=== PATIENT | male | born 1950 | race Caucasian/White ===

== ENCOUNTER 2023-03-08 11:44 | Inpatient (IN) | payer OTHER ==
--- OUTSIDE RECORDS SUMMARY | 2023-03-08 11:47 | XMS REPORT | Continuity of Care Document ---
Author Name Unknown Address [address] [facility] [address] [place] [address] [facility] Address [address] [facility] [address] [place] [address] Care Team Providers Care Library Consultant Name Role Phone Pcp, Patient Does Not Have A Primary Care Physic didier Francine Levine Attending Clinician Unknown, Attending Attending Clinician Unavailab FRANCINE Zhu Attending Clinician Unavailable Allergies, Adverse Reactions, Alerts Allergy Name Allergy Type Status Severity Reaction(s) Onset Date Inactive Date Treating Clinician Comments Source Penicill ins Propensi ty to adverse reaction s Active Other - See comments 2022-02 00:00: 00 Pale, shaky, dizzy [facility] PENICILL INS Drug Class Active Other-Cmnt 2022-02 00:00: 00 [facility] NO KNOWN ALLERGIE S Drug Class Active [facility] Social History Social Habit Start Date Stop Date Quantity Comments Source History of tobacco use Current smoker [facility] Sexual orientation [facility] History of Social function 2023-01-20 00:00:00 2023-01-20 00:00:00 [facility] Sex Ass[birth year] At 1950 00:00:00 1950 00:00:00 [facility] Smoking Status Start Date Stop Date Source Ex-smoker 2023-01-20 00:00:00 2023-01-20 00:00:00 [facility] Medications Ordered Medication Name Filled Medication Name Start Date Stop Date Current Medication? Ordering Clinician Indication Dosage Frequency Signature (SIG) Comments Components Source doxycycline hyclate 100 mg tablet 2022-02 00:00: 00 01-31 05:59 :00 Yes [id number] 100mg Take 1 tablet by mouth in the morning and 1 tablet in the evening. Do all this for 10 days. [facility] doxycycline hyclate 100 mg tablet 2022-02 00:00: 00 01-31 05:59 :00 Yes [id number] 100mg Take 1 tablet by mouth in the morning and 1 tablet in the evening. Do all this for 10 days. [facility] doxycycline 100 mg capsule 10-27 00:00: 00 Yes 100mg Take 1 capsule by mouth 2 (two) times daily. [facility] doxycycline 100 mg capsule 10-27 00:00: 00 Yes 100mg Take 1 capsule by mouth 2 (two) times daily. [facility] Vital Signs Vital Name Observation Time Observation Value Comments S ource Systolic blood pressure 2023-01-20 23:24:00 166 mm[Hg] [facility] Diastolic blood pressure 2023-01-20 23:24:00 88 mm[Hg] [facility] Heart rate 2023-01-20 23:21:00 82 /min [facility] Body temperature 2023-01-20 23:21:00 36.83 Meena [facility] Respiratory rate 2023-01-20 23:21:00 18 /min [facility] Body height 2023-01-20 23:21:00 177.8 cm [facility] Body weight 2023-01-20 23:21:00 91.428 kg [facility] BMI 2023-01-20 23:21:00 28.92 kg/m2 [facility] Oxygen saturation in Arterial blood by Pulse oximetry 2023-01-20 23:21:00 96 /min [facility] Encounters Start Date/Time End Date/Time Encounter Type Admission Type Attending Clinicians Care Facility Care Department Encounter ID Source 2023-01-26 00:00:00 2023-01-26 00:00:00 Telephone Francine Reaves [facility] [id number] [facility] 2023-01-20 16:40:00 2023-01-20 17:00:00 Urgent Care Francine Reaves Unknown, Attending [facility] [id number] [facility] 2023-01-20 16:40:00 2023-01-20 16:40:00 Outpatient R FRANCINE REAVES [facility] [id number] [facility]
[2023-03-08] MEDS ORDERED: ASPIRIN 81 MG CHEWABLE TABLET ONE ×2 (12:22→13:26)
[2023-03-08] MEDS ORDERED: NA CHLORIDE 0.9% 500 ML ONE (12:22)
[2023-03-08 12:35] LABS: Absolute Lymphocytes (CBC) 2.5 K/uL (0.7-4.9); Hematocrit 44.3 % (39.6-49.0); Lymphocytes % 29.6 % (15.3-44.8); MCV 86.6 fL (80-100); MPV 8.5 fL (7.6-11.3); Platelets 211 thou/uL (152-406); RBC Red Blood Cell Count 5.12 M/uL (4.33-5.43)
[2023-03-08 12:43] LABS: Protime INR 1.05
[2023-03-08 13:02] LABS: Albumin 3.9 g/dL (3.4-5.0); Bilirubin Direct 0.2 mg/dL (0-0.2); Bilirubin Indirect, Calculated 0.5 mg/dL (0.2-0.8); Bilirubin Total 0.7 mg/dL (0.2-1.0); Magnesium 2.2 mg/dL (1.6-2.4); Potassium 3.8 mEq/L (3.5-5.1); Protein, Total 7.8 g/dL (6.4-8.2)
[2023-03-08 13:07] LABS: Troponin High Sensitivity 309.3 pg/mL (<58.9)
[2023-03-08] MEDS ORDERED: ONDANSETRON 4 MG/2 ML VIAL ONE (13:25)
[2023-03-08] MEDS ORDERED: HEPARIN 5000 UNIT/ML 1 ML VIAL ONE ×2 (13:26→22:38)
[2023-03-08] MEDS ORDERED: CLOPIDOGREL 75 MG TABLET ONE (13:26)
[2023-03-08] MEDS ORDERED: METOPROLOL TARTRATE 5 MG/5 ML INJ IV ONE (13:26)
[2023-03-08] MEDS ORDERED: METOPROLOL TAR 50 MG TAB ONE ×2 (13:26→21:37)
[2023-03-08] MEDS ORDERED: ATORVASTATIN 20 MG TAB ONE (13:26)
[2023-03-08] MEDS ORDERED: FAMOTIDINE 20 MG/2 ML VIAL IV ONE (13:27)
[2023-03-08] MEDS ORDERED: HEPARIN/D5W 25,000 UNIT/500 ML BAG IV ONE (13:27)
[2023-03-08] MEDS ORDERED: MORPHINE 2 MG/ML SYR ONE (13:27)
--- NOTE | 2023-03-08 13:31 | RAD REPORT ---
EXAM DESCRIPTION: RAD - Chest Single View - 03/08/2023 1:09 pm CLINICAL HISTORY: CHEST PAIN Chest pain. COMPARISON: No comparisons FINDINGS: Portable technique limits examination quality. The lungs are grossly clear. The heart is normal in size. No displaced fractures. IMPRESSION: No acute intrathoracic process suspected.
--- NOTE | 2023-03-08 13:32 | ER ---
Nurse's Notes [facility] Name: Devyn Trejo Age: 72 yrs Sex: Male : 1950 Arrival Date: 03/08/2023 Time: 11:44 Bed 6 Private MD: Diagnosis: Non ST elevation CA;Chest pain, unspecified;Angina pectoris, unspecified;Essential (primary) hypertension Presentation: 03/08 12:06 Chief complaint: Patient states: he started having centered chest pain "a few days ago" ap3 of which he rates a 1/10 on the pain scale at this time. patient also reports that his arms "have been feeling funny" since the onset of this sensation in his chest. Patient reports he was treated for a sinus infection approx one month, and he has had a cough since. Coronavirus screen: At this time, the client does not indicate any symptoms associated with coronavirus-19. Ebola Screen: No symptoms or risks identified at this time. Initial Sepsis Screen: Does the patient meet any 2 criteria? HR > 90 bpm. Does the patient have a suspected source of infection? No. Patient's initial sepsis screen is negative. Risk Assessment: Do you want to hurt yourself or someone else? Patient reports no desire to harm self or others. Onset of symptoms was March 05, 2019. 12:06 Method Of Arrival: Ambulatory ap3 12:06 Acuity: KEN 2 ap3 Triage Assessment: 12:09 General: Appears in no apparent distress. Behavior is calm, cooperative, appropriate ap3 for age. Pain: Complains of pain in mid-sternal area Pain currently is 1 out of 10 on a pain scale. Pain began gradually, 2-3 days ago. Neuro: Level of Consciousness is awake, alert, obeys commands, Oriented to person, place, time, situation, Appropriate for age. Cardiovascular: Reports chest pain. Respiratory: Reports cough that is Airway is patent Respiratory effort is even, unlabored, Respiratory pattern is regular, symmetrical. Historical: - Allergies: 13:33 PENICILLINS; nj1 - Home Meds: 12:08 None [Active]; ap3 - PMHx: 12:08 None; ap3 - Immunization history:: Client reports receiving the 2nd dose of the Covid vaccine, Flu vaccine is not up to date. - Social history:: Smoking status: Patient denies any tobacco usage or history of. Screenin:09 [facility] ED Fall Risk Assessment (Adult) History of falling in the last 3 months, ap3 including since admission No falls in past 3 months (0 pts). Abuse screen: Denies threats or abuse. Nutritional screening: No deficits noted. Tuberculosis screening: No symptoms or risk factors identified. Assessment: 12:30 Reassessment: See triage assessment. Pain: Complains of pain in chest, right bicep and nj1 left bicep Pain currently is 1 out of 10 on a pain scale. 13:33 Reassessment: Patient appears in no apparent distress at this time. No changes from banner previously documented assessment. Patient and/or family updated on plan of care and expected duration. Pain level reassessed. Patient is alert, oriented x 3, equal unlabored respirations, skin warm/dry/pink. 14:00 Reassessment: Patient appears in no apparent distress at this time. No changes from banner previously documented assessment. Patient and/or family updated on plan of care and expected duration. Pain level reassessed. Patient is alert, oriented x 3, equal unlabored respirations, skin warm/dry/pink. 16:37 Pain: Pain radiates to left arm and right arm. ko1 03/09 09:57 Pain: Denies pain. ko1 Vital Signs: 03/08 12:06 BP 152 / 93; Pulse 97; Resp 17; Temp 98.2; Pulse Ox 100% ; Weight 90.72 kg; Height 5 ap3 ft. 10 in. ; Pain 1/10; 12:39 BP 153 / 82; Pulse 93; Resp 22; Pulse Ox 94% on R/A; nj1 13:32 BP 166 / 91; Pulse 86; Resp 18; Pulse Ox 98% on R/A; Pain 2/10; nj1 13:46 BP 164 / 87; Pulse 93; Resp 16; Pulse Ox 98% on R/A; nj1 14:00 BP 162 / 82; Pulse 79; Resp 16; Pulse Ox 97% ; nj1 12:06 Body Mass Index 28.70 (90.72 kg, 177.8 cm) ap3 12:06 Pain Scale: Adult ap3 13:32 Pain Scale: Adult nj1 ED Course: 11:49 Patient arrived in ED. gm2 12:08 Carter Johnson MD is Attending Physician. gloria 12:08 Triage completed. ap3 12:09 Arm band placed on left wrist. ap3 12:09 Patient maintains SpO2 saturation greater than 95% on room air. ap3 12:12 Patria Mayberry, RN is Primary Nurse. ko1 12:16 Primary Nurse role handed off by Patria Mayberry, RN nj1 12:16 Alicia Johnson, RN is Primary Nurse. nj1 12:22 Basic Metabolic Panel Sent. ko1 12:22 CBC with Diff Sent. ko1 12:22 LFT's Sent. ko1 12:22 Magnesium Sent. ko1 12:22 NT PRO-BNP Sent. ko1 12:22 Troponin HS Sent. ko1 12:22 PT-INR Sent. ko1 12:22 Lipase Sent. ko1 12:38 Inserted saline lock: 22 gauge in right antecubital area, using aseptic technique. ds4 Blood collected. 12:41 Patient has correct armband on for positive identification. Bed in low position. Call nj1 light in reach. Adult w/ patient. Provided Education on: call light, fall precautions. Client placed on continuous cardiac and pulse oximetry monitoring. NIBP monitoring applied. 13:07 Notified ED physician of a critical lab result(s). troponin 309.3. ll1 13:10 XRAY Chest (1 view) In Process Unspecified. EDMS 13:28 Inserted saline lock: 22 gauge in left forearm, using aseptic technique. ds4 13:30 Moses Jaramillo MD is Hospitalizing Provider. gloria 14:18 Troponin High Sensitivity Sent. ko1 16:37 No provider procedures requiring assistance completed. ko1 21:00 Patient admitted, IV remains in place. km8 03/09 07:21 Ptt, Activated Sent. ko1 07:23 Ptt, Activated Sent. ko1 07:23 Ptt, Activated Sent. ko1 07:23 Ptt, Activated Sent. ko1 07:23 Ptt, Activated Sent. ko1 Administered Medications: 03/08 12:23 Drug: Aspirin PO 162 mg PO once Route: PO; nj1 13:00 Follow up: Response: No adverse reaction nj1 12:33 Drug: NS 0.9% IV 500 ml IV at bolus once Route: IV; Rate: bolus; Site: right nj1 antecubital; 13:00 Follow up: IV Status: Completed infusion; IV Intake: 500ml nj1 13:33 Drug: Aspirin PO Chewable Tablet 162 mg PO once Route: PO; nj1 21: Follow up: Response: No adverse reaction 8 13:34 Drug: Clopidogrel PO 300 mg PO once Route: PO; nj1 21: Follow up: Response: No adverse reaction 8 13:34 Drug: Atorvastatin PO 20 mg PO once Route: PO; nj1 21:00 Follow up: Response: No adverse reaction 8 13:34 Drug: Metoprolol PO 50 mg PO once Route: PO; nj1 : Follow up: Response: No adverse reaction 8 13:37 Drug: Ondansetron IVP 4 mg IVP once; over 2 minutes Route: IVP; Site: right antecubital;nj1 : Follow up: Response: No adverse reaction 8 13:38 Drug: morphine IVP or IV 2 mg IVP once over 4 mins Route: IVP; Infused Over: 4 mins; ri1 Site: left antecubital; :00 Follow up: Response: No adverse reaction 8 13:40 Drug: Heparin (CA-Bolus No thrombolytic) - HEParin IVP 60 units/kg IVP once; Max 5000 nj1 units {Co-Signature: suzanna (Patria Mayberry RN).} Route: IVP; Site: right antecubital; 21:00 Follow up: Response: No adverse reaction 8 13:40 Drug: Heparin (CA Drip) 12 units/kg/[place] - ([place] [address] units, D5W IV 500 ml) IV at nj1 calculated rate Per protocol; Max initial rate 1000 units/hr {Co-Signature: suzanna (Patria Mayberry RN).} Route: IV; Rate: calculated rate; Site: right antecubital; 21:00 Follow up: IV Status: Infusion continued upon admission 8 13:43 Drug: Famotidine IVP 20 mg IVP once; dilute with 10 mL 0.9% NaCl; give over 2 minutes nj Route: IVP; Site: left antecubital; 21:00 Follow up: Response: No adverse reaction 8 13:47 Drug: Metoprolol IVP 5 mg IVP once; Hold for SBP <100 or HR <60. Route: IVP; Site: left banner antecubital; 21:00 Follow up: Response: No adverse reaction km8 Medication: 16:37 VIS not applicable for this client. ko1 Intake: 13:00 IV: 500ml; Total: 500ml. nj1 Outcome: 13:31 Decision to Hospitalize by Provider. gloria :00 Admitted to ER Hold. Please see [facility] for further documentation. km8 21: Condition: stable 21:00 Instructed on the need for admit, Demonstrated understanding of instructions, km8 03/09 09:58 Patient left the ED. ko1 Signatures: Dispatcher [employer] EDMT Carter Johnson MD MD cha Swanson, Donovan ds4 Gertrudis Maguire RN RN hung3 Mago Leon RN RN ll1 Patria Mayberry, RN RN ko1 Alicia Johnson RN RN nupur1 Taylor Malloy [facility] Aida Reynoso RN RN km8 Patria Mayberry RN1 Corrections: (The following items were deleted from the chart) 03/08 13:08 13:07 Notified ED physician of a critical lab result(s). troponin 306.3 ll1 ll1 14:00 12:08 Allergies: No Known Allergies; ap3 nj1
--- NOTE | 2023-03-08 13:32 | EDPHYS ---
Physician Documentation [facility] Name: Devyn Trejo Age: 72 yrs Sex: Male : 1950 Arrival Date: 03/08/2023 Time: 11:44 Bed 6 Private MD: ED Physician Carter Johnson HPI: 03/08 13:19 This 72 yrs old Male presents to ER via Ambulatory with complaints of Chest gloria Pain, Numbness. 13:19 The patient or guardian reports chest pain that is located primarily in the substernal gloria area, anterior chest wall, bilaterally. Onset: 1 week(s) ago. The pain radiates to both arms. Associated signs and symptoms: Pertinent positives: lightheadedness, shortness of breath. The chest pain is described as aching. Duration: The patient or guardian reports multiple episodes, that wax and wane. Modifying factors: The symptoms are alleviated by remaining still, rest, the symptoms are aggravated by exertion. Severity of pain: At its worst the pain was mild in the emergency department the pain has resolved. The patient has experienced similar episodes in the past, several times, this week. Historical: - Allergies: 13:33 PENICILLINS; nj1 - Home Meds: 12:08 None [Active]; ap3 - PMHx: 12:08 None; ap3 - Immunization history:: Client reports receiving the 2nd dose of the Covid vaccine, Flu vaccine is not up to date. - Social history:: Smoking status: Patient denies any tobacco usage or history of. ROS: 13:21 Constitutional: Negative for fever, chills, and weight loss, Eyes: Negative for injury, gloria pain, redness, and discharge, ENT: Negative for injury, pain, and discharge, Neck: Negative for injury, pain, and swelling, Respiratory: Negative for shortness of breath, cough, wheezing, and pleuritic chest pain, Abdomen/GI: Negative for abdominal pain, nausea, vomiting, diarrhea, and constipation, Back: Negative for injury and pain, : Negative for injury, bleeding, discharge, and swelling, MS/Extremity: Negative for injury and deformity, Skin: Negative for injury, rash, and discoloration, Neuro: Negative for headache, weakness, numbness, tingling, and seizure, Psych: Negative for depression, anxiety, suicide ideation, homicidal ideation, and hallucinations, Allergy/Immunology: Negative for hives, rash, and allergies, Endocrine: Negative for neck swelling, polydipsia, polyuria, polyphagia, and marked weight changes, Hematologic/Lymphatic: Negative for swollen nodes, abnormal bleeding, and unusual bruising, 13:21 Cardiovascular: Positive for chest pain, of the chest and left arm and right arm, Exam: 13:21 Constitutional: This is a well developed, well nourished patient who is awake, alert, gloria and in no acute distress. Head/Face: Normocephalic, atraumatic. Eyes: Pupils equal round and reactive to light, extra-ocular motions intact. Lids and lashes normal. Conjunctiva and sclera are non-icteric and not injected. Cornea within normal limits. Periorbital areas with no swelling, redness, or edema. ENT: Nares patent. No nasal discharge, no septal abnormalities noted. Tympanic membranes are normal and external auditory canals are clear. Oropharynx with no redness, swelling, or masses, exudates, or evidence of obstruction, uvula midline. Mucous membranes moist. Neck: Trachea midline, no thyromegaly or masses palpated, and no cervical lymphadenopathy. Supple, full range of motion without nuchal rigidity, or vertebral point tenderness. No Meningismus. Chest/axilla: Normal chest wall appearance and motion. Nontender with no deformity. No lesions are appreciated. Cardiovascular: Regular rate and rhythm with a normal S1 and S2. No gallops, murmurs, or rubs. Normal PMI, no JVD. No pulse deficits. Respiratory: Lungs have equal breath sounds bilaterally, clear to auscultation and percussion. No rales, rhonchi or wheezes noted. No increased work of breathing, no retractions or nasal flaring. Abdomen/GI: Soft, non-tender, with normal bowel sounds. No distension or tympany. No guarding or rebound. No evidence of tenderness throughout. Back: No spinal tenderness. No costovertebral tenderness. Full range of motion. Male : Normal genitalia with no discharge or lesions. Skin: Warm, dry with normal turgor. Normal color with no rashes, no lesions, and no evidence of cellulitis. MS/ Extremity: Pulses equal, no cyanosis. Neurovascular intact. Full, normal range of motion. Neuro: Awake and alert, GCS 15, oriented to person, place, time, and situation. Cranial nerves II-XII grossly intact. Motor strength 5/5 in all extremities. Sensory grossly intact. Cerebellar exam normal. Normal gait. Psych: Awake, alert, with orientation to person, place and time. Behavior, mood, and affect are within normal limits. 13:21 ECG was reviewed by the Attending Physician. 14:05 ECG was reviewed by the Attending Physician. [facility] Vital Signs: 12:06 BP 152 / 93; Pulse 97; Resp 17; Temp 98.2; Pulse Ox 100% ; Weight 90.72 kg; Height 5 ap3 ft. 10 in. ; Pain 1/10; 12:39 BP 153 / 82; Pulse 93; Resp 22; Pulse Ox 94% on R/A; nj1 13:32 BP 166 / 91; Pulse 86; Resp 18; Pulse Ox 98% on R/A; Pain 2/10; nj1 13:46 BP 164 / 87; Pulse 93; Resp 16; Pulse Ox 98% on R/A; nj1 14:00 BP 162 / 82; Pulse 79; Resp 16; Pulse Ox 97% ; nj1 12:06 Body Mass Index 28.70 (90.72 kg, 177.8 cm) ap3 12:06 Pain Scale: Adult ap3 13:32 Pain Scale: Adult nj1 MDM: 12:11 Patient medically screened. [facility] 13:23 Differential diagnosis: abnormal EKG, acute myocardial infarction, acute pericarditis, gloria anxiety, coronary artery disease chest wall pain, congestive heart failure Cholelithiasis esophagitis, hiatal hernia, pancreatitis, peptic ulcer disease, pneumonia, pneumothorax, pulmonary embolus, stable angina, thoracic aortic disection, unstable angina. HEART Score: History: Highly Suspicious (2), ECG: Non specific repolarization disturbance / LBTB / PM (1), Age: > or = 65 years (2), Risk Factors: > or = 3 Risk factors for atherosclerotic disease (2), [Hypercholesterolemia] [Hypertension] [+ Family HX] Troponin: > or = 3 x Normal Limit (2), Total Score = 9. The patient was given aspirin in the Emergency Department. ODIN Risk Score: 1 - patient's age is greater or equal to 65 years, 1 - Three or more CAD risk factors, 1 - Recent [<24hrs] Severe Angina, 1 - Elevated Cardiac Markers, TOTAL SCORE = 4. Data reviewed: vital signs, nurses notes, lab test result(s), EKG, radiologic studies, CT scan, plain films. Consideration of Admission/Observation Patient was admitted/placed on observation. Escalation of care including admission/observation considered. I considered the following discharge prescriptions or medication management in the emergency department Medications were administered in the Emergency Department. See MAR. Independent interpretation of the following test(s) in the Emergency Department EKG: See my EKG interpretation above. Test considered but Not performed: CT: no ct chest. Historians other than the Patient: Family Member: son, and daughter, all well informed. Care significantly affected by the following chronic conditions: Hypertension. 03/08 12:09 Order name: Basic Metabolic Panel; Complete Time: 13:11 [facility] 03/08 12:09 Order name: CBC with Diff; Complete Time: 13:11 [facility] 03/08 12:09 Order name: LFT's; Complete Time: 13:11 [facility] 03/08 12:09 Order name: Magnesium; Complete Time: 13:11 [facility] 03/08 12:09 Order name: NT PRO-BNP; Complete Time: 13:11 [facility] 03/08 12:09 Order name: PT-INR; Complete Time: 13:11 [facility] 03/08 12:09 Order name: Troponin HS; Complete Time: 13:11 [facility] 03/08 12:09 Order name: Lipase; Complete Time: 13:11 [facility] 03/08 13:19 Order name: Lipid Profile; Complete Time: 13:38 [facility] 03/08 14:09 Order name: Troponin High Sensitivity EDMS 03/08 15:34 Order name: Ptt, Activated as6 03/08 15:54 Order name: PTT, Activated Partial Thromb EDMS 03/08 17:48 Order name: Ptt, Activated nj1 03/08 18:10 Order name: PTT, Activated Partial Thromb EDMS 03/08 21:35 Order name: Ptt, Activated km8 03/08 22:25 Order name: PTT, Activated Partial Thromb EDMS 03/08 22:29 Order name: Troponin High Sensitivity EDMS 03/09 02:36 Order name: Ptt, Activated km8 03/09 03:03 Order name: PTT, Activated Partial Thromb EDMS 03/09 05:25 Order name: CBC with Automated Diff EDMS 03/09 05:39 Order name: Comprehensive Metabolic Panel EDMS 03/09 05:39 Order name: Phosphorus EDMS 03/09 05:39 Order name: Troponin High Sensitivity [facility] 03/09 05:39 Order name: NT PRO-BNP [facility] 03/09 05:39 Order name: Lipid Profile [facility] 03/09 05:39 Order name: Magnesium [facility] 03/09 06:46 Order name: Ptt, Activated km8 03/09 07:35 Order name: PTT, Activated Partial Thromb [facility] 03/08 12:09 Order name: XRAY Chest (1 view); Complete Time: 13:38 [facility] 03/08 12:09 Order name: EKG; Complete Time: 12:09 [facility] 03/08 13:21 Order name: EKG; Complete Time: 13:21 03/08 14:04 Order name: CONS Physician Consult [facility] 03/08 12:09 Order name: Cardiac monitoring; Complete Time: 12:12 [facility] 03/08 12:09 Order name: EKG - Nurse/Tech; Complete Time: 12:16 [facility] 03/08 12:09 Order name: IV Saline Lock; Complete Time: 12:22 [facility] 03/08 12:09 Order name: Labs collected and sent; Complete Time: 12:22 [facility] 03/08 12:09 Order name: O2 Per Protocol; Complete Time: 12:12 [facility] 03/08 12:09 Order name: O2 Sat Monitoring; Complete Time: 12:12 [facility] EC:21 Rate is 91 beats/min. Rhythm is regular. QRS Pan[place] is Normal. [place] interval is normal. QRS gloria interval is normal. QT interval is normal. No Q waves. T waves are Normal. No ST changes noted. Clinical impression: NSR w/ Non-specific ST/T Changes. Interpreted by me. Reviewed by me. 14:05 Rate is 89 beats/min. Rhythm is regular. QRS Panora is Normal. [place] interval is normal. QRS gloria interval is normal. QT interval is normal. No Q waves. T waves are Normal. No ST changes noted. Clinical impression: Abnormal EKG without significant change and No evidence of ischemia. Interpreted by me. Reviewed by me. Administered Medications: 12:23 Drug: Aspirin PO 162 mg PO once Route: PO; nj1 13:00 Follow up: Response: No adverse reaction ny1 12:33 Drug: NS 0.9% IV 500 ml IV at bolus once Route: IV; Rate: bolus; Site: right nj1 antecubital; 13:00 Follow up: IV Status: Completed infusion; IV Intake: 500ml 1 13:33 Drug: Aspirin PO Chewable Tablet 162 mg PO once Route: PO; nj1 : Follow up: Response: No adverse reaction 8 13:34 Drug: Clopidogrel PO 300 mg PO once Route: PO; nj1 : Follow up: Response: No adverse reaction 8 13:34 Drug: Atorvastatin PO 20 mg PO once Route: PO; nj1 : Follow up: Response: No adverse reaction 8 13:34 Drug: Metoprolol PO 50 mg PO once Route: PO; nj1 : Follow up: Response: No adverse reaction 8 13:37 Drug: Ondansetron IVP 4 mg IVP once; over 2 minutes Route: IVP; Site: right antecubital;ny1 : Follow up: Response: No adverse reaction 8 13:38 Drug: morphine IVP or IV 2 mg IVP once over 4 mins Route: IVP; Infused Over: 4 mins; [facility] Site: left antecubital; : Follow up: Response: No adverse reaction 8 13:40 Drug: Heparin (GA-Bolus No thrombolytic) - HEParin IVP 60 units/kg IVP once; Max 5000 nj1 units {Co-Signature: suzanna (Patria Mayberry RN).} Route: IVP; Site: right antecubital; :00 Follow up: Response: No adverse reaction 8 13:40 Drug: Heparin (GA Drip) 12 units/kg/[place] - ([place] [address] units, D5W IV 500 ml) IV at [facility] calculated rate Per protocol; Max initial rate 1000 units/hr {Co-Signature: suzanna (Patria Mayberry RN).} Route: IV; Rate: calculated rate; Site: right antecubital; :00 Follow up: IV Status: Infusion continued upon admission 8 13:43 Drug: Famotidine IVP 20 mg IVP once; dilute with 10 mL 0.9% NaCl; give over 2 minutes nj1 Route: IVP; Site: left antecubital; 21:00 Follow up: Response: No adverse reaction 8 13:47 Drug: Metoprolol IVP 5 mg IVP once; Hold for SBP <100 or HR <60. Route: IVP; Site: left nj1 antecubital; 21:00 Follow up: Response: No adverse reaction km8 Disposition Summary: 03/08/23 13:31 Hospitalization Ordered Notes: Hospitalization Status: Inpatient Admission gloria Provider: Moses Jaramillo cha Condition: Fair gloria Problem: new gloria Symptoms: have improved gloria Bed/Room Type: Standard gloria Location: [facility] ER HOLD(03/08/23 15:14) ap3 Room Assignment: ERHOLD-(03/08/23 15:14) ap3 Diagnosis - Non ST elevation GA gloria - Chest pain, unspecified gloria - Angina pectoris, unspecified gloria - Essential (primary) hypertension gloria Forms: - Medication Reconciliation Form gloria - SBAR form gloria - Leadership Thank You Letter gloria Signatures: Dispatcher [employer] EDCarter Burks MD MD cha Prokisch, Amanda RN RN ap3 Alicia Johnson RN RN nj1 Aida Reynoso RN km8 Patria Mayberry RN ko1 Corrections: (The following items were deleted from the chart) 14:00 12:08 Allergies: No Known Allergies; ap3 nj1 15:14 13:31 Intensive Care Unit [facility] ap3 15:14 13:31 [facility] ap3
[2023-03-08] MEDS: HEPARIN/D5W 25,000 UNIT/500 ML BAG IV SCH ×2 (13:40→22:41)
--- NOTE | 2023-03-08 14:00 | P.HP ---
Certification for Inpatient Patient admitted to: Inpatient With expected LOS: >2 Midnights Patient will require the following post-hospital care: None Practitioner: I am a practitioner with admitting privileges, knowledge of patient current condition, hospital course, and medical plan of care. Services: Services provided to patient in accordance with Admission requirements found in Title 42 Section 412.3 of the Code of Federal Regulations Patient History Date of Service: 03/08/23 Reason for admission: Chest pain/numbness History of Present Illness: Patient is 72-year-old gentleman who came to the hospital with chest discomfort. Pain was mainly in the epigastric region. Patient states been having this pain for the last 5 days. He has been noticing that he gets really short of breath [place] Patient states that he was not like this until a few weeks ago. Afterwards he got short of breath. This chest pain has been worsening again today it was severe so he came to the hospital for further evaluation. In the emergency room his troponins were elevated. Patient was seen by emergency room physician and started on heparin along with antiplatelet therapy and statin therapy. Patient also on Lopressor. Patient will be admitted to the hospital for further evaluation. - Past Medical/Surgical History -: None -: Denies - Family History Father Family History: Reviewed- Non-Contributory - Social History Smoking Status: Former smoker Alcohol use: No CD- Drugs: No Review of Systems 10-point ROS is otherwise unremarkable Physical Examination - Vital Signs Temperature: 98 F (Vitals reviewed) - Physical Exam General: Alert, In no apparent distress, Oriented x3 HEENT: Atraumatic, PERRLA, Mucous membr. moist/pink, EOMI, Sclerae nonicteric Neck: Supple, 2+ carotid pulse no bruit, No LAD, Without JVD or thyroid abnormality Respiratory: Clear to auscultation bilaterally, Normal air movement Cardiovascular: Regular rate/rhythm, Normal S1 S2 Gastrointestinal: Normal bowel sounds, Soft and benign, Non-distended, No tenderness Musculoskeletal: No clubbing, No swelling, No tenderness Integumentary: No rashes Neurological: Normal gait, Normal speech, Normal strength at 5/5 x4 extr, Normal tone, Sensation intact, Cranial nerves 3-12 intact, Normal affect Lymphatics: No axilla or inguinal lymphadenopathy - Studies Laboratory Data (last 24 hrs) 03/08/23 03/08/2324 12:25 12:25 12:25 WBC 8.60 Hgb 15.2 Hct 44.3 Plt Count 211 PT 11.5 INR 1.05 Sodium Potassium BUN Creatinine Glucose Magnesium Total Bilirubin AST ALT Alkaline Phosphatase Triglycerides 333 H Cholesterol 209 H HDL Cholesterol 39 L Cholesterol/HDL Ratio 5.36 Lipase 03/08/23 12:25 WBC Hgb Hct Plt Count PT INR Sodium 136 Potassium 3.8 BUN 12 Creatinine 0.95 Glucose 209 H Magnesium 2.2 Total Bilirubin 0.7 AST 29 ALT 35 Alkaline Phosphatase 112 Triglycerides Cholesterol HDL Cholesterol Cholesterol/HDL Ratio Lipase 16 Assessment & Plan - Problems (Diagnosis) (1) Chest pain, rule out acute myocardial infarction Current Visit: Yes Status: Acute (2) Unstable angina Current Visit: Yes Status: Acute (3) Tobacco abuse Current Visit: Yes Status: Acute - Plan -High-sensitivity troponin -Cardiology consultation -Echocardiogram and further treatment per cardiology recommendation -Repeat EKG -N.p.o. after midnight -Lipid profile -Label Printer regarding modifying risk for cardiac disease Discharge Plan: Home Plan to discharge in: Greater than 2 days - Advance Directives Does patient have a Living Will: No Does patient have a Durable POA for Healthcare: No - Code Status/Comfort Care Code Status Assessed: Yes Code Status: Full Code Critical Care: Yes Time Spent Managing PTS Care (In Minutes): 45
[2023-03-08] MEDS ORDERED: ONDANSETRON 4 MG/2 ML VIAL IV PRN (14:08)
[2023-03-08] MEDS ORDERED: ACETAMINOPHEN 500 MG TAB PO PRN (14:08)
[2023-03-08] MEDS ORDERED: HEPARIN 5000 UNIT/ML 1 ML VIAL IV ONE (14:37)
[2023-03-08 16:02] VITALS: BMI 28.7
[2023-03-08] MEDS ORDERED: METOPROLOL TAR 50 MG TAB PO SCH (21:00)
[2023-03-08] MEDS ORDERED: ATORVASTATIN 80 MG TAB PO SCH (21:00)
[2023-03-08] MEDS ORDERED: ATORVASTATIN 40 MG TAB ONE (21:37)
[2023-03-09 05:18] LABS: Absolute Lymphocytes (CBC) 3.3 K/uL (0.7-4.9); Hematocrit 41.1 % (39.6-49.0); Lymphocytes % 31.8 % (15.3-44.8); MCV 86.2 fL (80-100); MPV 8.8 fL (7.6-11.3); Platelets 222 thou/uL (152-406); RBC Red Blood Cell Count 4.77 M/uL (4.33-5.43)
[2023-03-09 05:33] LABS: Albumin 3.5 g/dL (3.4-5.0); Magnesium 2.2 mg/dL (1.6-2.4); Phosphorus 2.8 mg/dL (2.5-4.9); Potassium 3.9 mEq/L (3.5-5.1); Protein, Total 7.4 g/dL (6.4-8.2)
[2023-03-09 05:39] LABS: Troponin High Sensitivity 360.5 pg/mL (<58.9)
[2023-03-09] MEDS ORDERED: POTASSIUM 25 MEQ EFFERV TAB PO ONE (06:44)
[2023-03-09] MEDS ORDERED: POTASSIUM 25 MEQ EFFERV TAB ONE (06:48)
[2023-03-09] MEDS ORDERED: ASPIRIN EC 81 MG TAB PO SCH (09:00)
[2023-03-09] MEDS ORDERED: CLOPIDOGREL 75 MG TABLET PO SCH (09:00)
[2023-03-09 09:01] VITALS: TEMP 97
[2023-03-09] MEDS ORDERED: NA CHLORIDE 0.9% 500 ML ONE (10:05)
[2023-03-09] MEDS ORDERED: LIDOCAINE 1% 20 ML MDV ONE (10:32)
[2023-03-09] MEDS ORDERED: HEPA 1000U/500MLS 2,000 UNIT/1,000 ML BAG IV ONE (10:32)
[2023-03-09] MEDS ORDERED: ATROPINE SULF 1 MG/10 ML SYR IV ONE (10:37)
[2023-03-09] MEDS ORDERED: MIDAZOLAM HCL 2 MG/2 ML INJ ONE (10:37)
[2023-03-09] MEDS ORDERED: VERAPAMIL HCL 10 MG/4 ML VIAL IV ONE (10:37)
[2023-03-09] MEDS ORDERED: FENTANYL CITR 100 MCG/2 ML ONE (10:37)
[2023-03-09] MEDS ORDERED: HEPARIN 10,000 UNIT/10 ML VIAL IV ONE (10:38)
[2023-03-09] MEDS ORDERED: CLOPIDOGREL 75 MG TABLET ONE (10:38)
[2023-03-09] MEDS ORDERED: TICAGRELOR 90 MG TABLET PO ONE (10:38)
[2023-03-09] MEDS ORDERED: HEPARIN 5000 UNIT/ML 1 ML VIAL ONE (10:38)
[2023-03-09] MEDS ORDERED: ASPIRIN 325 MG TAB ONE (10:39)
--- NOTE | 2023-03-09 12:09 | PN ---
Date of Progress Note: 03/09/2023 Subjective: Seen by bedside. Continues to have chest pain, so took him to the [employer] [facility] and found se dobbs multivessel coronary artery disease. Review of Systems: Positive for chest pain. No shortness of breath on exertion. No nausea, vomiting, diarrhea. No abd ominal pain. No history of urinary urgency. No skin rash or headache. All other systems were revie wed, they were negative. Physical Examination: Vital Signs: Reviewed. Head and Neck: Pupils are equal, reactive to light. Intact eye movements. No JVD. No cervical lym phadenopathy. Neck is supple. Thyroid is not enlarged. Lungs: Clear to auscultation bilaterally. No rhonchi, rales, or crackles. No accessory muscle use. Heart: Regular rate and rhythm. No extra sounds. Abdomen: Soft, nontender. Bowel sounds positive. No organomegaly. No masses or hernia. No rigidi ty or rebound. Extremities: No edema, clubbing, or cyanosis. Intact pulses. Skin: No rashes. Neurologic: Alert, awake, oriented x3. No gross focal deficits appreciated. lymph Nodes: No cervical or axillary lymphadenopathy. Investigations: Labs reviewed. Assessment And Recommendation: 1.Qjf-VF-[id number] myocardial infarction, status post coronary angiogram this morning. He has sever e multivessel disease. The culprit is the PDA. Continue IV heparin drip after sheath is removed, ba by aspirin and we will transfer today for evaluation for CABG. 2.Dyslipidemia, start Lipitor 40 mg q.h.s. 3.Hypertension. Recommend to start metoprolol 25 mg twice a day and obtain an echocardiogram. /GENNYL Voice ID: [id number] Report ID: [id number]
--- NOTE | 2023-03-09 12:54 | OP ---
Date of Procedure: 03/09/2023 Surgeon: RADHA CA Procedures Performed: 1.Selective coronary angiogram. 2.Left heart catheterization. Indication: Eya-IP-vlxeothes myocardial infarction. Access: Right radial artery 6-Kittitian closed with TR band. Complications: None. Bleeding: Less than 20 mL. Anesthesia: Total sedation time was 45 minutes. Used fentanyl and Versed. Description Of Procedure: After risks, benefits, and alternatives were explained, patient agreed to procedure and signed informed consent. The patient was brought into cardiac catheterization laborato , prepped and draped in the usual sterile fashion. Then I accessed right radial artery using pedRegalBox tric micropuncture kit and placed a 6-Kittitian Slender sheath, took 5-Kittitian [place] 4.0 catheter into th e aortic root and engaged the left main, took standard views, and in the RCA, took standard views and the catheter was pushed over the wire into the LV, measured the LVEDP. Pullback did not record any gradient. Then I removed the catheter and the sheath, placed TR band with good hemostasis. Findings: 1.Left main is large with ostial maybe 30% stenosis. 2.LAD; heavily diseased vessel in the ostium and the proximal segment 70% stenosis, mid segment diff use 80% stenosis before diagonal 2, and after diagonal 2, there is a 70% to 80% stenosis and then ano ther focal 80% stenosis, then the LAD becomes free of disease. 3.Left circumflex; proximal 80% stenosis. OM is a very large branch, has 80% proximally and in the mid segment is 90% stenosis. 4.RCA; large and dominant, mid diffuse 80% stenosis, mid to distal stenosis and the PDA h as proximal 99% stenosis with ODIN-1 flow. 5.LVEDP is 12 mmHg. Conclusions: 1.Severe multivessel coronary artery disease. 2.Elevated LVEDP slightly. Plan: Transfer for CABG. SR/MODL Voice ID: [id number] Report ID: [id number]
--- NOTE | 2023-03-09 13:09 | CON ---
Date of Consultation: 03/08/2023 Reason For Consultation: Chest pain and elevated troponin. History Of Present Illness: 72-year-old male, no medical history. Does not take any medications, no nsmoker, comes into the emergency room because of chest pressure, radiates to his neck, jaw, and left upper extremities, and with any small activity, started with more strenuous activities about a week ago and now it is happening more frequent even with mild activities, so he has been sitting around to get relief. Troponin was borderline elevated and he does have shortness of breath with exertion as well. Past Medical History: None. Medications: None. Allergies: TO PENICILLIN. Family History: No premature coronary artery disease or cancer. Social History: He does not smoke or drink. Does not use any drugs. Review of Systems: All systems reviewed and they were negative except as mentioned in the HPI. Physical Examination: Vital Signs: Reviewed. Head and Neck: Pupils are equal, reactive to light. Intact eye movements. No JVD. No cervical lym phadenopathy. Neck: Supple. Thyroid is not enlarged. Lungs: Clear to auscultation bilaterally. No rhonchi, wheezing, or crackles. No accessory muscle u se. Heart: Regular rate and rhythm. No extra sounds. Abdomen: Soft, nontender. Bowel sounds positive. No organomegaly. No masses or hernia. No rigidi ty or rebound. Extremities: No edema, clubbing, or cyanosis. Intact pulses. Skin: No rash or nodule. Neurologic: Alert, awake, oriented x3. No acute focal deficits appreciated. Lymph Nodes: No cervical or axillary lymphadenopathy. Investigations: Troponins is in the 300 range. Creatinine is 1.05. Assessment And Recommendations: 1.Ppy-CF-rdosudscm myocardial infarction, typical symptoms. Keep him on heparin drip and baby aspir in. Use nitroglycerin for pain control and morphine sulfate. Keep NPO past midnight for coronary an giogram early in the morning. 2.Shortness of breath on exertion, likely due to coronary artery disease and possible congestive hea rt failure. Obtain an echo and elective coronary angiogram as outlined above. 3.Elevated blood pressure. No history of hypertension. Monitor blood pressure and decide on treatm ent accordingly. SR/MODL Voice ID: [id number] Report ID: [id number]
--- NOTE | 2023-03-09 14:05 | P.PN ---
Subjective Date of Service: 03/09/23 Chief Complaint: Chest pain/numbness Reports chest pain 1 out of 10, on heparin drip, at bedside, plan for Geriatric Nurse today. - Physical Exam General: Alert, In no apparent distress, Oriented x3 HEENT: Atraumatic, PERRLA, Mucous membr. moist/pink, EOMI, Sclerae nonicteric Neck: Supple, 2+ carotid pulse no bruit, No LAD, Without JVD or thyroid abnormality Respiratory: Clear to auscultation bilaterally, Normal air movement Cardiovascular: Regular rate/rhythm, Normal S1 S2 Gastrointestinal: Normal bowel sounds, Soft and benign, Non-distended, No tenderness Musculoskeletal: No clubbing, No swelling, No tenderness Integumentary: No rashes Neurological: Normal gait, Normal speech, Normal strength at 5/5 x4 extr, Normal tone, Sensation intact, Cranial nerves 3-12 intact, Normal affect Lymphatics: No axilla or inguinal lymphadenopathy Review of Systems per HPI Physical Examination - Vital Signs Temperature: 97 F Blood Pressure: 121/71 Pulse: 82 Respirations: 18 Pulse Ox (%): 95 - Studies Laboratory Data (last 24 hrs) 03/08/23 12:25 APTT 28.2 Assessment And Plan - Plan Assessment plan Unstable angina Chest pain rule out HI Elevated troponin Cardiology consult, heparin drip, as needed analgesics, antilipid's, aspirin, nitro Echo n.p.o. plan for cardiac cath Lipid panel triglycerides 333, cholesterol 209, HDL 39, lipase normal at 16 Troponins 309.9, 315.6, 387.6, 360.5 03/09 status postcardiac cath Severe multivessel coronary artery disease. 2. Elevated LVEDP slightly. Findings: 1. Left main is large with ostial maybe 30% stenosis. 2. LAD; heavily diseased vessel in the ostium and the proximal segment 70% stenosis, mid segment diffuse 80% stenosis before diagonal 2, and after diagonal 2, there is a 70% to 80% stenosis and then another focal 80% stenosis, then the LAD becomes free of disease. 3. Left circumflex; proximal 80% stenosis. OM is a very large branch, has 80% proximally and in the mid segment is 90% stenosis. 4. RCA; large and dominant, mid diffuse 80% stenosis, mid to distal stenosis and the PDA has proximal 99% stenosis with ODIN-1 flow. 5. LVEDP is 12 mmHg. Tobacco use Educated on tobacco cessation Diet n.p.o. Full code DVT heparin drip Plan to transfer for CABG Discharge Plan: Home - Code Status/Comfort Care Code Status: Full Code Critical Care: Yes Time Spent Managing PTS Care (In Minutes): 50
--- NOTE | 2023-03-09 15:24 | P.DS ---
Admission Date: 03/08/23 Discharge Date: 03/09/23 Disposition: TRANSFER TO [facility] Discharge Condition: FAIR Reason for Admission: Chest pain/numbness Brief History of Present Illness: Patient is 72-year-old gentleman who came to the hospital with chest discomfort. Pain was mainly in the epigastric region. Patient states been having this pain for the last 5 days. He has been noticing that he gets really short of breath [place] Patient states that he was not like this until a few weeks ago. Afterwards he got short of breath. This chest pain has been worsening again today it was severe so he came to the hospital for further evaluation. In the emergency room his troponins were elevated. Patient was seen by emergency room physician and started on heparin along with antiplatelet therapy and statin therapy. Patient also on Lopressor. Patient will be admitted to the hospital for further evaluation. - Physical Exam General: Alert, In no apparent distress, Oriented x3 HEENT: Atraumatic, PERRLA, Mucous membr. moist/pink, EOMI, Sclerae nonicteric Neck: Supple, 2+ carotid pulse no bruit, No LAD, Without JVD or thyroid abnormality Respiratory: Clear to auscultation bilaterally, Normal air movement Cardiovascular: Regular rate/rhythm, Normal S1 S2 Gastrointestinal: Normal bowel sounds, Soft and benign, Non-distended, No tenderness Musculoskeletal: No clubbing, No swelling, No tenderness Integumentary: No rashes Neurological: Normal gait, Normal speech, Normal strength at 5/5 x4 extr, Normal tone, Sensation intact, Cranial nerves 3-12 intact, Normal affect Lymphatics: No axilla or inguinal lymphadenopathy Hospital Course: 77 year-old patient with a past medical history CAD, hypertension, hyp erlipidemia presented with unstable angina, chest pain. Was noted to have elevated troponins, unstable angina. Was seen by cardiology, treated with heart cath. Heart cath noted 1. Severe multivessel coronary artery disease. 2. Elevated LVEDP slightly. Per cardiology plan: Transfer for CABG Assessment plan Unstable angina Chest pain rule out [place] Elevated troponin Cardiology consult, heparin drip, as needed analgesics, antilipid's, aspirin, nitro plan to transfer for CABG Lipid panel triglycerides 333, cholesterol 209, HDL 39, lipase normal at 16 Troponins 309.9, 315.6, 387.6, 360.5 03/09 status postcardiac cath Severe multivessel coronary artery disease. 2. Elevated LVEDP slightly. Findings: 1. Left main is large with ostial maybe 30% stenosis. 2. LAD; heavily diseased vessel in the ostium and the proximal segment 70% stenosis, mid segment diffuse 80% stenosis before diagonal 2, and after diagonal 2, there is a 70% to 80% stenosis and then another focal 80% stenosis, then the LAD becomes free of disease. 3. Left circumflex; proximal 80% stenosis. OM is a very large branch, has 80% proximally and in the mid segment is 90% stenosis. 4. RCA; large and dominant, mid diffuse 80% stenosis, mid to distal stenosis and the PDA has proximal 99% stenosis with ODIN-1 flow. 5. LVEDP is 12 mmHg. Tobacco use Educated on tobacco cessation Diet n.p.o. Full code DVT heparin drip Plan to transfer for CABG Vital Signs/Physical Exam: Temp Pulse Resp BP Pulse Ox 97 F 82 18 121/71 95 03/09/23 15:16 03/09/23 15:16 03/09/23 15:16 03/09/23 15:16 03/09/23 15:16 Laboratory Data at Discharge: WBC 10.30 thou/uL (4.3-10.9) 03/09/23 04:48 Hgb 13.9 g/dL (13.6-17.9) D 03/09/23 04:48 Hct 41.1 % (39.6-49.0) 03/09/23 04:48 Plt Count 222 thou/uL (152-406) 03/09/23 04:48 PT 11.5 SECONDS (9.5-12.5) 03/08/23 12:25 INR 1.05 03/08/23 12:25 APTT 69.8 SECONDS (24.3-36.9) H 03/09/23 07:15 Sodium 136 mEq/L (136-145) 03/09/23 04:48 Potassium 3.9 mEq/L (3.5-5.1) 03/09/23 04:48 BUN 15 mg/dL (7-18) 03/09/23 04:48 Creatinine 0.94 mg/dL (0.70-1.30) 03/09/23 04:48 Glucose 153 mg/dL (74-106) H 03/09/23 04:48 Phosphorus 2.8 mg/dL (2.5-4.9) 03/09/23 04:48 Magnesium 2.2 mg/dL (1.6-2.4) 03/09/23 04:48 Total Bilirubin 1.0 mg/dL (0.2-1.0) 03/09/23 04:48 AST 29 U/L (15-37) 03/09/23 04:48 ALT 35 U/L (16-61) 03/09/23 04:48 Alkaline Phosphatase 97 U/L (45-117) 03/09/23 04:48 Triglycerides 149 mg/dL (<150) 03/09/23 04:48 Cholesterol 192 mg/dL (<200) 03/09/23 04:48 HDL Cholesterol 42 mg/dL (40-60) 03/09/23 04:48 Cholesterol/HDL Ratio 4.57 03/09/23 04:48 Lipase 16 U/L (13-75) 03/08/23 12:25 Diet: AHA Followup: Jen Cervantes DO, DO [Primary Care Provider] - Anderson Bush MD [ACTIVE - CAN ADMIT] - Time spent managing pt's care (in minutes): 55
--- NOTE | 2023-03-09 16:29 | EKG ---
Test Date: 2023-03-08 Test Time: 12:17:15 Director Of People: WILFREDO MEASUREMENT RESULTS: Intervals: Rate: 91 NE: 196 QRSD: 122 QT: 374 QTc: 460 [place]: P: 44 NE: 196 QRS: -51 T: 94 INTERPRETIVE STATEMENTS: Normal sinus rhythm Left anterior fascicular block Left ventricular hypertrophy with QRS widening and repolarization abnormality Abnormal ECG No previous ECG available for comparison Electronically Signed On 03-09-23 16:26:11 DATA MODELING SPECIALIST by Anderson Bush
--- NOTE | 2023-03-09 16:29 | EKG ---
Test Date: 2023-03-08 Test Time: 13:37:23 Writing Tutor: WILFREDO MEASUREMENT RESULTS: Intervals: Rate: 89 ME: 210 QRSD: 120 QT: 380 QTc: 462 [place]: P: 62 ME: 210 QRS: -46 T: 94 INTERPRETIVE STATEMENTS: Sinus rhythm with 1st degree AV block Left anterior fascicular block Left ventricular hypertrophy with QRS widening and repolarization abnormality Abnormal ECG Compared to ECG 03/08/2023 12:17:15 First degree AV block now present Electronically Signed On 03-09-23 16:26:07 MIDDLE SCHOOL TECHNOLOGY TEACHER by Anderson Bush
[2023-03-09 16:40] VITALS: BP 131/63; O2SAT 94
--- NOTE | 2023-03-10 08:09 | ECHO ---
HEIGHT: 5 ft 10 in WEIGHT: 200 lb 0.054 oz DATE OF STUDY: 03/09/[address]: Moses Jaramillo MD 2-DIMENSIONAL: YES M.MODE: YES DOPPLER: YES COLOR FLOW: YES TDS: NO PORTABLE: YES DEFINITY: NO BUBBLE STUDY: NO DIAGNOSIS: ACUTE MYOCARDIAL INFARCTION CARDIAC HISTORY: CATHERIZATION: SURGERY: PROSTHETIC VALVE: PACEMAKER: MEASUREMENTS (cm) DIASTOLIC (NORMALS) SYSTOLIC (NORMALS) IVSd 0.8 (0.6-1.2) LA Diam 3.7 (1.9-4.0) LVEF 55-60% LVIDd 5.2 (3.5-5.7) LVIDs 3.9 (2.0-3.5) %FS 26% LVPWd 1.0 (0.6-1.2) Ao Diam 3.0 (2.0-3.7) 2 DIMENSIONAL ASSESSMENT: RIGHT ATRIUM: NORMAL LEFT ATRIUM: NORMAL RIGHT VENTRICLE: NORMAL LEFT VENTRICLE: NORMAL TRICUSPID VALVE: NORMAL MITRAL VALVE: MILD REGURGITATION PULMONIC VALVE: NORMAL AORTIC VALVE: NORMAL PERICARDIAL EFFUSION: NONE AORTIC ROOT: NORMAL LEFT VENTRICULAR WALL MOTION: NORMAL DOPPLER/COLOR FLOW: SEE BELOW. COMMENTS: 1. NORMAL LEFT VENTRICULAR EJECTION FRACTION 55-60%. 2. NORMAL WALL MOTION. 3. GRADE I DIASTOLIC DYSFUNCTION. 4. MILD MITRAL REGURGITATION. TECHNOLOGIST: Sally CIFUENTES [facility]
== END 2023-03-09 17:10 | disposition short-term general hospital (02) | DRG 282 ==
LOC: ER 11:44 → ERHOLD 14:08
PROVIDERS: ADMIT Hospitalist; ATTEND Hospitalist
PROC: 4A023N7 Measurement of Cardiac Sampling and Pressure, Left Heart, Percutaneous Approach (ICD-10-PCS; principal; 2023-03-09)
PROC: B2111ZZ Fluoroscopy of Multiple Coronary Arteries using Low Osmolar Contrast (ICD-10-PCS; 2023-03-09)
DX: I21.4 Non-ST elevation (NSTEMI) myocardial infarction (principal); I10 Essential (primary) hypertension; E78.5 Hyperlipidemia, unspecified; I25.110 Atherosclerotic heart disease of native coronary artery with unstable angina pectoris; Z88.0 Allergy status to penicillin; Z87.891 Personal history of nicotine dependence
CPT/HCPCS: 36415; 71045; 76937; 80048; 80053; 80061; 80076; 83690; 83735; 83880; 84100; 84484; 85025; 85610; 85730; 93005; 93306; 93458; 99152; C1893; J0461; J1644; J2001; J2250; J2270; J2405; J3010; J7040; Q9966

== ENCOUNTER 2024-02-06 17:02 | Emergency (ER) | payer OTHER ==
--- OUTSIDE RECORDS SUMMARY | 2024-02-06 17:08 | XMS REPORT | Continuity of Care Document ---
Author Name Unknown Address [address] [facility]. [address] [place] [address] [facility] thconnect Address [address] [facility]. [address] [place] [address] Care Team Providers Care Backup Operator Name Role Phone PCP, PATIENT DOES NOT HAVE A Primary Care Physic didier Unavailable Nurse, [facility] Attending Clinician Un available Unknown, Attending Attending Clinician Unavailab MARTA Zhu Attending Clinician Unavailable Faye Espino Attending Clinician UnavailMarta Kenyon Attending Clinician Unknown, Attending Attending Clinician Unavailab Faye Heredia Admitting Clinician Unavailabl e Payers Payer Name Policy Type Policy Number Effective Date Expirati on Date Source [employer] MED[employer]ARE OUT OF NETWORK [id number] 2020 00:00:00 Allergies, Adverse Reactions, Alerts Allergy Name Allergy Type Status Severity Reaction(s) Onset Date Inactive Date Treating Clinician Comments Source penicill in G DA Active [place] raji thomas keyunior 03-09 00:00: 00 [facility] Penicill ins Propensi ty to adverse reaction s Active Other - See comments 2022-02 00:00: 00 Pale, shaky, dizzy [facility] PENICILL INS Drug Class Active Other-Cmnt 2022-02 00:00: 00 [facility] NO KNOWN ALLERGIE S Drug Class Active [facility] Social History Social Habit Start Date Stop Date Quantity Comments Source History of tobacco use Current smoker [facility] Sexual orientation [facility] History of Social function 2023-01-20 00:00:00 2023-01-20 00:00:00 [facility] Sex assigned at 1950 00:00:00 1950 00:00:00 [facility] Smoking Status Start Date Stop Date Source Ex-smoker 2023-01-20 00:00:00 2023-01-20 00:00:00 [facility] Medications Ordered Medication Name Filled Medication Name Start Date Stop Date Current Medication? Ordering Clinician Indication Dosage Frequency Signature (SIG) Comments Components Source doxycycline hyclate 100 mg tablet 2022-02 00:00: 00 01-31 05:59 :00 No [id number] 100mg Take 1 tablet by mouth in the morning and 1 tablet in the evening. Do all this for 10 days. [facility] doxycycline 100 mg capsule 10-27 00:00: 00 Yes 100mg Take 1 capsule by mouth 2 (two) times daily. [facility] Vital Signs Vital Name Observation Time Observation Value Comments S ource Systolic blood pressure 2024-02-06 22:49:00 132 mm[Hg] [facility] Diastolic blood pressure 2024-02-06 22:49:00 79 mm[Hg] [facility] Heart rate 2024-02-06 22:49:00 90 /min [facility] Body temperature 2024-02-06 22:49:00 37.06 [facility] Respiratory rate 2024-02-06 22:49:00 18 /min [facility] Body weight 2024-02-06 22:49:00 85.928 kg [facility] BMI 2024-02-06 22:49:00 27.18 kg/m2 [facility] Oxygen saturation in Arterial blood by Pulse oximetry 2024-02-06 22:49:00 98 /min [facility] Systolic blood pressure 2023-01-20 23:24:00 166 mm[Hg] [facility] Diastolic blood pressure 2023-01-20 23:24:00 88 mm[Hg] [place] [facility] Heart rate 2023-01-20 23:21:00 82 /min [facility] Body temperature 2023-01-20 23:21:00 36.83 [facility] Respiratory rate 2023-01-20 23:21:00 18 /min [facility] Body height 2023-01-20 23:21:00 177.8 cm [facility] Body weight 2023-01-20 23:21:00 91.428 kg [facility] BMI 2023-01-20 23:21:00 28.92 kg/m2 [facility] Oxygen saturation in Arterial blood by Pulse oximetry 2023-01-20 23:21:00 96 /min [place] [facility] Procedures Procedure Date / Time Performed Performing Clinicia n Source [id number] 2023-03-13 00:00:00 CHAAB.01 [facility] [id number] 2023-03-13 00:00:00 CHAAB.01 [facility] [id number] 2023-03-13 00:00:00 CHAAB.01 [facility] [id number] 2023-03-13 00:00:00 CHAAB.01 [facility] [id number] 2023-03-13 00:00:00 CHAAB.01 [facility] [id number] 2023-03-13 00:00:00 CHAAB.01 [facility] [id number] 2023-03-13 00:00:00 CHAAB.01 [facility] [id number] 2023-03-13 00:00:00 [facility]AA[facility].01 [facility] [id number] 2023-03-13 00:00:00 [facility]AA[facility].01 [facility] [id number] 2023-03-13 00:00:00 CHAAB.01 [facility] Encounters Start Date/Time End Date/Time Encounter Type Admission Type Attending Clinicians Care Facility Care Department Encounter ID Source 2024-02-06 17:00:00 2024-02-06 17:20:00 Nurse Visit Nurse, [facility] Unknown, Attending Nurse, [facility] [id number] [id number] [id number] [id number] [facility] 2024-02-06 17:00:00 2024-02-06 17:00:00 Outpatient Mg SUAZO MARTA [facility] [id number] [facility] 2023-03-09 18:55:00 2023-03-22 19:43:00 Inpatient Faye De La Vega [facility] [id number] 09 [facility] 2023-01-26 00:00:00 2023-01-26 00:00:00 Telephone Marta Suazo [facility] [id number] [id number] [id number] [id number] [facility] 2023-01-20 16:40:00 2023-01-20 17:00:00 Urgent Care Rom Suazoaliciaisrael Unknown, Attending [facility] [id number] [id number] [id number] [id number] [facility] 2023-01-20 16:40:00 2023-01-20 16:40:[address] [facility] [id number] [facility] Results Test Description Test Time Test Comments Results Result Co mments Source GLUCOSE [id number] 12:27:00* Test Item Value Reference Range Interpretation Comme nts GLUCOSE BEDSIDE (test code = GLUBED) 175 MG/DL 70-110 H Performed by bryan everett vertical punch operator at [facility] - [facility]UP VEIN [id number] 11:47:00 [facility] F[facility]IP[facility] : 1950 Sex: M Name: FELIPA GUZMAN [facility] [place] : 1950 Age/S: 72 / M [address] [place] [address] Blvd Unit #: [id number] Loc: [place] [address] Phys: Faye Espino MD Acct: [id number] Dis Date: Status: ADM IN PHONE #: [phone] Exam Date: 03/22/2023 1132 FAX #: [phone] Reason: R/O DVT BLE EXAMS: CPTCODE: [id number] DUP VEIN LIBAN 30880 CLINICAL HISTORY:R/O DVT BLE PROCEDURE: 1. Venous Doppler of lower extremities. TECHNIQUE: Real-time luong scale imaging, with compression, and Doppler venous ultrasound examination of the bilateral lower extremities was performed. COMPARISON: No prior studies areavailable for comparison. FINDINGS: The visualized common femoral vein, femoral vein, profunda femoral vein, popliteal vein of the bilateral lower legs are unremarkable in sonographic appearance and demonstrate normal Doppler venous blood flow, augmentation, compression, and respiratory variabilitywithout sonographic evidence of deep vein thrombosis. On the right, there is a isolated small right peroneal vein DVT. Remainder of the visualized infrapopliteal veins are patent. IMPRESSION: Isolated small infrapopliteal vein DVT involving the right peroneal vein. The bilateral femoral/popliteal veins are patent. Remainder of visualized infrapopliteal veins are also patent. at 1147 Reported and signed by: Georgina Olvera M.D. CC: Bud Espino MD Technologist: Matilde Arenas RDMS() Trnscb Date/Time: 03/22/2023 (1147) [email or web address] Orig Print D/T: S: 03/22/2023 (2242) Probe: PAGE 1 Signed Report- XR CHEST 1 [id number] 10:36:00 [facility] 1950 Sex: M FAX: Mike Brand MD [place]: St: ADM FAX: Faye Brar MD [phone] Name: FELIPA GUZMAN [facility] : 1950 Age/S: 72/M [address] [place] [address] Unit #: [id number] Loc: G.[address] [place] [address] Phys:Mike Rodriguez MD Acct: [id number] Dis Date: Status: ADM IN PHONE #: [phone] Exam Date: 03/22/2023826 FAX #: [phone] Reason: POST CABG EXAMS: CPT CODE: [id number] XR CHEST 1 V 70329 ChestINDICATION: Post CABG. COMPARISON: Yesterday. FINDINGS: Frontal radiograph chest. Tiny left apical pneumothorax is unchanged to slightly decreased. Left base airspace disease is again seen. Right lung is clear. Cardiac mediastinal silhouette is enlarged and unchanged. No acute osseous abnormalities. IMPRESSION: 1. Tiny left apical pneumothorax is unchanged to slightly decreased. 2. Left base airspace disease again seen, appearance is most likely to represent atelectasis. at 1036 Reported and signed by: Georgina Olvera M.D. CC: Mike Rodriguez MD; Faye Espino MD Technologist: RT Donna(Mg) Trnscrd Date/Time/By: 03/22/2023 (1036) : By: [email or web address] Orig Print D/T: S: 03/22/2023 (2962) PAGE 1 Signed ReportBASIC METABOLIC [id number] 04:43:00* Test Item Value Reference Range Interpretation Comme nts SODIUM (test code = NA) 141 mEq/L 134-147 N POTASSIUM (test code = K) 3.8 mEq/L 3.4-5.0 N CHLORIDE (test code = CL) 109 mEq/L 100-108 H CARBON DIOXIDE (test code = CO2) 26 mEq/l 21-33 N ANION GAP (test code = GAP) 10 0-20 N GLUCOSE (test code = GLU) 136 mg/dL 77-141 N BLOOD UREA NITROGEN (test code = BUN) 16 mg/dL 7-25 N GLOMERULAR FILTRATION RATE (test code = GFR) 94.0 70-80 H The Glomerular Filtration Rate is a calculated parameterbased on serum Creatinine, patient age and sex. GFR valuesless than 60 mL/min/1.73 square meters are indicative ofChronic Kidney Disease. Values less than 15 mL/min/1.73square meters indicate Kidney failure. The calculation forGFR is based on the CKD-EPI (2020) calculation. This formulais race indifferent and is the recommended formula for GFRby the National Kidney Foundation for Adults.The GFR will not calculate if the sex is unknown or if thepatient's age is <18 years. CREATININE (test code = CREAT) 0.8 mg/dL 0.6-1.3 N CALCIUM (test code = CA) 8.5 mg/dL 8.0-10.5 N [id number] 04:43:00* Test Item Value Reference Range Interpretation Comme nts MAGNESIUM (test code = MAG) 2.27 mg/dL 1.6-2.6 N CBC W/AUTO [id number] 04:17:00* Test Item Value Reference Range Interpretation Comme nts WHITE BLOOD CELL (test code = WBC) 13.6 x10 3/uL 4.5-11.0 H RED BLOOD CELL (test code = RBC) 3.45 x10 6/uL 4.00-5.60 L HEMOGLOBIN (test code = HGB) 9.9 g/dL 12.5-16.9 L HEMATOCRIT (test code = HCT) 30.7 % 37.5-50.7 L MEAN CELL VOLUME (test code = MCV) 89.0 fL 81.0-99.0 N MEAN CELL HGB (test code = MCH) 28.7 pg 27.0-33.0 N MEAN CELL HGB CONCETRATION (test code = MCHC) 32.2 g/dL 33.0-37.0 L RED CELL DISTRIBUTION WIDTH CV (test code = RDW) 14.3 % 11.5-14.5 N RED CELL DISTRIBUTION WIDTH SD (test code = RDW-SD) 45.6 fL 37.0-54.0 N PLATELET COUNT (test code = PLT) 327 x10 3/uL 150-400 N MEAN PLATELET VOLUME (test c ode = MPV) 10.5 fL 7.0-9.0 H NEUTROPHIL % (test code = NT%) 63.9 % 56.0-77.0 N IMMATURE GRANULOCYTE % (test code = IG%) 2.4 % 0.0-2.0 H LYMPHOCYTE % (test code = LY%) 19.5 % 14.0-32.0 N MONOCYTE % (test code = MO%) 11.0 % 4.8-9.0 H EOSINOPHIL % (test code = EO%) 2.6 % 0.3-3.7 N BASOPHIL % (test code = BA%) 0.6 % 0.0-2.0 N NUCLEATED RBC % (test code = NRBC%) 0.0 % 0-0 N NEUTROPHIL # (test code = NT#) 8.70 x10 3/uL 2.0-7.6 H IMMATURE GRANULOCYTE # (test code = IG#) 0.33 x10 3/uL 0.00-0.03 H LYMPHOCYTE # (test code = LY#) 2.66 x10 3/uL 1.0-3.8 N MONOCYTE # (test code = MO#) 1.50 x10 3/uL 0.1-0.8 H EOSINOPHIL # (test code = EO#) 0.35 x10 3/uL 0.0-0.2 H BASOPHIL # (test code = BA#) 0.08 x10 3/uL 0.0-0.2 N NUCLEATED RBC # (test code = NRBC#) 0.00 x10 3/uL 0.0-0.1 N GLUCOSE [id number] 23:47:00* Test Item Value Reference Range Interpretation Comme nts GLUCOSE BEDSIDE (test code = GLUBED) 173 MG/DL 70-110 H Performed by [facility] tified vertical punch operator at [facility] GLUCOSE [id number] 17:46:00* Test Item Value Reference Range Interpretation Comme nts GLUCOSE BEDSIDE (test code = GLUBED) 148 MG/DL 70-110 H Performed by [facility] tified vertical punch operator at [facility] GLUCOSE [id number] 15:47:00* Test Item Value Reference Range Interpretation Comme nts GLUCOSE BEDSIDE (test code = GLUBED) 251 MG/DL 70-110 H Performed by [facility] tifWallCompass vertical punch operator at [facility] - XR CHEST 1 [id number] 07:12:00 [facility] 1950 Sex: M FAX: Mike Brand MD [place]: St: [facility] FAX: Faye Brar MD [phone] Name: FELIPA GUZMAN [facility] :1950 Age/S: 72/M [address] [place] [address] Blvd Unit #: [id number] Loc: G.[address] [place] [address] Phys: Mike Rodriguez MD Acct: [id number] Dis Date: Status: ADM IN PHONE #: [phone] Exam Date: 03/21/2023606 FAX #: [phone] Reason: POST CABG EXAMS: CPT CODE: [id number] XR CHEST 1 V 69562 Location: 7 EXAM: - XR CHEST 1 V DATE: 03/21/2023 5:00 AM HISTORY: POST CABG COMPARISON: 620 03/20/2023 FINDINGS: There is a tiny left apical pneumothorax unchanged since chest x-ray from 2023. Low lung volumes. Stable small left pleural effusion and airspace opacities in the left lung base. Stableprominence of the cardiac silhouette. IMPRESSION: Stable small left apical pneumothorax. at 0712 Reported and signed by: Jennifer Galdamez M.D. CC: Mike Rodriguez MD; Faye Espino MD Technologist: Chema Null RT(R) Trnscrd Date/Time/By: 03/21/2023 (07) : By: Philipp Orig Print D/T: S: 03/21/2023 (0716) PAGE 1 Signed ReportGLUCOSE [id number] 06:23:00* Test Item Value Reference Range Interpretation Comme nts GLUCOSE BEDSIDE (test code = GLUBED) 144 MG/DL 70-110 H Performed by bryan cruz at [facility] BASIC METABOLIC [id number] 03:20:00* Test Item Value Reference Range Interpretation Comme nts SODIUM (test code = NA) 138 mEq/L 134-147 N POTASSIUM (test code = K) 4.0 mEq/L 3.4-5.0 N CHLORIDE (test code = CL) 110 mEq/L 100-108 H CARBON DIOXIDE (test code = CO2) 22 mEq/l 21-33 N ANION GAP (test code = GAP) 10 0-20 N GLUCOSE (test code = GLU) 140 mg/dL 77-141 N BLOOD UREA NITROGEN (test code = BUN) 15 mg/dL 7-25 N GLOMERULAR FILTRATION RATE (test code = GFR) 94.0 70-80 H The Glomerular Filtration Rate is a calculated parameterbased on serum Creatinine, patient age and sex. GFR valuesless than 60 mL/min/1.73 square meters are indicative ofChronic Kidney Disease. Values less than 15 mL/min/1.73square meters indicate Kidney failure. The calculation forGFR is based on the CKD-EPI (202) calculation. This formulais race indifferent and is the recommended formula for GFRby the National Kidney Foundation for Adults.The GFR will not calculate if the sex is unknown or if thepatient's age is <18 years. CREATININE (test code = CREAT) 0.8 mg/dL 0.6-1.3 N CALCIUM (test code = CA) 8.8 mg/dL 8.0-10.5 N [id number] 03:20:00* Test Item Value Reference Range Interpretation Comme nts MAGNESIUM (test code = MAG) 2.28 mg/dL 1.6-2.6 N CBC W/AUTO [id number] 03:06:00* Test Item Value Reference Range Interpretation Comme nts WHITE BLOOD CELL (test code = WBC) 13.5 x10 3/uL 4.5-11.0 H RED BLOOD CELL (test code = RBC) 3.42 x10 6/uL 4.00-5.60 L HEMOGLOBIN (test code = HGB) 9.9 g/dL 12.5-16.9 L HEMATOCRIT (test code = HCT) 29.5 % 37.5-50.7 L MEAN CELL VOLUME (test code = MCV) 86.3 fL 81.0-99.0 N MEAN CELL HGB (test code = MCH) 28.9 pg 27.0-33.0 N MEAN CELL HGB CONCETRATION (test code = MCHC) 33.6 g/dL 33.0-37.0 N RED CELL DISTRIBUTION WIDTH CV (test code = RDW) 14.2 % 11.5-14.5 N RED CELL DISTRIBUTION WIDTH SD (test code = RDW-SD) 43.8 fL 37.0-54.0 N PLATELET COUNT (test code = PLT) 286 x10 3/uL 150-400 N MEAN PLATELET VOLUME (test c ode = MPV) 10.7 fL 7.0-9.0 H NEUTROPHIL % (test code = NT%) 66.4 % 56.0-77.0 N IMMATURE GRANULOCYTE % (test code = IG%) 3.3 % 0.0-2.0 H LYMPHOCYTE % (test code = LY%) 17.0 % 14.0-32.0 N MONOCYTE % (test code = MO%) 11.4 % 4.8-9.0 H EOSINOPHIL % (test code = EO%) 1.4 % 0.3-3.7 N BASOPHIL % (test code = BA%) 0.5 % 0.0-2.0 N NUCLEATED RBC % (test code = NRBC%) 0.0 % 0-0 N NEUTROPHIL # (test code = NT#) 8.94 x10 3/uL 2.0-7.6 H IMMATURE GRANULOCYTE # (test code = IG#) 0.45 x10 3/uL 0.00-0.03 H LYMPHOCYTE # (test code = LY#) 2.29 x10 3/uL 1.0-3.8 N MONOCYTE # (test code = MO#) 1.53 x10 3/uL 0.1-0.8 H EOSINOPHIL # (test code = EO#) 0.19 x10 3/uL 0.0-0.2 N BASOPHIL # (test code = BA#) 0.07 x10 3/uL 0.0-0.2 N NUCLEATED RBC # (test code = NRBC#) 0.00 x10 3/uL 0.0-0.1 N GLUCOSE [id number] 00:18:00* Test Item Value Reference Range Interpretation Comme [facility] GLUCOSE BEDSIDE (test code = GLUBED) 142 MG/DL 70-110 H Performed by cer tified vertical punch operator at [facility] GLUCOSE [id number] 18:45:00* Test Item Value Reference Range Interpretation Comme [facility] GLUCOSE BEDSIDE (test code = GLUBED) 161 MG/DL 70-110 H Performed by cer tified vertical punch operator at [facility] GLUCOSE [id number] 11:54:00* Test Item Value Reference Range Interpretation Comme nts GLUCOSE BEDSIDE (test code = GLUBED) 168 MG/DL 70-110 H Performed by bryan everett vertical punch operator at [facility] - XR CHEST 1 [id number] 06:45:00 [facility] 1950 Sex: M FAX: Faye Brar MD [phone] [place]: St: ADM FAX: Alexander Sarah Jr [phone] ------- Name: YUAN GUZMANY [facility] : 1950 Age/S: 72/[place] [address] [place] [address] Blvd Unit #: [id number] Loc: G.[address] [place] [address] Phys: Alexander Sarah Jr, MD Acct: [id number] Dis Date: Status: ADM IN PHONE #: [phone] Exam Date: 03/20/2023624 FAX #: [phone] Reason: POST OP CBG EXAMS: CPT CODE: [id number] XR CHEST 1 V 39972 Location: [facility] EXAM: - XR CHEST 1 V DATE: 03/20/2023 5:43 AM HISTORY: POST OP CBG COMPARISON: Chest x-ray 03/19/2023 FINDINGS: No discernible left apical pneumothorax. Stable airspace opacities in the left lung and small left pleural effusion. Interval removal of the right internal jugular central venous line. IMPRESSION: No discernible left apical pneumothorax at 0645 Reported and signed by: Maeve Galdamez M.D.CC: Faye Espino MD; Alexander Sarah Jr, MD Technologist: RT Jonah(Mg) Trnscrd Date/Time/By: 03/20/2023 (0645) : By: JessiMOP Orig Print D/T: S: 03/20/2023 (0608) PAGE 1 Signed ReportBASIC METABOLIC [id number] 06:30:00* Test Item Value Reference Range Interpretation Comme nts SODIUM (test code = NA) 137 mEq/L 134-147 N POTASSIUM (test code = K) 4.1 mEq/L 3.4-5.0 N CHLORIDE (test code = CL) 109 mEq/L 100-108 H CARBON DIOXIDE (test code = CO2) 20 mEq/l 21-33 L ANION GAP (test code = GAP) 12 0-20 N GLUCOSE (test code = GLU) 136 mg/dL 77-141 N BLOOD UREA NITROGEN (test code = BUN) 14 mg/dL 7-25 N GLOMERULAR FILTRATION RATE (test code = GFR) 97.9 70-80 H The Glomerular Filtration Rate is a calculated parameterbased on serum Creatinine, patient age and sex. GFR valuesless than 60 mL/min/1.73 square meters are indicative ofChronic Kidney Disease. Values less than 15 mL/min/1.73square meters indicate Kidney failure. The calculation forGFR is based on the CKD-EPI (202) calculation. This formulais race indifferent and is the recommended formula for GFRby the National Kidney Foundation for Adults.The GFR will not calculate if the sex is unknown or if thepatient's age is <18 years. CREATININE (test code = CREAT) 0.7 mg/dL 0.6-1.3 N CALCIUM (test code = CA) 8.8 mg/dL 8.0-10.5 N GLUCOSE [id number] 05:52:00* Test Item Value Reference Range Interpretation Comme nts GLUCOSE BEDSIDE (test code = GLUBED) 125 MG/DL 70-110 H Performed by cer karlos vertical punch operator at [facility] BASIC METABOLIC [id number] 03:54:00* Test Item Value Reference Range Interpretation Comme nts SODIUM (test code = NA) 137 mEq/L 134-147 N POTASSIUM (test code = K) 4.1 mEq/L 3.4-5.0 N CHLORIDE (test code = CL) 111 mEq/L 100-108 H CARBON DIOXIDE (test code = CO2) 23 mEq/l 21-33 N ANION GAP (test code = GAP) 7 0-20 N GLUCOSE (test code = GLU) 128 mg/dL 77-141 N BLOOD UREA NITROGEN (test code = BUN) 15 mg/dL 7-25 N GLOMERULAR FILTRATION RATE (test code = GFR) 58.4 70-80 L The Glomerular Filtration Rate is a calculated parameterbased on serum Creatinine, patient age and sex. GFR valuesless than 60 mL/min/1.73 square meters are indicative ofChronic Kidney Disease. Values less than 15 mL/min/1.73square meters indicate Kidney failure. The calculation forGFR is based on the CKD-EPI (2020) calculation. This formulais race indifferent and is the recommended formula for GFRby the National Kidney Foundation for Adults.The GFR will not calculate if the sex is unknown or if thepatient's age is <18 years. CREATININE (test code = CREAT) 1.3 mg/dL 0.6-1.3 CALCIUM (test code = CA) 8.3 mg/dL 8.0-10.5 N [id number] 03:54:00* Test Item Value Reference Range Interpretation Comme nts MAGNESIUM (test code = MAG) 2.51 mg/dL 1.6-2.6 N CBC W/AUTO [id number] 03:41:00* Test Item Value Reference Range Interpretation Comme nts WHITE BLOOD CELL (test code = WBC) 12.3 x10 3/uL 4.5-11.0 H RED BLOOD CELL (test code = RBC) 3.45 x10 6/uL 4.00-5.60 L HEMOGLOBIN (test code = HGB) 10.2 g/dL 12.5-16.9 L HEMATOCRIT (test code = HCT) 30.3 % 37.5-50.7 L MEAN CELL VOLUME (test code = MCV) 87.8 fL 81.0-99.0 N MEAN CELL HGB (test code = MCH) 29.6 pg 27.0-33.0 N MEAN CELL HGB CONCETRATION (test code = MCHC) 33.7 g/dL 33.0-37.0 N RED CELL DISTRIBUTION WIDTH CV (test code = RDW) 13.9 % 11.5-14.5 N RED CELL DISTRIBUTION WIDTH SD (test code = RDW-SD) 43.9 fL 37.0-54.0 N PLATELET COUNT (test code = PLT) 233 x10 3/uL 150-400 N MEAN PLATELET VOLUME (test c ode = MPV) 10.9 fL 7.0-9.0 H NEUTROPHIL % (test code = NT%) 63.6 % 56.0-77.0 N IMMATURE GRANULOCYTE % (test code = IG%) 3.7 % 0.0-2.0 H LYMPHOCYTE % (test code = LY%) 16.2 % 14.0-32.0 N MONOCYTE % (test code = MO%) 13.9 % 4.8-9.0 H EOSINOPHIL % (test code = EO%) 2.0 % 0.3-3.7 N BASOPHIL % (test code = BA%) 0.6 % 0.0-2.0 N NUCLEATED RBC % (test code = NRBC%) 0.2 % 0-0 H NEUTROPHIL # (test code = NT#) 7.84 x10 3/uL 2.0-7.6 H IMMATURE GRANULOCYTE # (test code = IG#) 0.46 x10 3/uL 0.00-0.03 H LYMPHOCYTE # (test code = LY#) 2.00 x10 3/uL 1.0-3.8 N MONOCYTE # (test code = MO#) 1.72 x10 3/uL 0.1-0.8 H EOSINOPHIL # (test code = EO#) 0.25 x10 3/uL 0.0-0.2 H BASOPHIL # (test code = BA#) 0.07 x10 3/uL 0.0-0.2 N NUCLEATED RBC # (test code = NRBC#) 0.02 x10 3/uL 0.0-0.1 N GLUCOSE [id number] 00:49:00* Test Item Value Reference Range Interpretation Comme nts GLUCOSE BEDSIDE (test code = GLUBED) 129 MG/DL 70-110 H Performed by cer tified vertical punch operator at [facility] GLUCOSE [id number] 21:17:00* Test Item Value Reference Range Interpretation Comme nts GLUCOSE BEDSIDE (test code = GLUBED) 164 MG/DL 70-110 H Performed by [facility] tified vertical punch operator at [facility] GLUCOSE [id number] 17:36:00* Test Item Value Reference Range Interpretation Comme nts GLUCOSE BEDSIDE (test code = GLUBED) 116 MG/DL 70-110 H Performed by [facility] tified vertical punch operator at [facility] BASIC METABOLIC [id number] 16:15:00* Test Item Value Reference Range Interpretation Comme nts SODIUM (test code = NA) 137 mEq/L 134-147 N POTASSIUM (test code = K) 3.7 mEq/L 3.4-5.0 N CHLORIDE (test code = CL) 108 mEq/L 100-108 N CARBON DIOXIDE (test code = CO2) 22 mEq/l 21-33 N ANION GAP (test code = GAP) 11 0-20 N GLUCOSE (test code = GLU) 123 mg/dL 77-141 N BLOOD UREA NITROGEN (test code = BUN) 16 mg/dL 7-25 N GLOMERULAR FILTRATION RATE (test code = GFR) 97.9 70-80 H The Glomerular Filtration Rate is a calculated parameterbased on serum Creatinine, patient age and sex. GFR valuesless than 60 mL/min/1.73 square meters are indicative ofChronic Kidney Disease. Values less than 15 mL/min/1.73square meters indicate Kidney failure. The calculation forGFR is based on the CKD-EPI (2020) calculation. This formulais race indifferent and is the recommended formula for GFRby the National Kidney Foundation for Adults.The GFR will not calculate if the sex is unknown or if thepatient's age is <18 years. CREATININE (test code = CREAT) 0.7 mg/dL 0.6-1.3 N CALCIUM (test code = CA) 8.4 mg/dL 8.0-10.5 N [id number] 16:15:00* Test Item Value Reference Range Interpretation Comme [facility] MAGNESIUM (test code = MAG) 2.51 mg/dL 1.6-2.6 N GLUCOSE [id number] 14:23:00* Test Item Value Reference Range Interpretation Comme nts GLUCOSE BEDSIDE (test code = GLUBED) 140 MG/DL 70-110 H Performed by cer tified vertical punch operator at [facility] GLUCOSE [id number] 10:28:00* Test Item Value Reference Range Interpretation Comme nts GLUCOSE BEDSIDE (test code = GLUBED) 151 MG/DL 70-110 H Performed by cer tified vertical punch operator at [facility] - XR CHEST 1 [id number] 08:18:00 [facility] 1950 Sex: M FAX: Faye Brar MD [phone] [place]: St: ADM FAX: Gretta Templeton Phy [phone] ----- Name: THOMASFELIPA [facility] : 1950 Age/S: 72/M [address] [place] [address] Unit #: [id number] Loc: [address] [place] [address] Phys: Gretta Ervin Acct: [id number] Dis Date: Status: ADM IN PHONE #: [phone] Exam Date: 03/19/2023 07 FAX #: [phone] Reason: Cardiac Surgery Post Op EXAMS: CPT CODE: [id number] XR CHEST 1 V 60116 EXAM: - XR CHEST 1 V HISTORY: Cardiac Surgery Post Op TECHNIQUE: APradiograph the chest was obtained. COMPARISON: 03/18/2023, 03/17/2023. FINDINGS: Moderate cardiomegaly. Multiple median sternotomy wires are noted. Mild central pulmonary vascularity with interstitial edema with left retrocardiac consolidation. There is minimal persistent left apical pneumothorax which measure 7 mm unchanged. Small left pleural effusion is seen. Right-sided central venous catheter with tip in the superior vena cava. IMPRESSION: No interval change with left retrocardiac consolidation, pulmonary vascular congestion and small left pleural effusion. There persists a small 7 mm leftapical pneumothorax unchanged. Dictation/location code: H-94 at 0818 Reported and signed by: Gerber Jewell M.D. CC: Cristine Espino MD; Gretta Ervin Technologist: Camilo Machado, RT(R); Alison Castillo RT(R) Trnscrd Date/Time/By: 03/19/2023 (0818) : By: [email or web address] Orig Print D/T: S: 03/19/2023 (0821) PAGE 1 Signed ReportGLUCOSE [id number] 06:15:00* Test Item Value Reference Range Interpretation Comme nts GLUCOSE BEDSIDE (test code = GLUBED) 141 MG/DL 70-110 H Performed by cer karlos vertical punch operator at [facility] POC ARTERIAL BLOOD [id number] 04:10:00* Test Item Value Reference Range Interpretation Comme nts POC ARTERIAL BLOOD GAS PH (t est code = POCPHA) 7.406 7.35-7.45 N POC ARTERIAL BLOOD GAS PCO2 (test code = UDKYXK6C) 33.0 mmHg 35.0-45 L POC TCO2 ARTERIAL (test code = POCTCO2) 21.8 POC ARTERIAL BLOOD GAS PO2 ( test code = TEBJS4A) 83.3 mmHg 80-100.0 N POC HCO3 ARTERIAL (test code = THGKQG7Y) 20.7 MMOL/L 22.0-26.0 L POC BASE EXCESS (test code = POCBEA) -4.0 MMOL/L -4.0-4.0 N POC O2 SATURATION (test code = POCO2S) 96.4 % 90-100 N ABG DELIVERY (test code = FEDERICO) Cannula ABG TEMPERATURE (test code = TEMPA) 98 F ABG SITE (test code = SITEA) Art Line BASIC METABOLIC [id number] 04:10:00* Test Item Value Reference Range Interpretation Comme nts SODIUM (test code = NA/ABG) 137 mmol/L 134-147 N POTASSIUM (test code = K/ABG) 3.9 mmol/L 3.4-5.0 N CHLORIDE (test code = CL/ABG) 107 mmol/L 100-108 N CREATININE ABG (test code = CREAABG) 0.6 mg/dL 0.8-1.3 L POC IONIZED CALCIUM (test co de = POCCA) 1.17 MMOL/L 1.12-1.32 N POC GLUCOSE (test code = POCGLU) 130 MG/DL 70-110 H HEMOGLOBIN [id number] 04:10:00* Test Item Value Reference Range Interpretation Comme nts HEMOGLOBIN ABG (test code = HGB/ABG) 10.2 G/DL 12.5-16.9 L [id number] 04:10:00* Test Item Value Reference Range Interpretation Comme nts HEMATOCRIT (test code = HCT/ABG) 30 % 37.5-50.7 L POC LACTIC [id number] 04:10:00* Test Item Value Reference Range Interpretation Comme nts POC LACTIC ACID (test code = POCLAC) 0.6 mmol/l 0.9-1.7 L CALCIUM [id number] 03:50:00* Test Item Value Reference Range Interpretation Comme nts CALCIUM IONIZED (test code = KACY) 1.04 MMOL/L 1.09-1.30 L BASIC METABOLIC [id number] 03:03:00* Test Item Value Reference Range Interpretation Comme nts SODIUM (test code = NA) 139 mEq/L 134-147 N POTASSIUM (test code = K) 3.7 mEq/L 3.4-5.0 N CHLORIDE (test code = CL) 109 mEq/L 100-108 H CARBON DIOXIDE (test code = CO2) 24 mEq/l 21-33 N ANION GAP (test code = GAP) 10 0-20 N GLUCOSE (test code = GLU) 110 mg/dL 77-141 BLOOD UREA NITROGEN (test code = BUN) 12 mg/dL 7-25 N GLOMERULAR FILTRATION RATE (test code = GFR) 97.9 70-80 H The Glomerular Filtration Rate is a calculated parameterbased on serum Creatinine, patient age and sex. GFR valuesless than 60 mL/min/1.73 square meters are indicative ofChronic Kidney Disease. Values less than 15 mL/min/1.73square meters indicate Kidney failure. The calculation forGFR is based on the CKD-EPI (2020) calculation. This formulais race indifferent and is the recommended formula for GFRby the National Kidney Foundation for Adults.The GFR will not calculate if the sex is unknown or if thepatient's age is <18 years. CREATININE (test code = CREAT) 0.7 mg/dL 0.6-1.3 N CALCIUM (test code = CA) 8.0 mg/dL 8.0-10.5 N [id number] 03:03:00* Test Item Value Reference Range Interpretation Comme nts MAGNESIUM (test code = MAG) 2.34 mg/dL 1.6-2.6 N CBC W/AUTO [id number] 02:58:00* Test Item Value Reference Range Interpretation Comme nts WHITE BLOOD CELL (test code = WBC) 18.9 x10 3/uL 4.5-11.0 H RED BLOOD CELL (test code = RBC) 3.25 x10 6/uL 4.00-5.60 L HEMOGLOBIN (test code = HGB) 9.5 g/dL 12.5-16.9 L HEMATOCRIT (test code = HCT) 28.9 % 37.5-50.7 L MEAN CELL VOLUME (test code = MCV) 88.9 fL 81.0-99.0 N MEAN CELL HGB (test code = MCH) 29.2 pg 27.0-33.0 N MEAN CELL HGB CONCETRATION (test code = MCHC) 32.9 g/dL 33.0-37.0 L RED CELL DISTRIBUTION WIDTH CV (test code = RDW) 13.6 % 11.5-14.5 N RED CELL DISTRIBUTION WIDTH SD (test code = RDW-SD) 44.4 fL 37.0-54.0 N PLATELET COUNT (test code = PLT) 213 x10 3/uL 150-400 N MEAN PLATELET VOLUME (test code = MPV) 11.6 fL 7.0-9.0 H NEUTROPHIL % (test code = NT%) 74.3 % 56.0-77.0 N IMMATURE GRANULOCYTE % (test code = IG%) 2.7 % 0.0-2.0 H LYMPHOCYTE % (test code = LY%) 10.9 % 14.0-32.0 L MONOCYTE % (test code = MO%) 9.9 % 4.8-9.0 H EOSINOPHIL % (test code = EO%) 1.8 % 0.3-3.7 N BASOPHIL % (test code = BA%) 0.4 % 0.0-2.0 N NUCLEATED RBC % (test code = NRBC%) 0.2 % 0-0 H NEUTROPHIL # (test code = NT#) 14.06 x10 3/uL 2.0-7.6 H IMMATURE GRANULOCYTE # (test code = IG#) 0.51 x10 3/uL 0.00-0.03 H LYMPHOCYTE # (test code = LY#) 2.07 x10 3/uL 1.0-3.8 N MONOCYTE # (test code = MO#) 1.88 x10 3/uL 0.1-0.8 H EOSINOPHIL # (test code = EO#) 0.35 x10 3/uL 0.0-0.2 H BASOPHIL # (test code = BA#) 0.07 x10 3/uL 0.0-0.2 N NUCLEATED RBC # (test code = NRBC#) 0.03 x10 3/uL 0.0-0.1 N MANUAL DIFF REQUIRED (test code = MDIFF) NO SLIDE REVIEW ED, CONSISTENT WITH AUTO DIFF. GLUCOSE [id number] 02:20:00* Test Item Value Reference Range Interpretation Comme [facility] GLUCOSE BEDSIDE (test code = GLUBED) 118 MG/DL 70-110 H Performed by cer tified vertical punch operator at [facility] GLUCOSE [id number] 00:13:00* Test Item Value Reference Range Interpretation Comme [facility] GLUCOSE BEDSIDE (test code = GLUBED) 114 MG/DL 70-110 H Performed by cer tified vertical punch operator at [facility] GLUCOSE [id number] 23:46:00* Test Item Value Reference Range Interpretation Comme nts GLUCOSE BEDSIDE (test code = GLUBED) 108 MG/DL 70-110 N Performed by cer tified vertical punch operator at [facility] GLUCOSE [id number] 20:08:00* Test Item Value Reference Range Interpretation Comme nts GLUCOSE BEDSIDE (test code = GLUBED) 128 MG/DL 70-110 H Performed by cer tified vertical punch operator at [facility] GLUCOSE [id number] 18:56:00* Test Item Value Reference Range Interpretation Comme [facility] GLUCOSE BEDSIDE (test code = GLUBED) 117 MG/DL 70-110 H Performed by cer tified vertical punch operator at [facility] BASIC METABOLIC [id number] 14:46:00* Test Item Value Reference Range Interpretation Comme nts SODIUM (test code = NA) 138 mEq/L 134-147 N POTASSIUM (test code = K) 3.4 mEq/L 3.4-5.0 N CHLORIDE (test code = CL) 102 mEq/L 100-108 N CARBON DIOXIDE (test code = CO2) 28 mEq/l 21-33 N ANION GAP (test code = GAP) 11 0-20 N GLUCOSE (test code = GLU) 152 mg/dL 77-141 H BLOOD UREA NITROGEN (test code = BUN) 17 mg/dL 7-25 N GLOMERULAR FILTRATION RATE (test code = GFR) 94.0 70-80 H The Glomerular Filtration Rate is a calculated parameterbased on serum Creatinine, patient age and sex. GFR valuesless than 60 mL/min/1.73 square meters are indicative ofChronic Kidney Disease. Values less than 15 mL/min/1.73square meters indicate Kidney failure. The calculation forGFR is based on the CKD-EPI (2020) calculation. This formulais race indifferent and is the recommended formula for GFRby the National Kidney Foundation for Adults.The GFR will not calculate if the sex is unknown or if thepatient's age is <18 years. CREATININE (test code = CREAT) 0.8 mg/dL 0.6-1.3 N CALCIUM (test code = CA) 8.2 mg/dL 8.0-10.5 N [id number] 14:46:00* Test Item Value Reference Range Interpretation Comme [facility] MAGNESIUM (test code = MAG) 2.34 mg/dL 1.6-2.6 N POC ARTERIAL BLOOD [id number] 14:22:00* Test Item Value Reference Range Interpretation Comme nts POC ARTERIAL BLOOD GAS PH (t est code = POCPHA) 7.514 7.35-7.45 HH POC ARTERIAL BLOOD GAS PCO2 (test code = FDTODG8X) 37.5 mmHg 35.0-45 N POC TCO2 ARTERIAL (test code = POCTCO2) 31.3 POC ARTERIAL BLOOD GAS PO2 ( test code = SKMNB1M) 79.0 mmHg 80-100.0 L POC HCO3 ARTERIAL (test code = YAINOX3U) 30.2 MMOL/L 22.0-26.0 HH POC BASE EXCESS (test code = POCBEA) 7.2 MMOL/L -4.0-4.0 H POC O2 SATURATION (test code = POCO2S) 96.8 % 90-100 N ABG DELIVERY (test code = FEDERICO) Cannula ABG SITE (test code = SITEA) Art Line POC [id number] 14:22:00* Test Item Value Reference Range Interpretation Comme nts POC GLUCOSE (test code = POCGLU) 153 MG/DL 70-110 H GLUCOSE [id number] 11:00:00* Test Item Value Reference Range Interpretation Comme [facility] GLUCOSE BEDSIDE (test code = GLUBED) 165 MG/DL 70-110 H Performed by bryan everett vertical punch operator at [facility] - XR CHEST 1 [id number] 08:21:00 [facility] 1950 Sex: M FAX: Faye Brar MD [phone] [place]: St: ADM FAX: Gretta Templeton Phy [phone] ----- Name: FELIPA GUZMAN [facility] [place] : 1950 Age/S: 72/M [address] [place] [address] Blvd Unit #: [id number] Loc: [address] [place] [address] Phys: Gretta Ervin Physic Acct: [id number] Dis Date: Status: ADM IN PHONE #: [phone] Exam Date: 03/18/2023817 FAX #: [phone] Reason: Cardiac Surgery Post Op EXAMS: CPT CODE: [id number] XR CHEST 1 V 53032 H 20 TIME OF STUDY: 03/18/2023 5:00 AM REASON FOR EXAM: Cardiac Surgery Post Op COMPARISON: 1 day prior. FINDINGS: AP view of the chest was obtained. Support devices: Stable support devices. Lungs: Patchy airspace opacities and mild central vascular congestion are unchanged. There is left basilar atelectasis. Pleura: No large pleural effusion or pneumothorax. Heart and Mediastinum: Stable cardiomegaly and calcific atherosclerosis. 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 The median sternotomy wires are in the expected configuration. . IMPRESSION: 1. Unchanged chest radiograph. at 0821 Reported and signed by: Misha Jaramillo M.D. CC: Faye Espino MD; Gretta Ervin Technologist: Camilo Machado, RT(R); RT Imani(R) Trnncadina Date/Time/By: 03/18/2023 (08) : By: [email or web address] Orig Print D/T:S: 03/18/2023 (3442) PAGE 1 Signed ReportGLUCOSE [id number] 07:34:00* Test Item Value Reference Range Interpretation Comme nts GLUCOSE BEDSIDE (test code = GLUBED) 127 MG/DL 70-110 H Performed by cer karlos vertical punch operator at [facility] POC ARTERIAL BLOOD [id number] 04:35:00* Test Item Value Reference Range Interpretation Comme nts POC ARTERIAL BLOOD GAS PH (t est code = POCPHA) 7.450 7.35-7.45 N POC ARTERIAL BLOOD GAS PCO2 (test code = LERWWJ8H) 36.7 mmHg 35.0-45 N POC TCO2 ARTERIAL (test code = POCTCO2) 26.6 POC ARTERIAL BLOOD GAS PO2 ( test code = HCQBM4S) 108.6 mmHg 80-100.0 H POC HCO3 ARTERIAL (test code = HGYXCL4W) 25.5 MMOL/L 22.0-26.0 N POC BASE EXCESS (test code = POCBEA) 1.5 MMOL/L -4.0-4.0 N POC O2 SATURATION (test code = POCO2S) 98.5 % 90-100 N ABG DELIVERY (test code = FEDERICO) HFNC ABG TEMPERATURE (test code = TEMPA) 98 F ABG SITE (test code = SITEA) Art Line BASIC METABOLIC [id number] 04:35:00* Test Item Value Reference Range Interpretation Comme nts SODIUM (test code = NA/ABG) 139 mmol/L 134-147 N POTASSIUM (test code = K/ABG) 4.4 mmol/L 3.4-5.0 N CHLORIDE (test code = CL/ABG) 105 mmol/L 100-108 N CREATININE ABG (test code = CREAABG) 0.6 mg/dL 0.8-1.3 L POC IONIZED CALCIUM (test co de = POCCA) 1.12 MMOL/L 1.12-1.32 N POC GLUCOSE (test code = POCGLU) 108 MG/DL 70-110 N HEMOGLOBIN [id number] 04:35:00* Test Item Value Reference Range Interpretation Comme nts HEMOGLOBIN ABG (test code = HGB/ABG) 8.7 G/DL 12.5-16.9 L [id number] 04:35:00* Test Item Value Reference Range Interpretation Comme nts HEMATOCRIT (test code = HCT/ABG) 25 % 37.5-50.7 L POC LACTIC [id number] 04:35:00* Test Item Value Reference Range Interpretation Comme nts POC LACTIC ACID (test code = POCLAC) 0.9 mmol/l 0.9-1.7 N BASIC METABOLIC [id number] 02:44:00* Test Item Value Reference Range Interpretation Comme nts SODIUM (test code = NA) 140 mEq/L 134-147 N POTASSIUM (test code = K) 3.8 mEq/L 3.4-5.0 N CHLORIDE (test code = CL) 108 mEq/L 100-108 N CARBON DIOXIDE (test code = CO2) 27 mEq/l 21-33 N ANION GAP (test code = GAP) 9 0-20 N GLUCOSE (test code = GLU) 112 mg/dL 77-141 N BLOOD UREA NITROGEN (test code = BUN) 16 mg/dL 7-25 N GLOMERULAR FILTRATION RATE (test code = GFR) 97.9 70-80 H The Glomerular Filtration Rate is a calculated parameterbased on serum Creatinine, patient age and sex. GFR valuesless than 60 mL/min/1.73 square meters are indicative ofChronic Kidney Disease. Values less than 15 mL/min/1.73square meters indicate Kidney failure. The calculation forGFR is based on the CKD-EPI (2020) calculation. This formulais race indifferent and is the recommended formula for GFRby the National Kidney Foundation for Adults.The GFR will not calculate if the sex is unknown or if thepatient's age is <18 years. CREATININE (test code = CREAT) 0.7 mg/dL 0.6-1.3 N CALCIUM (test code = CA) 7.4 mg/dL 8.0-10.5 L [id number] 02:44:00* Test Item Value Reference Range Interpretation Comme nts MAGNESIUM (test code = MAG) 2.64 mg/dL 1.6-2.6 H CBC W/AUTO [id number] 02:28:00* Test Item Value Reference Range Interpretation Comme nts WHITE BLOOD CELL (test code = WBC) 21.9 x10 3/uL 4.5-11.0 H RED BLOOD CELL (test code = RBC) 2.90 x10 6/uL 4.00-5.60 L HEMOGLOBIN (test code = HGB) 8.5 g/dL 12.5-16.9 L HEMATOCRIT (test code = HCT) 25.9 % 37.5-50.7 L MEAN CELL VOLUME (test code = MCV) 89.3 fL 81.0-99.0 N MEAN CELL HGB (test code = MCH) 29.3 pg 27.0-33.0 N MEAN CELL HGB CONCETRATION (test code = MCHC) 32.8 g/dL 33.0-37.0 L RED CELL DISTRIBUTION WIDTH CV (test code = RDW) 14.0 % 11.5-14.5 N RED CELL DISTRIBUTION WIDTH SD (test code = RDW-SD) 45.1 fL 37.0-54.0 N PLATELET COUNT (test code = PLT) 168 x10 3/uL 150-400 N MEAN PLATELET VOLUME (test code = MPV) 11.5 fL 7.0-9.0 H NEUTROPHIL % (test code = NT%) 74.2 % 56.0-77.0 N IMMATURE GRANULOCYTE % (test code = IG%) 1.4 % 0.0-2.0 N LYMPHOCYTE % (test code = LY%) 11.5 % 14.0-32.0 L MONOCYTE % (test code = MO%) 10.4 % 4.8-9.0 H EOSINOPHIL % (test code = EO%) 2.1 % 0.3-3.7 N BASOPHIL % (test code = BA%) 0.4 % 0.0-2.0 N NUCLEATED RBC % (test code = NRBC%) 0.2 % 0-0 H NEUTROPHIL # (test code = NT#) 16.23 x10 3/uL 2.0-7.6 H IMMATURE GRANULOCYTE # (test code = IG#) 0.31 x10 3/uL 0.00-0.03 H LYMPHOCYTE # (test code = LY#) 2.52 x10 3/uL 1.0-3.8 N MONOCYTE # (test code = MO#) 2.27 x10 3/uL 0.1-0.8 H EOSINOPHIL # (test code = EO#) 0.46 x10 3/uL 0.0-0.2 H BASOPHIL # (test code = BA#) 0.08 x10 3/uL 0.0-0.2 N NUCLEATED RBC # (test code = NRBC#) 0.04 x10 3/uL 0.0-0.1 N GLUCOSE [id number] 20:52:00* Test Item Value Reference Range Interpretation Comme nts GLUCOSE BEDSIDE (test code = GLUBED) 140 MG/DL 70-110 H Performed by cer karlos vertical punch operator at [facility] BASIC METABOLIC [id number] 20:29:00* Test Item Value Reference Range Interpretation Comme nts SODIUM (test code = NA) 140 mEq/L 134-147 N POTASSIUM (test code = K) 3.4 mEq/L 3.4-5.0 N CHLORIDE (test code = CL) 109 mEq/L 100-108 H CARBON DIOXIDE (test code = CO2) 26 mEq/l 21-33 N ANION GAP (test code = GAP) 8 0-20 N GLUCOSE (test code = GLU) 144 mg/dL 77-141 H BLOOD UREA NITROGEN (test code = BUN) 20 mg/dL 7-25 N GLOMERULAR FILTRATION RATE (test code = GFR) 97.9 70-80 H The Glomerular Filtration Rate is a calculated parameterbased on serum Creatinine, patient age and sex. GFR valuesless than 60 mL/min/1.73 square meters are indicative ofChronic Kidney Disease. Values less than 15 mL/min/1.73square meters indicate Kidney failure. The calculation forGFR is based on the CKD-EPI (2020) calculation. This formulais race indifferent and is the recommended formula for GFRby the National Kidney Foundation for Adults.The GFR will not calculate if the sex is unknown or if thepatient's age is <18 years. CREATININE (test code = CREAT) 0.7 mg/dL 0.6-1.3 N CALCIUM (test code = CA) 6.9 mg/dL 8.0-10.5 L [id number] 20:29:00* Test Item Value Reference Range Interpretation Comme nts MAGNESIUM (test code = MAG) 2.40 mg/dL 1.6-2.6 POC ARTERIAL BLOOD [id number] 19:58:00* Test Item Value Reference Range Interpretation Comme nts POC ARTERIAL BLOOD GAS PH (t est code = POCPHA) 7.457 7.35-7.45 H POC ARTERIAL BLOOD GAS PCO2 (test code = FGUCKJ8B) 37.3 mmHg 35.0-45 N POC TCO2 ARTERIAL (test code = POCTCO2) 27.5 POC ARTERIAL BLOOD GAS PO2 ( test code = HFEFF0Q) 73.2 mmHg 80-100.0 L POC HCO3 ARTERIAL (test code = NQGTAZ7U) 26.3 MMOL/L 22.0-26.0 H POC BASE EXCESS (test code = POCBEA) 2.5 MMOL/L -4.0-4.0 N POC O2 SATURATION (test code = POCO2S) 95.4 % 90-100 N ABG TEMPERATURE (test code = TEMPA) 98 F BASIC METABOLIC [id number] 19:58:00* Test Item Value Reference Range Interpretation Comme nts SODIUM (test code = NA/ABG) 139 mmol/L 134-147 N POTASSIUM (test code = K/ABG) 3.5 mmol/L 3.4-5.0 N CHLORIDE (test code = CL/ABG) 104 mmol/L 100-108 N CREATININE ABG (test code = CREAABG) 0.8 mg/dL 0.8-1.3 POC IONIZED CALCIUM (test co de = POCCA) 1.12 MMOL/L 1.12-1.32 N POC GLUCOSE (test code = POCGLU) 153 MG/DL 70-110 H HEMOGLOBIN [id number] 19:58:00* Test Item Value Reference Range Interpretation Comme nts HEMOGLOBIN ABG (test code = HGB/ABG) 8.4 G/DL 12.5-16.9 L [id number] 19:58:00* Test Item Value Reference Range Interpretation Comme nts HEMATOCRIT (test code = HCT/ABG) 25 % 37.5-50.7 L POC LACTIC [id number] 19:58:00* Test Item Value Reference Range Interpretation Comme nts POC LACTIC ACID (test code = POCLAC) 1.1 mmol/l 0.9-1.7 N GLUCOSE [id number] 16:16:00* Test Item Value Reference Range Interpretation Comme nts GLUCOSE BEDSIDE (test code = GLUBED) 200 MG/DL 70-110 H Performed by cer tified vertical punch operator at [facility] BASIC METABOLIC [id number] 10:55:00* Test Item Value Reference Range Interpretation Comme nts SODIUM (test code = NA/ABG) 141 mmol/L 134-147 N POTASSIUM (test code = K/ABG) 3.1 mmol/L 3.4-5.0 L CHLORIDE (test code = CL/ABG) 110 mmol/L 100-108 H CREATININE ABG (test code = CREAABG) 0.6 mg/dL 0.8-1.3 L POC IONIZED CALCIUM (test co de = POCCA) 1.02 MMOL/L 1.12-1.32 L POC GLUCOSE (test code = POCGLU) 132 MG/DL 70-110 H HEMOGLOBIN [id number] 10:55:00* Test Item Value Reference Range Interpretation Comme nts HEMOGLOBIN ABG (test code = HGB/ABG) 7.5 G/DL 12.5-16.9 L [id number] 10:55:00* Test Item Value Reference Range Interpretation Comme nts HEMATOCRIT (test code = HCT/ABG) 22 % 37.5-50.7 L POC LACTIC [id number] 10:55:00* Test Item Value Reference Range Interpretation Comme nts POC LACTIC ACID (test code = POCLAC) 1.2 mmol/l 0.9-1.7 N POC VENOUS BLOOD [id number] 10:55:00* Test Item Value Reference Range Interpretation Comme nts POC VENOUS BLOOD GAS PH (haley t code = POCPHV) 7.400 7.33-7.45 N POC VENOUS BLOOD GAS PCO2 (t est code = ZNEWSS5G) 34.6 mmHg 43-47 L POC VENOUS BLOOD GAS PO2 (te st code = EDRPI0L) 32.1 mmHG 10-50 N POC TCO2 VENOUS (test code = IXCWIG9N) 22.4 POC HCO3 VENOUS (test code = OVTDZO4T) 21.4 MMOL/L 22-27 L POC BASE EXCESS VENOUS (test code = POCBEV) -3.4 MMOL/L -4.0-4.0 N POC O2 SATURATION VENOUS (te st code = CCAC6DY) 62.6 % 60-80 N VENOUS BLOOD GAS DELIVERY (t est code = DELV) Cannula VENOUS BLOOD GAS SITE (test code = SITEV) Central Line - XR CHEST 1 [id number] 09:04:00 [facility] 1950 Sex: M FAX: Faye Brar MD [phone] [place]: St: ADM FAX: Gretta Templeton [facility] [phone] ----- Name: FELIPA GUZMAN [facility] [place] : 1950 Age/S: 72/M [address] [place] [address] Unit #: [id number] Loc: G.[address] [place] [id number] Phys: Gretta Ervin Physic Acct: [id number] Dis Date: Status: ADM IN PHONE #: [phone] Exam Date: 03/17/2023614 FAX #: [phone] Reason: Cardiac Surgery Post Op EXAMS: CPT CODE: [id number] XR CHEST 1 V [id number] EXAM: CHEST ONE VIEW INDICATION: Cardiac Surgery Post Op LOCATION: B2 COMPARISON: March 16, 2023 TECHNIQUE: AP view of the chest FINDINGS: The heart size is enlarged. There is evidence of prior thoracic surgery. The right central venous catheter is unchanged. Thereare diffuse congestive changes throughout both lungs. There is a cyst persistent small left pneumothorax similar to the prior examination. Left-sided chest tubes are seen in place. The osseous structures are normal. IMPRESSION: Small left pneumothorax with left-sided chest tube seen in place. Cardiomegaly with diffuse congestive changes. at 0904 Reported and signed by: Linsey Raymundo M.D. CC: Faye Espino MD; Gretta Ervin Technologist: RT Mckenzie (R) Trnscrd Date/Time/By: 03/17/2023 (903) : By: 16 Orig Print D/T: S: 03/17/2023 (906) PAGE 1 Signed Report- XR CHEST 1 [id number] 08:29:00 [facility] : 1950 Sex: M FAX: Faye Brar MD [phone] [place]: St: [facility] FAX: Frank Goldberg DO [phone] ------ Name: FELIPA GUZMAN [facility] : 1950 Age/S: 72/M [address] [place] [address] Unit #: [id number] Loc: Edvin2207 [place] [address] Phys: Frank Lopez DO Acct: [id number] Dis Date: Status: ADM IN PHONE #: [phone] Exam Date: 03/16/20232031 FAX #: [phone] Reason: volume overload EXAMS: CPT CODE: [id number] CHEST 1 V [id number] EXAM: - XR CHEST 1 V CLINICAL HISTORY: volume overload TECHNIQUE: Single frontalview. COMPARISON: CT chest from 03/16/2023, chest radiograph from 03/16/2023, multiple priors LOCATION:C4 FINDINGS: Devices external to the patient are seen projecting over the thorax. There are 2 left c hest tubes in place. Right neck central venous catheter terminating at the confluence of the brachiocephalic veins. The trachea appears normal. The cardiac silhouette is enlarged. Bilateral patchy opacities. Trace left apical pneumothorax. No pleural effusion. Visualized soft tissues and osseous str uctures are grossly unremarkable. IMPRESSION: Patchy bilateral opacities compatible with pneumonia in the appropriate clinical setting. Trace left apical pneumothorax. at 0829 Reported and signed by: Meliza Wang M.D. CC: Faye Espino MD; Frank Lopez DO Technologist: RT Gerg(Mg) Trnscrd Date/Time/By: 03/17/2023 (0829) : By: JessiJJY Orig Print D/T: S: 03/17/2023 (0832) PAGE 1 Signed ReportGLUCOSE [id number] 08:08:00* Test Item Value Reference Range Interpretation Comme [facility] GLUCOSE BEDSIDE (test code = GLUBED) 132 MG/DL 70-110 H Performed by [facility] tified vertical punch operator at [facility] GLUCOSE [id number] 06:47:00* Test Item Value Reference Range Interpretation Comme [facility] GLUCOSE BEDSIDE (test code = GLUBED) 143 MG/DL 70-110 H Performed by [facility] tified vertical punch operator at [facility] POC ARTERIAL BLOOD [id number] 04:50:00* Test Item Value Reference Range Interpretation Comme nts POC ARTERIAL BLOOD GAS PH (t est code = POCPHA) 7.432 7.35-7.45 N POC ARTERIAL BLOOD GAS PCO2 (test code = WMLLKV2T) 34.7 mmHg 35.0-45 L POC TCO2 ARTERIAL (test code = POCTCO2) 24.2 POC ARTERIAL BLOOD GAS PO2 ( test code = IAYXI7Z) 71.7 mmHg 80-100.0 L POC HCO3 ARTERIAL (test code = NXESSW5E) 23.1 MMOL/L 22.0-26.0 N POC BASE EXCESS (test code = POCBEA) -1.1 MMOL/L -4.0-4.0 N POC O2 SATURATION (test code = POCO2S) 94.8 % 90-100 N ABG DELIVERY (test code = FEDERICO) HFNC ABG TEMPERATURE (test code = TEMPA) 97.9 F ABG SITE (test code = SITEA) Art Line BASIC METABOLIC [id number] 04:50:00* Test Item Value Reference Range Interpretation Comme nts SODIUM (test code = NA/ABG) 136 mmol/L 134-147 N POTASSIUM (test code = K/ABG) 4.0 mmol/L 3.4-5.0 N CHLORIDE (test code = CL/ABG) 105 mmol/L 100-108 N CREATININE ABG (test code = CREAABG) 0.7 mg/dL 0.8-1.3 L POC IONIZED CALCIUM (test co de = POCCA) 1.11 MMOL/L 1.12-1.32 L POC GLUCOSE (test code = POCGLU) 114 MG/DL 70-110 H HEMOGLOBIN [id number] 04:50:00* Test Item Value Reference Range Interpretation Comme nts HEMOGLOBIN ABG (test code = HGB/ABG) 7.6 G/DL 12.5-16.9 L [id number] 04:50:00* Test Item Value Reference Range Interpretation Comme nts HEMATOCRIT (test code = HCT/ABG) 22 % 37.5-50.7 L POC LACTIC [id number] 04:50:00* Test Item Value Reference Range Interpretation Comme nts POC LACTIC ACID (test code = POCLAC) 1.1 mmol/l 0.9-1.7 N GLUCOSE [id number] 04:13:00* Test Item Value Reference Range Interpretation Comme nts GLUCOSE BEDSIDE (test code = GLUBED) 112 MG/DL 70-110 H Performed by cer tified vertical punch operator at [facility] BASIC METABOLIC [id number] 02:55:00* Test Item Value Reference Range Interpretation Comme nts SODIUM (test code = NA) 139 mEq/L 134-147 N POTASSIUM (test code = K) 3.9 mEq/L 3.4-5.0 N CHLORIDE (test code = CL) 107 mEq/L 100-108 N CARBON DIOXIDE (test code = CO2) 27 mEq/l 21-33 ANION GAP (test code = GAP) 9 0-20 N GLUCOSE (test code = GLU) 130 mg/dL 77-141 N BLOOD UREA NITROGEN (test code = BUN) 27 mg/dL 7-25 H GLOMERULAR FILTRATION RATE (test code = GFR) 94.0 70-80 H The Glomerular Filtration Rate is a calculated parameterbased on serum Creatinine, patient age and sex. GFR valuesless than 60 mL/min/1.73 square meters are indicative ofChronic Kidney Disease. Values less than 15 mL/min/1.73square meters indicate Kidney failure. The calculation forGFR is based on the CKD-EPI (202) calculation. This formulais race indifferent and is the recommended formula for GFRby the National Kidney Foundation for Adults.The GFR will not calculate if the sex is unknown or if thepatient's age is <18 years. CREATININE (test code = CREAT) 0.8 mg/dL 0.6-1.3 N CALCIUM (test code = CA) 8.4 mg/dL 8.0-10.5 N [id number] 02:55:00* Test Item Value Reference Range Interpretation Comme nts MAGNESIUM (test code = MAG) 3.27 mg/dL 1.6-2.6 H CBC W/AUTO [id number] 02:46:00* Test Item Value Reference Range Interpretation Comme nts WHITE BLOOD CELL (test code = WBC) 24.9 x10 3/uL 4.5-11.0 H RED BLOOD CELL (test code = RBC) 2.73 x10 6/uL 4.00-5.60 L HEMOGLOBIN (test code = HGB) 8.2 g/dL 12.5-16.9 L HEMATOCRIT (test code = HCT) 24.0 % 37.5-50.7 L MEAN CELL VOLUME (test code = MCV) 87.9 fL 81.0-99.0 N MEAN CELL HGB (test code = MCH) 30.0 pg 27.0-33.0 N MEAN CELL HGB CONCETRATION (test code = MCHC) 34.2 g/dL 33.0-37.0 N RED CELL DISTRIBUTION WIDTH CV (test code = RDW) 13.8 % 11.5-14.5 N RED CELL DISTRIBUTION WIDTH SD (test code = RDW-SD) 44.1 fL 37.0-54.0 N PLATELET COUNT (test code = PLT) 124 x10 3/uL 150-400 L MEAN PLATELET VOLUME (test code = MPV) 12.6 fL 7.0-9.0 H NEUTROPHIL % (test code = NT%) 78.3 % 56.0-77.0 H IMMATURE GRANULOCYTE % (test code = IG%) 1.1 % 0.0-2.0 N LYMPHOCYTE % (test code = LY%) 12.2 % 14.0-32.0 L MONOCYTE % (test code = MO%) 7.9 % 4.8-9.0 N EOSINOPHIL % (test code = EO%) 0.3 % 0.3-3.7 N BASOPHIL % (test code = BA%) 0.2 % 0.0-2.0 N NUCLEATED RBC % (test code = NRBC%) 0.2 % 0-0 H NEUTROPHIL # (test code = NT#) 19.49 x10 3/uL 2.0-7.6 H IMMATURE GRANULOCYTE # (test code = IG#) 0.28 x10 3/uL 0.00-0.03 H LYMPHOCYTE # (test code = LY#) 3.03 x10 3/uL 1.0-3.8 N MONOCYTE # (test code = MO#) 1.97 x10 3/uL 0.1-0.8 H EOSINOPHIL # (test code = EO#) 0.07 x10 3/uL 0.0-0.2 N BASOPHIL # (test code = BA#) 0.06 x10 3/uL 0.0-0.2 N NUCLEATED RBC # (test code = NRBC#) 0.06 x10 3/uL 0.0-0.1 N MANUAL DIFF REQUIRED (test code = MDIFF) NO GLUCOSE [id number] 02:35:00* Test Item Value Reference Range Interpretation Comme nts GLUCOSE BEDSIDE (test code = GLUBED) 121 MG/DL 70-110 H Performed by cer tified vertical punch operator at [facility] GLUCOSE [id number] 00:32:00* Test Item Value Reference Range Interpretation Comme [facility] GLUCOSE BEDSIDE (test code = GLUBED) 131 MG/DL 70-110 H Performed by cer karlos vertical punch operator at [facility] CBC W/AUTO [id number] 23:41:00* Test Item Value Reference Range Interpretation Comme nts WHITE BLOOD CELL (test code = WBC) 26.5 x10 3/uL 4.5-11.0 H RED BLOOD CELL (test code = RBC) 2.73 x10 6/uL 4.00-5.60 L HEMOGLOBIN (test code = HGB) 8.1 g/dL 12.5-16.9 L HEMATOCRIT (test code = HCT) 24.1 % 37.5-50.7 L MEAN CELL VOLUME (test code = MCV) 88.3 fL 81.0-99.0 N MEAN CELL HGB (test code = MCH) 29.7 pg 27.0-33.0 N MEAN CELL HGB CONCETRATION (test code = MCHC) 33.6 g/dL 33.0-37.0 N RED CELL DISTRIBUTION WIDTH CV (test code = RDW) 13.7 % 11.5-14.5 N RED CELL DISTRIBUTION WIDTH SD (test code = RDW-SD) 44.3 fL 37.0-54.0 N PLATELET COUNT (test code = PLT) 108 x10 3/uL 150-400 L MEAN PLATELET VOLUME (test code = MPV) 12.3 fL 7.0-9.0 H NEUTROPHIL % (test code = NT%) 80.2 % 56.0-77.0 H IMMATURE GRANULOCYTE % (test code = IG%) 0.9 % 0.0-2.0 N LYMPHOCYTE % (test code = LY%) 10.9 % 14.0-32.0 L MONOCYTE % (test code = MO%) 7.7 % 4.8-9.0 N EOSINOPHIL % (test code = EO%) 0.1 % 0.3-3.7 L BASOPHIL % (test code = BA%) 0.2 % 0.0-2.0 N NUCLEATED RBC % (test code = NRBC%) 0.2 % 0-0 H NEUTROPHIL # (test code = NT#) 21.25 x10 3/uL 2.0-7.6 H IMMATURE GRANULOCYTE # (test code = IG#) 0.23 x10 3/uL 0.00-0.03 H LYMPHOCYTE # (test code = LY#) 2.88 x10 3/uL 1.0-3.8 N MONOCYTE # (test code = MO#) 2.03 x10 3/uL 0.1-0.8 H EOSINOPHIL # (test code = EO#) 0.03 x10 3/uL 0.0-0.2 N BASOPHIL # (test code = BA#) 0.05 x10 3/uL 0.0-0.2 N NUCLEATED RBC # (test code = NRBC#) 0.04 x10 3/uL 0.0-0.1 N MANUAL DIFF REQUIRED (test code = MDIFF) NO SLIDE REVIEW ED, CONSISTENT WITH AUTO DIFF. LACTIC ACID 2ND [id number] 22:26:00* Test Item Value Reference Range Interpretation Comme nts LACTIC ACID 2ND REPEAT (test code = LACT2) 2.3 mmol/L 0.4-1.9 H GLUCOSE [id number] 22:16:00* Test Item Value Reference Range Interpretation Comme nts GLUCOSE BEDSIDE (test code = GLUBED) 156 MG/DL 70-110 H Performed by cer karlos vertical punch operator at [facility] LACTIC ACID [id number] 20:20:00* Test Item Value Reference Range Interpretation Comme nts LACTIC ACID REPEAT (test cod e = LACTR) 3.0 mmol/l 0.4-1.9 H POC ARTERIAL BLOOD [id number] 20:06:00* Test Item Value Reference Range Interpretation Comme nts POC ARTERIAL BLOOD GAS PH (t est code = POCPHA) 7.426 7.35-7.45 N POC ARTERIAL BLOOD GAS PCO2 (test code = RZMVVP4Y) 33.4 mmHg 35.0-45 L POC TCO2 ARTERIAL (test code = POCTCO2) 23.0 POC ARTERIAL BLOOD GAS PO2 ( test code = LXUPR6M) 67.5 mmHg 80-100.0 L POC HCO3 ARTERIAL (test code = ALAHND0A) 22.0 MMOL/L 22.0-26.0 N POC BASE EXCESS (test code = POCBEA) -2.4 MMOL/L -4.0-4.0 N POC O2 SATURATION (test code = POCO2S) 93.8 % 90-100 N ABG DELIVERY (test code = FEDERICO) HFNC ABG TEMPERATURE (test code = TEMPA) 98.8 F ABG SITE (test code = SITEA) Art Line BASIC METABOLIC [id number] 20:06:00* Test Item Value Reference Range Interpretation Comme nts SODIUM (test code = NA/ABG) 136 mmol/L 134-147 N POTASSIUM (test code = K/ABG) 4.1 mmol/L 3.4-5.0 N CHLORIDE (test code = CL/ABG) 103 mmol/L 100-108 N CREATININE ABG (test code = CREAABG) 0.9 mg/dL 0.8-1.3 N POC IONIZED CALCIUM (test co de = POCCA) 1.12 MMOL/L 1.12-1.32 N POC GLUCOSE (test code = POCGLU) 167 MG/DL 70-110 H HEMOGLOBIN [id number] 20:06:00* Test Item Value Reference Range Interpretation Comme nts HEMOGLOBIN ABG (test code = HGB/ABG) 8.1 G/DL 12.5-16.9 L [id number] 20:06:00* Test Item Value Reference Range Interpretation Comme nts HEMATOCRIT (test code = HCT/ABG) 24 % 37.5-50.7 L POC LACTIC [id number] 20:06:00* Test Item Value Reference Range Interpretation Comme nts POC LACTIC ACID (test code = POCLAC) 3.0 mmol/l 0.9-1.7 H GLUCOSE [id number] 18:32:00* Test Item Value Reference Range Interpretation Comme nts GLUCOSE BEDSIDE (test code = GLUBED) 143 MG/DL 70-110 H Performed by cer tified vertical punch operator at [facility] LACTIC [id number] 17:21:00* Test Item Value Reference Range Interpretation Comme nts LACTIC ACID (test code = LACT) 5.3 mmol/L 0.4-1.9 HH Critical result called to AB REID [id number] at 1721 03/16/23Nurse read back result and tech confirmed it's correct? YES BASIC METABOLIC [id number] 16:19:00* Test Item Value Reference Range Interpretation Comme nts SODIUM (test code = NA) 136 mEq/L 134-147 N POTASSIUM (test code = K) 4.4 mEq/L 3.4-5.0 N CHLORIDE (test code = CL) 102 mEq/L 100-108 N CARBON DIOXIDE (test code = CO2) 21 mEq/l 21-33 ANION GAP (test code = GAP) 17 0-20 N GLUCOSE (test code = GLU) 138 mg/dL 77-141 BLOOD UREA NITROGEN (test code = BUN) 22 mg/dL 7-25 N GLOMERULAR FILTRATION RATE (test code = GFR) 64.3 70-80 L The Glomerular Filtration Rate is a calculated parameterbased on serum Creatinine, patient age and sex. GFR valuesless than 60 mL/min/1.73 square meters are indicative ofChronic Kidney Disease. Values less than 15 mL/min/1.73square meters indicate Kidney failure. The calculation forGFR is based on the CKD-EPI (2020) calculation. This formulais race indifferent and is the recommended formula for GFRby the National Kidney Foundation for Adults.The GFR will not calculate if the sex is unknown or if thepatient's age is <18 years. CREATININE (test code = CREAT) 1.2 mg/dL 0.6-1.3 N CALCIUM (test code = CA) 8.7 mg/dL 8.0-10.5 N BASIC METABOLIC [id number] 15:42:00* Test Item Value Reference Range Interpretation Comme nts SODIUM (test code = NA/ABG) 139 mmol/L 134-147 N POTASSIUM (test code = K/ABG) 4.1 mmol/L 3.4-5.0 N CHLORIDE (test code = CL/ABG) 105 mmol/L 100-108 N CREATININE ABG (test code = CREAABG) 0.9 mg/dL 0.8-1.3 POC IONIZED CALCIUM (test co de = POCCA) 1.10 MMOL/L 1.12-1.32 L POC GLUCOSE (test code = POCGLU) 126 MG/DL 70-110 H HEMOGLOBIN [id number] 15:42:00* Test Item Value Reference Range Interpretation Comme nts HEMOGLOBIN ABG (test code = HGB/ABG) 6.5 G/DL 12.5-16.9 L [id number] 15:42:00* Test Item Value Reference Range Interpretation Comme nts HEMATOCRIT (test code = HCT/ABG) 19 % 37.5-50.7 L POC LACTIC [id number] 15:42:00* Test Item Value Reference Range Interpretation Comme nts POC LACTIC ACID (test code = POCLAC) 6.6 mmol/l 0.9-1.7 HH POC VENOUS BLOOD [id number] 15:42:00* Test Item Value Reference Range Interpretation Comme nts POC VENOUS BLOOD GAS PH (haley t code = POCPHV) 7.400 7.33-7.45 N POC VENOUS BLOOD GAS PCO2 (t est code = NOBEGB8L) 34.2 mmHg 43-47 L POC VENOUS BLOOD GAS PO2 (te st code = HOAVK4P) 31.2 mmHG 10-50 N POC TCO2 VENOUS (test code = ECEDHC0A) 22.2 POC HCO3 VENOUS (test code = VIGBCT1F) 21.2 MMOL/L 22-27 L POC BASE EXCESS VENOUS (test code = POCBEV) -3.6 MMOL/L -4.0-4.0 N POC O2 SATURATION VENOUS (te st code = UGCT2YW) 60.8 % 60-80 N VENOUS BLOOD GAS DELIVERY (t est code = DELV) Cannula VENOUS BLOOD GAS SITE (test code = SITEV) Central Line POC ARTERIAL BLOOD [id number] 15:31:00* Test Item Value Reference Range Interpretation Comme nts POC ARTERIAL BLOOD GAS PH (t est code = POCPHA) 7.464 7.35-7.45 H POC ARTERIAL BLOOD GAS PCO2 (test code = XYZMUS2U) 26.7 mmHg 35.0-45 LL POC TCO2 ARTERIAL (test code = POCTCO2) 20.0 POC ARTERIAL BLOOD GAS PO2 ( test code = ZCQNU3X) 78.0 mmHg 80-100.0 L POC HCO3 ARTERIAL (test code = ICGOKV1P) 19.2 MMOL/L 22.0-26.0 L POC BASE EXCESS (test code = POCBEA) -4.6 MMOL/L -4.0-4.0 L POC O2 SATURATION (test code = POCO2S) 96.4 % 90-100 N ABG DELIVERY (test code = FEDERICO) Cannula ABG SITE (test code = SITEA) Art Line BASIC METABOLIC [id number] 15:31:00* Test Item Value Reference Range Interpretation Comme nts SODIUM (test code = NA/ABG) 135 mmol/L 134-147 N POTASSIUM (test code = K/ABG) 4.4 mmol/L 3.4-5.0 N CHLORIDE (test code = CL/ABG) 102 mmol/L 100-108 N CREATININE ABG (test code = CREAABG) 1.2 mg/dL 0.8-1.3 POC IONIZED CALCIUM (test co de = POCCA) 1.10 MMOL/L 1.12-1.32 L POC GLUCOSE (test code = POCGLU) 134 MG/DL 70-110 H HEMOGLOBIN [id number] 15:31:00* Test Item Value Reference Range Interpretation Comme nts HEMOGLOBIN ABG (test code = HGB/ABG) 6.8 G/DL 12.5-16.9 L [id number] 15:31:00* Test Item Value Reference Range Interpretation Comme nts HEMATOCRIT (test code = HCT/ABG) 20 % 37.5-50.7 L POC LACTIC [id number] 15:31:00* Test Item Value Reference Range Interpretation Comme nts POC LACTIC ACID (test code = POCLAC) 6.5 mmol/l 0.9-1.7 HH CBC W/AUTO [id number] 12:48:00* Test Item Value Reference Range Interpretation Comme nts WHITE BLOOD CELL (test code = WBC) 14.9 x10 3/uL 4.5-11.0 H RED BLOOD CELL (test code = RBC) 2.34 x10 6/uL 4.00-5.60 L HEMOGLOBIN (test code = HGB) 6.9 g/dL 12.5-16.9 L HEMATOCRIT (test code = HCT) 21.1 % 37.5-50.7 L MEAN CELL VOLUME (test code = MCV) 90.2 fL 81.0-99.0 N MEAN CELL HGB (test code = MCH) 29.5 pg 27.0-33.0 N MEAN CELL HGB CONCETRATION (test code = MCHC) 32.7 g/dL 33.0-37.0 L RED CELL DISTRIBUTION WIDTH CV (test code = RDW) 13.6 % 11.5-14.5 N RED CELL DISTRIBUTION WIDTH SD (test code = RDW-SD) 44.0 fL 37.0-54.0 N PLATELET COUNT (test code = PLT) 109 x10 3/uL 150-400 L MEAN PLATELET VOLUME (test code = MPV) 11.9 fL 7.0-9.0 H NEUTROPHIL % (test code = NT%) 88.8 % 56.0-77.0 H LYMPHOCYTE % (test code = LY%) 8.0 % 14.0-32.0 L NEUTROPHIL # (test code = NT#) 13.27 x10 3/uL 2.0-7.6 H LYMPHOCYTE # (test code = LY#) 1.19 x10 3/uL 1.0-3.8 N IMMATURE GRANULOCYTE % (test code = IG%) 0.5 % 0.0-2.0 N MONOCYTE % (test code = MO%) 2.5 % 4.8-9.0 L EOSINOPHIL % (test code = EO%) 0.1 % 0.3-3.7 L BASOPHIL % (test code = BA%) 0.1 % 0.0-2.0 N NUCLEATED RBC % (test code = NRBC%) 0.3 % 0-0 H IMMATURE GRANULOCYTE # (test code = IG#) 0.08 x10 3/uL 0.00-0.03 H MONOCYTE # (test code = MO#) 0.37 x10 3/uL 0.1-0.8 N EOSINOPHIL # (test code = EO#) 0.01 x10 3/uL 0.0-0.2 N BASOPHIL # (test code = BA#) 0.02 x10 3/uL 0.0-0.2 N NUCLEATED RBC # (test code = NRBC#) 0.04 x10 3/uL 0.0-0.1 N BASIC METABOLIC [id number] 12:34:00* Test Item Value Reference Range Interpretation Comme nts SODIUM (test code = NA/ABG) 143 mmol/L 134-147 N POTASSIUM (test code = K/ABG) 3.5 mmol/L 3.4-5.0 N CHLORIDE (test code = CL/ABG) 111 mmol/L 100-108 H CREATININE ABG (test code = CREAABG) 0.9 mg/dL 0.8-1.3 N POC IONIZED CALCIUM (test co de = POCCA) 0.99 MMOL/L 1.12-1.32 L POC GLUCOSE (test code = POCGLU) 124 MG/DL 70-110 H HEMOGLOBIN [id number] 12:34:00* Test Item Value Reference Range Interpretation Comme [facility] HEMOGLOBIN ABG (test code = HGB/ABG) 6.0 G/DL 12.5-16.9 L [id number] 12:34:00* Test Item Value Reference Range Interpretation Comme nts HEMATOCRIT (test code = HCT/ABG) 18 % 37.5-50.7 L POC LACTIC [id number] 12:34:00* Test Item Value Reference Range Interpretation Comme nts POC LACTIC ACID (test code = POCLAC) 9.7 mmol/l 0.9-1.7 HH POC VENOUS BLOOD [id number] 12:34:00* Test Item Value Reference Range Interpretation Comme nts POC VENOUS BLOOD GAS PH (haley t code = POCPHV) 7.350 7.33-7.45 N POC VENOUS BLOOD GAS PCO2 (t est code = FQKZAF7G) 30.1 mmHg 43-47 L POC VENOUS BLOOD GAS PO2 (te st code = YRIPX9Z) 24.1 mmHG 10-50 N POC TCO2 VENOUS (test code = MISWFI5W) 17.5 POC HCO3 VENOUS (test code = XIUKPT9P) 16.6 MMOL/L 22-27 L POC BASE EXCESS VENOUS (test code = POCBEV) -9.0 MMOL/L -4.0-4.0 L POC O2 SATURATION VENOUS (te st code = VBYK1DU) 41.0 % 60-80 L VENOUS BLOOD GAS DELIVERY (t est code = DELV) Cannula VENOUS BLOOD GAS TEMP (test code = TEMPV) 99.6 F VENOUS BLOOD GAS SITE (test code = SITEV) Central Line [id number] 11:41:00* Test Item Value Reference Range Interpretation Comments SURGICAL (test code = SR) RUN DATE: 03/16/23 [place] - LAB PAGE 1 RUN TIME: 1141 Specimen Inquiry RUN USER: INTERFACE PATIENT: FELIPA GUZMAN LOC: [facility] U #: [id number] AGE/SX: 72/M ROOM: [facility] RE03/09/23REG DR: Faye Espino MD : 50 BED: 1 DIS: STATUS: ADM IN TLOC: SPEC #: [id number] RECD: 03/14/23 STATUS: SAMIA MO #: [id number] RICHAR: 03/13/23- SUBM DR: Faye Espino MD ENTERED: 03/14/23 SP TYPE: SURGICAL OTHR DR: No Primary or Family Physician Dav Ponce MD, Obiora I MDORDERED: 95010, ANATOMIC SPEC COPIES TO: No Primary or Family Physician Dav Ponce MD [address] [place] [address] Faye Espino MD [address] [place] [address]. [address] [place] [address] [place] [address] [place] [address] PROCEDURES: [id number] (03/14/23) TISSUES: A. ATRIUM - LEFT ATRIAL APPENDAGE CLINICAL HISTORY CAD FINAL DIAGNOSIS Heart, left atrial appendage, submitted: Cardiac muscle with mild degenerative change,consistent with atrial appendage. GROSS DESCRIPTION Received in formalin labeled left atrial appendage is a 3.2 x 1.5 x 0.9 cm portion ofmuscular tissue with attached adipose submitted in 1 cassette. Technical component performed at [facility], CONTINUED ON NEXT PAGE RUN DATE: 03/16/23 [place] - LAB PAGE 2 RUN TIME: 1141 Specimen Inquiry RUN USER: INTERFACE SPEC #: [id number] PATIENT: FELIPA GUZMAN #[id number] (Continued) - GROSS DESCRIPTION (Continued) [address] [place] [address], [place] [address] Unless gross only, the diagnosis is based upon microscopic examination.Immunohistochemistry: This test was developed and its performance characteristicsdetermined by this laboratory. It has not been approved nor does it need approvalby the [place] FDA. Appropriate positive and negative controls are reviewed and judgedto be acceptable for performedimmunohistochemistry and/or special stains. This laboratoryis certified under the Clinical Laboratory Improvement Amendments (CLIA-88) as qualified toperform high complexity clinical laboratory testing. CLINICAL INFORMATION CAD Signed SIGNATURE ON FILE IldaMason 03/16/23 1141 END OF REPORT - CT CHEST W/O [id number] 11:31:00 [facility] 1950 Sex: M Name: FELIPA GUZMAN [facility] : 1950 Age/S: 72 / M [address] [place] [address] Unit #: [id number] Loc: [place] [address] Phys: Kathy Paulson MD Acct: [id number] Dis Date: Status: ADM IN PHONE #: [phone] Exam Date: 03/16/2023 1058 FAX #: [phone] Reason: PNA,SEPSIS EXAMS: CPT CODE: [id number] CT CHEST W/O CONTRAST [id number] EXAM: CT OF THE CHEST, ABDOMEN AND PELVIS WITHOUT CONTRAST INDICATION: PNA,SEPSIS LOCATION: h14 COMPARISON: 03/10/[address] and CXR earlier the same day TECHNIQUE: CT of the chest, abdomen and pelvis was performed without intravenous contrast. All CT scansare performed using radiation dose reduction technique. Technical factors are evaluated and adjusted to insure appropriate moderation of exposure. Automated dose management technology is applied to adjust the radiation dose to minimize exposure while achieving a diagnostic quality image. Unless otherwise specified, incidental findings do not require dedicated imaging follow-up. FINDINGS: Mediastinum and ilan: Patient has undergone median sternotomy and bypass surgery. No abnormal mass or adenopathy. Vascular: Atherosclerotic changes. Mild cardiomegaly without pericardial effusion and no cardiac decompensation. Lungs and pleura: 2 left- sided chest tubes are in place. One is abutting the lateral mid chest wall and the 2nd is closer to the midline. There is small partly loculated left effusion with left lower lobe consolidation. Additional atelectatic changes noted. A smaller right effusion with dependent atelectasis also noted. No right-sided pneumothorax. There is no endobronchial obstruction. Hepatobiliary: The liver, gallbladder, spleen and pancreas show no acute findings. The pancreas is mostly fatty replaced. Adrenals: No adrenal nodules. : Symmetric appearance of the kidneyswith no focal mass, stones or hydronephrosis. The bladder is decompressed by Prieto with intraluminal air present. GI: No evidence for bowel obstruction, free fluid or free air. The cecum appears slightly thickened. Appendix is not seen. There are no bowel-containing hernias. PAGE 1 Signed Report (CONTINUED) Name: FELIPA GUZMAN [facility] : 1950 Age/S: 72 / M [address] [place] [address] Unit #: [id number] Loc: [place] [address] Phys: Kathy Paulson MD Acct: [id number] Dis Date: Status: ADM IN PHONE #: [phone] Exam Date: 03/16/2023 1058 FAX #: [phone] Reason: PNA,SEPSIS EXAMS: CPT CODE: [id number] CT CHEST W/O CONTRAST 08505 (Continued) Retroperitoneum and pelvis: Atherosclerotic changes without aneurysm. No pelvic mass or fluid collection. The prostate does not appearenlarged. Bones and soft tissues: No acute findings noted. IMPRESSION: 1. Comparison made to 03/10/[address] and chest x-ray earlier the same day. 2. Patient is poststernotomy and bypass surgery. 3. Small mainly apical pneumothorax with chest tubes in place. 4. Small effusions, partly loculated on the left with left lower lobe pneumonia and bibasilar atelectasis. 5. Cardiomegaly without cardiac decompensation. 6. No acute findings in the abdomen or pelvis. 7. Slightly thickened appearance ofthe cecum, additional imaging and follow-up to exclude malignancy on a nonemergent basis. 8. Air inthe bladder likely due to indwelling Prieto catheter. Electronically Signed by Lan Mccormick on03/16/2023 at 1131 Reported and signed by: Angelica Mccormick M.D. CC: Faye Espino MD; Kathy Paulson MD Technologist:Joce Tee, RT(R)(CT) CTDI: DLP: Trnscb Date/Time: 03/16/2023 (1131) t.[email or web address].[email or web address] Orig Print D/T: S: 03/16/2023 (1134) PAGE 2 Signed Report- CT ABD PELVIS W/O [id number] 11:31:00[facility] : 1950 Sex: M Name: FELIPA GUZMAN [facility] : 1950 Age/S: 72 / M [address] [place] [address] Unit #: [id number] Loc: [place] [address] Phys: Kathy Paulson MD Acct: [id number] Dis Date: Status: ADM IN PHONE #: [phone] Exam Date: 03/16/2023 105 FAX #: [phone] Reason: PNA,SEPSIS EXAMS: CPT CODE: [id number] CT ABD PELVIS W/O CONT [id number] EXAM: CT OF THE CHEST, ABDOMEN AND PELVIS WITHOUT CONTRASTINDICATION: PNA,SEPSIS LOCATION: h14 COMPARISON: 03/10/[address] and CXR earlier the same day TECHNIQUE: CT of the chest, abdomen and pelvis was performed without intravenous contrast. All CT scansare performed using radiation dose reduction technique. Technical factors are evaluated and adjusted to insure appropriate moderation of exposure. Automated dose management technology is applied to ad just the radiation dose to minimize exposure while achieving a diagnostic quality image. Unless otherwise specified, incidental findings do not require dedicated imaging follow-up. FINDINGS: Mediastinum and ilan: Patient has undergone median sternotomy and bypass surgery. No abnormal mass or adenopathy. Vascular: Atherosclerotic changes. Mild cardiomegaly without pericardial effusion and no cardiac decompensation. Lungs and pleura: 2 left-sided chest tubes are in place. One is abutting the lateral mid chest wall and the 2nd is closer to the midline. There is small partly loculated left effusion with left lower lobe consolidation. Additional atelectatic changes noted. A smaller right effusion with dependent atelectasis also noted. No right-sided pneumothorax. There is no endobronchial obstruction. Hepatobiliary: The liver, gallbladder, spleen and pancreas show no acute findings. The pancreas is mostly fatty replaced. Adrenals: No adrenal nodules. : Symmetric appearance of the kidneys with no focal mass, stones or hydronephrosis. The bladder is decompressed by Prieto with intraluminal air present. GI: No evidence for bowel obstruction, free fluid or free air. The cecum appears slightly thickened. Appendix is not seen. There are no bowel-containing hernias. PAGE 1 Signed Report (CONTINUED) Name: FELIPA GUZMAN [facility] : 1950 Age/S: 72 / M [address] [place] [address] BlvdUnit #: [id number] Loc: [place] [address] Phys: Kathy Paulson MD Acct: [id number] Dis Date: Status: ADM IN PHONE #: [phone] Exam Date: 03/16/2023 1058 FAX #: [phone] Reason: PNA,SEPSIS EXAMS: CPT CODE: [id number] CT ABD PELVIS W/O CONT 98681 (Continued) Retroperitoneum and pelvis: Atherosclerotic changes without aneurysm. No pelvic mass or fluid collection. The prostate does not appear enlarged. Bones and soft tissues: No acute findings noted. IMPRESSION: 1. Comparison made to 03/10/[address] and chest x-ray earlier the same day. 2. Patient is poststernotomy and bypass surgery. 3. Small mainly apical pneumothorax with chest tubes in place. 4. Small effusions, partly loculated on the left with left lower lobe pneumonia and bibasilar atelectasis. 5. Cardiomegaly without cardiac decompensation. 6. No acute findings in the abdomen or pelvis. 7. Slightly thickened appearance of the cecum, additional imaging and follow-up to exclude malignancy on a nonemergent basis. 8. Air in the bladder likely due to indwelling Prieto catheter. at 1131 Reported and signed by: Angelica Mccormick M.D. CC: Faye Espino MD; Kathy Paulson MD Technologist:Joce Tee, RT(R)(CT) CTDI: DLP: Trnscb Date/Time: 03/16/2023 (113) t.SDR.PXC Orig Print D/T: S: 03/16/2023 (1134) PAGE 2 Signed ReportGLUCOSE BEDSIDE 2023-03-16 09:39:00* Test Item Value Reference Range Interpretation Comme nts GLUCOSE BEDSIDE (test code = GLUBED) 139 MG/DL 70-110 H Performed by bryan cruz at [facility] - XR CHEST 1 [id number] 08:38:00 [facility] 1950 Sex: M FAX: Faye Brar MD [phone] Cliff: St: ADM FAX: Gretta Templeton [facility] [phone] ----- Name: FELIPA GUZMAN [facility] : 1950 Age/S: 72/M [address] [place] [address] Unit #: [id number] Loc: G.2207 [place] [address] Phys: Gretta Ervin Physic Acct: [id number] Dis Date: Status: ADM IN PHONE #: [phone] Exam Date: 03/16/2023628 FAX #: [phone] Reason: Cardiac Surgery Post Op EXAMS: CPT CODE: [id number] XR CHEST 1 V 39107 EXAM: - XR CHEST 1 V CLINICAL HISTORY: Cardiac Surgery Post Op TECHNIQUE: Single frontal view. COMPARISON: Chest radiograph from 03/15/2023, multiple priors LOCATION: C4 FINDINGS: Multiple lines and tubes external to the patient are seen projecting over the thorax. Right neck central venous catheter terminating at the confluence of the brachiocephalic veins. Left chest tube. The trachea appears normal. Cardiac silhouette is obscured on the left by pulmonary opacities. Left upper lobe opacity and retrocardiac consolidation. Small bilateral pleural effusion. No pn eumothorax. Visualized soft tissues and osseous structures are grossly unremarkable. IMPRESSION: Unchanged left perihilar opacity and likely retrocardiac consolidation. Small bilateral pleural effusions. at 0838 Reported and signed by: Meliza Wang M.D. CC: Faye Espino MD; Gretta Ervin Technologist: RT Mckenzie (R) Trnscrd Date/Time/By: 03/16/2023 (0875) : By: JessiJJY Orig Print D/T: S: 03/16/2023 (3307) PAGE 1 Signed ReportGLUCOSE [id number] 06:00:00* Test Item Value Reference Range Interpretation Comme nts GLUCOSE BEDSIDE (test code = GLUBED) 158 MG/DL 70-110 H Performed by cer tified vertical punch operator at [facility] GLUCOSE [id number] 05:28:00* Test Item Value Reference Range Interpretation Comme nts GLUCOSE BEDSIDE (test code = GLUBED) 189 MG/DL 70-110 H Performed by cer tified vertical punch operator at [facility] CBC W/AUTO [id number] 03:25:00* Test Item Value Reference Range Interpretation Comme nts WHITE BLOOD CELL (test code = WBC) 28.4 x10 3/uL 4.5-11.0 H RED BLOOD CELL (test code = RBC) 2.37 x10 6/uL 4.00-5.60 L HEMOGLOBIN (test code = HGB) 7.0 g/dL 12.5-16.9 L HEMATOCRIT (test code = HCT) 21.2 % 37.5-50.7 L MEAN CELL VOLUME (test code = MCV) 89.5 fL 81.0-99.0 N MEAN CELL HGB (test code = MCH) 29.5 pg 27.0-33.0 N MEAN CELL HGB CONCETRATION (test code = MCHC) 33.0 g/dL 33.0-37.0 N RED CELL DISTRIBUTION WIDTH CV (test code = RDW) 13.5 % 11.5-14.5 N RED CELL DISTRIBUTION WIDTH SD (test code = RDW-SD) 43.9 fL 37.0-54.0 N PLATELET COUNT (test code = PLT) 123 x10 3/uL 150-400 L MEAN PLATELET VOLUME (test code = MPV) 11.3 fL 7.0-9.0 H NEUTROPHIL % (test code = NT%) 84.8 % 56.0-77.0 H IMMATURE GRANULOCYTE % (test code = IG%) 3.4 % 0.0-2.0 H LYMPHOCYTE % (test code = LY%) 5.2 % 14.0-32.0 L MONOCYTE % (test code = MO%) 6.5 % 4.8-9.0 N EOSINOPHIL % (test code = EO%) 0.0 % 0.3-3.7 L BASOPHIL % (test code = BA%) 0.1 % 0.0-2.0 N NUCLEATED RBC % (test code = NRBC%) 0.1 % 0-0 H NEUTROPHIL # (test code = NT#) 24.10 x10 3/uL 2.0-7.6 H IMMATURE GRANULOCYTE # (test code = IG#) 0.97 x10 3/uL 0.00-0.03 H LYMPHOCYTE # (test code = LY#) 1.48 x10 3/uL 1.0-3.8 N MONOCYTE # (test code = MO#) 1.86 x10 3/uL 0.1-0.8 H EOSINOPHIL # (test code = EO#) 0.00 x10 3/uL 0.0-0.2 N BASOPHIL # (test code = BA#) 0.03 x10 3/uL 0.0-0.2 N NUCLEATED RBC # (test code = NRBC#) 0.02 x10 3/uL 0.0-0.1 N BASIC METABOLIC [id number] 03:21:00* Test Item Value Reference Range Interpretation Comme nts SODIUM (test code = NA) 134 mEq/L 134-147 N POTASSIUM (test code = K) 3.9 mEq/L 3.4-5.0 N CHLORIDE (test code = CL) 103 mEq/L 100-108 N CARBON DIOXIDE (test code = CO2) 29 mEq/l 21-33 ANION GAP (test code = GAP) 6 0-20 N GLUCOSE (test code = GLU) 234 mg/dL 77-141 H BLOOD UREA NITROGEN (test code = BUN) 20 mg/dL 7-25 GLOMERULAR FILTRATION RATE (test code = GFR) 71.3 70-80 N The Glomerular Filtration Rate is a calculated parameterbased on serum Creatinine, patient age and sex. GFR valuesless than 60 mL/min/1.73 square meters are indicative ofChronic Kidney Disease. Values less than 15 mL/min/1.73square meters indicate Kidney failure. The calculation forGFR is based on the CKD-EPI (202) calculation. This formulais race indifferent and is the recommended formula for GFRby the National Kidney Foundation for Adults.The GFR will not calculate if the sex is unknown or if thepatient's age is <18 years. CREATININE (test code = CREAT) 1.1 mg/dL 0.6-1.3 N CALCIUM (test code = CA) 9.0 mg/dL 8.0-10.5 N COMMENTS: POD #1HEPATIC FUNCTION [id number] 03:21:00* Test Item Value Reference Range Interpretation Comme nts TOTAL PROTEIN (test code = PROT) 6.2 g/dL 6.4-8.2 L ALBUMIN (test code = ALB) 4.00 g/dL 3.4-5.0 N BILIRUBIN TOTAL (test code = BILT) 1.30 mg/dL 0.0-1.0 H BILIRUBIN DIRECT (test code = BILD) 0.70 MG/DL 0.1-0.3 H BILIRUBIN INDIRECT (test cod e = BILIND) 0.60 MG/DL SGOT/AST (test code = AST) 65 IUnit/L 8-34 H SGPT/ALT (test code = ALT) 31 IUnit/L 10-49 N ALKALINE PHOSPHATASE TOTAL ( test code = ALKP) 73 IUnit/L 20-125 N COMMENTS: POD #[id number] 03:21:00* Test Item Value Reference Range Interpretation Comme nts MAGNESIUM (test code = MAG) 2.36 mg/dL 1.6-2.6 COMMENTS: POD #1POC ARTERIAL BLOOD [id number] 03:00:00* Test Item Value Reference Range Interpretation Comme nts POC ARTERIAL BLOOD GAS PH (t est code = POCPHA) 7.425 7.35-7.45 N POC ARTERIAL BLOOD GAS PCO2 (test code = IQNLLC2I) 40.1 mmHg 35.0-45 N POC TCO2 ARTERIAL (test code = POCTCO2) 27.5 POC ARTERIAL BLOOD GAS PO2 ( test code = RODTR8V) 99.3 mmHg 80-100.0 N POC HCO3 ARTERIAL (test code = BIXELM7N) 26.3 MMOL/L 22.0-26.0 H POC BASE EXCESS (test code = POCBEA) 1.9 MMOL/L -4.0-4.0 N POC O2 SATURATION (test code = POCO2S) 97.9 % 90-100 N ABG DELIVERY (test code = FEDERICO) Cannula ABG TEMPERATURE (test code = TEMPA) 98.7 F ABG SITE (test code = SITEA) Art Line BASIC METABOLIC [id number] 03:00:00* Test Item Value Reference Range Interpretation Comme nts SODIUM (test code = NA/ABG) 136 mmol/L 134-147 N POTASSIUM (test code = K/ABG) 3.8 mmol/L 3.4-5.0 N CHLORIDE (test code = CL/ABG) 99 mmol/L 100-108 L CREATININE ABG (test code = CREAABG) 1.1 mg/dL 0.8-1.3 POC IONIZED CALCIUM (test co de = POCCA) 1.17 MMOL/L 1.12-1.32 N POC GLUCOSE (test code = POCGLU) 244 MG/DL 70-110 H HEMOGLOBIN [id number] 03:00:00* Test Item Value Reference Range Interpretation Comme nts HEMOGLOBIN ABG (test code = HGB/ABG) 7.5 G/DL 12.5-16.9 L [id number] 03:00:00* Test Item Value Reference Range Interpretation Comme nts HEMATOCRIT (test code = HCT/ABG) 22 % 37.5-50.7 L POC LACTIC [id number] 03:00:00* Test Item Value Reference Range Interpretation Comme nts POC LACTIC ACID (test code = POCLAC) 3.0 mmol/l 0.9-1.7 H GLUCOSE [id number] 02:16:00* Test Item Value Reference Range Interpretation Comme nts GLUCOSE BEDSIDE (test code = GLUBED) 192 MG/DL 70-110 H Performed by cer tified vertical punch operator at [facility] GLUCOSE [id number] 01:11:00* Test Item Value Reference Range Interpretation Comme nts GLUCOSE BEDSIDE (test code = GLUBED) 139 MG/DL 70-110 H Performed by cer tified vertical punch operator at [facility] GLUCOSE [id number] 22:19:00* Test Item Value Reference Range Interpretation Comme nts GLUCOSE BEDSIDE (test code = GLUBED) 151 MG/DL 70-110 H Performed by cer tified vertical punch operator at [facility] GLUCOSE [id number] 20:32:00* Test Item Value Reference Range Interpretation Comme nts GLUCOSE BEDSIDE (test code = GLUBED) 153 MG/DL 70-110 H Performed by cer tified vertical punch operator at [facility] BASIC METABOLIC [id number] 20:16:00* Test Item Value Reference Range Interpretation Comme nts SODIUM (test code = NA) 136 mEq/L 134-147 N POTASSIUM (test code = K) 3.5 mEq/L 3.4-5.0 N CHLORIDE (test code = CL) 105 mEq/L 100-108 N CARBON DIOXIDE (test code = CO2) 23 mEq/l 21-33 N ANION GAP (test code = GAP) 12 0-20 N GLUCOSE (test code = GLU) 164 mg/dL 77-141 H BLOOD UREA NITROGEN (test code = BUN) 12 mg/dL 7-25 N GLOMERULAR FILTRATION RATE (test code = GFR) 90.7 70-80 H The Glomerular Filtration Rate is a calculated parameterbased on serum Creatinine, patient age and sex. GFR valuesless than 60 mL/min/1.73 square meters are indicative ofChronic Kidney Disease. Values less than 15 mL/min/1.73square meters indicate Kidney failure. The calculation forGFR is based on the CKD-EPI (2020) calculation. This formulais race indifferent and is the recommended formula for GFRby the National Kidney Foundation for Adults.The GFR will not calculate if the sex is unknown or if thepatient's age is <18 years. CREATININE (test code = CREAT) 0.9 mg/dL 0.6-1.3 N CALCIUM (test code = CA) 8.5 mg/dL 8.0-10.5 N [id number] 20:16:00* Test Item Value Reference Range Interpretation Comme nts MAGNESIUM (test code = MAG) 2.00 mg/dL 1.6-2.6 N URINALYSIS [id number] 19:08:00* Test Item Value Reference Range Interpretation Comme nts UA COLOR (test code = COLU) YELLOW YEL/STRAW UA APPEARANCE (test code = APPU) SL CLOUDY CLEAR UA GLUCOSE DIPSTICK (test co de = DGLUU) NEGATIVE NEGATIVE UA BILIRUBIN DIPSTICK (test code = BILU) NEGATIVE NEGATIVE UA KETONE DIPSTICK (test cod e = KETU) NEGATIVE NEGATIVE UA SPECIFIC GRAVITY (test co de = SGU) 1.011 1.005-1.030 N UA BLOOD DIPSTICK (test code = ANSLEY) 3+ NEGATIVE A UA PH DIPSTICK (test code = BLADIMIR) 5.0 5.0-7.0 N UA PROTEIN DIPSTICK (test co de = PROU) 1+ NEGATIVE A UA UROBILINIOGEN DIPSTICK (t est code = URO) 0.2 mg/dL 0.2-1.0 UA NITRITE DIPSTICK (test co de = BRET) NEGATIVE NEGATIVE UA LEUKOCYTE ESTERASE DIPSTI CK (test code = LEUU) NEGATIVE NEGATIVE UA RBC (test code = RBCU) >50 RBC/HPF 0-3 A UA WBC NO REFLEX (test code = WBCUCL) 4-9 WBC/HPF 0-3 A UA BACTERIA (test code = BACU) TRACE /HPF NONE SEEN UA SQUAMOUS CELLS (test code = SQU) 0-5 /HPF NONE SEEN UA HYALINE CAST (test code = HYALU) 6-10 /LPF NONE SEEN UA MUCUS (test code = MUCU) 2+ /LPF NONE SEEN A CBC W/AUTO [id number] 19:05:00* Test Item Value Reference Range Interpretation Comme nts WHITE BLOOD CELL (test code = WBC) 7.0 x10 3/uL 4.5-11.0 RED BLOOD CELL (test code = RBC) 2.48 x10 6/uL 4.00-5.60 L HEMOGLOBIN (test code = HGB) 7.1 g/dL 12.5-16.9 L HEMATOCRIT (test code = HCT) 21.8 % 37.5-50.7 L MEAN CELL VOLUME (test code = MCV) 87.9 fL 81.0-99.0 N MEAN CELL HGB (test code = MCH) 28.6 pg 27.0-33.0 N MEAN CELL HGB CONCETRATION (test code = MCHC) 32.6 g/dL 33.0-37.0 L RED CELL DISTRIBUTION WIDTH CV (test code = RDW) 13.4 % 11.5-14.5 N RED CELL DISTRIBUTION WIDTH SD (test code = RDW-SD) 42.8 fL 37.0-54.0 N PLATELET COUNT (test code = PLT) 115 x10 3/uL 150-400 L MEAN PLATELET VOLUME (test c ode = MPV) 11.4 fL 7.0-9.0 H NEUTROPHIL % (test code = NT%) 84.0 % 56.0-77.0 H IMMATURE GRANULOCYTE % (test code = IG%) 0.6 % 0.0-2.0 N LYMPHOCYTE % (test code = LY%) 13.4 % 14.0-32.0 L MONOCYTE % (test code = MO%) 1.3 % 4.8-9.0 L EOSINOPHIL % (test code = EO%) 0.4 % 0.3-3.7 N BASOPHIL % (test code = BA%) 0.3 % 0.0-2.0 N NUCLEATED RBC % (test code = NRBC%) 0.0 % 0-0 N NEUTROPHIL # (test code = NT#) 5.92 x10 3/uL 2.0-7.6 N IMMATURE GRANULOCYTE # (test code = IG#) 0.04 x10 3/uL 0.00-0.03 H LYMPHOCYTE # (test code = LY#) 0.94 x10 3/uL 1.0-3.8 L MONOCYTE # (test code = MO#) 0.09 x10 3/uL 0.1-0.8 L EOSINOPHIL # (test code = EO#) 0.03 x10 3/uL 0.0-0.2 N BASOPHIL # (test code = BA#) 0.02 x10 3/uL 0.0-0.2 N NUCLEATED RBC # (test code = NRBC#) 0.00 x10 3/uL 0.0-0.1 N - XR CHEST 1 [id number] 19:05:00 [facility] : 1950 Sex: M FAX: Faye Brar MD [phone] [place]: St: ADM Name: FELIPA GUZMAN [facility] : 1950 Age/S: 72/M [address] [place] [address] Unit #: [id number] Loc: G.[address] [place] [address] Phys: Faye Espino MD Acct: [id number] Dis Date: Status: ADM IN PHONE #: [phone] Exam Date: 03/15/2023 185 FAX #: [phone] Reason: INCREASING OXYGEN REQUIREMENT EXAMS: CPT CODE: [id number] XR CHEST 1 V [id number] EXAM: - XR CHEST 1 V COMPARISON: Same day LOCATION: C3 HISTORY: INCREASING OXYGEN REQUIREMENT FINDINGS: Single view of the chest. Unchanged indwelling lines/tubes. Unchanged small left apical pneumothorax. Unchanged moderate left perihilar airspace disease, retrocardiac opacification, small bilateral eff usions. The mediastinal contours are unchanged. IMPRESSION: Unchanged exam. at 1905 Reported and signed by: Varghese Smith M.D. CC: Faye Espino MD Technologist: RT Yumiko(Mg) Trnscrd Date/Time/By: 03/15/2023 (1904) : By: JessiHV2 Orig Print D/T: S: 03/15/2023 (1907) PAGE 1 S[facility] ART[facility]LO[facility] [id number] 18:34:00* Test Item Value Reference Range Interpretation Comme nts POC ARTERIAL BLOOD GAS PH (t est code = POCPHA) 7.527 7.35-7.45 HH POC ARTERIAL BLOOD GAS PCO2 (test code = DNSGEL7A) 28.4 mmHg 35.0-45 LL POC TCO2 ARTERIAL (test code = POCTCO2) 24.4 POC ARTERIAL BLOOD GAS PO2 ( test code = SVUKK8E) 52.1 mmHg 80-100.0 L POC HCO3 ARTERIAL (test code = FGMBEL6H) 23.6 MMOL/L 22.0-26.0 N POC BASE EXCESS (test code = POCBEA) 0.8 MMOL/L -4.0-4.0 N POC O2 SATURATION (test code = POCO2S) 90.7 % 90-100 N ABG DELIVERY (test code = FEDERICO) Cannula ABG SITE (test code = SITEA) Art Line JAIRON'S TEST (test code = ALLENS) N/A BASIC METABOLIC [id number] 18:34:00* Test Item Value Reference Range Interpretation Comme nts SODIUM (test code = NA/ABG) 140 mmol/L 134-147 N POTASSIUM (test code = K/ABG) 3.6 mmol/L 3.4-5.0 N CHLORIDE (test code = CL/ABG) 104 mmol/L 100-108 N CREATININE ABG (test code = CREAABG) 0.6 mg/dL 0.8-1.3 L POC IONIZED CALCIUM (test co de = POCCA) 1.07 MMOL/L 1.12-1.32 L POC GLUCOSE (test code = POCGLU) 149 MG/DL 70-110 H HEMOGLOBIN [id number] 18:34:00* Test Item Value Reference Range Interpretation Comme nts HEMOGLOBIN ABG (test code = HGB/ABG) 7.1 G/DL 12.5-16.9 L [id number] 18:34:00* Test Item Value Reference Range Interpretation Comme nts HEMATOCRIT (test code = HCT/ABG) 21 % 37.5-50.7 L POC LACTIC [id number] 18:34:00* Test Item Value Reference Range Interpretation Comme nts POC LACTIC ACID (test code = POCLAC) 3.8 mmol/l 0.9-1.7 H GLUCOSE [id number] 14:24:00* Test Item Value Reference Range Interpretation Comme nts GLUCOSE BEDSIDE (test code = GLUBED) 183 MG/DL 70-110 H Performed by cer tified vertical punch operator at [facility] GLUCOSE [id number] 10:38:00* Test Item Value Reference Range Interpretation Comme nts GLUCOSE BEDSIDE (test code = GLUBED) 216 MG/DL 70-110 H [facility] punch operator at [facility] - XR CHEST 1 [id number] 09:06:00 [facility] : 1950 Sex: M FAX: Faye Brar MD [phone] [place]: St: ADM FAX: Gretta Templeton [facility] [phone] ----- Name: FELIPA GUZMAN [facility] : 1950 Age/S: 72/M [address] [place] [address] Unit #: [id number] Loc: G.2207 [place] [address] Phys: Gretta Ervin Acct: [id number] Dis Date: Status: ADM IN PHONE #: [phone] Exam Date: 03/15/2023618 FAX #: [phone] Reason: Cardiac Surgery Post Op EXAMS: CPT CODE: [id number] XR CHEST 1 V [id number] EXAM: CHEST ONE VIEW INDICATION: Cardiac Surgery Post Op LOCATION: B2 COMPARISON: March 14, 2023 TECHNIQUE: AP view of the chest FINDINGS: The right central venous catheter is unchanged. The heart size is enlarged. There is evidence of prior thoracic surgery. There are diffuse parenchymal opacities throughout both lungs. There is a small left pneumothorax with left-sided chest tube seen in place. There is a trace left pleural effusion. The osseous structures are normal. IMPRESSION: Postoperative chest with small left pneumothorax. Left-sided chest tube seenin place. Cardiomegaly with diffuse congestive changes bilaterally. at 0906 Reported and signed by: Linsey Raymundo M.D. CC: Faye Espino MD; Gretta Ervin Technologist: RT Jonah(Mg) Trnscrd Date/Time/By: 03/15/2023 (905) : By: JessiMD16 [facility] Print D/T: S: 03/15/2023 (3910) PAGE 1 Signed ReportGLUCOSE BEDSIDE 2023-03-15 07:03:00* Test Item Value Reference Range Interpretation Comme nts GLUCOSE BEDSIDE (test code = GLUBED) 152 MG/DL 70-110 H Performed by bryan cruz at [facility] BASIC METABOLIC [id number] 04:26:00* Test Item Value Reference Range Interpretation Comme nts SODIUM (test code = NA) 138 mEq/L 134-147 N POTASSIUM (test code = K) 4.2 mEq/L 3.4-5.0 N CHLORIDE (test code = CL) 104 mEq/L 100-108 N CARBON DIOXIDE (test code = CO2) 28 mEq/l 21-33 N ANION GAP (test code = GAP) 10 0-20 N GLUCOSE (test code = GLU) 152 mg/dL 77-141 H NOTE: NEW NORMAL RANGE BLOOD UREA NITROGEN (test code = BUN) 10 mg/dL 7-25 N NOTE: NEW NORM AL RANGE GLOMERULAR FILTRATION RATE (test code = GFR) 97.9 70-80 H The Glomerular Filtration Rate is a calculated parameterbased on serum Creatinine, patient age and sex. GFR valuesless than 60 mL/min/1.73 square meters are indicative ofChronic Kidney Disease. Values less than 15 mL/min/1.73square meters indicate Kidney failure. The calculation forGFR is based on the CKD-EPI (202) calculation. This formulais race indifferent and is the recommended formula for GFRby the National Kidney Foundation for Adults.The GFR will not calculate if the sex is unknown or if thepatient's age is <18 years. CREATININE (test code = CREAT) 0.7 mg/dL 0.6-1.3 N CALCIUM (test code = CA) 8.5 mg/dL 8.0-10.5 N COMMENTS: POD #1HEPATIC FUNCTION [id number] 04:26:00* Test Item Value Reference Range Interpretation Comme nts TOTAL PROTEIN (test code = PROT) 5.8 g/dL 6.4-8.2 L ALBUMIN (test code = ALB) 3.90 g/dL 3.4-5.0 N BILIRUBIN TOTAL (test code = BILT) 1.10 mg/dL 0.0-1.0 H BILIRUBIN DIRECT (test code = BILD) 0.50 MG/DL 0.1-0.3 H NOTE: NEW NORMAL RANGE BILIRUBIN INDIRECT (test code = BILIND) 0.60 MG/DL SGOT/AST (test code = AST) 35 IUnit/L 8-34 H NOTE: NEW NORMAL RANGE SGPT/ALT (test code = ALT) 27 IUnit/L 10-49 N NOTE: NEW NORMAL RANGE ALKALINE PHOSPHATASE TOTAL (test code = ALKP) 59 IUnit/L 20-125 N COMMENTS: POD #[id number] 04:26:00* Test Item Value Reference Range Interpretation Comme nts MAGNESIUM (test code = MAG) 2.15 mg/dL 1.6-2.6 NOTE: NEW NORMAL RANGE COMMENTS: POD #1LACTIC [id number] 04:20:00* Test Item Value Reference Range Interpretation Comme nts LACTIC ACID (test code = LACT) 1.2 mmol/L 0.4-1.9 N POC ARTERIAL BLOOD [id number] 04:17:00* Test Item Value Reference Range Interpretation Comme nts POC ARTERIAL BLOOD GAS PH (t est code = POCPHA) 7.482 7.35-7.45 H POC ARTERIAL BLOOD GAS PCO2 (test code = CFDBHV3R) 39.8 mmHg 35.0-45 N POC TCO2 ARTERIAL (test code = POCTCO2) 30.9 POC ARTERIAL BLOOD GAS PO2 ( test code = UFSZI1M) 68.5 mmHg 80-100.0 L POC HCO3 ARTERIAL (test code = UFOHHJ5C) 29.7 MMOL/L 22.0-26.0 HH POC BASE EXCESS (test code = POCBEA) 6.2 MMOL/L -4.0-4.0 H POC O2 SATURATION (test code = POCO2S) 94.7 % 90-100 N ABG DELIVERY (test code = FEDERICO) Cannula ABG TEMPERATURE (test code = TEMPA) 99 F ABG SITE (test code = SITEA) Art Line BASIC METABOLIC [id number] 04:17:00* Test Item Value Reference Range Interpretation Comme nts SODIUM (test code = NA/ABG) 138 mmol/L 134-147 N POTASSIUM (test code = K/ABG) 4.1 mmol/L 3.4-5.0 N CHLORIDE (test code = CL/ABG) 100 mmol/L 100-108 N CREATININE ABG (test code = CREAABG) 0.8 mg/dL 0.8-1.3 POC IONIZED CALCIUM (test co de = POCCA) 1.22 MMOL/L 1.12-1.32 N POC GLUCOSE (test code = POCGLU) 156 MG/DL 70-110 H HEMOGLOBIN [id number] 04:17:00* Test Item Value Reference Range Interpretation Comme nts HEMOGLOBIN ABG (test code = HGB/ABG) 8.3 G/DL 12.5-16.9 L [id number] 04:17:00* Test Item Value Reference Range Interpretation Comme nts HEMATOCRIT (test code = HCT/ABG) 24 % 37.5-50.7 L POC LACTIC [id number] 04:17:00* Test Item Value Reference Range Interpretation Comme nts POC LACTIC ACID (test code = POCLAC) 0.9 mmol/l 0.9-1.7 N CBC W/AUTO [id number] 04:06:00* Test Item Value Reference Range Interpretation Comme nts WHITE BLOOD CELL (test code = WBC) 17.4 x10 3/uL 4.5-11.0 H RED BLOOD CELL (test code = RBC) 2.57 x10 6/uL 4.00-5.60 L HEMOGLOBIN (test code = HGB) 7.7 g/dL 12.5-16.9 L HEMATOCRIT (test code = HCT) 22.5 % 37.5-50.7 L MEAN CELL VOLUME (test code = MCV) 87.5 fL 81.0-99.0 N MEAN CELL HGB (test code = MCH) 30.0 pg 27.0-33.0 N MEAN CELL HGB CONCETRATION (test code = MCHC) 34.2 g/dL 33.0-37.0 N RED CELL DISTRIBUTION WIDTH CV (test code = RDW) 13.5 % 11.5-14.5 N RED CELL DISTRIBUTION WIDTH SD (test code = RDW-SD) 43.0 fL 37.0-54.0 N PLATELET COUNT (test code = PLT) 172 x10 3/uL 150-400 N MEAN PLATELET VOLUME (test code = MPV) 11.9 fL 7.0-9.0 H NEUTROPHIL % (test code = NT%) 72.5 % 56.0-77.0 N IMMATURE GRANULOCYTE % (test code = IG%) 0.6 % 0.0-2.0 N LYMPHOCYTE % (test code = LY%) 13.8 % 14.0-32.0 L MONOCYTE % (test code = MO%) 12.8 % 4.8-9.0 H EOSINOPHIL % (test code = EO%) 0.1 % 0.3-3.7 L BASOPHIL % (test code = BA%) 0.2 % 0.0-2.0 N NUCLEATED RBC % (test code = NRBC%) 0.0 % 0-0 N NEUTROPHIL # (test code = NT#) 12.64 x10 3/uL 2.0-7.6 H IMMATURE GRANULOCYTE # (test code = IG#) 0.11 x10 3/uL 0.00-0.03 H LYMPHOCYTE # (test code = LY#) 2.41 x10 3/uL 1.0-3.8 N MONOCYTE # (test code = MO#) 2.23 x10 3/uL 0.1-0.8 H EOSINOPHIL # (test code = EO#) 0.01 x10 3/uL 0.0-0.2 N BASOPHIL # (test code = BA#) 0.03 x10 3/uL 0.0-0.2 N NUCLEATED RBC # (test code = NRBC#) 0.00 x10 3/uL 0.0-0.1 N MANUAL DIFF REQUIRED (test code = MDIFF) NO GLUCOSE [id number] 02:17:00* Test Item Value Reference Range Interpretation Comme nts GLUCOSE BEDSIDE (test code = GLUBED) 154 MG/DL 70-110 H Performed by cer tified vertical punch operator at [facility] GLUCOSE [id number] 22:25:00* Test Item Value Reference Range Interpretation Comme [facility] GLUCOSE BEDSIDE (test code = GLUBED) 189 MG/DL 70-110 H Performed by cer tified vertical punch operator at [facility] POC ARTERIAL BLOOD [id number] 21:37:00* Test Item Value Reference Range Interpretation Comme nts POC ARTERIAL BLOOD GAS PH (t est code = POCPHA) 7.419 7.35-7.45 N POC ARTERIAL BLOOD GAS PCO2 (test code = BNDDWY5R) 39.5 mmHg 35.0-45 N POC TCO2 ARTERIAL (test code = POCTCO2) 26.8 POC ARTERIAL BLOOD GAS PO2 ( test code = OFYVJ0D) 70.7 mmHg 80-100.0 L POC HCO3 ARTERIAL (test code = PQGBHA0O) 25.6 MMOL/L 22.0-26.0 N POC BASE EXCESS (test code = POCBEA) 1.1 MMOL/L -4.0-4.0 N POC O2 SATURATION (test code = POCO2S) 94.3 % 90-100 N ABG DELIVERY (test code = FEDERICO) Cannula ABG TEMPERATURE (test code = TEMPA) 99.4 F ABG SITE (test code = SITEA) Art Line BASIC METABOLIC [id number] 21:37:00* Test Item Value Reference Range Interpretation Comme nts SODIUM (test code = NA/ABG) 138 mmol/L 134-147 N POTASSIUM (test code = K/ABG) 4.2 mmol/L 3.4-5.0 N CHLORIDE (test code = CL/ABG) 101 mmol/L 100-108 N CREATININE ABG (test code = CREAABG) 0.6 mg/dL 0.8-1.3 L POC IONIZED CALCIUM (test co de = POCCA) 1.22 MMOL/L 1.12-1.32 N POC GLUCOSE (test code = POCGLU) 235 MG/DL 70-110 H HEMOGLOBIN [id number] 21:37:00* Test Item Value Reference Range Interpretation Comme [facility] HEMOGLOBIN ABG (test code = HGB/ABG) 8.4 G/DL 12.5-16.9 L [id number] 21:37:00* Test Item Value Reference Range Interpretation Comme nts HEMATOCRIT (test code = HCT/ABG) 25 % 37.5-50.7 L POC LACTIC [id number] 21:37:00* Test Item Value Reference Range Interpretation Comme [facility] POC LACTIC ACID (test code = POCLAC) 2.2 mmol/l 0.9-1.7 H LACTIC ACID 2ND [id number] 21:36:00* Test Item Value Reference Range Interpretation Comme [facility] LACTIC ACID 2ND REPEAT (test code = LACT2) 2.1 mmol/L 0.4-1.9 H GLUCOSE [id number] 18:27:00* Test Item Value Reference Range Interpretation Comme [facility] GLUCOSE BEDSIDE (test code = GLUBED) 199 MG/DL 70-110 H Performed by cer tified vertical punch operator at [facility] GLUCOSE [id number] 15:47:00* Test Item Value Reference Range Interpretation Comme [facility] GLUCOSE BEDSIDE (test code = GLUBED) 148 MG/DL 70-110 H Performed by cer tified vertical punch operator at [facility] LACTIC ACID [id number] 11:39:00* Test Item Value Reference Range Interpretation Comme [facility] LACTIC ACID REPEAT (test cod e = LACTR) 2.2 mmol/l 0.4-1.9 H BASIC METABOLIC [id number] 11:38:00* Test Item Value Reference Range Interpretation Comme [facility] SODIUM (test code = NA) 139 mEq/L 134-147 N POTASSIUM (test code = K) 3.9 mEq/L 3.4-5.0 CHLORIDE (test code = CL) 108 mEq/L 100-108 N CARBON DIOXIDE (test code = CO2) 26 mEq/l 21-33 N ANION GAP (test code = GAP) 9 0-20 N GLUCOSE (test code = GLU) 143 mg/dL 77-141 H NOTE: NEW NORMAL RANGE BLOOD UREA NITROGEN (test code = BUN) 10 mg/dL 7-25 N NOTE: NEW NORM AL RANGE GLOMERULAR FILTRATION RATE (test code = GFR) 97.9 70-80 H The Glomerular Filtration Rate is a calculated parameterbased on serum Creatinine, patient age and sex. GFR valuesless than 60 mL/min/1.73 square meters are indicative ofChronic Kidney Disease. Values less than 15 mL/min/1.73square meters indicate Kidney failure. The calculation forGFR is based on the CKD-EPI (202) calculation. This formulais race indifferent and is the recommended formula for GFRby the National Kidney Foundation for Adults.The GFR will not calculate if the sex is unknown or if thepatient's age is <18 years. CREATININE (test code = CREAT) 0.7 mg/dL 0.6-1.3 N CALCIUM (test code = CA) 8.7 mg/dL 8.0-10.5 N POC ARTERIAL BLOOD [id number] 08:07:00* Test Item Value Reference Range Interpretation Comme nts POC ARTERIAL BLOOD GAS PH (t est code = POCPHA) 7.447 7.35-7.45 N POC ARTERIAL BLOOD GAS PCO2 (test code = NCPWLE1J) 35.9 mmHg 35.0-45 N POC TCO2 ARTERIAL (test code = POCTCO2) 25.9 POC ARTERIAL BLOOD GAS PO2 ( test code = PCEEM4F) 73.8 mmHg 80-100.0 L POC HCO3 ARTERIAL (test code = ZRVRMV9X) 24.8 MMOL/L 22.0-26.0 N POC BASE EXCESS (test code = POCBEA) 0.7 MMOL/L -4.0-4.0 N POC O2 SATURATION (test code = POCO2S) 95.4 % 90-100 N ABG DELIVERY (test code = FEDERICO) Cannula ABG TEMPERATURE (test code = TEMPA) 99.7 F ABG SITE (test code = SITEA) Art Line JAIRON'S TEST (test code = ALLENS) N/A BASIC METABOLIC [id number] 08:07:00* Test Item Value Reference Range Interpretation Comme nts SODIUM (test code = NA/ABG) 141 mmol/L 134-147 N POTASSIUM (test code = K/ABG) 3.9 mmol/L 3.4-5.0 N CHLORIDE (test code = CL/ABG) 104 mmol/L 100-108 N CREATININE ABG (test code = CREAABG) 0.7 mg/dL 0.8-1.3 L POC IONIZED CALCIUM (test co de = POCCA) 1.20 MMOL/L 1.12-1.32 N POC GLUCOSE (test code = POCGLU) 185 MG/DL 70-110 H HEMOGLOBIN [id number] 08:07:00* Test Item Value Reference Range Interpretation Comme nts HEMOGLOBIN ABG (test code = HGB/ABG) 8.6 G/DL 12.5-16.9 L [id number] 08:07:00* Test Item Value Reference Range Interpretation Comme nts HEMATOCRIT (test code = HCT/ABG) 25 % 37.5-50.7 L POC LACTIC [id number] 08:07:00* Test Item Value Reference Range Interpretation Comme nts POC LACTIC ACID (test code = POCLAC) 3.0 mmol/l 0.9-1.7 H LACTIC [id number] 08:00:00* Test Item Value Reference Range Interpretation Comme nts LACTIC ACID (test code = LACT) 2.9 mmol/L 0.4-1.9 H BASIC METABOLIC [id number] 04:04:00* Test Item Value Reference Range Interpretation Comme nts SODIUM (test code = NA) 139 mEq/L 134-147 N POTASSIUM (test code = K) 5.3 mEq/L 3.4-5.0 H CHLORIDE (test code = CL) 108 mEq/L 100-108 N CARBON DIOXIDE (test code = CO2) 25 mEq/l 21-33 N ANION GAP (test code = GAP) 11 0-20 N GLUCOSE (test code = GLU) 159 mg/dL 77-141 H NOTE: NEW NORMAL RANGE BLOOD UREA NITROGEN (test code = BUN) 9 mg/dL 7-25 N NOTE: NEW NORM AL RANGE GLOMERULAR FILTRATION RATE (test code = GFR) 94.0 70-80 H The Glomerular Filtration Rate is a calculated parameterbased on serum Creatinine, patient age and sex. GFR valuesless than 60 mL/min/1.73 square meters are indicative ofChronic Kidney Disease. Values less than 15 mL/min/1.73square meters indicate Kidney failure. The calculation forGFR is based on the CKD-EPI (202) calculation. This formulais race indifferent and is the recommended formula for GFRby the National Kidney Foundation for Adults.The GFR will not calculate if the sex is unknown or if thepatient's age is <18 years. CREATININE (test code = CREAT) 0.8 mg/dL 0.6-1.3 N CALCIUM (test code = CA) 8.4 mg/dL 8.0-10.5 N COMMENTS: POD #1HEPATIC FUNCTION [id number] 04:04:00* Test Item Value Reference Range Interpretation Comme nts TOTAL PROTEIN (test code = PROT) 5.6 g/dL 6.4-8.2 L ALBUMIN (test code = ALB) 3.60 g/dL 3.4-5.0 N BILIRUBIN TOTAL (test code = BILT) 1.10 mg/dL 0.0-1.0 H BILIRUBIN DIRECT (test code = BILD) 0.50 MG/DL 0.1-0.3 H NOTE: NEW NORMAL RANGE BILIRUBIN INDIRECT (test code = BILIND) 0.60 MG/DL SGOT/AST (test code = AST) 56 IUnit/L 8-34 H NOTE: NEW NORMAL RANGE SGPT/ALT (test code = ALT) 35 IUnit/L 10-49 N NOTE: NEW NORMAL RANGE ALKALINE PHOSPHATASE TOTAL (test code = ALKP) 60 IUnit/L 20-125 N COMMENTS: POD #[id number] 04:04:00* Test Item Value Reference Range Interpretation Comme nts MAGNESIUM (test code = MAG) 1.86 mg/dL 1.6-2.6 NOTE: NEW NORMAL RANGE COMMENTS: POD #1CBC W/AUTO [id number] 03:53:00* Test Item Value Reference Range Interpretation Comme nts WHITE BLOOD CELL (test code = WBC) 20.1 x10 3/uL 4.5-11.0 H RED BLOOD CELL (test code = RBC) 3.35 x10 6/uL 4.00-5.60 L HEMOGLOBIN (test code = HGB) 9.8 g/dL 12.5-16.9 L HEMATOCRIT (test code = HCT) 29.0 % 37.5-50.7 L MEAN CELL VOLUME (test code = MCV) 86.6 fL 81.0-99.0 N MEAN CELL HGB (test code = MCH) 29.3 pg 27.0-33.0 N MEAN CELL HGB CONCETRATION (test code = MCHC) 33.8 g/dL 33.0-37.0 N RED CELL DISTRIBUTION WIDTH CV (test code = RDW) 13.1 % 11.5-14.5 N RED CELL DISTRIBUTION WIDTH SD (test code = RDW-SD) 40.9 fL 37.0-54.0 N PLATELET COUNT (test code = PLT) 149 x10 3/uL 150-400 L MEAN PLATELET VOLUME (test code = MPV) 11.4 fL 7.0-9.0 H NEUTROPHIL % (test code = NT%) 80.5 % 56.0-77.0 H IMMATURE GRANULOCYTE % (test code = IG%) 0.6 % 0.0-2.0 N LYMPHOCYTE % (test code = LY%) 7.8 % 14.0-32.0 L MONOCYTE % (test code = MO%) 11.0 % 4.8-9.0 H EOSINOPHIL % (test code = EO%) 0.0 % 0.3-3.7 L BASOPHIL % (test code = BA%) 0.1 % 0.0-2.0 N NUCLEATED RBC % (test code = NRBC%) 0.0 % 0-0 N NEUTROPHIL # (test code = NT#) 16.19 x10 3/uL 2.0-7.6 H IMMATURE GRANULOCYTE # (test code = IG#) 0.12 x10 3/uL 0.00-0.03 H LYMPHOCYTE # (test code = LY#) 1.57 x10 3/uL 1.0-3.8 N MONOCYTE # (test code = MO#) 2.21 x10 3/uL 0.1-0.8 H EOSINOPHIL # (test code = EO#) 0.00 x10 3/uL 0.0-0.2 N BASOPHIL # (test code = BA#) 0.03 x10 3/uL 0.0-0.2 N NUCLEATED RBC # (test code = NRBC#) 0.00 x10 3/uL 0.0-0.1 N POC ARTERIAL BLOOD [id number] 03:33:00* Test Item Value Reference Range Interpretation Comme nts POC ARTERIAL BLOOD GAS PH (t est code = POCPHA) 7.438 7.35-7.45 N POC ARTERIAL BLOOD GAS PCO2 (test code = NQDHKD7N) 34.0 mmHg 35.0-45 L POC TCO2 ARTERIAL (test code = POCTCO2) 24.0 POC ARTERIAL BLOOD GAS PO2 ( test code = ECTLH5E) 83.8 mmHg 80-100.0 N POC HCO3 ARTERIAL (test code = BBJGGH4Q) 22.9 MMOL/L 22.0-26.0 N POC BASE EXCESS (test code = POCBEA) -1.2 MMOL/L -4.0-4.0 N POC O2 SATURATION (test code = POCO2S) 96.6 % 90-100 N ABG DELIVERY (test code = FEDERICO) Cannula ABG TEMPERATURE (test code = TEMPA) 99.1 F ABG SITE (test code = SITEA) Art Line BASIC METABOLIC [id number] 03:33:00* Test Item Value Reference Range Interpretation Comme nts SODIUM (test code = NA/ABG) 138 mmol/L 134-147 N POTASSIUM (test code = K/ABG) 5.3 mmol/L 3.4-5.0 H CHLORIDE (test code = CL/ABG) 105 mmol/L 100-108 N CREATININE ABG (test code = CREAABG) 0.5 mg/dL 0.8-1.3 L POC IONIZED CALCIUM (test co de = POCCA) 1.14 MMOL/L 1.12-1.32 N POC GLUCOSE (test code = POCGLU) 164 MG/DL 70-110 H HEMOGLOBIN [id number] 03:33:00* Test Item Value Reference Range Interpretation Comme nts HEMOGLOBIN ABG (test code = HGB/ABG) 10.0 G/DL 12.5-16.9 L [id number] 03:33:00* Test Item Value Reference Range Interpretation Comme nts HEMATOCRIT (test code = HCT/ABG) 29 % 37.5-50.7 L POC LACTIC [id number] 03:33:00* Test Item Value Reference Range Interpretation Comme nts POC LACTIC ACID (test code = POCLAC) 2.7 mmol/l 0.9-1.7 H GLUCOSE [id number] 02:15:00* Test Item Value Reference Range Interpretation Comme [facility] GLUCOSE BEDSIDE (test code = GLUBED) 155 MG/DL 70-110 H Performed by cer tified vertical punch operator at [facility] GLUCOSE [id number] 23:17:00* Test Item Value Reference Range Interpretation Comme [facility] GLUCOSE BEDSIDE (test code = GLUBED) 153 MG/DL 70-110 H Performed by cer tified vertical punch operator at [facility] PROTHROMBIN [id number] 22:47:00* Test Item Value Reference Range Interpretation Comme [facility] PROTHROMBIN TIME PATIENT (test code = PTP) 14.9 SECONDS 9.3-12.9 H INTERNATIONAL NORMAL RATIO (test code = INR) 1.3 0.8-1.2 H TARGET INR BY INDICATION Indication INR1. Prophylaxis of venous thrombosis 2.0 - 3.0 (orthopedic surgery), Prophylaxis of venous thrombosis (other than high-risk surgery), Treatment of Deep Vein Thrombosis/Pulmonary Embolism, Prevention of systemic embolism - Tissue heart valves, Acute Myocardial Infarction (to prevent systemic embolism), Valvular heart disease, Atrial Fibrillation, Bileaflet mechanical valve in aortic position.2. Mechanical prosthetic valves (high risk), 2.5 - 3.5 Presence of Lupus Anticoagulant or Antiphospholipid Antibodies, Prevention of systemic embolism - Acute Myocardial Infarction (to prevent recurrent infarct). CBC W/AUTO [id number] 22:34:00* Test Item Value Reference Range Interpretation Comme [facility] WHITE BLOOD CELL (test code = WBC) 23.9 x10 3/uL 4.5-11.0 H RED BLOOD CELL (test code = RBC) 3.28 x10 6/uL 4.00-5.60 L HEMOGLOBIN (test code = HGB) 9.8 g/dL 12.5-16.9 L HEMATOCRIT (test code = HCT) 28.5 % 37.5-50.7 L MEAN CELL VOLUME (test code = MCV) 86.9 fL 81.0-99.0 N MEAN CELL HGB (test code = MCH) 29.9 pg 27.0-33.0 N MEAN CELL HGB CONCETRATION (test code = MCHC) 34.4 g/dL 33.0-37.0 N RED CELL DISTRIBUTION WIDTH CV (test code = RDW) 13.0 % 11.5-14.5 N RED CELL DISTRIBUTION WIDTH SD (test code = RDW-SD) 41.1 fL 37.0-54.0 N PLATELET COUNT (test code = PLT) 171 x10 3/uL 150-400 N MEAN PLATELET VOLUME (test code = MPV) 10.8 fL 7.0-9.0 H NEUTROPHIL % (test code = NT%) 84.3 % 56.0-77.0 H IMMATURE GRANULOCYTE % (test code = IG%) 0.5 % 0.0-2.0 N LYMPHOCYTE % (test code = LY%) 4.7 % 14.0-32.0 L MONOCYTE % (test code = MO%) 10.4 % 4.8-9.0 H EOSINOPHIL % (test code = EO%) 0.0 % 0.3-3.7 L BASOPHIL % (test code = BA%) 0.1 % 0.0-2.0 N NUCLEATED RBC % (test code = NRBC%) 0.0 % 0-0 N NEUTROPHIL # (test code = NT#) 20.10 x10 3/uL 2.0-7.6 H IMMATURE GRANULOCYTE # (test code = IG#) 0.11 x10 3/uL 0.00-0.03 H LYMPHOCYTE # (test code = LY#) 1.13 x10 3/uL 1.0-3.8 N MONOCYTE # (test code = MO#) 2.49 x10 3/uL 0.1-0.8 H EOSINOPHIL # (test code = EO#) 0.00 x10 3/uL 0.0-0.2 N BASOPHIL # (test code = BA#) 0.02 x10 3/uL 0.0-0.2 N NUCLEATED RBC # (test code = NRBC#) 0.00 x10 3/uL 0.0-0.1 N POC ARTERIAL BLOOD [id number] 22:18:00* Test Item Value Reference Range Interpretation Comme nts POC ARTERIAL BLOOD GAS PH (t est code = POCPHA) 7.410 7.35-7.45 N POC ARTERIAL BLOOD GAS PCO2 (test code = KQOMLL1Y) 37.8 mmHg 35.0-45 N POC TCO2 ARTERIAL (test code = POCTCO2) 25.0 POC ARTERIAL BLOOD GAS PO2 ( test code = QKJEZ0M) 99.0 mmHg 80-100.0 N POC HCO3 ARTERIAL (test code = EZBJJW4C) 23.9 MMOL/L 22.0-26.0 N POC BASE EXCESS (test code = POCBEA) -0.7 MMOL/L -4.0-4.0 N POC O2 SATURATION (test code = POCO2S) 97.7 % 90-100 N ABG DELIVERY (test code = FEDERICO) Cannula ABG TEMPERATURE (test code = TEMPA) 99.2 F ABG SITE (test code = SITEA) Art Line BASIC METABOLIC [id number] 22:18:00* Test Item Value Reference Range Interpretation Comme nts SODIUM (test code = NA/ABG) 142 mmol/L 134-147 N POTASSIUM (test code = K/ABG) 4.9 mmol/L 3.4-5.0 N CHLORIDE (test code = CL/ABG) 106 mmol/L 100-108 N CREATININE ABG (test code = CREAABG) 0.7 mg/dL 0.8-1.3 L POC IONIZED CALCIUM (test co de = POCCA) 1.18 MMOL/L 1.12-1.32 N POC GLUCOSE (test code = POCGLU) 167 MG/DL 70-110 H HEMOGLOBIN [id number] 22:18:00* Test Item Value Reference Range Interpretation Comme nts HEMOGLOBIN ABG (test code = HGB/ABG) 9.7 G/DL 12.5-16.9 L [id number] 22:18:00* Test Item Value Reference Range Interpretation Comme nts HEMATOCRIT (test code = HCT/ABG) 28 % 37.5-50.7 L POC LACTIC [id number] 22:18:00* Test Item Value Reference Range Interpretation Comme nts POC LACTIC ACID (test code = POCLAC) 4.4 mmol/l 0.9-1.7 HH GLUCOSE [id number] 20:27:00* Test Item Value Reference Range Interpretation Comme nts GLUCOSE BEDSIDE (test code = GLUBED) 155 MG/DL 70-110 H Performed by cer karlos vertical punch operator at [facility] POC ARTERIAL BLOOD [id number] 17:16:00* Test Item Value Reference Range Interpretation Comme nts POC ARTERIAL BLOOD GAS PH (t est code = POCPHA) 7.321 7.35-7.45 L POC ARTERIAL BLOOD GAS PCO2 (test code = SEFEAZ8T) 35.7 mmHg 35.0-45 N POC TCO2 ARTERIAL (test code = POCTCO2) 19.5 POC ARTERIAL BLOOD GAS PO2 ( test code = VZXXO2G) 91.2 mmHg 80-100.0 N POC HCO3 ARTERIAL (test code = NHVWAB6B) 18.4 MMOL/L 22.0-26.0 L POC BASE EXCESS (test code = POCBEA) -7.6 MMOL/L -4.0-4.0 L POC O2 SATURATION (test code = POCO2S) 96.4 % 90-100 N BASIC METABOLIC [id number] 17:16:00* Test Item Value Reference Range Interpretation Comme nts SODIUM (test code = NA/ABG) 143 mmol/L 134-147 N POTASSIUM (test code = K/ABG) 4.1 mmol/L 3.4-5.0 N CHLORIDE (test code = CL/ABG) 108 mmol/L 100-108 N CREATININE ABG (test code = CREAABG) 0.8 mg/dL 0.8-1.3 N POC IONIZED CALCIUM (test co de = POCCA) 1.21 MMOL/L 1.12-1.32 N POC GLUCOSE (test code = POCGLU) 190 MG/DL 70-110 H HEMOGLOBIN [id number] 17:16:00* Test Item Value Reference Range Interpretation Comme [facility] HEMOGLOBIN ABG (test code = HGB/ABG) 9.8 G/DL 12.5-16.9 L [id number] 17:16:00* Test Item Value Reference Range Interpretation Comme nts HEMATOCRIT (test code = HCT/ABG) 29 % 37.5-50.7 L GLUCOSE [id number] 14:17:00* Test Item Value Reference Range Interpretation Comme nts GLUCOSE BEDSIDE (test code = GLUBED) 206 MG/DL 70-110 H Performed by cer tified vertical punch operator at [facility] CBC W/AUTO [id number] 13:58:00* Test Item Value Reference Range Interpretation Comme nts WHITE BLOOD CELL (test code = WBC) 30.3 x10 3/uL 4.5-11.0 H RED BLOOD CELL (test code = RBC) 3.57 x10 6/uL 4.00-5.60 L HEMOGLOBIN (test code = HGB) 10.7 g/dL 12.5-16.9 L HEMATOCRIT (test code = HCT) 30.9 % 37.5-50.7 L MEAN CELL VOLUME (test code = MCV) 86.6 fL 81.0-99.0 N MEAN CELL HGB (test code = MCH) 30.0 pg 27.0-33.0 N MEAN CELL HGB CONCETRATION (test code = MCHC) 34.6 g/dL 33.0-37.0 N RED CELL DISTRIBUTION WIDTH CV (test code = RDW) 12.7 % 11.5-14.5 N RED CELL DISTRIBUTION WIDTH SD (test code = RDW-SD) 39.9 fL 37.0-54.0 N PLATELET COUNT (test code = PLT) 167 x10 3/uL 150-400 N MEAN PLATELET VOLUME (test code = MPV) 10.7 fL 7.0-9.0 H NEUTROPHIL % (test code = NT%) 80.9 % 56.0-77.0 H LYMPHOCYTE % (test code = LY%) 11.3 % 14.0-32.0 L NEUTROPHIL # (test code = NT#) 24.52 x10 3/uL 2.0-7.6 H LYMPHOCYTE # (test code = LY#) 3.42 x10 3/uL 1.0-3.8 N IMMATURE GRANULOCYTE % (test code = IG%) 1.2 % 0.0-2.0 N MONOCYTE % (test code = MO%) 6.0 % 4.8-9.0 N EOSINOPHIL % (test code = EO%) 0.3 % 0.3-3.7 N BASOPHIL % (test code = BA%) 0.3 % 0.0-2.0 N NUCLEATED RBC % (test code = NRBC%) 0.0 % 0-0 N IMMATURE GRANULOCYTE # (test code = IG#) 0.36 x10 3/uL 0.00-0.03 H MONOCYTE # (test code = MO#) 1.83 x10 3/uL 0.1-0.8 H EOSINOPHIL # (test code = EO#) 0.09 x10 3/uL 0.0-0.2 N BASOPHIL # (test code = BA#) 0.08 x10 3/uL 0.0-0.2 N NUCLEATED RBC # (test code = NRBC#) 0.00 x10 3/uL 0.0-0.1 N MANUAL DIFF REQUIRED (test code = MDIFF) NO SLIDE REVIEW ED, CONSISTENT WITH AUTO DIFF. COMMENTS: On arrivalBASIC METABOLIC [id number] 13:12:00* Test Item Value Reference Range Interpretation Comme nts SODIUM (test code = NA) 139 mEq/L 134-147 N POTASSIUM (test code = K) 3.4 mEq/L 3.4-5.0 N CHLORIDE (test code = CL) 109 mEq/L 100-108 H CARBON DIOXIDE (test code = CO2) 22 mEq/l 21-33 N ANION GAP (test code = GAP) 12 0-20 N GLUCOSE (test code = GLU) 224 mg/dL 77-141 H NOTE: NEW NORMAL RANGE BLOOD UREA NITROGEN (test code = BUN) 10 mg/dL 7-25 N NOTE: NEW NORM AL RANGE GLOMERULAR FILTRATION RATE (test code = GFR) 94.0 70-80 H The Glomerular Filtration Rate is a calculated parameterbased on serum Creatinine, patient age and sex. GFR valuesless than 60 mL/min/1.73 square meters are indicative ofChronic Kidney Disease. Values less than 15 mL/min/1.73square meters indicate Kidney failure. The calculation forGFR is based on the CKD-EPI (202) calculation. This formulais race indifferent and is the recommended formula for GFRby the National Kidney Foundation for Adults.The GFR will not calculate if the sex is unknown or if thepatient's age is <18 years. CREATININE (test code = CREAT) 0.8 mg/dL 0.6-1.3 N CALCIUM (test code = CA) 8.6 mg/dL 8.0-10.5 N COMMENTS: On arrivalComment: On [id number] 13:12:00* Test Item Value Reference Range Interpretation Comme nts MAGNESIUM (test code = MAG) 2.38 mg/dL 1.6-2.6 NOTE: NEW NORMAL RANGE COMMENTS: On arrivalComment: On arrivalPO ARTERIAL BLOOD [id number] 12:55:00 * Test Item Value Reference Range Interpretation Comme nts POC ARTERIAL BLOOD GAS PH (t est code = POCPHA) 7.337 7.35-7.45 L POC ARTERIAL BLOOD GAS PCO2 (test code = XCARDS1M) 38.7 mmHg 35.0-45 N POC TCO2 ARTERIAL (test code = POCTCO2) 21.9 POC ARTERIAL BLOOD GAS PO2 ( test code = HATXP9J) 174.5 mmHg 80-100.0 H POC HCO3 ARTERIAL (test code = RIEZTA4Y) 20.7 MMOL/L 22.0-26.0 L POC BASE EXCESS (test code = POCBEA) -5.1 MMOL/L -4.0-4.0 L POC O2 SATURATION (test code = POCO2S) 99.5 % 90-100 N FIO2 (test code = FIO2A) 50 % PaO2/FiO2 (test code = [id number]) 349.00 mm/Hg ABG VENT MODE (test code = MODEA) AC ABG TIDAL VOLUME (test code = TVA) 450 ml ABG PEEP (test code = PEEPA) 5 cmH2O ABG TEMPERATURE (test code = TEMPA) 96.8 F ABG SITE (test code = SITEA) Art Line BASIC METABOLIC [id number] 12:55:00* Test Item Value Reference Range Interpretation Comme nts SODIUM (test code = NA/ABG) 143 mmol/L 134-147 N POTASSIUM (test code = K/ABG) 3.3 mmol/L 3.4-5.0 L CHLORIDE (test code = CL/ABG) 106 mmol/L 100-108 N CREATININE ABG (test code = CREAABG) 0.7 mg/dL 0.8-1.3 L POC IONIZED CALCIUM (test co de = POCCA) 1.25 MMOL/L 1.12-1.32 N POC GLUCOSE (test code = POCGLU) 221 MG/DL 70-110 H HEMOGLOBIN [id number] 12:55:00* Test Item Value Reference Range Interpretation Comme nts HEMOGLOBIN ABG (test code = HGB/ABG) 10.0 G/DL 12.5-16.9 L [id number] 12:55:00* Test Item Value Reference Range Interpretation Comme nts HEMATOCRIT (test code = HCT/ABG) 29 % 37.5-50.7 L POC LACTIC [id number] 12:55:00* Test Item Value Reference Range Interpretation Comme nts POC LACTIC ACID (test code = POCLAC) 6.1 mmol/l 0.9-1.7 PROTHROMBIN [id number] 12:54:00* Test Item Value Reference Range Interpretation [facility] PROTHROMBIN TIME PATIENT (test code = PTP) 14.2 SECONDS 9.3-12.9 H INTERNATIONAL NORMAL RATIO (test code = INR) 1.3 0.8-1.2 H TARGET INR BY INDICATION Indication INR1. Prophylaxis of venous thrombosis 2.0 - 3.0 (orthopedic surgery), Prophylaxis of venous thrombosis (other than high-risk surgery), Treatment of Deep Vein Thrombosis/Pulmonary Embolism, Prevention of systemic embolism - Tissue heart valves, Acute Myocardial Infarction (to prevent systemic embolism), Valvular heart disease, Atrial Fibrillation, Bileaflet mechanical valve in aortic position.2. Mechanical prosthetic valves (high risk), 2.5 - 3.5 Presence of Lupus Anticoagulant or Antiphospholipid Antibodies, Prevention of systemic embolism - Acute Myocardial Infarction (to prevent recurrent infarct). COMMENTS: On arrivalTHROMBOPLASTIN TIME [id number] 12:54:00* Test Item Value Reference Range Interpretation [facility] THROMBOPLASTIN TIME PARTIAL (test code = PTT) 52.4 Seconds 25.0-39.5 H Therapeutic Rang e: 50.4 - 88.3 Seconds Effective 05/29/2018 COMMENTS: [facility] [id number] 12:05:00* Test Item Value Reference Range Interpretation [facility] POC ARTERIAL BLOOD GAS PH (t est code = POCPHA) 7.348 7.35-7.45 L POC ARTERIAL BLOOD GAS PCO2 (test code = VSSEKL8D) 35.6 mmHg 35.0-45 N POC TCO2 ARTERIAL (test code = POCTCO2) 20.7 POC ARTERIAL BLOOD GAS PO2 ( test code = ZTPGM6M) 344.2 mmHg 80-100.0 POC HCO3 ARTERIAL (test code = QGSAUS7H) 19.6 MMOL/L 22.0-26.0 L POC BASE EXCESS (test code = POCBEA) -5.4 MMOL/L -4.0-4.0 L POC O2 SATURATION (test code = POCO2S) 99.9 % 90-100 N BASIC METABOLIC [id number] 12:05:00* Test Item Value Reference Range Interpretation [place] [facility] SODIUM (test code = NA/ABG) 144 mmol/L 134-147 N POTASSIUM (test code = K/ABG) 3.2 mmol/L 3.4-5.0 L CHLORIDE (test code = CL/ABG) 111 mmol/L 100-108 H CREATININE ABG (test code = CREAABG) 0.4 mg/dL 0.8-1.3 L POC IONIZED CALCIUM (test co de = POCCA) 1.10 MMOL/L 1.12-1.32 L POC GLUCOSE (test code = POCGLU) 211 MG/DL 70-110 H HEMOGLOBIN [id number] 12:05:00* Test Item Value Reference Range Interpretation Comme nts HEMOGLOBIN ABG (test code = HGB/ABG) 9.7 G/DL 12.5-16.9 L [id number] 12:05:00* Test Item Value Reference Range Interpretation Comme nts HEMATOCRIT (test code = HCT/ABG) 29 % 37.5-50.7 L POC LACTIC [id number] 12:05:00* Test Item Value Reference Range Interpretation Comme nts POC LACTIC ACID (test code = POCLAC) 4.9 mmol/l 0.9-1.7 HH [id number] 11:15:00* Test Item Value Reference Range Interpretation Comme nts ACT-ISTAT (test code = ACTI) 136 SEC 74-137 N Performed by cer tified vertical punch operator at [facility] POC ARTERIAL BLOOD [id number] 11:07:00* Test Item Value Reference Range Interpretation Comme nts POC ARTERIAL BLOOD GAS PH (t est code = POCPHA) 7.300 7.35-7.45 L POC ARTERIAL BLOOD GAS PCO2 (test code = OLDAGR2X) 36.0 mmHg 35.0-45 N POC TCO2 ARTERIAL (test code = POCTCO2) 18.8 POC ARTERIAL BLOOD GAS PO2 ( test code = ZQQJP5L) 274.3 mmHg 80-100.0 HH POC HCO3 ARTERIAL (test code = WOUTFH9V) 17.7 MMOL/L 22.0-26.0 LL POC BASE EXCESS (test code = POCBEA) -8.0 MMOL/L -4.0-4.0 L POC O2 SATURATION (test code = POCO2S) 99.9 % 90-100 N BASIC METABOLIC [id number] 11:07:00* Test Item Value Reference Range Interpretation Comme nts SODIUM (test code = NA/ABG) 139 mmol/L 134-147 N POTASSIUM (test code = K/ABG) 3.7 mmol/L 3.4-5.0 N CHLORIDE (test code = CL/ABG) 107 mmol/L 100-108 N CREATININE ABG (test code = CREAABG) 0.6 mg/dL 0.8-1.3 L POC IONIZED CALCIUM (test co de = POCCA) 1.20 MMOL/L 1.12-1.32 N POC GLUCOSE (test code = POCGLU) 283 MG/DL 70-110 H HEMOGLOBIN [id number] 11:07:00* Test Item Value Reference Range Interpretation Comme nts HEMOGLOBIN ABG (test code = HGB/ABG) 7.6 G/DL 12.5-16.9 L [id number] 11:07:00* Test Item Value Reference Range Interpretation Comme nts HEMATOCRIT (test code = HCT/ABG) 22 % 37.5-50.7 L POC LACTIC [id number] 11:07:00* Test Item Value Reference Range Interpretation Comme nts POC LACTIC ACID (test code = POCLAC) 5.3 mmol/l 0.9-1.7 HH [id number] 10:39:00* Test Item Value Reference Range Interpretation Comme nts ACT-ISTAT (test code = ACTI) 477 SEC 74-137 H Performed by cer tified vertical punch operator at [facility] POC ARTERIAL BLOOD [id number] 10:39:00* Test Item Value Reference Range Interpretation Comme nts POC ARTERIAL BLOOD GAS PH (t est code = POCPHA) 7.434 7.35-7.45 N POC ARTERIAL BLOOD GAS PCO2 (test code = JXRJNW7Q) 36.0 mmHg 35.0-45 N POC TCO2 ARTERIAL (test code = POCTCO2) 25.2 POC ARTERIAL BLOOD GAS PO2 ( test code = BEMQZ1Y) 532.2 mmHg 80-100.0 HH POC HCO3 ARTERIAL (test code = MLQWRA8K) 24.1 MMOL/L 22.0-26.0 N POC BASE EXCESS (test code = POCBEA) 0.0 MMOL/L -4.0-4.0 N POC O2 SATURATION (test code = POCO2S) 100.0 % 90-100 N BASIC METABOLIC [id number] 10:39:00* Test Item Value Reference Range Interpretation Comme nts SODIUM (test code = NA/ABG) 138 mmol/L 134-147 N POTASSIUM (test code = K/ABG) 4.1 mmol/L 3.4-5.0 N CHLORIDE (test code = CL/ABG) 103 mmol/L 100-108 N CREATININE ABG (test code = CREAABG) 0.6 mg/dL 0.8-1.3 L POC IONIZED CALCIUM (test co de = POCCA) 0.99 MMOL/L 1.12-1.32 L POC GLUCOSE (test code = POCGLU) 223 MG/DL 70-110 H HEMOGLOBIN [id number] 10:39:00* Test Item Value Reference Range Interpretation Comme nts HEMOGLOBIN ABG (test code = HGB/ABG) 8.2 G/DL 12.5-16.9 L [id number] 10:39:00* Test Item Value Reference Range Interpretation Comme nts HEMATOCRIT (test code = HCT/ABG) 24 % 37.5-50.7 L POC LACTIC [id number] 10:39:00* Test Item Value Reference Range Interpretation Comme nts POC LACTIC ACID (test code = POCLAC) 4.4 mmol/l 0.9-1.7 HH [id number] 10:09:00* Test Item Value Reference Range Interpretation Comme nts ACT-ISTAT (test code = ACTI) 460 SEC 74-137 H Performed by cer tified vertical punch operator at [facility] POC ARTERIAL BLOOD [id number] 09:54:00* Test Item Value Reference Range Interpretation Comme nts POC ARTERIAL BLOOD GAS PH (t est code = POCPHA) 7.412 7.35-7.45 N POC ARTERIAL BLOOD GAS PCO2 (test code = SPZCIP4R) 39.6 mmHg 35.0-45 N POC TCO2 ARTERIAL (test code = POCTCO2) 26.5 POC ARTERIAL BLOOD GAS PO2 ( test code = OHGZZ7H) 359.7 mmHg 80-100.0 HH POC HCO3 ARTERIAL (test code = NVCWEZ5H) 25.3 MMOL/L 22.0-26.0 N POC BASE EXCESS (test code = POCBEA) 0.6 MMOL/L -4.0-4.0 N POC O2 SATURATION (test code = POCO2S) 100.0 % 90-100 N BASIC METABOLIC [id number] 09:54:00* Test Item Value Reference Range Interpretation Comme nts SODIUM (test code = NA/ABG) 139 mmol/L 134-147 N POTASSIUM (test code = K/ABG) 4.1 mmol/L 3.4-5.0 N CHLORIDE (test code = CL/ABG) 103 mmol/L 100-108 N CREATININE ABG (test code = CREAABG) 0.7 mg/dL 0.8-1.3 L POC IONIZED CALCIUM (test co de = POCCA) 1.02 MMOL/L 1.12-1.32 L POC GLUCOSE (test code = POCGLU) 155 MG/DL 70-110 H HEMOGLOBIN [id number] 09:54:00* Test Item Value Reference Range Interpretation Comme nts HEMOGLOBIN ABG (test code = HGB/ABG) 8.9 G/DL 12.5-16.9 L [id number] 09:54:00* Test Item Value Reference Range Interpretation Comme nts HEMATOCRIT (test code = HCT/ABG) 26 % 37.5-50.7 L POC LACTIC [id number] 09:54:00* Test Item Value Reference Range Interpretation Comme nts POC LACTIC ACID (test code = POCLAC) 3.6 mmol/l 0.9-1.7 H [id number] 09:31:00* Test Item Value Reference Range Interpretation Comme nts ACT-ISTAT (test code = ACTI) 725 SEC 74-137 H Performed by cer tified vertical punch operator at [facility] POC ARTERIAL BLOOD [id number] 09:19:00* Test Item Value Reference Range Interpretation Comme nts POC ARTERIAL BLOOD GAS PH (t est code = POCPHA) 7.401 7.35-7.45 N POC ARTERIAL BLOOD GAS PCO2 (test code = HFSRYV3O) 45.7 mmHg 35.0-45 H POC TCO2 ARTERIAL (test code = POCTCO2) 29.8 POC ARTERIAL BLOOD GAS PO2 ( test code = ZYYFQ1X) 399.4 mmHg 80-100.0 HH POC HCO3 ARTERIAL (test code = URYXVE2B) 28.3 MMOL/L 22.0-26.0 HH POC BASE EXCESS (test code = POCBEA) 3.1 MMOL/L -4.0-4.0 N POC O2 SATURATION (test code = POCO2S) 100.0 % 90-100 N BASIC METABOLIC [id number] 09:19:00* Test Item Value Reference Range Interpretation Comme nts SODIUM (test code = NA/ABG) 139 mmol/L 134-147 N POTASSIUM (test code = K/ABG) 4.3 mmol/L 3.4-5.0 N CHLORIDE (test code = CL/ABG) 101 mmol/L 100-108 N CREATININE ABG (test code = CREAABG) 0.6 mg/dL 0.8-1.3 L POC IONIZED CALCIUM (test co de = POCCA) 0.98 MMOL/L 1.12-1.32 L POC GLUCOSE (test code = POCGLU) 106 MG/DL 70-110 N HEMOGLOBIN [id number] 09:19:00* Test Item Value Reference Range Interpretation Comme nts HEMOGLOBIN ABG (test code = HGB/ABG) 9.2 G/DL 12.5-16.9 L [id number] 09:19:00* Test Item Value Reference Range Interpretation Comme nts HEMATOCRIT (test code = HCT/ABG) 27 % 37.5-50.7 L POC LACTIC [id number] 09:19:00* Test Item Value Reference Range Interpretation Comme nts POC LACTIC ACID (test code = POCLAC) 1.9 mmol/l 0.9-1.7 H [id number] 08:51:00* Test Item Value Reference Range Interpretation Comme nts ACT-ISTAT (test code = ACTI) 612 SEC 74-137 H Performed by cer tified vertical punch operator at [facility] POC ARTERIAL BLOOD [id number] 08:42:00* Test Item Value Reference Range Interpretation Comme nts POC ARTERIAL BLOOD GAS PH (t est code = POCPHA) 7.327 7.35-7.45 L POC ARTERIAL BLOOD GAS PCO2 (test code = TWZKDC4K) 44.9 mmHg 35.0-45 N POC TCO2 ARTERIAL (test code = POCTCO2) 24.8 POC ARTERIAL BLOOD GAS PO2 ( test code = YEUES9J) 375.9 mmHg 80-100.0 HH POC HCO3 ARTERIAL (test code = DRRJIZ5K) 23.5 MMOL/L 22.0-26.0 N POC BASE EXCESS (test code = POCBEA) -2.7 MMOL/L -4.0-4.0 N POC O2 SATURATION (test code = POCO2S) 99.9 % 90-100 N BASIC METABOLIC [id number] 08:42:00* Test Item Value Reference Range Interpretation Comme nts SODIUM (test code = NA/ABG) 142 mmol/L 134-147 N POTASSIUM (test code = K/ABG) 3.4 mmol/L 3.4-5.0 N CHLORIDE (test code = CL/ABG) 105 mmol/L 100-108 N CREATININE ABG (test code = CREAABG) 0.5 mg/dL 0.8-1.3 L POC IONIZED CALCIUM (test co de = POCCA) 1.14 MMOL/L 1.12-1.32 N POC GLUCOSE (test code = POCGLU) 142 MG/DL 70-110 H HEMOGLOBIN [id number] 08:42:00* Test Item Value Reference Range Interpretation Comme nts HEMOGLOBIN ABG (test code = HGB/ABG) 12.5 G/DL 12.5-16.9 N [id number] 08:42:00* Test Item Value Reference Range Interpretation Comme nts HEMATOCRIT (test code = HCT/ABG) 37 % 37.5-50.7 L POC LACTIC [id number] 08:42:00* Test Item Value Reference Range Interpretation Comme nts POC LACTIC ACID (test code = POCLAC) 1.8 mmol/l 0.9-1.7 H [id number] 07:20:00* Test Item Value Reference Range Interpretation Comme nts ACT-ISTAT (test code = ACTI) 152 SEC 74-137 H Performed by cer tified vertical punch operator at [facility] POC ARTERIAL BLOOD [id number] 07:08:00* Test Item Value Reference Range Interpretation Comme nts POC ARTERIAL BLOOD GAS PH (t est code = POCPHA) 7.333 7.35-7.45 L POC ARTERIAL BLOOD GAS PCO2 (test code = IQOAMB8X) 36.8 mmHg 35.0-45 N POC TCO2 ARTERIAL (test code = POCTCO2) 20.7 POC ARTERIAL BLOOD GAS PO2 ( test code = BNDNZ1V) 532.0 mmHg 80-100.0 HH POC HCO3 ARTERIAL (test code = MNXMBA8D) 19.6 MMOL/L 22.0-26.0 L POC BASE EXCESS (test code = POCBEA) -5.7 MMOL/L -4.0-4.0 L POC O2 SATURATION (test code = POCO2S) 100.0 % 90-100 N BASIC METABOLIC [id number] 07:08:00* Test Item Value Reference Range Interpretation Comme nts SODIUM (test code = NA/ABG) 144 mmol/L 134-147 N POTASSIUM (test code = K/ABG) 3.6 mmol/L 3.4-5.0 N CHLORIDE (test code = CL/ABG) 104 mmol/L 100-108 N CREATININE ABG (test code = CREAABG) 0.6 mg/dL 0.8-1.3 L POC IONIZED CALCIUM (test co de = POCCA) 1.14 MMOL/L 1.12-1.32 N POC GLUCOSE (test code = POCGLU) 312 MG/DL 70-110 H HEMOGLOBIN [id number] 07:08:00* Test Item Value Reference Range Interpretation Comme nts HEMOGLOBIN ABG (test code = HGB/ABG) 15.3 G/DL 12.5-16.9 N [id number] 07:08:00* Test Item Value Reference Range Interpretation Comme nts HEMATOCRIT (test code = HCT/ABG) 45 % 37.5-50.7 N POC LACTIC [id number] 07:08:00* Test Item Value Reference Range Interpretation Comme nts POC LACTIC ACID (test code = POCLAC) 3.2 mmol/l 0.9-1.7 H CBC W/AUTO [id number] 04:27:00* Test Item Value Reference Range Interpretation Comme nts WHITE BLOOD CELL (test code = WBC) 11.1 x10 3/uL 4.5-11.0 H RED BLOOD CELL (test code = RBC) 5.07 x10 6/uL 4.00-5.60 N HEMOGLOBIN (test code = HGB) 14.7 g/dL 12.5-16.9 N HEMATOCRIT (test code = HCT) 43.5 % 37.5-50.7 N MEAN CELL VOLUME (test code = MCV) 85.8 fL 81.0-99.0 N MEAN CELL HGB (test code = MCH) 29.0 pg 27.0-33.0 N MEAN CELL HGB CONCETRATION (test code = MCHC) 33.8 g/dL 33.0-37.0 N RED CELL DISTRIBUTION WIDTH CV (test code = RDW) 12.8 % 11.5-14.5 N RED CELL DISTRIBUTION WIDTH SD (test code = RDW-SD) 39.8 fL 37.0-54.0 N PLATELET COUNT (test code = PLT) 232 x10 3/uL 150-400 N MEAN PLATELET VOLUME (test c ode = MPV) 10.7 fL 7.0-9.0 H NEUTROPHIL % (test code = NT%) 59.3 % 56.0-77.0 N IMMATURE GRANULOCYTE % (test code = IG%) 0.4 % 0.0-2.0 N LYMPHOCYTE % (test code = LY%) 28.3 % 14.0-32.0 N MONOCYTE % (test code = MO%) 9.2 % 4.8-9.0 H EOSINOPHIL % (test code = EO%) 2.1 % 0.3-3.7 N BASOPHIL % (test code = BA%) 0.7 % 0.0-2.0 N NUCLEATED RBC % (test code = NRBC%) 0.0 % 0-0 N NEUTROPHIL # (test code = NT#) 6.55 x10 3/uL 2.0-7.6 N IMMATURE GRANULOCYTE # (test code = IG#) 0.04 x10 3/uL 0.00-0.03 H LYMPHOCYTE # (test code = LY#) 3.13 x10 3/uL 1.0-3.8 N MONOCYTE # (test code = MO#) 1.02 x10 3/uL 0.1-0.8 H EOSINOPHIL # (test code = EO#) 0.23 x10 3/uL 0.0-0.2 H BASOPHIL # (test code = BA#) 0.08 x10 3/uL 0.0-0.2 N NUCLEATED RBC # (test code = NRBC#) 0.00 x10 3/uL 0.0-0.1 N MANUAL DIFF REQUIRED (test c ode = MDIFF) NO COMPREHENSIVE METABOLIC [id number] 03:52:00* Test Item Value Reference Range Interpretation Comme nts SODIUM (test code = NA) 137 mEq/L 134-147 N POTASSIUM (test code = K) 3.8 mEq/L 3.4-5.0 N CHLORIDE (test code = CL) 106 mEq/L 100-108 N CARBON DIOXIDE (test code = CO2) 26 mEq/l 21-33 N ANION GAP (test code = GAP) 9 0-20 N GLUCOSE (test code = GLU) 145 mg/dL 77-141 H NOTE: NEW NORMAL RANGE BLOOD UREA NITROGEN (test code = BUN) 11 mg/dL 7-25 N NOTE: NEW NORM AL RANGE GLOMERULAR FILTRATION RATE (test code = GFR) 94.0 70-80 H The Glomerular Filtration Rate is a calculated parameterbased on serum Creatinine, patient age and sex. GFR valuesless than 60 mL/min/1.73 square meters are indicative ofChronic Kidney Disease. Values less than 15 mL/min/1.73square meters indicate Kidney failure. The calculation forGFR is based on the CKD-EPI (202) calculation. This formulais race indifferent and is the recommended formula for GFRby the National Kidney Foundation for Adults.The GFR will not calculate if the sex is unknown or if thepatient's age is <18 years. CREATININE (test code = CREAT) 0.8 mg/dL 0.6-1.3 N TOTAL PROTEIN (test code = PROT) 7.3 g/dL 6.4-8.2 N ALBUMIN (test code = ALB) 3.90 g/dL 3.4-5.0 N CALCIUM (test code = CA) 9.4 mg/dL 8.0-10.5 N BILIRUBIN TOTAL (test code = BILT) 1.00 mg/dL 0.0-1.0 N SGOT/AST (test code = AST) 32 IUnit/L 8-34 N NOTE: NEW NORMAL RANGE SGPT/ALT (test code = ALT) 32 IUnit/L 10-49 N NOTE: NEW NORMAL RANGE ALKALINE PHOSPHATASE TOTAL (test code = ALKP) 98 IUnit/L 20-125 N [id number] 03:52:00* Test Item Value Reference Range Interpretation [facility] MAGNESIUM (test code = MAG) 2.04 mg/dL 1.6-2.6 N NOTE: NEW NORMAL RANGE PROTHROMBIN [id number] 03:48:00* Test Item Value Reference Range Interpretation [facility] PROTHROMBIN TIME PATIENT (test code = PTP) 12.2 SECONDS 9.3-12.9 N INTERNATIONAL NORMAL RATIO (test code = INR) 1.1 0.8-1.2 N TARGET INR BY INDICATION Indication INR1. Prophylaxis of venous thrombosis 2.0 - 3.0 (orthopedic surgery), Prophylaxis of venous thrombosis (other than high-risk surgery), Treatment of Deep Vein Thrombosis/Pulmonary Embolism, Prevention of systemic embolism - Tissue heart valves, Acute Myocardial Infarction (to prevent systemic embolism), Valvular heart disease, Atrial Fibrillation, Bileaflet mechanical valve in aortic position.2. Mechanical prosthetic valves (high risk), 2.5 - 3.5 Presence of Lupus Anticoagulant or Antiphospholipid Antibodies, Prevention of systemic embolism - Acute Myocardial Infarction (to prevent recurrent infarct). THROMBOPLASTIN TIME [id number] 03:48:00* Test Item Value Reference Range Interpretation [facility] THROMBOPLASTIN TIME PARTIAL (test code = PTT) 27.7 Seconds 25.0-39.5 N Therapeutic Rang e: 50.4 - 88.3 Seconds Effective 05/29/2018 COVID 19 Asymptomatic IH [id number] 18:24:00* Test Item Value Reference Range Interpretation [facility] COVID 19 Asymptomatic IH AG (test code = COVNONPUIAG) Negative Negative A negative resul t is presumptive and should be confirmedwith an FDA authorized molecular assay, if necessary forpatient management.A positive result does not rule out co-infections withother pathogens.This test detects both viable (live) and non-viable,SARS-CoV, and SARS-CoV-2. Test performance depends on theamount of virus (antigen) in the sample.This test has not been FDA cleared or approved; the test hasbeen authorized by FDA under an Emergency Use Authorization(EUA) for use by laboratories certified under the CLIA thatmeet the requirements to perform moderate, high or waivedcomplexity tests. UA RFLX MICR CULT IF [id number] 11:58:00* Test Item Value Reference Range Interpretation Comme nts UA COLOR (test code = COLU) YELLOW YEL/STRAW UA APPEARANCE (test code = APPU) CLEAR CLEAR UA GLUCOSE DIPSTICK (test co de = DGLUU) 1+ NEGATIVE A UA BILIRUBIN DIPSTICK (test code = BILU) NEGATIVE NEGATIVE UA KETONE DIPSTICK (test cod e = KETU) 1+ NEGATIVE A UA SPECIFIC GRAVITY (test co de = SGU) 1.018 1.005-1.030 N UA BLOOD DIPSTICK (test code = ANSLEY) NEGATIVE NEGATIVE UA PH DIPSTICK (test code = BLADIMIR) 6.0 5.0-7.0 N UA PROTEIN DIPSTICK (test co de = PROU) NEGATIVE NEGATIVE UA UROBILINIOGEN DIPSTICK (test code = URO) 0.2 mg/dL 0.2-1.0 UA NITRITE DIPSTICK (test co de = BRET) NEGATIVE NEGATIVE UA LEUKOCYTE ESTERASE DIPSTI CK (test code = LEUU) NEGATIVE NEGATIVE UA WBC (test code = WBCU) 0-3 WBC/HPF 0-3 UA RBC (test code = RBCU) 0-3 RBC/HPF 0-3 UA WBC NO REFLEX (test code = WBCUCL) 0-3 WBC/HPF 0-3 UA BACTERIA (test code = BACU) NONE SEEN /HPF NONE SEEN UA SQUAMOUS CELLS (test code = SQU) 0-5 /HPF NONE SEEN UA MUCUS (test code = MUCU) 3+ /LPF NONE SEEN A Indication for culture: Dysuria/FrequencySpecimen Description: CLEAN CATCH [id number]%[id number] 11:29:00* Test Item Value Reference Range Interpretation Comme nts HGBA1C% (test code = HGBA1C%) 7.6 %A1C 4.8-6.0 H LIPID PROFILE (CORONARY RISK)2023-03-10 08:21:00* Test Item Value Reference Range Interpretation Comme nts TRIGLYCERIDES (test code = TRIG) 155 mg/dL 40-150 H CHOLESTEROL (test code = CHOL) 168 mg/dL <200 CHOLESTEROL/HDL RATIO (test code = CHOLHDL) 4.71 RATIO 3.43-4.97 N RISK ASSOCIATED WITH CHOL/HDL RATIOS: RISK MALE FEMALE1/2 AVERAGE 3.43 3.27AVERAGE 4.97 4.442X AVERAGE 9.55 7.053X AVERAGE 23.39 11.04 NOTE THAT THE REFERENCE VALUE IS RELATEDTO RISK LEVELS RECOMMENDED BY THE NATL.HEART, LUNG, AND BLOOD INST. HDL CHOLESTEROL (test code = HDL) 35.7 MG/DL 40-60 L Note change in REFERENCE RANGE due to change in REAGENT.HDL Interpretation < 40.0 mg/dL Low (undesirable, high risk)> 60.0 mg/dL High (desirable, low risk) Reference interval for healthy adults was established by theNational Cholesterol Education Program (NCEP). LIPOPROTEIN LDL (test code = LDL) 110.0 mg/dL 0-100 H <100 PEMBTQR62 0-129 NEAR OPTIMAL/ABOVE [id number] HIGH>SY=628 VERY HIGH*Guidelines provided by the National Cholesterol EducationProgram Adult Treatment Panel III TROP-I HIGH [id number] 08:04:00* Test Item Value Reference Range Interpretation Comme nts TROP-I HIGH SENSITIVITY (test code = TROPIHS) 238 ng/L 0-54 HH Critical result called to Latrell SHEN.[facility] at 0804 03/10/23Nurse read back result and tech confirmed it's correct? YESCAUTION: Units of the current test methodology (ng/L) differfrom the prior test methodology (ng/mL) by a factor of 1000. 99th Percentile Upper Reference Limit (URL): Females: 34 ng/LMales: 54 ng/L In order to distinguish acute elevations of high sensitivitytroponin from other clinical conditions, the FourthUniversal Definition of Myocardial Infarction stressesclinical assessment and the demonstration of a rise and/orfall in serial troponin results above the URL. These results were obtained using [employer] IM TnIHreagent. Results from different methodologies should not becompared to one another as quantitative results and URLs mayvary by method. COMPREHENSIVE METABOLIC [id number] 08:04:00* Test Item Value Reference Range Interpretation Comme nts SODIUM (test code = NA) 140 mEq/L 134-147 N POTASSIUM (test code = K) 3.7 mEq/L 3.4-5.0 N CHLORIDE (test code = CL) 104 mEq/L 100-108 N CARBON DIOXIDE (test code = CO2) 28 mEq/l 21-33 N ANION GAP (test code = GAP) 11 0-20 N GLUCOSE (test code = GLU) 134 mg/dL 77-141 N NOTE: NEW NORMAL RANGE BLOOD UREA NITROGEN (test code = BUN) 11 mg/dL 7-25 N NOTE: NEW NORM AL RANGE GLOMERULAR FILTRATION RATE (test code = GFR) 94.0 70-80 H The Glomerular Filtration Rate is a calculated parameterbased on serum Creatinine, patient age and sex. GFR valuesless than 60 mL/min/1.73 square meters are indicative ofChronic Kidney Disease. Values less than 15 mL/min/1.73square meters indicate Kidney failure. The calculation forGFR is based on the CKD-EPI (202) calculation. This formulais race indifferent and is the recommended formula for GFRby the National Kidney Foundation for Adults.The GFR will not calculate if the sex is unknown or if thepatient's age is <18 years. CREATININE (test code = CREAT) 0.8 mg/dL 0.6-1.3 N TOTAL PROTEIN (test code = PROT) 7.1 g/dL 6.4-8.2 N ALBUMIN (test code = ALB) 3.80 g/dL 3.4-5.0 N CALCIUM (test code = CA) 9.6 mg/dL 8.0-10.5 N BILIRUBIN TOTAL (test code = BILT) 1.10 mg/dL 0.0-1.0 H SGOT/AST (test code = AST) 28 IUnit/L 8-34 N NOTE: NEW NORMAL RANGE SGPT/ALT (test code = ALT) 26 IUnit/L 10-49 N NOTE: NEW NORMAL RANGE ALKALINE PHOSPHATASE TOTAL (test code = ALKP) 93 IUnit/L 20-125 N PROTHROMBIN [id number] 07:53:00* Test Item Value Reference Range Interpretation Comme nts PROTHROMBIN TIME PATIENT (test code = PTP) 11.7 SECONDS 9.3-12.9 N INTERNATIONAL NORMAL RATIO (test code = INR) 1.1 0.8-1.2 N TARGET INR BY INDICATION Indication INR1. Prophylaxis of venous thrombosis 2.0 - 3.0 (orthopedic surgery), Prophylaxis of venous thrombosis (other than high-risk surgery), Treatment of Deep Vein Thrombosis/Pulmonary Embolism, Prevention of systemic embolism - Tissue heart valves, Acute Myocardial Infarction (to prevent systemic embolism), Valvular heart disease, Atrial Fibrillation, Bileaflet mechanical valve in aortic position.2. Mechanical prosthetic valves (high risk), 2.5 - 3.5 Presence of Lupus Anticoagulant or Antiphospholipid Antibodies, Prevention of systemic embolism - Acute Myocardial Infarction (to prevent recurrent infarct). THROMBOPLASTIN TIME [id number] 07:53:00* Test Item Value Reference Range Interpretation Comme [facility] THROMBOPLASTIN TIME PARTIAL (test code = PTT) 29.2 Seconds 25.0-39.5 N Therapeutic Rang e: 50.4 - 88.3 Seconds Effective 05/29/2018 B-TYPE NATRIURETIC [id number] 07:44:00* Test Item Value Reference Range Interpretation Comme [facility] B-TYPE NATRIURETIC PEPTIDE ( test code = BNP) 65.0 PG/ML 0-100 N CBC W/AUTO [id number] 07:37:00* Test Item Value Reference Range Interpretation Comme nts WHITE BLOOD CELL (test code = WBC) 7.8 x10 3/uL 4.5-11.0 N RED BLOOD CELL (test code = RBC) 4.99 x10 6/uL 4.00-5.60 N HEMOGLOBIN (test code = HGB) 14.3 g/dL 12.5-16.9 N HEMATOCRIT (test code = HCT) 43.5 % 37.5-50.7 N MEAN CELL VOLUME (test code = MCV) 87.2 fL 81.0-99.0 N MEAN CELL HGB (test code = MCH) 28.7 pg 27.0-33.0 N MEAN CELL HGB CONCETRATION (test code = MCHC) 32.9 g/dL 33.0-37.0 L RED CELL DISTRIBUTION WIDTH CV (test code = RDW) 13.2 % 11.5-14.5 N RED CELL DISTRIBUTION WIDTH SD (test code = RDW-SD) 41.7 fL 37.0-54.0 N PLATELET COUNT (test code = PLT) 201 x10 3/uL 150-400 N MEAN PLATELET VOLUME (test c ode = MPV) 10.7 fL 7.0-9.0 H NEUTROPHIL % (test code = NT%) 60.6 % 56.0-77.0 N IMMATURE GRANULOCYTE % (test code = IG%) 0.4 % 0.0-2.0 N LYMPHOCYTE % (test code = LY%) 25.6 % 14.0-32.0 N MONOCYTE % (test code = MO%) 11.2 % 4.8-9.0 H EOSINOPHIL % (test code = EO%) 1.7 % 0.3-3.7 N BASOPHIL % (test code = BA%) 0.5 % 0.0-2.0 N NUCLEATED RBC % (test code = NRBC%) 0.0 % 0-0 N NEUTROPHIL # (test code = NT#) 4.70 x10 3/uL 2.0-7.6 N IMMATURE GRANULOCYTE # (test code = IG#) 0.03 x10 3/uL 0.00-0.03 N LYMPHOCYTE # (test code = LY#) 1.99 x10 3/uL 1.0-3.8 N MONOCYTE # (test code = MO#) 0.87 x10 3/uL 0.1-0.8 H EOSINOPHIL # (test code = EO#) 0.13 x10 3/uL 0.0-0.2 N BASOPHIL # (test code = BA#) 0.04 x10 3/uL 0.0-0.2 N NUCLEATED RBC # (test code = NRBC#) 0.00 x10 3/uL 0.0-0.1 N
--- NOTE | 2024-02-06 17:48 | EDPHYS ---
Physician Documentation [facility] Name: Devyn Trejo Age: 73 yrs Sex: Male : 1950 Arrival Date: 02/06/2024 Time: 17:02 Bed IW2 Private MD: ED Physician Carter Johnson HPI: 02/05 17:50 This 73 yrs old Male presents to ER via Wheelchair with complaints of Back Pain, Leg sb4 Pain, Trouble sleeping. 17:50 2 weeks ago, has had restless legs, and trouble sleeping since. sb4 melatonin did not help. Benadryl helped but made him groggy in the morning. no numbness or tingling, no weakness. Historical: - Allergies: 17:33 PENICILLINS; hb - Home Meds: 17:38 tamsulosin 0.4 mg oral capsule [Active]; Metoprolol Tartrate Oral [Active]; Furosemide hb Oral [Active]; Aspirin Oral [Active]; atorvastatin oral [Active]; clopidogrel oral [Active]; - PMHx: 17:38 NSTEMI; CAD; High Cholesterol; Hyertension; hb - PSHx: 17:36 CABG; hb ROS: 17:50 Constitutional: Negative for fever, chills, and weight loss, sb4 17:50 MS/extremity: Positive for per HPI, 17:50 All other systems are negative, Exam: 17:50 Head/Face: Normocephalic, atraumatic. Eyes: Extra-ocular motions intact. Periorbital sb4 areas with no swelling, redness, or edema. ENT: Mucous membranes moist. Respiratory: No increased work of breathing, no retractions or nasal flaring. Skin: Warm, dry with normal turgor. Normal color with no rashes, no lesions, and no evidence of cellulitis. 17:50 Constitutional: The patient appears in no acute distress, alert, awake, 17:52 Neuro: Exam negative for acute changes, focal neuro deficits, motor deficits, sensory sb4 deficits, Vital Signs: 17:31 BP 134 / 69; Pulse 86; Resp 16; Temp 98.3; Pulse Ox 98% on R/A; Weight 85.73 kg; Height hb 5 ft. 9 in. ; Pain 3/10; 17:31 Body Mass Index 27.91 (85.73 kg, 175.26 cm) hb 17:31 Pain Scale: Adult hb MDM: 17:30 Medical Screening Exam initiated sb4 17:52 Data reviewed: vital signs, nurses notes, and as a result, I will discharge patient. sb4 Historians other than the Patient: Daughter/Son: daughter. Counseling: I had a detailed discussion with the patient and/or guardian regarding the historical points, exam findings, and any diagnostic results supporting the discharge/admit diagnosis, the need for outpatient follow up, for definitive care, to return to the emergency department if symptoms worsen or persist or if there are any questions or concerns that arise at home. Administered Medications: 02/04 18:36 Drug: Requip PO 0.25 mg PO once Route: PO; hb 02/05 18:36 Drug: Requip PO 0.25 mg PO once Route: PO; hb Disposition Summary: 02/06/24 17:48 Discharge Ordered Notes: Location: Home sb4 Problem: an ongoing problem sb4 Symptoms: are unchanged sb4 Condition: Stable sb4 Diagnosis - Restless legs syndrome sb4 Followup: sb4 - With: Private Physician - When: As needed - Reason: Recheck today's complaints, Re-evaluation by your physician Discharge Instructions: - Discharge Summary Sheet sb4 - Restless Legs Syndrome sb4 Forms: - Patient Portal Instructions sb4 - Leadership Thank You Letter sb4 Prescriptions: - ropinirole 0.25 mg Oral tablet - take 1 tablet ORAL route At bedtime; 10 tablet; Refills: 0, Product Selection sb4 Permitted Addendum: 02/08/2024 12:39 Co-signature as Attending Physician, Carter Johnson MD I agree with the assessment and c stein plan of care. Signatures: Carter Johnson MD MD cha Baxter, Heather, RN RN Trisha Serrano PA-C PAAllen sb4
--- NOTE | 2024-02-06 17:48 | ER ---
Nurse's Notes [facility] Name: Devyn Trejo Age: 73 yrs Sex: Male : 1950 Arrival Date: 02/06/2024 Time: 17:02 Bed IW2 Private MD: Diagnosis: Restless legs syndrome Presentation: 02/05 17:31 Chief complaint: Restless legs at night x 2 weeks, not able to sleep. Coronavirus hb screen: At this time, the client does not indicate any symptoms associated with coronavirus-19. Ebola Screen: No symptoms or risks identified at this time. Initial Sepsis Screen: Does the patient meet any 2 criteria? No. Patient's initial sepsis screen is negative. Does the patient have a suspected source of infection? No. Patient's initial sepsis screen is negative. Risk Assessment: Do you want to hurt yourself or someone else? Patient reports no desire to harm self or others. Onset of symptoms was January 22, 2024. 17:31 Method Of Arrival: Wheelchair hb 17:31 Acuity: KEN 3 hb Historical: - Allergies: 17:33 PENICILLINS; hb - Home Meds: 17:38 tamsulosin 0.4 mg oral capsule [Active]; Metoprolol Tartrate Oral [Active]; Furosemide hb Oral [Active]; Aspirin Oral [Active]; atorvastatin oral [Active]; clopidogrel oral [Active]; - PMHx: 17:38 NSTEMI; CAD; High Cholesterol; Hyertension; hb - PSHx: 17:36 CABG; hb Vital Signs: 17:31 BP 134 / 69; Pulse 86; Resp 16; Temp 98.3; Pulse Ox 98% on R/A; Weight 85.73 kg; Height hb 5 ft. 9 in. ; Pain 3/10; 17:31 Body Mass Index 27.91 (85.73 kg, 175.26 cm) hb 17:31 Pain Scale: Adult hb ED Course: 17:05 Patient arrived in ED. mr 17:14 Trisha Polk PA-C is PHCP. sb4 17:14 Carter Johnson MD is Attending Physician. sb4 17:33 Triage completed. hb 17:33 Arm band placed on. hb 17:36 Sommer Espinal, RN is Primary Nurse. hb Administered Medications: 02/04 18:36 Drug: Requip PO 0.25 mg PO once Route: PO; hb 02/05 18:36 Drug: Requip PO 0.25 mg PO once Route: PO; hb Outcome: 17:48 Discharge ordered by MD. dickson 18:37 Patient left the ED. hb Signatures: Allyssa Pack, Freddy Hayes mr Sommer Espinal, RN RN Trisha Serrano, VINICIUS dickson
[2024-02-06] MEDS ORDERED: ROPINIROLE HCL 0.25 MG TAB ONE (18:00)
[2024-02-06 18:42] VITALS: BP 134/69; TEMP 98.3; O2SAT 98
== END 2024-02-06 18:37 | disposition home or self-care (01) ==
LOC: ER 17:02
DX: G25.81 Restless legs syndrome (principal); I10 Essential (primary) hypertension; E78.00 Pure hypercholesterolemia, unspecified; I25.10 Atherosclerotic heart disease of native coronary artery without angina pectoris; I25.2 Old myocardial infarction; Z95.1 Presence of aortocoronary bypass graft; Z79.82 Long term (current) use of aspirin; Z79.899 Other long term (current) drug therapy; Z88.0 Allergy status to penicillin
CPT/HCPCS: 99282

== ENCOUNTER 2024-02-12 11:13 | Emergency (ER) | payer OTHER ==
--- OUTSIDE RECORDS SUMMARY | 2024-02-12 11:19 | XMS REPORT | Continuity of Care Document ---
Author Name Unknown Address [address] [facility] [place] [address] [facility] thconnect Address [address] [facility] [facility] [place] [address] Care Team Providers Care Engraver Flatware Name Role Phone PCP, PATIENT DOES NOT [...] Date Source [employer] MED[employer]ARE OUT OF NETWORK [id number] 2020 00:00:00 Allergies, Adverse Reactions, Alerts Allergy Name Allergy Type Status Severity Reaction(s) Onset Date Inactive Date Treating Clinician Comments Source penicill in G DA Active MO raji thomas keyunior 03-09 00:00: 00 [facility] Penicill ins Propensi ty to adverse reaction s Active Other - See comments 2022-02 00:00: 00 Pale, shaky, dizzy [facility] PENICILL INS Drug Class Active Other-Cmnt 2022-02 00:00: 00 [facility] NO KNOWN ALLERGIE S Drug Class Active [facility] Social History Social Habit Start Date Stop Date Quantity Comments Source History of tobacco use Current smoker [facility] Sexual orientation U [facility] History of Social function 2023-01-20 00:00:00 2023-01-20 00:00:00 [facility] Sex assigned at 1950 00:00:00 1950 00:00:00 [facility] Smoking Status Start Date Stop Date Source Ex-smoker 2023-01-20 00:00:00 2023-01-20 00:00:00 [facility] Medications Ordered Medication Name Filled Medication Name Start Date Stop Date Current Medication? Ordering Clinician Indication Dosage Frequency Signature (SIG) Comments Components Source doxycycline hyclate 100 mg tablet 2022-02 00:00: 00 01-31 05:59 :00 No [id number] 100mg Take 1 tablet by mouth in the morning and 1 tablet in the evening. Do all this for 10 days. [facility] doxycycline 100 mg capsule 10-27 00:00: 00 Yes 100mg Take 1 capsule by mouth 2 (two) times daily. [facility] Vital Signs Vital Name Observation Time Observation Value Comments S ource Systolic blood pressure 2024-02-06 22:49:00 132 mm[Hg] [facility] Diastolic blood pressure 2024-02-06 22:49:00 79 mm[Hg] [facility] Heart rate 2024-02-06 22:49:00 90 /min [facility] Body temperature 2024-02-06 22:49:00 37.06 Meena [facility] Respiratory rate 2024-02-06 22:49:00 18 /min [facility] Body weight 2024-02-06 22:49:00 85.928 kg [facility] BMI 2024-02-06 22:49:00 27.18 kg/m2 [facility] Oxygen saturation in Arterial blood by Pulse oximetry 2024-02-06 22:49:00 98 /min [facility] Systolic blood pressure 2023-01-20 23:24:00 166 mm[Hg] [facility] Diastolic blood pressure 2023-01-20 23:24:00 88 mm[Hg] [place] [facility] Heart rate 2023-01-20 23:21:00 82 /min [facility] Body temperature 2023-01-20 23:21:00 36.83 Meena [facility] Respiratory rate 2023-01-20 23:21:00 18 /min [facility] Body height 2023-01-20 23:21:00 177.8 cm [facility] Body weight 2023-01-20 23:21:00 91.428 kg [facility] BMI 2023-01-20 23:21:00 28.92 kg/m2 [facility] Oxygen saturation in Arterial blood by Pulse oximetry 2023-01-20 23:21:00 96 /min [place] [facility] Procedures Procedure Date / Time Performed Performing Clinicia n Source [id number] 2023-03-13 00:00:00 CHAAB.01 [facility] [id number] 2023-03-13 00:00:00 CHAAB.01 [facility] [id number] 2023-03-13 00:00:00 CHAAB.01 [facility] [id number] 2023-03-13 00:00:00 CHAAB.01 [facility] [id number] 2023-03-13 00:00:00 CHAAB.01 [facility] [id number] 2023-03-13 00:00:00 CHAAB.01 [facility] [id number] 2023-03-13 00:00:00 CHAAB.01 [facility] [id number] 2023-03-13 00:00:00 CHAAB.01 [facility] [id number] 2023-03-13 00:00:00 CHAAB.01 [facility] [id number] 2023-03-13 00:00:00 CHAAB.01 [facility] Encounters Start Date/Time End Date/Time Encounter Type Admission Type Attending Clinicians Care Facility Care Department Encounter ID Source 2024-02-06 17:00:00 2024-02-06 17:20:00 Nurse Visit Nurse, [facility] Unknown, Attending Nurse, [facility] MED[facility] OFF[facility] BU[facility] [id number] [id number] [id number] [facility] 2024-02-06 17:00:00 2024-02-06 17:00:00 Outpatient Mg SUAZO [facility] [id number] [facility] 2023-03-09 18:55:00 2023-03-22 19:43:00 Inpatient Faye De La Vega HCACL INTE [id number] [facility] 2023-01-26 00:00:00 2023-01-26 00:00:00 Telephone Marta Suazo [facility] MEDICAL OFFICE BUILDING [id number] [id number] [id number] [id number] [facility] 2023-01-20 16:40:00 2023-01-20 17:00:00 Urgent Care Rom Suazoaliciaisrael Unknown, Attending [facility] MEDICAL OFFICE BUILDING [id number] [id number] [id number] [id number] [facility] 2023-01-20 16:40:00 2023-01-20 16:40:00 Outpatient ROM BRAYARISTEO [facility] [id number] [facility] Results Test Description Test Time Test Comments Results Result Co mments Source GLUCOSE [id number] 12:27:00* Test Item Value Reference Range Interpretation Comme nts GLUCOSE BEDSIDE (test code = GLUBED) 175 MG/DL 70-110 H Performed by bryan everett dredge operator supervisor at [facility] - DUP VEIN [id number] 11:47:00 [facility] 1950 Sex: M Name: FELIPA GUZMAN [facility] [place] : 1950 Age/S: 72 / M [address] [place] [address] Blvd Unit #: [id number] Loc: [place] [address] Phys: Faye Espino MD Acct: [id number] Dis Date: Status: ADM IN PHONE #: [phone] Exam Date: 03/22/2023 1130 FAX #: [phone] Reason: R/O DVT BLE EXAMS: CPTCODE: [id number] DUP VEIN LIBAN [address] CLINICAL HISTORY:R/O DVT BLE PROCEDURE: 1. Venous [...] (1147) [email or web address] Orig Print D/T: S: 03/22/2023 (3314) Probe: PAGE 1 Signed Report- XR CHEST 1 [id number] 10:36:00 [facility] 1950 Sex: M FAX: Mike Brand MD [place]: St: ADM FAX: Faye Brar MD [phone] Name: FELIPA GUZMAN [facility] : 1950 Age/S: 72/M [address] [place] [address] Unit #: [id number] Loc: G.[address] [place] [address] Phys:Mike Rodriguez MD Acct: [id number] Dis Date: Status: ADM IN PHONE #: [phone] Exam Date: 03/22/2023826 FAX #: [phone] Reason: POST CABG EXAMS: CPT CODE: [id number] XR CHEST 1 V 20252 ChestINDICATION: Post CABG. COMPARISON: Yesterday. FINDINGS: Frontal [...] By: [email or web address] Orig Print D/T: S: 03/22/2023 (8862) PAGE 1 Signed ReportBASIC METABOLIC [id number] 04:43:00* Test Item Value Reference Range Interpretation [...] code = CA) 8.5 mg/dL 8.0-10.5 N [id number] 04:43:00* Test Item Value Reference Range Interpretation Comme nts MAGNESIUM (test code = MAG) 2.27 mg/dL 1.6-2.6 N CBC W/AUTO [id number] 04:17:00* Test Item Value Reference Range Interpretation [...] NRBC#) 0.00 x10 3/uL 0.0-0.1 N GLUCOSE [id number] 23:47:00* Test Item Value Reference Range Interpretation Comme nts GLUCOSE BEDSIDE (test code = GLUBED) 173 MG/DL 70-110 H Performed by [facility] tified dredge operator supervisor at [facility] GLUCOSE [id number] 17:46:00* Test Item Value Reference Range Interpretation Comme nts GLUCOSE BEDSIDE (test code = GLUBED) 148 MG/DL 70-110 H Performed by [facility] tified dredge operator supervisor at [facility] GLUCOSE [id number] 15:47:00* Test Item Value Reference Range Interpretation Comme nts GLUCOSE BEDSIDE (test code = GLUBED) 251 MG/DL 70-110 H Performed by [facility] tifFRESS dredge operator supervisor at [facility] - XR CHEST 1 [id number] 07:12:00 [facility] : 1950 Sex: M FAX: Mike Brand MD [place]: St: [facility] FAX: Faye Brar MD [phone] Name: FELIPA GUZMAN [facility] :1950 Age/S: 72/M [address] [place] [address] Blvd Unit #: [id number] Loc: [address] [place] [address] Phys: Mike Rodriguez MD Acct: [id number] Dis Date: Status: ADM IN PHONE #: [phone] Exam Date: 03/21/2023606 FAX #: [phone] Reason: POST CABG EXAMS: CPT CODE: [id number] XR CHEST 1 V 30161 Location: 7 EXAM: - XR CHEST 1 [...] S: 03/21/2023 (0716) PAGE 1 Signed ReportGLUCOSE [id number] 06:23:00* Test Item Value Reference Range Interpretation Comme nts GLUCOSE BEDSIDE (test code = GLUBED) 144 MG/DL 70-110 H Performed by bryan cruz at [facility] BASIC METABOLIC [id number] 03:20:00* Test Item Value Reference Range Interpretation [...] code = CA) 8.8 mg/dL 8.0-10.5 N [id number] 03:20:00* Test Item Value Reference Range Interpretation Comme nts MAGNESIUM (test code = MAG) 2.28 mg/dL 1.6-2.6 N CBC W/AUTO [id number] 03:06:00* Test Item Value Reference Range Interpretation [...] NRBC#) 0.00 x10 3/uL 0.0-0.1 N GLUCOSE [id number] 00:18:00* Test Item Value Reference Range Interpretation Comme [facility] GLUCOSE BEDSIDE (test code = GLUBED) 142 MG/DL 70-110 H Performed by cer tified dredge operator supervisor at [facility] GLUCOSE [id number] 18:45:00* Test Item Value Reference Range Interpretation Comme [facility] GLUCOSE BEDSIDE (test code = GLUBED) 161 MG/DL 70-110 H Performed by cer tified dredge operator supervisor at [facility] GLUCOSE [id number] 11:54:00* Test Item Value Reference Range Interpretation Comme nts GLUCOSE BEDSIDE (test code = GLUBED) 168 MG/DL 70-110 H Performed by bryan everett dredge operator supervisor at [facility] - XR CHEST 1 [id number] 06:45:00 [facility] : 1950 Sex: M FAX: Faye Brar MD [phone] [place]: St: ADM FAX: Alexander Sarah Jr [phone] ------- Name: YUAN GUZMANY [facility] : 1950 Age/S: 72/M [address] [place] [address] Blvd Unit #: [id number] Loc: G.[address] [place] [address] Phys: Alexander Sarah Jr, MD Acct: [id number] Dis Date: Status: ADM IN PHONE #: [phone] Exam Date: 03/20/2023624 FAX #: [phone] Reason: POST OP CBG EXAMS: CPT CODE: [id number] XR CHEST 1 V 80101 Location: [facility] EXAM: - XR CHEST 1 V DATE: [...] By: JessiMOP Orig Print D/T: S: 03/20/2023 (0621) PAGE 1 Signed ReportBASIC METABOLIC [id number] 06:30:00* Test Item Value Reference Range Interpretation [...] = CA) 8.8 mg/dL 8.0-10.5 N GLUCOSE [id number] 05:52:00* Test Item Value Reference Range Interpretation Comme nts GLUCOSE BEDSIDE (test code = GLUBED) 125 MG/DL 70-110 H Performed by cer karlos dredge operator supervisor at [facility] BASIC METABOLIC [id number] 03:54:00* Test Item Value Reference Range Interpretation [...] code = CA) 8.3 mg/dL 8.0-10.5 N [id number] 03:54:00* Test Item Value Reference Range Interpretation Comme nts MAGNESIUM (test code = MAG) 2.51 mg/dL 1.6-2.6 N CBC W/AUTO [id number] 03:41:00* Test Item Value Reference Range Interpretation [...] NRBC#) 0.02 x10 3/uL 0.0-0.1 N GLUCOSE [id number] 00:49:00* Test Item Value Reference Range Interpretation Comme nts GLUCOSE BEDSIDE (test code = GLUBED) 129 MG/DL 70-110 H Performed by cer tified dredge operator supervisor at [facility] GLUCOSE [id number] 21:17:00* Test Item Value Reference Range Interpretation Comme nts GLUCOSE BEDSIDE (test code = GLUBED) 164 MG/DL 70-110 H Performed by [facility] tified dredge operator supervisor at [facility] GLUCOSE [id number] 17:36:00* Test Item Value Reference Range Interpretation Comme nts GLUCOSE BEDSIDE (test code = GLUBED) 116 MG/DL 70-110 H Performed by [facility] tified dredge operator supervisor at [facility] BASIC METABOLIC [id number] 16:15:00* Test Item Value Reference Range Interpretation [...] code = CA) 8.4 mg/dL 8.0-10.5 N [id number] 16:15:00* Test Item Value Reference Range Interpretation Comme [facility] MAGNESIUM (test code = MAG) 2.51 mg/dL 1.6-2.6 N GLUCOSE [id number] 14:23:00* Test Item Value Reference Range Interpretation Comme nts GLUCOSE BEDSIDE (test code = GLUBED) 140 MG/DL 70-110 H Performed by cer tified dredge operator supervisor at [facility] GLUCOSE [id number] 10:28:00* Test Item Value Reference Range Interpretation Comme nts GLUCOSE BEDSIDE (test code = GLUBED) 151 MG/DL 70-110 H Performed by cer tified dredge operator supervisor at [facility] - XR CHEST 1 [id number] 08:18:00 [facility] : 1950 Sex: M FAX: Faye Brar MD [phone] [place]: St: ADM FAX: Gretta Templeton Phy [phone] ----- Name: THOMASFELIPA [facility] : 1950 Age/S: 72/M [address] [place] [address] Unit #: [id number] Loc: [address] [place] [address] Phys: Gretta Ervin Acct: [id number] Dis Date: Status: ADM IN PHONE #: [phone] Exam Date: 03/19/2023 07 FAX #: [phone] Reason: Cardiac Surgery Post Op EXAMS: CPT CODE: [id number] XR CHEST 1 V 98202 EXAM: - XR CHEST 1 V HISTORY: [...] S: 03/19/2023 (0821) PAGE 1 Signed ReportGLUCOSE [id number] 06:15:00* Test Item Value Reference Range Interpretation Comme nts GLUCOSE BEDSIDE (test code = GLUBED) 141 MG/DL 70-110 H Performed by cer karlos dredge operator supervisor at [facility] POC ARTERIAL BLOOD [id number] 04:10:00* Test Item Value Reference Range Interpretation Comme nts POC ARTERIAL BLOOD GAS PH (t est code = POCPHA) 7.406 7.35-7.45 N POC ARTERIAL BLOOD GAS PCO2 (test code = MTMCTJ1E) 33.0 mmHg 35.0-45 L POC TCO2 ARTERIAL (test code = POCTCO2) 21.8 POC ARTERIAL BLOOD GAS PO2 ( test code = XFOTE6D) 83.3 mmHg 80-100.0 N POC HCO3 ARTERIAL (test code = OUWSRJ2G) 20.7 MMOL/L 22.0-26.0 L POC BASE EXCESS (test code = POCBEA) -4.0 MMOL/L -4.0-4.0 N POC O2 SATURATION (test code = POCO2S) 96.4 % 90-100 N ABG DELIVERY (test code = FEDERICO) Cannula ABG TEMPERATURE (test code = TEMPA) 98 F ABG SITE (test code = SITEA) Art Line BASIC METABOLIC [id number] 04:10:00* Test Item Value Reference Range Interpretation [...] = POCGLU) 130 MG/DL 70-110 H HEMOGLOBIN [id number] 04:10:00* Test Item Value Reference Range Interpretation Comme nts HEMOGLOBIN ABG (test code = HGB/ABG) 10.2 G/DL 12.5-16.9 L [id number] 04:10:00* Test Item Value Reference Range Interpretation Comme nts HEMATOCRIT (test code = HCT/ABG) 30 % 37.5-50.7 L POC LACTIC [id number] 04:10:00* Test Item Value Reference Range Interpretation Comme nts POC LACTIC ACID (test code = POCLAC) 0.6 mmol/l 0.9-1.7 L CALCIUM [id number] 03:50:00* Test Item Value Reference Range Interpretation Comme nts CALCIUM IONIZED (test code = KACY) 1.04 MMOL/L 1.09-1.30 L BASIC METABOLIC [id number] 03:03:00* Test Item Value Reference Range Interpretation [...] code = CA) 8.0 mg/dL 8.0-10.5 N [id number] 03:03:00* Test Item Value Reference Range Interpretation Comme nts MAGNESIUM (test code = MAG) 2.34 mg/dL 1.6-2.6 N CBC W/AUTO [id number] 02:58:00* Test Item Value Reference Range Interpretation [...] REVIEW ED, CONSISTENT WITH AUTO DIFF. GLUCOSE [id number] 02:20:00* Test Item Value Reference Range Interpretation Comme [facility] GLUCOSE BEDSIDE (test code = GLUBED) 118 MG/DL 70-110 H Performed by cer tified dredge operator supervisor at [facility] GLUCOSE [id number] 00:13:00* Test Item Value Reference Range Interpretation Comme [facility] GLUCOSE BEDSIDE (test code = GLUBED) 114 MG/DL 70-110 H Performed by cer tified dredge operator supervisor at [facility] GLUCOSE [id number] 23:46:00* Test Item Value Reference Range Interpretation Comme nts GLUCOSE BEDSIDE (test code = GLUBED) 108 MG/DL 70-110 N Performed by cer tified dredge operator supervisor at [facility] GLUCOSE [id number] 20:08:00* Test Item Value Reference Range Interpretation Comme nts GLUCOSE BEDSIDE (test code = GLUBED) 128 MG/DL 70-110 H Performed by cer tified dredge operator supervisor at [facility] GLUCOSE [id number] 18:56:00* Test Item Value Reference Range Interpretation Comme [facility] GLUCOSE BEDSIDE (test code = GLUBED) 117 MG/DL 70-110 H Performed by cer tified dredge operator supervisor at [facility] BASIC METABOLIC [id number] 14:46:00* Test Item Value Reference Range Interpretation [...] code = CA) 8.2 mg/dL 8.0-10.5 N [id number] 14:46:00* Test Item Value Reference Range Interpretation Comme [facility] MAGNESIUM (test code = MAG) 2.34 mg/dL 1.6-2.6 N POC ARTERIAL BLOOD [id number] 14:22:00* Test Item Value Reference Range Interpretation Comme nts POC ARTERIAL BLOOD GAS PH (t est code = POCPHA) 7.514 7.35-7.45 HH POC ARTERIAL BLOOD GAS PCO2 (test code = STDOIP2Z) 37.5 mmHg 35.0-45 N POC TCO2 ARTERIAL (test code = POCTCO2) 31.3 POC ARTERIAL BLOOD GAS PO2 ( test code = YNRCF4R) 79.0 mmHg 80-100.0 L POC HCO3 ARTERIAL (test code = GJMCET9D) 30.2 MMOL/L 22.0-26.0 HH POC BASE EXCESS (test code = POCBEA) 7.2 MMOL/L -4.0-4.0 H POC O2 SATURATION (test code = POCO2S) 96.8 % 90-100 N ABG DELIVERY (test code = FEDERICO) Cannula ABG SITE (test code = SITEA) Art Line POC [id number] 14:22:00* Test Item Value Reference Range Interpretation Comme nts POC GLUCOSE (test code = POCGLU) 153 MG/DL 70-110 H GLUCOSE [id number] 11:00:00* Test Item Value Reference Range Interpretation Comme [facility] GLUCOSE BEDSIDE (test code = GLUBED) 165 MG/DL 70-110 H Performed by bryan everett dredge operator supervisor at [facility] - XR CHEST 1 [id number] 08:21:00 [facility] 1950 Sex: M FAX: Faye Brar MD [phone] [place]: St: ADM FAX: Gretta Templeton Phy [phone] ----- Name: FELIPA GUZMAN [facility] Lee : 1950 Age/S: 72/M [address] [place] [address] Blvd Unit #: [id number] Loc: [address] [place] [address] Phys: Gretta Ervin Physic Acct: [id number] Dis Date: Status: ADM IN PHONE #: [phone] Exam Date: 03/18/2023817 FAX #: [phone] Reason: Cardiac Surgery Post Op EXAMS: CPT CODE: [id number] XR CHEST 1 V 36909 H 20 TIME OF STUDY: 03/18/2023 5:00 [...] Ervin Technologist: Camilo Machado, RT(R); RT Imani(R) Trnmoadina Date/Time/By: 03/18/2023 (08) : By: [email or web address] Orig Print D/T:S: 03/18/2023 (6553) PAGE 1 Signed ReportGLUCOSE [id number] 07:34:00* Test Item Value Reference Range Interpretation Comme nts GLUCOSE BEDSIDE (test code = GLUBED) 127 MG/DL 70-110 H Performed by cer karlos dredge operator supervisor at [facility] POC ARTERIAL BLOOD [id number] 04:35:00* Test Item Value Reference Range Interpretation Comme nts POC ARTERIAL BLOOD GAS PH (t est code = POCPHA) 7.450 7.35-7.45 N POC ARTERIAL BLOOD GAS PCO2 (test code = RQYNGK0B) 36.7 mmHg 35.0-45 N POC TCO2 ARTERIAL (test code = POCTCO2) 26.6 POC ARTERIAL BLOOD GAS PO2 ( test code = JCBGW5Q) 108.6 mmHg 80-100.0 H POC HCO3 ARTERIAL (test code = OLAGBN8E) 25.5 MMOL/L 22.0-26.0 N POC BASE EXCESS (test code = POCBEA) 1.5 MMOL/L -4.0-4.0 N POC O2 SATURATION (test code = POCO2S) 98.5 % 90-100 N ABG DELIVERY (test code = FEDERICO) HFNC ABG TEMPERATURE (test code = TEMPA) 98 F ABG SITE (test code = SITEA) Art Line BASIC METABOLIC [id number] 04:35:00* Test Item Value Reference Range Interpretation [...] = POCGLU) 108 MG/DL 70-110 N HEMOGLOBIN [id number] 04:35:00* Test Item Value Reference Range Interpretation Comme nts HEMOGLOBIN ABG (test code = HGB/ABG) 8.7 G/DL 12.5-16.9 L [id number] 04:35:00* Test Item Value Reference Range Interpretation Comme nts HEMATOCRIT (test code = HCT/ABG) 25 % 37.5-50.7 L POC LACTIC [id number] 04:35:00* Test Item Value Reference Range Interpretation Comme nts POC LACTIC ACID (test code = POCLAC) 0.9 mmol/l 0.9-1.7 N BASIC METABOLIC [id number] 02:44:00* Test Item Value Reference Range Interpretation [...] code = CA) 7.4 mg/dL 8.0-10.5 L [id number] 02:44:00* Test Item Value Reference Range Interpretation Comme nts MAGNESIUM (test code = MAG) 2.64 mg/dL 1.6-2.6 H CBC W/AUTO [id number] 02:28:00* Test Item Value Reference Range Interpretation [...] NRBC#) 0.04 x10 3/uL 0.0-0.1 N GLUCOSE [id number] 20:52:00* Test Item Value Reference Range Interpretation Comme nts GLUCOSE BEDSIDE (test code = GLUBED) 140 MG/DL 70-110 H Performed by cer karlos dredge operator supervisor at [facility] BASIC METABOLIC [id number] 20:29:00* Test Item Value Reference Range Interpretation [...] code = CA) 6.9 mg/dL 8.0-10.5 L [id number] 20:29:00* Test Item Value Reference Range Interpretation Comme nts MAGNESIUM (test code = MAG) 2.40 mg/dL 1.6-2.6 POC ARTERIAL BLOOD [id number] 19:58:00* Test Item Value Reference Range Interpretation Comme nts POC ARTERIAL BLOOD GAS PH (t est code = POCPHA) 7.457 7.35-7.45 H POC ARTERIAL BLOOD GAS PCO2 (test code = EKFGZM3K) 37.3 mmHg 35.0-45 N POC TCO2 ARTERIAL (test code = POCTCO2) 27.5 POC ARTERIAL BLOOD GAS PO2 ( test code = BVPHI3X) 73.2 mmHg 80-100.0 L POC HCO3 ARTERIAL (test code = LLVNLU0T) 26.3 MMOL/L 22.0-26.0 H POC BASE EXCESS (test code = POCBEA) 2.5 MMOL/L -4.0-4.0 N POC O2 SATURATION (test code = POCO2S) 95.4 % 90-100 N ABG TEMPERATURE (test code = TEMPA) 98 F BASIC METABOLIC [id number] 19:58:00* Test Item Value Reference Range Interpretation [...] = POCGLU) 153 MG/DL 70-110 H HEMOGLOBIN [id number] 19:58:00* Test Item Value Reference Range Interpretation Comme nts HEMOGLOBIN ABG (test code = HGB/ABG) 8.4 G/DL 12.5-16.9 L [id number] 19:58:00* Test Item Value Reference Range Interpretation Comme nts HEMATOCRIT (test code = HCT/ABG) 25 % 37.5-50.7 L POC LACTIC [id number] 19:58:00* Test Item Value Reference Range Interpretation Comme nts POC LACTIC ACID (test code = POCLAC) 1.1 mmol/l 0.9-1.7 N GLUCOSE [id number] 16:16:00* Test Item Value Reference Range Interpretation Comme nts GLUCOSE BEDSIDE (test code = GLUBED) 200 MG/DL 70-110 H Performed by cer tified dredge operator supervisor at [facility] BASIC METABOLIC [id number] 10:55:00* Test Item Value Reference Range Interpretation [...] = POCGLU) 132 MG/DL 70-110 H HEMOGLOBIN [id number] 10:55:00* Test Item Value Reference Range Interpretation Comme nts HEMOGLOBIN ABG (test code = HGB/ABG) 7.5 G/DL 12.5-16.9 L [id number] 10:55:00* Test Item Value Reference Range Interpretation Comme nts HEMATOCRIT (test code = HCT/ABG) 22 % 37.5-50.7 L POC LACTIC [id number] 10:55:00* Test Item Value Reference Range Interpretation Comme nts POC LACTIC ACID (test code = POCLAC) 1.2 mmol/l 0.9-1.7 N POC VENOUS BLOOD [id number] 10:55:00* Test Item Value Reference Range Interpretation Comme nts POC VENOUS BLOOD GAS PH (haley t code = POCPHV) 7.400 7.33-7.45 N POC VENOUS BLOOD GAS PCO2 (t est code = XQINYC3M) 34.6 mmHg 43-47 L POC VENOUS BLOOD GAS PO2 (te st code = SADUT5S) 32.1 mmHG 10-50 N POC TCO2 VENOUS (test code = OKHFVW8P) 22.4 POC HCO3 VENOUS (test code = SAXYBQ3M) 21.4 MMOL/L 22-27 L POC BASE EXCESS VENOUS (test code = POCBEV) -3.4 MMOL/L -4.0-4.0 N POC O2 SATURATION VENOUS (te st code = DRCL8WR) 62.6 % 60-80 N VENOUS BLOOD GAS DELIVERY (t est code = DELV) Cannula VENOUS BLOOD GAS SITE (test code = SITEV) Central Line - XR CHEST 1 [id number] 09:04:00 [facility] 1950 Sex: M FAX: Faye Brar MD [phone] [place]: St: ADM FAX: Gretta [facility]ton [facility] [phone] ----- Name: FELIPA GUZMAN [facility] Lee : 1950 Age/S: 72/M [address] [place] [address] Unit #: [id number] Loc: G.[address] [place] [address] Phys: Gretta Ervin Physic Acct: [id number] Dis Date: Status: ADM IN PHONE #: [phone] Exam Date: 03/17/2023614 FAX #: [phone] Reason: Cardiac Surgery Post Op EXAMS: CPT CODE: [id number] XR CHEST 1 V 59896 EXAM: CHEST ONE VIEW INDICATION: Cardiac Surgery [...] PAGE 1 Signed Report- XR CHEST 1 [id number] 08:29:00 [facility] : 1950 Sex: M FAX: Faye Brar MD [phone] [place]: St: [facility] FAX: Frank Goldberg DO [phone] ------ Name: FELIPA GUZMAN [facility] : 1950 Age/S: 72/M [address] [place] [address] Unit #: [id number] Loc: Edvin2207 [place] [address] Phys: Frank Lopez DO Acct: [id number] Dis Date: Status: ADM IN PHONE #: [phone] Exam Date: 03/16/20232031 FAX #: [phone] Reason: volume overload EXAMS: CPT CODE: [id number] CHEST 1 V 03897 EXAM: - XR CHEST 1 V CLINICAL [...] Espino MD; Frank Lopez DO Technologist: RT Greg(Mg) Trnscrd Date/Time/By: 03/17/2023 (0829) : By: JessiJJY Orig Print D/T: S: 03/17/2023 (0832) PAGE 1 Signed ReportGLUCOSE [id number] 08:08:00* Test Item Value Reference Range Interpretation Comme [facility] GLUCOSE BEDSIDE (test code = GLUBED) 132 MG/DL 70-110 H Performed by [facility] tified dredge operator supervisor at [facility] GLUCOSE [id number] 06:47:00* Test Item Value Reference Range Interpretation Comme [facility] GLUCOSE BEDSIDE (test code = GLUBED) 143 MG/DL 70-110 H Performed by [facility] tified dredge operator supervisor at [facility] POC ARTERIAL BLOOD [id number] 04:50:00* Test Item Value Reference Range Interpretation Comme nts POC ARTERIAL BLOOD GAS PH (t est code = POCPHA) 7.432 7.35-7.45 N POC ARTERIAL BLOOD GAS PCO2 (test code = NTKTLP4D) 34.7 mmHg 35.0-45 L POC TCO2 ARTERIAL (test code = POCTCO2) 24.2 POC ARTERIAL BLOOD GAS PO2 ( test code = GBIGQ3E) 71.7 mmHg 80-100.0 L POC HCO3 ARTERIAL (test code = VNYYZV0D) 23.1 MMOL/L 22.0-26.0 N POC BASE EXCESS (test code = POCBEA) -1.1 MMOL/L -4.0-4.0 N POC O2 SATURATION (test code = POCO2S) 94.8 % 90-100 N ABG DELIVERY (test code = FEDERICO) HFNC ABG TEMPERATURE (test code = TEMPA) 97.9 F ABG SITE (test code = SITEA) Art Line BASIC METABOLIC [id number] 04:50:00* Test Item Value Reference Range Interpretation [...] = POCGLU) 114 MG/DL 70-110 H HEMOGLOBIN [id number] 04:50:00* Test Item Value Reference Range Interpretation Comme nts HEMOGLOBIN ABG (test code = HGB/ABG) 7.6 G/DL 12.5-16.9 L [id number] 04:50:00* Test Item Value Reference Range Interpretation Comme nts HEMATOCRIT (test code = HCT/ABG) 22 % 37.5-50.7 L POC LACTIC [id number] 04:50:00* Test Item Value Reference Range Interpretation Comme nts POC LACTIC ACID (test code = POCLAC) 1.1 mmol/l 0.9-1.7 N GLUCOSE [id number] 04:13:00* Test Item Value Reference Range Interpretation Comme nts GLUCOSE BEDSIDE (test code = GLUBED) 112 MG/DL 70-110 H Performed by cer tified dredge operator supervisor at [facility] BASIC METABOLIC [id number] 02:55:00* Test Item Value Reference Range Interpretation [...] code = CA) 8.4 mg/dL 8.0-10.5 N [id number] 02:55:00* Test Item Value Reference Range Interpretation Comme nts MAGNESIUM (test code = MAG) 3.27 mg/dL 1.6-2.6 H CBC W/AUTO [id number] 02:46:00* Test Item Value Reference Range Interpretation [...] REQUIRED (test code = MDIFF) NO GLUCOSE [id number] 02:35:00* Test Item Value Reference Range Interpretation Comme nts GLUCOSE BEDSIDE (test code = GLUBED) 121 MG/DL 70-110 H Performed by cer tified dredge operator supervisor at [facility] GLUCOSE [id number] 00:32:00* Test Item Value Reference Range Interpretation Comme [facility] GLUCOSE BEDSIDE (test code = GLUBED) 131 MG/DL 70-110 H Performed by cer karlos dredge operator supervisor at [facility] CBC W/AUTO [id number] 23:41:00* Test Item Value Reference Range Interpretation [...] CONSISTENT WITH AUTO DIFF. LACTIC ACID 2ND [id number] 22:26:00* Test Item Value Reference Range Interpretation Comme nts LACTIC ACID 2ND REPEAT (test code = LACT2) 2.3 mmol/L 0.4-1.9 H GLUCOSE [id number] 22:16:00* Test Item Value Reference Range Interpretation Comme nts GLUCOSE BEDSIDE (test code = GLUBED) 156 MG/DL 70-110 H Performed by cer karlos dredge operator supervisor at [facility] LACTIC ACID [id number] 20:20:00* Test Item Value Reference Range Interpretation Comme nts LACTIC ACID REPEAT (test cod e = LACTR) 3.0 mmol/l 0.4-1.9 H POC ARTERIAL BLOOD [id number] 20:06:00* Test Item Value Reference Range Interpretation Comme nts POC ARTERIAL BLOOD GAS PH (t est code = POCPHA) 7.426 7.35-7.45 N POC ARTERIAL BLOOD GAS PCO2 (test code = HPNWVM3T) 33.4 mmHg 35.0-45 L POC TCO2 ARTERIAL (test code = POCTCO2) 23.0 POC ARTERIAL BLOOD GAS PO2 ( test code = QPJQP7V) 67.5 mmHg 80-100.0 L POC HCO3 ARTERIAL (test code = VOBZFM8U) 22.0 MMOL/L 22.0-26.0 N POC BASE EXCESS (test code = POCBEA) -2.4 MMOL/L -4.0-4.0 N POC O2 SATURATION (test code = POCO2S) 93.8 % 90-100 N ABG DELIVERY (test code = FEDERICO) HFNC ABG TEMPERATURE (test code = TEMPA) 98.8 F ABG SITE (test code = SITEA) Art Line BASIC METABOLIC [id number] 20:06:00* Test Item Value Reference Range Interpretation [...] = POCGLU) 167 MG/DL 70-110 H HEMOGLOBIN [id number] 20:06:00* Test Item Value Reference Range Interpretation Comme nts HEMOGLOBIN ABG (test code = HGB/ABG) 8.1 G/DL 12.5-16.9 L [id number] 20:06:00* Test Item Value Reference Range Interpretation Comme nts HEMATOCRIT (test code = HCT/ABG) 24 % 37.5-50.7 L POC LACTIC [id number] 20:06:00* Test Item Value Reference Range Interpretation Comme nts POC LACTIC ACID (test code = POCLAC) 3.0 mmol/l 0.9-1.7 H GLUCOSE [id number] 18:32:00* Test Item Value Reference Range Interpretation Comme nts GLUCOSE BEDSIDE (test code = GLUBED) 143 MG/DL 70-110 H Performed by cer tified dredge operator supervisor at [facility] LACTIC [id number] 17:21:00* Test Item Value Reference Range Interpretation Comme nts LACTIC ACID (test code = LACT) 5.3 mmol/L 0.4-1.9 HH Critical result called to AB REID [id number] at 1721 03/16/23Nurse read back result and tech confirmed it's correct? YES BASIC METABOLIC [id number] 16:19:00* Test Item Value Reference Range Interpretation [...] CA) 8.7 mg/dL 8.0-10.5 N BASIC METABOLIC [id number] 15:42:00* Test Item Value Reference Range Interpretation [...] = POCGLU) 126 MG/DL 70-110 H HEMOGLOBIN [id number] 15:42:00* Test Item Value Reference Range Interpretation Comme nts HEMOGLOBIN ABG (test code = HGB/ABG) 6.5 G/DL 12.5-16.9 L [id number] 15:42:00* Test Item Value Reference Range Interpretation Comme nts HEMATOCRIT (test code = HCT/ABG) 19 % 37.5-50.7 L POC LACTIC [id number] 15:42:00* Test Item Value Reference Range Interpretation Comme nts POC LACTIC ACID (test code = POCLAC) 6.6 mmol/l 0.9-1.7 HH POC VENOUS BLOOD [id number] 15:42:00* Test Item Value Reference Range Interpretation Comme nts POC VENOUS BLOOD GAS PH (haley t code = POCPHV) 7.400 7.33-7.45 N POC VENOUS BLOOD GAS PCO2 (t est code = HUHYGK1E) 34.2 mmHg 43-47 L POC VENOUS BLOOD GAS PO2 (te st code = NFNUK6H) 31.2 mmHG 10-50 N POC TCO2 VENOUS (test code = KUDJHO0R) 22.2 POC HCO3 VENOUS (test code = RWBNWX5X) 21.2 MMOL/L 22-27 L POC BASE EXCESS VENOUS (test code = POCBEV) -3.6 MMOL/L -4.0-4.0 N POC O2 SATURATION VENOUS (te st code = YWGB1AI) 60.8 % 60-80 N VENOUS BLOOD GAS DELIVERY (t est code = DELV) Cannula VENOUS BLOOD GAS SITE (test code = SITEV) Central Line POC ARTERIAL BLOOD [id number] 15:31:00* Test Item Value Reference Range Interpretation Comme nts POC ARTERIAL BLOOD GAS PH (t est code = POCPHA) 7.464 7.35-7.45 H POC ARTERIAL BLOOD GAS PCO2 (test code = DUEHYR1R) 26.7 mmHg 35.0-45 LL POC TCO2 ARTERIAL (test code = POCTCO2) 20.0 POC ARTERIAL BLOOD GAS PO2 ( test code = GPHTK6Y) 78.0 mmHg 80-100.0 L POC HCO3 ARTERIAL (test code = OWDCLR3Y) 19.2 MMOL/L 22.0-26.0 L POC BASE EXCESS (test code = POCBEA) -4.6 MMOL/L -4.0-4.0 L POC O2 SATURATION (test code = POCO2S) 96.4 % 90-100 N ABG DELIVERY (test code = FEDERICO) Cannula ABG SITE (test code = SITEA) Art Line BASIC METABOLIC [id number] 15:31:00* Test Item Value Reference Range Interpretation [...] = POCGLU) 134 MG/DL 70-110 H HEMOGLOBIN [id number] 15:31:00* Test Item Value Reference Range Interpretation Comme nts HEMOGLOBIN ABG (test code = HGB/ABG) 6.8 G/DL 12.5-16.9 L [id number] 15:31:00* Test Item Value Reference Range Interpretation Comme nts HEMATOCRIT (test code = HCT/ABG) 20 % 37.5-50.7 L POC LACTIC [id number] 15:31:00* Test Item Value Reference Range Interpretation Comme nts POC LACTIC ACID (test code = POCLAC) 6.5 mmol/l 0.9-1.7 HH CBC W/AUTO [id number] 12:48:00* Test Item Value Reference Range Interpretation [...] 0.04 x10 3/uL 0.0-0.1 N BASIC METABOLIC [id number] 12:34:00* Test Item Value Reference Range Interpretation [...] = POCGLU) 124 MG/DL 70-110 H HEMOGLOBIN [id number] 12:34:00* Test Item Value Reference Range Interpretation Comme [facility] HEMOGLOBIN ABG (test code = HGB/ABG) 6.0 G/DL 12.5-16.9 L [id number] 12:34:00* Test Item Value Reference Range Interpretation Comme nts HEMATOCRIT (test code = HCT/ABG) 18 % 37.5-50.7 L POC LACTIC [id number] 12:34:00* Test Item Value Reference Range Interpretation Comme nts POC LACTIC ACID (test code = POCLAC) 9.7 mmol/l 0.9-1.7 HH POC VENOUS BLOOD [id number] 12:34:00* Test Item Value Reference Range Interpretation Comme nts POC VENOUS BLOOD GAS PH (haley t code = POCPHV) 7.350 7.33-7.45 N POC VENOUS BLOOD GAS PCO2 (t est code = WNLTRJ4P) 30.1 mmHg 43-47 L POC VENOUS BLOOD GAS PO2 (te st code = XIEYF8N) 24.1 mmHG 10-50 N POC TCO2 VENOUS (test code = JOXBNE6M) 17.5 POC HCO3 VENOUS (test code = PGJPZN5U) 16.6 MMOL/L 22-27 L POC BASE EXCESS VENOUS (test code = POCBEV) -9.0 MMOL/L -4.0-4.0 L POC O2 SATURATION VENOUS (te st code = EPJE1DI) 41.0 % 60-80 L VENOUS BLOOD GAS DELIVERY (t est code = DELV) Cannula VENOUS BLOOD GAS TEMP (test code = TEMPV) 99.6 F VENOUS BLOOD GAS SITE (test code = SITEV) Central Line [id number] 11:41:00* Test Item Value Reference Range Interpretation Comments SURGICAL (test code = SR) RUN DATE: 03/16/23 Lee - LAB PAGE 1 RUN TIME: 1141 Specimen Inquiry RUN USER: INTERFACE PATIENT: FELIPA GUZMAN LOC: RANDY U #: [id number] AGE/SX: 72/M ROOM: [facility] RE03/09/23REG DR: Faye Espino MD : [birth year] BED: 1 DIS: STATUS: ADM IN TLOC: SPEC #: [id number] RECD: 03/14/23 STATUS: SAMIA MO #: [id number] RICHAR: 03/13/23- SUBM DR: Faye Espino MD ENTERED: 03/14/23 SP TYPE: SURGICAL OTHR DR: No Primary or Family Physician Dav Ponce MD, Obiora I MDORDERED: 55020, ANATOMIC SPEC COPIES TO: No Primary or Family Physician Dav Ponce MD [address] [place] [address] Faye Espino MD [address] [place] [address]. [address] [place] [address] [place] [address] [place] [address] PROCEDURES: 81760 (03/14/23) TISSUES: A. ATRIUM - LEFT ATRIAL APPENDAGE CLINICAL HISTORY CAD FINAL DIAGNOSIS Heart, left atrial appendage, submitted: Cardiac muscle with mild degenerative change,consistent with atrial appendage. GROSS DESCRIPTION Received in formalin labeled left atrial appendage is a 3.2 x 1.5 x 0.9 cm portion ofmuscular tissue with attached adipose submitted in 1 cassette. Technical component performed at [facility], CONTINUED ON NEXT PAGE RUN DATE: 03/16/23 Lee - LAB PAGE 2 RUN TIME: 1141 Specimen Inquiry RUN USER: INTERFACE SPEC #: [id number] PATIENT: FELIPA GUZMAN #[id number] (Continued) - GROSS DESCRIPTION (Continued) [address] [place] [address], [place] [address] Unless gross only, the diagnosis is based [...] END OF REPORT - CT CHEST W/O [id number] 11:31:00 [facility] 1950 Sex: M Name: FELIPA GUZMAN [facility] : 1950 Age/S: 72 / M [address] [place] [address] Unit #: [id number] Loc: [place] [address] Phys: Kathy Paulson MD Acct: [id number] Dis Date: Status: ADM IN PHONE #: [phone] Exam Date: 03/16/2023 1058 FAX #: [phone] Reason: PNA,SEPSIS EXAMS: CPT CODE: [id number] CT CHEST W/O CONTRAST 42748 EXAM: CT OF THE CHEST, ABDOMEN AND [...] 1 Signed Report (CONTINUED) Name: FELIPA GUZMAN [facility] : 1950 Age/S: 72 / M [address] [place] [address] Unit #: [id number] Loc: [place] [address] Phys: Kathy Paulson MD Acct: [id number] Dis Date: Status: ADM IN PHONE #: [phone] Exam Date: 03/16/2023 1058 FAX #: [phone] Reason: PNA,SEPSIS EXAMS: CPT CODE: [id number] CT CHEST W/O CONTRAST 35929 (Continued) Retroperitoneum and pelvis: Atherosclerotic changes without [...] 2 Signed Report- CT ABD PELVIS W/O [id number] 11:31:00[facility] : 1950 Sex: M Name: FELIPA GUZMAN [facility] : 1950 Age/S: 72 / M [address] [place] [address] Unit #: [id number] Loc: [place] [address] Phys: Kathy Paulson MD Acct: [id number] Dis Date: Status: ADM IN PHONE #: [phone] Exam Date: 03/16/2023 105 FAX #: [phone] Reason: PNA,SEPSIS EXAMS: CPT CODE: [id number] CT ABD PELVIS W/O CONT 83550 EXAM: CT OF THE CHEST, ABDOMEN AND [...] 1 Signed Report (CONTINUED) Name: FELIPA GUZMAN [facility] : 1950 Age/S: 72 / M [address] [place] [address] BlvdUnit #: [id number] Loc: [place] [address] Phys: Kathy Paulson MD Acct: [id number] Dis Date: Status: ADM IN PHONE #: [phone] Exam Date: 03/16/2023 1058 FAX #: [phone] Reason: PNA,SEPSIS EXAMS: CPT CODE: [id number] CT ABD PELVIS W/O CONT 32527 (Continued) Retroperitoneum and pelvis: Atherosclerotic changes without [...] 70-110 H Performed by bryan cruz at [facility] - XR CHEST 1 [id number] 08:38:00 [facility] : 1950 Sex: M FAX: Faye Brar MD [phone] [place]: St: ADM FAX: Gretta Templeton [facility] [phone] ----- Name: FELIPA GUZMAN [facility] : 1950 Age/S: 72/M [address] [place] [address] Unit #: [id number] Loc: G.2207 [place] [address] Phys: Gretta Ervin Physic Acct: [id number] Dis Date: Status: ADM IN PHONE #: [phone] Exam Date: 03/16/2023628 FAX #: [phone] Reason: Cardiac Surgery Post Op EXAMS: CPT CODE: [id number] XR CHEST 1 V 15502 EXAM: - XR CHEST 1 V CLINICAL [...] Technologist: RT Mckenzie (R) Trnscrd Date/Time/By: 03/16/2023 (0899) : By: JessiJJY Orig Print D/T: S: 03/16/2023 (0459) PAGE 1 Signed ReportGLUCOSE [id number] 06:00:00* Test Item Value Reference Range Interpretation Comme nts GLUCOSE BEDSIDE (test code = GLUBED) 158 MG/DL 70-110 H Performed by cer tified dredge operator supervisor at [facility] GLUCOSE [id number] 05:28:00* Test Item Value Reference Range Interpretation Comme nts GLUCOSE BEDSIDE (test code = GLUBED) 189 MG/DL 70-110 H Performed by cer tified dredge operator supervisor at [facility] CBC W/AUTO [id number] 03:25:00* Test Item Value Reference Range Interpretation [...] 0.02 x10 3/uL 0.0-0.1 N BASIC METABOLIC [id number] 03:21:00* Test Item Value Reference Range Interpretation [...] mg/dL 8.0-10.5 N COMMENTS: POD #1HEPATIC FUNCTION [id number] 03:21:00* Test Item Value Reference Range Interpretation [...] ALKP) 73 IUnit/L 20-125 N COMMENTS: POD #[id number] 03:21:00* Test Item Value Reference Range Interpretation Comme nts MAGNESIUM (test code = MAG) 2.36 mg/dL 1.6-2.6 COMMENTS: POD #1POC ARTERIAL BLOOD [id number] 03:00:00* Test Item Value Reference Range Interpretation Comme nts POC ARTERIAL BLOOD GAS PH (t est code = POCPHA) 7.425 7.35-7.45 N POC ARTERIAL BLOOD GAS PCO2 (test code = DSRKQV2Q) 40.1 mmHg 35.0-45 N POC TCO2 ARTERIAL (test code = POCTCO2) 27.5 POC ARTERIAL BLOOD GAS PO2 ( test code = YWHQL1T) 99.3 mmHg 80-100.0 N POC HCO3 ARTERIAL (test code = RIJAOO5U) 26.3 MMOL/L 22.0-26.0 H POC BASE EXCESS (test code = POCBEA) 1.9 MMOL/L -4.0-4.0 N POC O2 SATURATION (test code = POCO2S) 97.9 % 90-100 N ABG DELIVERY (test code = FEDERICO) Cannula ABG TEMPERATURE (test code = TEMPA) 98.7 F ABG SITE (test code = SITEA) Art Line BASIC METABOLIC [id number] 03:00:00* Test Item Value Reference Range Interpretation [...] = POCGLU) 244 MG/DL 70-110 H HEMOGLOBIN [id number] 03:00:00* Test Item Value Reference Range Interpretation Comme nts HEMOGLOBIN ABG (test code = HGB/ABG) 7.5 G/DL 12.5-16.9 L [id number] 03:00:00* Test Item Value Reference Range Interpretation Comme nts HEMATOCRIT (test code = HCT/ABG) 22 % 37.5-50.7 L POC LACTIC [id number] 03:00:00* Test Item Value Reference Range Interpretation Comme nts POC LACTIC ACID (test code = POCLAC) 3.0 mmol/l 0.9-1.7 H GLUCOSE [id number] 02:16:00* Test Item Value Reference Range Interpretation Comme nts GLUCOSE BEDSIDE (test code = GLUBED) 192 MG/DL 70-110 H Performed by cer tified dredge operator supervisor at [facility] GLUCOSE [id number] 01:11:00* Test Item Value Reference Range Interpretation Comme nts GLUCOSE BEDSIDE (test code = GLUBED) 139 MG/DL 70-110 H Performed by cer tified dredge operator supervisor at [facility] GLUCOSE [id number] 22:19:00* Test Item Value Reference Range Interpretation Comme nts GLUCOSE BEDSIDE (test code = GLUBED) 151 MG/DL 70-110 H Performed by cer tified dredge operator supervisor at [facility] GLUCOSE [id number] 20:32:00* Test Item Value Reference Range Interpretation Comme nts GLUCOSE BEDSIDE (test code = GLUBED) 153 MG/DL 70-110 H Performed by cer tified dredge operator supervisor at [facility] BASIC METABOLIC [id number] 20:16:00* Test Item Value Reference Range Interpretation [...] code = CA) 8.5 mg/dL 8.0-10.5 N [id number] 20:16:00* Test Item Value Reference Range Interpretation Comme nts MAGNESIUM (test code = MAG) 2.00 mg/dL 1.6-2.6 N URINALYSIS [id number] 19:08:00* Test Item Value Reference Range Interpretation [...] 2+ /LPF NONE SEEN A CBC W/AUTO [id number] 19:05:00* Test Item Value Reference Range Interpretation [...] 3/uL 0.0-0.1 N - XR CHEST 1 [id number] 19:05:00 [facility] : 1950 Sex: M FAX: Faye Brar MD [phone] [place]: St: ADM Name: FELIPA GUZMAN [facility] : 1950 Age/S: 72/M [address] [place] [address] Unit #: [id number] Loc: G.[address] [place] [address] Phys: Faye Espino MD Acct: [id number] Dis Date: Status: ADM IN PHONE #: [phone] Exam Date: 03/15/2023 185 FAX #: [phone] Reason: INCREASING OXYGEN REQUIREMENT EXAMS: CPT CODE: [id number] XR CHEST 1 V 15291 EXAM: - XR CHEST 1 V COMPARISON: [...] D/T: S: 03/15/2023 (1907) PAGE 1 Signed [facility] ART[facility] BLOOD [id number] 18:34:00* Test Item Value Reference Range Interpretation Comme nts POC ARTERIAL BLOOD GAS PH (t est code = POCPHA) 7.527 7.35-7.45 HH POC ARTERIAL BLOOD GAS PCO2 (test code = ITOYJL5N) 28.4 mmHg 35.0-45 LL POC TCO2 ARTERIAL (test code = POCTCO2) 24.4 POC ARTERIAL BLOOD GAS PO2 ( test code = UIOMA4K) 52.1 mmHg 80-100.0 L POC HCO3 ARTERIAL (test code = QYEWBB7J) 23.6 MMOL/L 22.0-26.0 N POC BASE EXCESS (test code = POCBEA) 0.8 MMOL/L -4.0-4.0 N POC O2 SATURATION (test code = POCO2S) 90.7 % 90-100 N ABG DELIVERY (test code = FEDERICO) Cannula ABG SITE (test code = SITEA) Art Line JAIRON'S TEST (test code = ALLENS) N/A BASIC METABOLIC [id number] 18:34:00* Test Item Value Reference Range Interpretation [...] = POCGLU) 149 MG/DL 70-110 H HEMOGLOBIN [id number] 18:34:00* Test Item Value Reference Range Interpretation Comme nts HEMOGLOBIN ABG (test code = HGB/ABG) 7.1 G/DL 12.5-16.9 L [id number] 18:34:00* Test Item Value Reference Range Interpretation Comme nts HEMATOCRIT (test code = HCT/ABG) 21 % 37.5-50.7 L POC LACTIC [id number] 18:34:00* Test Item Value Reference Range Interpretation Comme nts POC LACTIC ACID (test code = POCLAC) 3.8 mmol/l 0.9-1.7 H GLUCOSE [id number] 14:24:00* Test Item Value Reference Range Interpretation Comme nts GLUCOSE BEDSIDE (test code = GLUBED) 183 MG/DL 70-110 H Performed by cer tified dredge operator supervisor at [facility] GLUCOSE [id number] 10:38:00* Test Item Value Reference Range Interpretation Comme nts GLUCOSE BEDSIDE (test code = GLUBED) 216 MG/DL 70-110 H Per[facility] by [facility] dredge operator supervisor at [facility] - XR CHEST 1 [id number] 09:06:00 [facility] : 1950 Sex: M FAX: Faye Brar MD [phone] [place]: St: ADM FAX: Gretta [facility]ton [facility] [phone] ----- Name: FELIPA GUZMAN [facility] : 1950 Age/S: 72/M [address] [place] [address] Unit #: [id number] Loc: G.2207 [place] [address] Phys: Gretta Ervin Acct: [id number] Dis Date: Status: ADM IN PHONE #: [phone] Exam Date: 03/15/2023618 FAX #: [phone] Reason: Cardiac Surgery Post Op EXAMS: CPT CODE: [id number] XR CHEST 1 V [id number] EXAM: CHEST ONE VIEW INDICATION: Cardiac Surgery [...] Trnscrd Date/Time/By: 03/15/2023 (905) : By: [email or web address] [facility] Print D/T: S: 03/15/2023 (5310) PAGE 1 Signed ReportGLUCOSE BEDSIDE 2023-03-15 07:03:00* Test Item Value Reference Range Interpretation Comme nts GLUCOSE BEDSIDE (test code = GLUBED) 152 MG/DL 70-110 H Performed by bryan cruz at [facility] BASIC METABOLIC [id number] 04:26:00* Test Item Value Reference Range Interpretation [...] mg/dL 8.0-10.5 N COMMENTS: POD #1HEPATIC FUNCTION [id number] 04:26:00* Test Item Value Reference Range Interpretation [...] ALKP) 59 IUnit/L 20-125 N COMMENTS: POD #[id number] 04:26:00* Test Item Value Reference Range Interpretation Comme nts MAGNESIUM (test code = MAG) 2.15 mg/dL 1.6-2.6 NOTE: NEW NORMAL RANGE COMMENTS: POD #1LACTIC [id number] 04:20:00* Test Item Value Reference Range Interpretation Comme nts LACTIC ACID (test code = LACT) 1.2 mmol/L 0.4-1.9 N POC ARTERIAL BLOOD [id number] 04:17:00* Test Item Value Reference Range Interpretation Comme nts POC ARTERIAL BLOOD GAS PH (t est code = POCPHA) 7.482 7.35-7.45 H POC ARTERIAL BLOOD GAS PCO2 (test code = QKNPFL1J) 39.8 mmHg 35.0-45 N POC TCO2 ARTERIAL (test code = POCTCO2) 30.9 POC ARTERIAL BLOOD GAS PO2 ( test code = JTLGB5I) 68.5 mmHg 80-100.0 L POC HCO3 ARTERIAL (test code = CUBHVB5C) 29.7 MMOL/L 22.0-26.0 HH POC BASE EXCESS (test code = POCBEA) 6.2 MMOL/L -4.0-4.0 H POC O2 SATURATION (test code = POCO2S) 94.7 % 90-100 N ABG DELIVERY (test code = FEDERICO) Cannula ABG TEMPERATURE (test code = TEMPA) 99 F ABG SITE (test code = SITEA) Art Line BASIC METABOLIC [id number] 04:17:00* Test Item Value Reference Range Interpretation [...] = POCGLU) 156 MG/DL 70-110 H HEMOGLOBIN [id number] 04:17:00* Test Item Value Reference Range Interpretation Comme nts HEMOGLOBIN ABG (test code = HGB/ABG) 8.3 G/DL 12.5-16.9 L [id number] 04:17:00* Test Item Value Reference Range Interpretation Comme nts HEMATOCRIT (test code = HCT/ABG) 24 % 37.5-50.7 L POC LACTIC [id number] 04:17:00* Test Item Value Reference Range Interpretation Comme nts POC LACTIC ACID (test code = POCLAC) 0.9 mmol/l 0.9-1.7 N CBC W/AUTO [id number] 04:06:00* Test Item Value Reference Range Interpretation [...] REQUIRED (test code = MDIFF) NO GLUCOSE [id number] 02:17:00* Test Item Value Reference Range Interpretation Comme nts GLUCOSE BEDSIDE (test code = GLUBED) 154 MG/DL 70-110 H Performed by cer tified dredge operator supervisor at [facility] GLUCOSE [id number] 22:25:00* Test Item Value Reference Range Interpretation Comme [facility] GLUCOSE BEDSIDE (test code = GLUBED) 189 MG/DL 70-110 H Performed by cer tified dredge operator supervisor at [facility] POC ARTERIAL BLOOD [id number] 21:37:00* Test Item Value Reference Range Interpretation Comme nts POC ARTERIAL BLOOD GAS PH (t est code = POCPHA) 7.419 7.35-7.45 N POC ARTERIAL BLOOD GAS PCO2 (test code = VWMYSS0X) 39.5 mmHg 35.0-45 N POC TCO2 ARTERIAL (test code = POCTCO2) 26.8 POC ARTERIAL BLOOD GAS PO2 ( test code = YXMPJ3I) 70.7 mmHg 80-100.0 L POC HCO3 ARTERIAL (test code = FRRNSU4A) 25.6 MMOL/L 22.0-26.0 N POC BASE EXCESS (test code = POCBEA) 1.1 MMOL/L -4.0-4.0 N POC O2 SATURATION (test code = POCO2S) 94.3 % 90-100 N ABG DELIVERY (test code = FEDERICO) Cannula ABG TEMPERATURE (test code = TEMPA) 99.4 F ABG SITE (test code = SITEA) Art Line BASIC METABOLIC [id number] 21:37:00* Test Item Value Reference Range Interpretation [...] = POCGLU) 235 MG/DL 70-110 H HEMOGLOBIN [id number] 21:37:00* Test Item Value Reference Range Interpretation Comme [facility] HEMOGLOBIN ABG (test code = HGB/ABG) 8.4 G/DL 12.5-16.9 L [id number] 21:37:00* Test Item Value Reference Range Interpretation Comme nts HEMATOCRIT (test code = HCT/ABG) 25 % 37.5-50.7 L POC LACTIC [id number] 21:37:00* Test Item Value Reference Range Interpretation Comme [facility] POC LACTIC ACID (test code = POCLAC) 2.2 mmol/l 0.9-1.7 H LACTIC ACID 2ND [id number] 21:36:00* Test Item Value Reference Range Interpretation Comme [facility] LACTIC ACID 2ND REPEAT (test code = LACT2) 2.1 mmol/L 0.4-1.9 H GLUCOSE [id number] 18:27:00* Test Item Value Reference Range Interpretation Comme [facility] GLUCOSE BEDSIDE (test code = GLUBED) 199 MG/DL 70-110 H Performed by cer tified dredge operator supervisor at [facility] GLUCOSE [id number] 15:47:00* Test Item Value Reference Range Interpretation Comme [facility] GLUCOSE BEDSIDE (test code = GLUBED) 148 MG/DL 70-110 H Performed by cer tified dredge operator supervisor at [facility] LACTIC ACID [id number] 11:39:00* Test Item Value Reference Range Interpretation Comme [facility] LACTIC ACID REPEAT (test cod e = LACTR) 2.2 mmol/l 0.4-1.9 H BASIC METABOLIC [id number] 11:38:00* Test Item Value Reference Range Interpretation Comme [facility] SODIUM (test code [...] 8.7 mg/dL 8.0-10.5 N POC ARTERIAL BLOOD [id number] 08:07:00* Test Item Value Reference Range Interpretation Comme nts POC ARTERIAL BLOOD GAS PH (t est code = POCPHA) 7.447 7.35-7.45 N POC ARTERIAL BLOOD GAS PCO2 (test code = TOORKE5D) 35.9 mmHg 35.0-45 N POC TCO2 ARTERIAL (test code = POCTCO2) 25.9 POC ARTERIAL BLOOD GAS PO2 ( test code = RFPHE7Z) 73.8 mmHg 80-100.0 L POC HCO3 ARTERIAL (test code = VHLEWA3Z) 24.8 MMOL/L 22.0-26.0 N POC BASE EXCESS (test code = POCBEA) 0.7 MMOL/L -4.0-4.0 N POC O2 SATURATION (test code = POCO2S) 95.4 % 90-100 N ABG DELIVERY (test code = FEDERICO) Cannula ABG TEMPERATURE (test code = TEMPA) 99.7 F ABG SITE (test code = SITEA) Art Line JAIRON'S TEST (test code = ALLENS) N/A BASIC METABOLIC [id number] 08:07:00* Test Item Value Reference Range Interpretation [...] = POCGLU) 185 MG/DL 70-110 H HEMOGLOBIN [id number] 08:07:00* Test Item Value Reference Range Interpretation Comme nts HEMOGLOBIN ABG (test code = HGB/ABG) 8.6 G/DL 12.5-16.9 L [id number] 08:07:00* Test Item Value Reference Range Interpretation Comme nts HEMATOCRIT (test code = HCT/ABG) 25 % 37.5-50.7 L POC LACTIC [id number] 08:07:00* Test Item Value Reference Range Interpretation Comme nts POC LACTIC ACID (test code = POCLAC) 3.0 mmol/l 0.9-1.7 H LACTIC [id number] 08:00:00* Test Item Value Reference Range Interpretation Comme nts LACTIC ACID (test code = LACT) 2.9 mmol/L 0.4-1.9 H BASIC METABOLIC [id number] 04:04:00* Test Item Value Reference Range Interpretation [...] mg/dL 8.0-10.5 N COMMENTS: POD #1HEPATIC FUNCTION [id number] 04:04:00* Test Item Value Reference Range Interpretation [...] ALKP) 60 IUnit/L 20-125 N COMMENTS: POD #[id number] 04:04:00* Test Item Value Reference Range Interpretation Comme nts MAGNESIUM (test code = MAG) 1.86 mg/dL 1.6-2.6 NOTE: NEW NORMAL RANGE COMMENTS: POD #1CBC W/AUTO [id number] 03:53:00* Test Item Value Reference Range Interpretation [...] x10 3/uL 0.0-0.1 N POC ARTERIAL BLOOD [id number] 03:33:00* Test Item Value Reference Range Interpretation Comme nts POC ARTERIAL BLOOD GAS PH (t est code = POCPHA) 7.438 7.35-7.45 N POC ARTERIAL BLOOD GAS PCO2 (test code = ALPWKL6S) 34.0 mmHg 35.0-45 L POC TCO2 ARTERIAL (test code = POCTCO2) 24.0 POC ARTERIAL BLOOD GAS PO2 ( test code = VKGWA7A) 83.8 mmHg 80-100.0 N POC HCO3 ARTERIAL (test code = MKUDPT1A) 22.9 MMOL/L 22.0-26.0 N POC BASE EXCESS (test code = POCBEA) -1.2 MMOL/L -4.0-4.0 N POC O2 SATURATION (test code = POCO2S) 96.6 % 90-100 N ABG DELIVERY (test code = FEDERICO) Cannula ABG TEMPERATURE (test code = TEMPA) 99.1 F ABG SITE (test code = SITEA) Art Line BASIC METABOLIC [id number] 03:33:00* Test Item Value Reference Range Interpretation [...] = POCGLU) 164 MG/DL 70-110 H HEMOGLOBIN [id number] 03:33:00* Test Item Value Reference Range Interpretation Comme nts HEMOGLOBIN ABG (test code = HGB/ABG) 10.0 G/DL 12.5-16.9 L [id number] 03:33:00* Test Item Value Reference Range Interpretation Comme nts HEMATOCRIT (test code = HCT/ABG) 29 % 37.5-50.7 L POC LACTIC [id number] 03:33:00* Test Item Value Reference Range Interpretation Comme nts POC LACTIC ACID (test code = POCLAC) 2.7 mmol/l 0.9-1.7 H GLUCOSE [id number] 02:15:00* Test Item Value Reference Range Interpretation Comme [facility] GLUCOSE BEDSIDE (test code = GLUBED) 155 MG/DL 70-110 H Performed by cer tified dredge operator supervisor at [facility] GLUCOSE [id number] 23:17:00* Test Item Value Reference Range Interpretation Comme [facility] GLUCOSE BEDSIDE (test code = GLUBED) 153 MG/DL 70-110 H Performed by cer tified dredge operator supervisor at [facility] PROTHROMBIN [id number] 22:47:00* Test Item Value Reference Range Interpretation Comme [facility] PROTHROMBIN TIME PATIENT [...] Infarction (to prevent recurrent infarct). CBC W/AUTO [id number] 22:34:00* Test Item Value Reference Range Interpretation Comme [facility] WHITE BLOOD CELL [...] x10 3/uL 0.0-0.1 N POC ARTERIAL BLOOD [id number] 22:18:00* Test Item Value Reference Range Interpretation Comme nts POC ARTERIAL BLOOD GAS PH (t est code = POCPHA) 7.410 7.35-7.45 N POC ARTERIAL BLOOD GAS PCO2 (test code = MOWPDF5M) 37.8 mmHg 35.0-45 N POC TCO2 ARTERIAL (test code = POCTCO2) 25.0 POC ARTERIAL BLOOD GAS PO2 ( test code = ROWMG0L) 99.0 mmHg 80-100.0 N POC HCO3 ARTERIAL (test code = IIGXZX0Q) 23.9 MMOL/L 22.0-26.0 N POC BASE EXCESS (test code = POCBEA) -0.7 MMOL/L -4.0-4.0 N POC O2 SATURATION (test code = POCO2S) 97.7 % 90-100 N ABG DELIVERY (test code = FEDERICO) Cannula ABG TEMPERATURE (test code = TEMPA) 99.2 F ABG SITE (test code = SITEA) Art Line BASIC METABOLIC [id number] 22:18:00* Test Item Value Reference Range Interpretation [...] = POCGLU) 167 MG/DL 70-110 H HEMOGLOBIN [id number] 22:18:00* Test Item Value Reference Range Interpretation Comme nts HEMOGLOBIN ABG (test code = HGB/ABG) 9.7 G/DL 12.5-16.9 L [id number] 22:18:00* Test Item Value Reference Range Interpretation Comme nts HEMATOCRIT (test code = HCT/ABG) 28 % 37.5-50.7 L POC LACTIC [id number] 22:18:00* Test Item Value Reference Range Interpretation Comme nts POC LACTIC ACID (test code = POCLAC) 4.4 mmol/l 0.9-1.7 HH GLUCOSE [id number] 20:27:00* Test Item Value Reference Range Interpretation Comme nts GLUCOSE BEDSIDE (test code = GLUBED) 155 MG/DL 70-110 H Performed by cer karlos dredge operator supervisor at [facility] POC ARTERIAL BLOOD [id number] 17:16:00* Test Item Value Reference Range Interpretation Comme nts POC ARTERIAL BLOOD GAS PH (t est code = POCPHA) 7.321 7.35-7.45 L POC ARTERIAL BLOOD GAS PCO2 (test code = DJGADI7P) 35.7 mmHg 35.0-45 N POC TCO2 ARTERIAL (test code = POCTCO2) 19.5 POC ARTERIAL BLOOD GAS PO2 ( test code = UYIUW4U) 91.2 mmHg 80-100.0 N POC HCO3 ARTERIAL (test code = JKTAFS6N) 18.4 MMOL/L 22.0-26.0 L POC BASE EXCESS (test code = POCBEA) -7.6 MMOL/L -4.0-4.0 L POC O2 SATURATION (test code = POCO2S) 96.4 % 90-100 N BASIC METABOLIC [id number] 17:16:00* Test Item Value Reference Range Interpretation [...] = POCGLU) 190 MG/DL 70-110 H HEMOGLOBIN [id number] 17:16:00* Test Item Value Reference Range Interpretation Comme [facility] HEMOGLOBIN ABG (test code = HGB/ABG) 9.8 G/DL 12.5-16.9 L [id number] 17:16:00* Test Item Value Reference Range Interpretation Comme nts HEMATOCRIT (test code = HCT/ABG) 29 % 37.5-50.7 L GLUCOSE [id number] 14:17:00* Test Item Value Reference Range Interpretation Comme nts GLUCOSE BEDSIDE (test code = GLUBED) 206 MG/DL 70-110 H Performed by cer tified dredge operator supervisor at [facility] CBC W/AUTO [id number] 13:58:00* Test Item Value Reference Range Interpretation [...] WITH AUTO DIFF. COMMENTS: On arrivalBASIC METABOLIC [id number] 13:12:00* Test Item Value Reference Range Interpretation [...] mg/dL 8.0-10.5 N COMMENTS: On arrivalComment: On [id number] 13:12:00* Test Item Value Reference Range Interpretation Comme nts MAGNESIUM (test code = MAG) 2.38 mg/dL 1.6-2.6 NOTE: NEW NORMAL RANGE COMMENTS: On arrivalComment: On arrivalPO ARTERIAL BLOOD [id number] 12:55:00 * Test Item Value Reference Range Interpretation Comme nts POC ARTERIAL BLOOD GAS PH (t est code = POCPHA) 7.337 7.35-7.45 L POC ARTERIAL BLOOD GAS PCO2 (test code = MREFMV3V) 38.7 mmHg 35.0-45 N POC TCO2 ARTERIAL (test code = POCTCO2) 21.9 POC ARTERIAL BLOOD GAS PO2 ( test code = AXSZA3N) 174.5 mmHg 80-100.0 H POC HCO3 ARTERIAL (test code = QDTGHF6U) 20.7 MMOL/L 22.0-26.0 L POC BASE EXCESS (test code = POCBEA) -5.1 MMOL/L -4.0-4.0 L POC O2 SATURATION (test code = POCO2S) 99.5 % 90-100 N FIO2 (test code = FIO2A) 50 % PaO2/FiO2 (test code = HFX3VKK2) 349.00 mm/Hg ABG VENT MODE (test code = MODEA) AC ABG TIDAL VOLUME (test code = TVA) 450 ml ABG PEEP (test code = PEEPA) 5 cmH2O ABG TEMPERATURE (test code = TEMPA) 96.8 F ABG SITE (test code = SITEA) Art Line BASIC METABOLIC [id number] 12:55:00* Test Item Value Reference Range Interpretation [...] = POCGLU) 221 MG/DL 70-110 H HEMOGLOBIN [id number] 12:55:00* Test Item Value Reference Range Interpretation Comme nts HEMOGLOBIN ABG (test code = HGB/ABG) 10.0 G/DL 12.5-16.9 L [id number] 12:55:00* Test Item Value Reference Range Interpretation Comme nts HEMATOCRIT (test code = HCT/ABG) 29 % 37.5-50.7 L POC LACTIC [id number] 12:55:00* Test Item Value Reference Range Interpretation Comme nts POC LACTIC ACID (test code = POCLAC) 6.1 mmol/l 0.9-1.7 PROTHROMBIN [id number] 12:54:00* Test Item Value Reference Range Interpretation [facility] PROTHROMBIN TIME PATIENT (test code = PTP) [...] prevent recurrent infarct). COMMENTS: On arrivalTHROMBOPLASTIN TIME [id number] 12:54:00* Test Item Value Reference Range Interpretation [facility] THROMBOPLASTIN TIME PARTIAL (test code = PTT) 52.4 Seconds 25.0-39.5 H Therapeutic Rang e: 50.4 - 88.3 Seconds Effective 05/29/2018 [facility]: [facility] [id number] 12:05:00* Test Item Value Reference Range Interpretation [facility] POC ARTERIAL BLOOD GAS PH (t est code = POCPHA) 7.348 7.35-7.45 L POC ARTERIAL BLOOD GAS PCO2 (test code = LSIEXA3C) 35.6 mmHg 35.0-45 N POC TCO2 ARTERIAL (test code = POCTCO2) 20.7 POC ARTERIAL BLOOD GAS PO2 ( test code = POZJF3F) 344.2 mmHg 80-100.0 POC HCO3 ARTERIAL (test code = UDZWWT0W) 19.6 MMOL/L 22.0-26.0 L POC BASE EXCESS (test code = POCBEA) -5.4 MMOL/L -4.0-4.0 L POC O2 SATURATION (test code = POCO2S) 99.9 % 90-100 N BASIC METABOLIC [id number] 12:05:00* Test Item Value Reference Range Interpretation [facility] SODIUM (test code = NA/ABG) 144 mmol/L 134-147 N POTASSIUM (test code = K/ABG) 3.2 mmol/L 3.4-5.0 L CHLORIDE (test code = CL/ABG) 111 mmol/L 100-108 H CREATININE ABG (test code = CREAABG) 0.4 mg/dL 0.8-1.3 L POC IONIZED CALCIUM (test co de = POCCA) 1.10 MMOL/L 1.12-1.32 L POC GLUCOSE (test code = POCGLU) 211 MG/DL 70-110 H HEMOGLOBIN [id number] 12:05:00* Test Item Value Reference Range Interpretation Comme nts HEMOGLOBIN ABG (test code = HGB/ABG) 9.7 G/DL 12.5-16.9 L [id number] 12:05:00* Test Item Value Reference Range Interpretation Comme nts HEMATOCRIT (test code = HCT/ABG) 29 % 37.5-50.7 L POC LACTIC [id number] 12:05:00* Test Item Value Reference Range Interpretation Comme nts POC LACTIC ACID (test code = POCLAC) 4.9 mmol/l 0.9-1.7 HH [id number] 11:15:00* Test Item Value Reference Range Interpretation Comme nts ACT-ISTAT (test code = ACTI) 136 SEC 74-137 N Performed by cer tified dredge operator supervisor at [facility] POC ARTERIAL BLOOD [id number] 11:07:00* Test Item Value Reference Range Interpretation Comme nts POC ARTERIAL BLOOD GAS PH (t est code = POCPHA) 7.300 7.35-7.45 L POC ARTERIAL BLOOD GAS PCO2 (test code = IVKPQM7T) 36.0 mmHg 35.0-45 N POC TCO2 ARTERIAL (test code = POCTCO2) 18.8 POC ARTERIAL BLOOD GAS PO2 ( test code = QAPQU7M) 274.3 mmHg 80-100.0 HH POC HCO3 ARTERIAL (test code = DQWZWA5T) 17.7 MMOL/L 22.0-26.0 LL POC BASE EXCESS (test code = POCBEA) -8.0 MMOL/L -4.0-4.0 L POC O2 SATURATION (test code = POCO2S) 99.9 % 90-100 N BASIC METABOLIC [id number] 11:07:00* Test Item Value Reference Range Interpretation [...] = POCGLU) 283 MG/DL 70-110 H HEMOGLOBIN [id number] 11:07:00* Test Item Value Reference Range Interpretation Comme nts HEMOGLOBIN ABG (test code = HGB/ABG) 7.6 G/DL 12.5-16.9 L [id number] 11:07:00* Test Item Value Reference Range Interpretation Comme nts HEMATOCRIT (test code = HCT/ABG) 22 % 37.5-50.7 L POC LACTIC [id number] 11:07:00* Test Item Value Reference Range Interpretation Comme nts POC LACTIC ACID (test code = POCLAC) 5.3 mmol/l 0.9-1.7 HH [id number] 10:39:00* Test Item Value Reference Range Interpretation Comme nts ACT-ISTAT (test code = ACTI) 477 SEC 74-137 H Performed by cer tified dredge operator supervisor at [facility] POC ARTERIAL BLOOD [id number] 10:39:00* Test Item Value Reference Range Interpretation Comme nts POC ARTERIAL BLOOD GAS PH (t est code = POCPHA) 7.434 7.35-7.45 N POC ARTERIAL BLOOD GAS PCO2 (test code = UCCUMZ7Z) 36.0 mmHg 35.0-45 N POC TCO2 ARTERIAL (test code = POCTCO2) 25.2 POC ARTERIAL BLOOD GAS PO2 ( test code = XMHHY5C) 532.2 mmHg 80-100.0 HH POC HCO3 ARTERIAL (test code = JURETX5N) 24.1 MMOL/L 22.0-26.0 N POC BASE EXCESS (test code = POCBEA) 0.0 MMOL/L -4.0-4.0 N POC O2 SATURATION (test code = POCO2S) 100.0 % 90-100 N BASIC METABOLIC [id number] 10:39:00* Test Item Value Reference Range Interpretation [...] = POCGLU) 223 MG/DL 70-110 H HEMOGLOBIN [id number] 10:39:00* Test Item Value Reference Range Interpretation Comme nts HEMOGLOBIN ABG (test code = HGB/ABG) 8.2 G/DL 12.5-16.9 L [id number] 10:39:00* Test Item Value Reference Range Interpretation Comme nts HEMATOCRIT (test code = HCT/ABG) 24 % 37.5-50.7 L POC LACTIC [id number] 10:39:00* Test Item Value Reference Range Interpretation Comme nts POC LACTIC ACID (test code = POCLAC) 4.4 mmol/l 0.9-1.7 HH [id number] 10:09:00* Test Item Value Reference Range Interpretation Comme nts ACT-ISTAT (test code = ACTI) 460 SEC 74-137 H Performed by cer tified dredge operator supervisor at [facility] POC ARTERIAL BLOOD [id number] 09:54:00* Test Item Value Reference Range Interpretation Comme nts POC ARTERIAL BLOOD GAS PH (t est code = POCPHA) 7.412 7.35-7.45 N POC ARTERIAL BLOOD GAS PCO2 (test code = RSGELD2I) 39.6 mmHg 35.0-45 N POC TCO2 ARTERIAL (test code = POCTCO2) 26.5 POC ARTERIAL BLOOD GAS PO2 ( test code = AXFFW3E) 359.7 mmHg 80-100.0 HH POC HCO3 ARTERIAL (test code = QRJCTZ6F) 25.3 MMOL/L 22.0-26.0 N POC BASE EXCESS (test code = POCBEA) 0.6 MMOL/L -4.0-4.0 N POC O2 SATURATION (test code = POCO2S) 100.0 % 90-100 N BASIC METABOLIC [id number] 09:54:00* Test Item Value Reference Range Interpretation [...] = POCGLU) 155 MG/DL 70-110 H HEMOGLOBIN [id number] 09:54:00* Test Item Value Reference Range Interpretation Comme nts HEMOGLOBIN ABG (test code = HGB/ABG) 8.9 G/DL 12.5-16.9 L [id number] 09:54:00* Test Item Value Reference Range Interpretation Comme nts HEMATOCRIT (test code = HCT/ABG) 26 % 37.5-50.7 L POC LACTIC [id number] 09:54:00* Test Item Value Reference Range Interpretation Comme nts POC LACTIC ACID (test code = POCLAC) 3.6 mmol/l 0.9-1.7 H [id number] 09:31:00* Test Item Value Reference Range Interpretation Comme nts ACT-ISTAT (test code = ACTI) 725 SEC 74-137 H Performed by cer tified dredge operator supervisor at [facility] POC ARTERIAL BLOOD [id number] 09:19:00* Test Item Value Reference Range Interpretation Comme nts POC ARTERIAL BLOOD GAS PH (t est code = POCPHA) 7.401 7.35-7.45 N POC ARTERIAL BLOOD GAS PCO2 (test code = ERQPTS9W) 45.7 mmHg 35.0-45 H POC TCO2 ARTERIAL (test code = POCTCO2) 29.8 POC ARTERIAL BLOOD GAS PO2 ( test code = LKHHT4H) 399.4 mmHg 80-100.0 HH POC HCO3 ARTERIAL (test code = EZTEWI0L) 28.3 MMOL/L 22.0-26.0 HH POC BASE EXCESS (test code = POCBEA) 3.1 MMOL/L -4.0-4.0 N POC O2 SATURATION (test code = POCO2S) 100.0 % 90-100 N BASIC METABOLIC [id number] 09:19:00* Test Item Value Reference Range Interpretation [...] = POCGLU) 106 MG/DL 70-110 N HEMOGLOBIN [id number] 09:19:00* Test Item Value Reference Range Interpretation Comme nts HEMOGLOBIN ABG (test code = HGB/ABG) 9.2 G/DL 12.5-16.9 L [id number] 09:19:00* Test Item Value Reference Range Interpretation Comme nts HEMATOCRIT (test code = HCT/ABG) 27 % 37.5-50.7 L POC LACTIC [id number] 09:19:00* Test Item Value Reference Range Interpretation Comme nts POC LACTIC ACID (test code = POCLAC) 1.9 mmol/l 0.9-1.7 H [id number] 08:51:00* Test Item Value Reference Range Interpretation Comme nts ACT-ISTAT (test code = ACTI) 612 SEC 74-137 H Performed by cer tified dredge operator supervisor at [facility] POC ARTERIAL BLOOD [id number] 08:42:00* Test Item Value Reference Range Interpretation Comme nts POC ARTERIAL BLOOD GAS PH (t est code = POCPHA) 7.327 7.35-7.45 L POC ARTERIAL BLOOD GAS PCO2 (test code = WQAEAJ6A) 44.9 mmHg 35.0-45 N POC TCO2 ARTERIAL (test code = POCTCO2) 24.8 POC ARTERIAL BLOOD GAS PO2 ( test code = URKMV6D) 375.9 mmHg 80-100.0 HH POC HCO3 ARTERIAL (test code = HQYWHU2T) 23.5 MMOL/L 22.0-26.0 N POC BASE EXCESS (test code = POCBEA) -2.7 MMOL/L -4.0-4.0 N POC O2 SATURATION (test code = POCO2S) 99.9 % 90-100 N BASIC METABOLIC [id number] 08:42:00* Test Item Value Reference Range Interpretation [...] = POCGLU) 142 MG/DL 70-110 H HEMOGLOBIN [id number] 08:42:00* Test Item Value Reference Range Interpretation Comme nts HEMOGLOBIN ABG (test code = HGB/ABG) 12.5 G/DL 12.5-16.9 N [id number] 08:42:00* Test Item Value Reference Range Interpretation Comme nts HEMATOCRIT (test code = HCT/ABG) 37 % 37.5-50.7 L POC LACTIC [id number] 08:42:00* Test Item Value Reference Range Interpretation Comme nts POC LACTIC ACID (test code = POCLAC) 1.8 mmol/l 0.9-1.7 H [id number] 07:20:00* Test Item Value Reference Range Interpretation Comme nts ACT-ISTAT (test code = ACTI) 152 SEC 74-137 H Performed by cer tified dredge operator supervisor at [facility] POC ARTERIAL BLOOD [id number] 07:08:00* Test Item Value Reference Range Interpretation Comme nts POC ARTERIAL BLOOD GAS PH (t est code = POCPHA) 7.333 7.35-7.45 L POC ARTERIAL BLOOD GAS PCO2 (test code = WHEUAO3F) 36.8 mmHg 35.0-45 N POC TCO2 ARTERIAL (test code = POCTCO2) 20.7 POC ARTERIAL BLOOD GAS PO2 ( test code = DDNMD9Z) 532.0 mmHg 80-100.0 HH POC HCO3 ARTERIAL (test code = FRZXDR3P) 19.6 MMOL/L 22.0-26.0 L POC BASE EXCESS (test code = POCBEA) -5.7 MMOL/L -4.0-4.0 L POC O2 SATURATION (test code = POCO2S) 100.0 % 90-100 N BASIC METABOLIC [id number] 07:08:00* Test Item Value Reference Range Interpretation [...] = POCGLU) 312 MG/DL 70-110 H HEMOGLOBIN [id number] 07:08:00* Test Item Value Reference Range Interpretation Comme nts HEMOGLOBIN ABG (test code = HGB/ABG) 15.3 G/DL 12.5-16.9 N [id number] 07:08:00* Test Item Value Reference Range Interpretation Comme nts HEMATOCRIT (test code = HCT/ABG) 45 % 37.5-50.7 N POC LACTIC [id number] 07:08:00* Test Item Value Reference Range Interpretation Comme nts POC LACTIC ACID (test code = POCLAC) 3.2 mmol/l 0.9-1.7 H CBC W/AUTO [id number] 04:27:00* Test Item Value Reference Range Interpretation [...] c ode = MDIFF) NO COMPREHENSIVE METABOLIC [id number] 03:52:00* Test Item Value Reference Range Interpretation [...] code = ALKP) 98 IUnit/L 20-125 N [id number] 03:52:00* Test Item Value Reference Range Interpretation [facility] MAGNESIUM (test code = MAG) 2.04 mg/dL 1.6-2.6 N NOTE: NEW NORMAL RANGE PROTHROMBIN [id number] 03:48:00* Test Item Value Reference Range Interpretation [facility] PROTHROMBIN TIME PATIENT (test code = PTP) [...] Infarction (to prevent recurrent infarct). THROMBOPLASTIN TIME [id number] 03:48:00* Test Item Value Reference Range Interpretation [facility] THROMBOPLASTIN TIME PARTIAL (test code = PTT) 27.7 Seconds 25.0-39.5 N Therapeutic Rang e: 50.4 - 88.3 Seconds Effective 05/29/2018 COVID 19 Asymptomatic IH [id number] 18:24:00* Test Item Value Reference Range Interpretation [facility] COVID 19 Asymptomatic IH AG (test code [...] waivedcomplexity tests. UA RFLX MICR CULT IF [id number] 11:58:00* Test Item Value Reference Range Interpretation [...] = LDL) 110.0 mg/dL 0-100 H <100 [id number] 0-129 NEAR OPTIMAL/ABOVE [id number] HIGH>JN=465 VERY HIGH*Guidelines provided by the National Cholesterol EducationProgram Adult Treatment Panel III TROP-I HIGH [id number] 08:04:00* Test Item Value Reference Range Interpretation [...] the URL. These results were obtained using [employer]. Results from different methodologies should not becompared to one another as quantitative results and URLs mayvary by method. COMPREHENSIVE METABOLIC [id number] 08:04:00* Test Item Value Reference Range Interpretation [...] = ALKP) 93 IUnit/L 20-125 N PROTHROMBIN [id number] 07:53:00* Test Item Value Reference Range Interpretation [...] Infarction (to prevent recurrent infarct). THROMBOPLASTIN TIME [id number] 07:53:00* Test Item Value Reference Range Interpretation [facility] THROMBOPLASTIN TIME PARTIAL (test code = PTT) 29.2 Seconds 25.0-39.5 N Therapeutic Rang e: 50.4 - 88.3 Seconds Effective 05/29/2018 B-TYPE NATRIURETIC [id number] 07:44:00* Test Item Value Reference Range Interpretation [facility] B-TYPE NATRIURETIC PEPTIDE ( test code = BNP) 65.0 PG/ML 0-100 N CBC W/AUTO [id number] 07:37:00* Test Item Value Reference Range Interpretation [...]
[2024-02-12] MEDS ORDERED: NA CHLORIDE 0.9% 1,000 ML ONE ×2 (12:53→16:33)
[2024-02-12 13:24] LABS: Absolute Basophils 0.1 K/uL (0-0.5); Absolute Eosinophils 0.1 K/uL (0-0.5); Absolute Lymphocytes (CBC) 2.1 K/uL (0.7-4.9); Absolute Monocytes 1.1 K/uL (0.1-1.3); Absolute Neutrophil 6.1 K/uL (1.8-8.0); Basophils % 0.8 % (0-1.3); Eosinophils % 0.8 % (0-4.4); Hematocrit 22.9 % (39.6-49.0); Hemoglobin 7.3 g/dL (13.6-17.9); Lymphocytes % 22.6 % (15.3-44.8); MCV 84.4 fL (80-100); MPV 7.6 fL (7.6-11.3); Neutrophils % 63.8 % (41.7-73.7); Nucleated Red Blood Cells % 0.3 % (0-0); Platelets 180 thou/uL (152-406); RBC Red Blood Cell Count 2.71 M/uL (4.33-5.43); Red Cell Distribution Width 16.6 % (12.1-15.2)
[2024-02-12 13:49] LABS: Albumin 2.9 g/dL (3.4-5.0); Albumin/Globulin Ratio 0.6 (1.1-1.8); Anion Gap 10.9 mEq/L (5.0-15.0); Bilirubin Total 0.9 mg/dL (0.2-1.0); Globulin 4.6 g/dL (2.3-3.5); Potassium 3.9 mEq/L (3.5-5.1); Protein, Total 7.5 g/dL (6.4-8.2)
[2024-02-12 14:31] LABS: Specific Gravity 1.017 (1.005-1.030); Sqamous Epithelial <5 /HPF (None Seen); Urine Bacteria None Seen /HPF (<20); Urine Bilirubin NEGATIVE (Negative); Urine Blood 2+ (Negative); Urine Clarity Extremely Turbid (Clear); Urine Color Light-Yellow (Yellow); Urine Culture Reflex Order NOT NEEDED; Urine Glucose NEGATIVE (Negative); Urine Ketones NEGATIVE (Negative); Urine Microscopic Reflex YN ORDER UMIC; Urine Mucus Slight /HPF (None Seen); Urine Nitrite NEGATIVE (Negative); Urine Protein TRACE (Negative); Urine Urobilinogen Normal (Normal); Urine Yeast (Budding) Trace /HPF (None Seen); Urine pH 5.5 (5.0-7.0)
--- NOTE | 2024-02-12 14:38 | RAD REPORT ---
EXAMINATION: CT ABDOMEN AND PELVIS WITH CONTRAST CLINICAL INDICATION: Male, 73 years old.DISTENTION TECHNIQUE: CT abdomen and pelvis was performed, after the administration of IV contrast, as per [facility] protocol. Axial, sagittal and coronal reconstructions were obtained. One or more of the following dose reduction techniques were used: Automated exposure control, adjustment of the mA and/o r kV according to patient size, and/or iterative reconstruction. Unless otherwise specified, incidental findings do not require dedicated imaging follow-up. [id number]. COMPARISON: No prior exam. FINDINGS: LOWER CHEST: No acute process identified.No significant pericardial effusion. Multivessel coronary ar lennie calcifications. UPPER GI: No significant abnormality. LIVER: Hepatic steatosis, but otherwise unremarkable. GALLBLADDER/BILE DUCTS: No biliary ductal dilatation.? PANCREAS: Atrophy, but otherwise unremarkable. SPLEEN: Mild splenomegaly. ADRENALS: No adrenal masses. KIDNEYS AND URETERS: Moderate bilateral hydroureteronephrosis.Low density and/or too small to charact erize renal lesions which are statistically benign. ABDOMINAL AORTA AND OTHER VESSELS: Mild atherosclerotic changes. PERITONEUM: No abnormal free fluid. No free air. LYMPH NODES: No pathologic lymphadenopathy. ABDOMINAL WALL: Unremarkable SMALL BOWEL/COLON: Small bowel has normal course and caliber. No colonic wall thickening or pericolon ic inflammatory changes. URINARY BLADDER: Significant distended bladder. Possible mass versus median lobe hypertrophy of the p rostate at the base of the bladder on the left side. REPRODUCTIVE ORGANS: Polypoid mass in the left aspect of the bladder which may be contiguous with the prostate and may represent median lobe hypertrophy. MUSCULOSKELETAL: Osseous metastatic disease. No acute fracture. ADDITIONAL FINDINGS: None. IMPRESSION: Moderate bilateral hydroureteronephrosis with pronounced bladder distention likely reflecting acute u rinary retention and bladder outlet obstruction. Polypoid mass at the bladder base may either represent eccentric median lobe hypertrophy, prostatic neoplasm, or bladder mass. Cystoscopy could be tter evaluate. Recommend for Prieto catheter insertion.
--- NOTE | 2024-02-12 15:33 | ER ---
Nurse's Notes [facility] Name: Devyn Trejo Age: 73 yrs Sex: Male : 1950 Arrival Date: 02/12/2024 Time: 11:13 Bed 2 Private MD: Diagnosis: Acute kidney failure, unspecified;Retention of urine, unspecified;Outlet dysfunction constipation Presentation: 02/11 11:37 Chief complaint: Patient states: PCP, Dr Zuniga in [place], sent for possible jl7 dehydration; low back pain radiates to bilateral legs, had blood in urine but none today, reports dark stool, last BM 3 days ago. Reports recent passing of 01/22/24. Coronavirus screen: At this time, the client does not indicate any symptoms associated with coronavirus-19. Ebola Screen: No symptoms or risks identified at this time. Initial Sepsis Screen: Does the patient meet any 2 criteria? No. Patient's initial sepsis screen is negative. Does the patient have a suspected source of infection? No. Patient's initial sepsis screen is negative. Risk Assessment: Do you want to hurt yourself or someone else? Patient reports no desire to harm self or others. Onset of symptoms is unknown. 11:37 Method Of Arrival: Wheelchair jl7 11:37 Acuity: KEN 3 jl7 Triage Assessment: 11:39 General: Appears in no apparent distress. uncomfortable, Behavior is calm, cooperative, jl7 appropriate for age. Pain: Complains of pain in low back area Pain currently is 5 out of 10 on a pain scale. GI: Reports anorexia. Historical: - Allergies: 11:39 PENICILLINS; jl7 - PMHx: 11:39 CAD; High Cholesterol; Hyertension; NSTEMI; jl7 - PSHx: 11:39 CABG; jl7 - Immunization history:: Adult Immunizations unknown. - Infectious Disease History:: Denies. - Social history:: Smoking status: unknown. Screenin:50 [facility] ED Fall Risk Assessment (Adult) History of falling in the last 3 months, hb including since admission No falls in past 3 months (0 pts) Confusion or Disorientation No (0 pts) Intoxicated or Sedated No (0 pts) Impaired Gait No (0 pts) Mobility Assist Device Used No (0 pt) Altered Elimination No (0 pt) Score/Fall Risk Level 0 - 2 = Low Risk Oriented to surroundings, Maintained a safe environment, Educated pt \T\ family on fall prevention, incl call for assistance when getting out of bed. Abuse screen: Denies threats or abuse. Denies injuries from another. Nutritional screening: No deficits noted. Tuberculosis screening: No symptoms or risk factors identified. Assessment: 11:50 General: Appears in no apparent distress. Behavior is calm, cooperative. Neuro: GCS15. hb Cardiovascular: Patient's skin is warm and dry. Respiratory: Respiratory effort is even, unlabored, Respiratory pattern is regular, symmetrical. GI: No signs and/or symptoms were reported involving the gastrointestinal system. : No signs and/or symptoms were reported regarding the genitourinary system. EENT: No signs and/or symptoms were reported regarding the EENT system. Derm: Skin is pink, warm \T\ dry. Musculoskeletal: Reports low back pain that radiates to legs. 13:40 Reassessment: Patient appears in no apparent distress at this time. Patient and/or hb family updated on plan of care and expected duration. Pain level reassessed. Patient is alert, oriented x 3, equal unlabored respirations, skin warm/dry/pink. 14:52 Reassessment: Patient appears in no apparent distress at this time. Patient and/or hb family updated on plan of care and expected duration. Pain level reassessed. Patient is alert, oriented x 3, equal unlabored respirations, skin warm/dry/pink. Vital Signs: 11:37 BP 145 / 75; Pulse 111; Resp 15; Temp 98.6; Pulse Ox 100% ; Weight 84.82 kg; Height 5 jl7 ft. 8 in. ; Pain 5/10; 13:30 BP 139 / 73; Pulse 109; Resp 21; Pulse Ox 97% on R/A; hb 14:52 BP 150 / 70; Pulse 118; Resp 17; Pulse Ox 99% on R/A; hb 17:05 BP 123 / 66; Pulse 105; Resp 16; Pulse Ox 95% on R/A; ko1 11:37 Body Mass Index 28.43 (84.82 kg, 172.72 cm) jl7 11:37 Pain Scale: Adult jl7 ED Course: 11:16 Patient arrived in ED. ra3 11:19 Marielena Mcgee MD is Attending Physician. gb1 11:39 Triage completed. jl7 11:39 Arm band placed on right wrist. jl7 11:50 Patient has correct armband on for positive identification. Provided Education on: use hb of call light . 11:50 No provider procedures requiring assistance completed. hb 13:05 Inserted saline lock: 20 gauge in right antecubital area, using aseptic technique. hb ,using aseptic technique. US PLACED Blood collected. Flushed with 10 mL NS. 13:05 Initial lab(s) drawn, by me, sent to lab. hb 14:21 CT Abd/Pelvis - IV Contrast Only In Process Unspecified. EDMS 15:10 Patria Mayberry, RN is Primary Nurse. ko1 15:14 Prieto cath inserted, using sterile technique, 16 Fr., by me, balloon inflated, to ko1 gravity drainage, Patient tolerated well. 15:28 [facility] Called to initiate patient transfer, spoke with Carmen. ty 15:47 D2D with Urology. ty 16:24 MOT Given by Dana, Dana advised to wait 10-15 minutes to prevent push back for nurse ty to nurse report as the room has had a stat clean order placed. 16:52 CT Chest For PE Angio In Process Unspecified. EDMS 16:59 [facility] called to transport patient to [facility] RM [id number]. ty 17:05 Patient transferred, IV remains in place. ko1 17:16 [facility] on location to take patient. ty Administered Medications: 13:05 Drug: NS 0.9% IV 1000 ml IV at 1 bolus Per protocol; to be given as a bolus over 60 hb minutes Route: IV; Rate: 1 bolus; Site: right antecubital; 16:52 Follow up: Response: No adverse reaction; IV Status: Completed infusion; IV Intake: ko1 1000ml 16:36 Drug: NS 0.9% IV 1000 ml IV at 1000 ml once; to be given as a bolus over 60 minutes ko1 Route: IV; Rate: 1000 ml; Site: right antecubital; 17:06 Follow up: Response: No adverse reaction; IV Status: Infusion continued upon transfer ko1 Medication: 11:50 VIS not applicable for this client. hb Intake: 16:52 IV: 1000ml; Total: 1000ml. ko1 Output: 15:22 Urine: 2300ml (Prieto); Total: 2300ml. ko1 Outcome: 15:33 ER care complete, transfer ordered by MD. thomas 17:45 Transferred by ground EMS [facility]. to [facility], [facility], Transfer form ko1 completed. X-rays sent w/ patient. 17:45 Condition: stable 17:45 Instructed on the need for transfer, 18:23 Patient left the ED. ko1 Signatures: Dispatcher [employer] EDSommer Kim RN RN hb Leal, Jahala RN ALICIA jl7 Patria Mayberry RN RN ko1 Marielena Mcgee MD MD gb1 Alva, Ruby ra3 Yandell, Tylor ty
--- NOTE | 2024-02-12 15:34 | EDPHYS ---
Physician Documentation [facility] Name: Devyn Trejo Age: 73 yrs Sex: Male : 1950 Arrival Date: 02/12/2024 Time: 11:13 Bed 2 Private MD: ED Physician Marielena Mcgee HPI: 02/11 15:33 This 73 yrs old Male presents to ER via Wheelchair with complaints of Sent by gb1 PCP. 15:33 73-year-old male presents with constipation and difficulty urinating. He has had [facility] symptoms for 2 to 3 weeks. He has a history of coronary artery disease, hyperlipidemia, hypertension and NSTEMI. Patient states that he is also having a 20 pound weight loss over the last 3 to 4 months. He recently lost his to cancer and has been depressed as well. Patient states he cannot give any fluids or food down. He is also had some hematuria and some blood in his stool.. Historical: - Allergies: 11:39 PENICILLINS; jl7 - PMHx: 11:39 CAD; High Cholesterol; Hyertension; NSTEMI; jl7 - PSHx: 11:39 CABG; jl7 - Immunization history:: Adult Immunizations unknown. - Infectious Disease History:: Denies. - Social history:: Smoking status: unknown. Exam: 15:33 Constitutional: Cachectic, pale, poorly nourished patient who is awake, alert, and in gb1 no acute distress. Head/Face: Normocephalic, atraumatic. Vital Signs: 11:37 BP 145 / 75; Pulse 111; Resp 15; Temp 98.6; Pulse Ox 100% ; Weight 84.82 kg; Height 5 jl7 ft. 8 in. ; Pain 5/10; 13:30 BP 139 / 73; Pulse 109; Resp 21; Pulse Ox 97% on R/A; hb 14:52 BP 150 / 70; Pulse 118; Resp 17; Pulse Ox 99% on R/A; hb 17:05 BP 123 / 66; Pulse 105; Resp 16; Pulse Ox 95% on R/A; ko1 11:37 Body Mass Index 28.43 (84.82 kg, 172.72 cm) 7 11:37 Pain Scale: Adult jl7 MDM: 12:23 Medical Screening Exam initiated gb1 15:33 Differential diagnosis: nonspecific abdominal pain, UTI, urinary retention, gb1 prostatitis, urethritis. Data reviewed: vital signs, nurses notes. ED course: 73-year-old male with on exam a large distended abdomen. On further investigation the patient is anemic with an elevated alkaline phosphatase as well. He has a hemoglobin of 7.[address] scan revealed a large distended bladder with a questionable genitourinary mass concerning for malignancy when considered with the clinical presentation today. Patient had a Prieto catheter placed with 2300 mL of clear urine that was drained. Patient is persistently tachycardic and does not have good outpatient PCM follow-up so I will transfer him for urology evaluation for cystourethrogram with the biopsy with a concern of BPH/prostate mass versus bladder mass. All in all and concern for malignancy and patient needs the mass that was visible on CT biopsy.. 16:01 ED course: Accepted by Dr. Sybil Zaidi to inpatient telemetry, and discussed with [facility] Urology, Dr. Greco (urology) accepted consult.. 12 12:41 Order name: CBC with Diff; Complete Time: 14:06 gb1 02/11 12:41 Order name: CMP; Complete Time: 14:06 gb1 02/11 12:41 Order name: Lipase; Complete Time: 14:06 gb1 02/11 12:41 Order name: Urinalysis w/ reflexes; Complete Time: 14:34 gb1 02/11 12:41 Order name: CT Abd/Pelvis - IV Contrast Only; Complete Time: 15:48 gb1 02/11 16:00 Order name: CT Chest For PE Angio; Complete Time: 17:24 gb1 02/11 12:41 Order name: IV Saline Lock; Complete Time: 13:36 gb1 02/11 12:41 Order name: Labs collected and sent; Complete Time: 13:36 gb1 Administered Medications: 13:05 Drug: NS 0.9% IV 1000 ml IV at 1 bolus Per protocol; to be given as a bolus over 60 hb minutes Route: IV; Rate: 1 bolus; Site: right antecubital; 16:52 Follow up: Response: No adverse reaction; IV Status: Completed infusion; IV Intake: ko1 1000ml 16:36 Drug: NS 0.9% IV 1000 ml IV at 1000 ml once; to be given as a bolus over 60 minutes ko1 Route: IV; Rate: 1000 ml; Site: right antecubital; 17:06 Follow up: Response: No adverse reaction; IV Status: Infusion continued upon transfer ko1 Disposition Summary: 02/12/24 15:33 Transfer Ordered Notes: Transfer Location: [facility] gb1 Reason: Higher level of care gb1 Condition: Fair gb1 Problem: new gb1 Symptoms: have worsened gb1 Accepting Physician: [facility](02/12/24 18:23) ko1 Diagnosis - Acute kidney failure, unspecified gb1 - Retention of urine, unspecified gb1 - Outlet dysfunction constipation gb1 Forms: - Medication Reconciliation Form gb1 - SBAR form gb1 Signatures: Dispatcher [employer] EDSommer Kim RN RN Brijesh Gibson RN Patria Young RN RN ko1 Marielena Mcgee MD MD gb1 Corrections: (The following items were deleted from the chart) 18:23 15:33 [facility] gb1 ko1
--- NOTE | 2024-02-12 17:11 | RAD REPORT ---
EXAMINATION: CTA CHEST PE CLINICAL INDICATION: Male, 73 years old. PALPITATIONS TECHNIQUE: This examination was performed according to an angiographic protocol with 3D post-processi ng. This involves 3D reconstructions, MIPs, volume rendered images and/or shaded surface rendering. One or more of the following dose reduction techniques were used: Automated exposure control, adjustm ent of the mA and/or kV according to patient size, and/or iterative reconstruction. Unless otherwise specified, incidental findings do not require dedicated imaging follow-up. [id number]. COMPARISON: No priors. FINDINGS: LOWER NECK: 8 mm low-density left thyroid nodule. LUNGS AND AIRWAYS: Airways are clear. No evidence of airspace or interstitial process.No suspicious a nd/or stable pulmonary nodules. PLEURA: No pleural effusion. No pneumothorax. Hemidiaphragms are normally positioned. MEDIASTINUM AND LYMPH NODES: No mediastinal mass or fluid collection. Normal size mediastinal, hilar, and axillary lymph nodes. Mild distal esophageal thickening. THORACIC AORTA: No thoracic aortic aneurysm. PULMONARY ARTERIES: Caliber is within normal limits. No pulmonary emboli identified. HEART: Normal heart size. No coronary calcifications.No significant pericardial effusion. OSSEOUS STRUCTURES AND CHEST WALL: Subacute fracture. Osseous metastatic disease is present. Sternoto my. UPPER ABDOMEN: No significant abnormalities. IMPRESSION: No evidence of pulmonary emboli to the subsegmental level. Lungs are clear.
[2024-02-12 23:36] VITALS: TEMP 98.6
[2024-02-12 23:51] VITALS: BP 131/77; O2SAT 97
== END 2024-02-12 18:23 | disposition short-term general hospital (02) ==
LOC: ER 11:13
DX: N17.9 Acute kidney failure, unspecified (principal); R33.9 Retention of urine, unspecified; K59.02 Outlet dysfunction constipation; I10 Essential (primary) hypertension; Z95.1 Presence of aortocoronary bypass graft
CPT/HCPCS: 96361; 85025; 81001; 36415; 83690; 80053; 71275; 74177; 51702; 96360; 99285; Q9967 ×2; J7030 ×2

== ENCOUNTER 2024-02-16 19:23 | Emergency (ER) | payer OTHER ==
[2024-02-16 21:02] LABS: Absolute Eosinophils 0.2 K/uL (0-0.5); Absolute Lymphocytes (CBC) 1.2 K/uL (0.7-4.9); Absolute Neutrophil 6.7 K/uL (1.8-8.0); Basophils % 0.4 % (0-1.3); Eosinophils % 2.6 % (0-4.4); Hematocrit 30.1 % (39.6-49.0); Hemoglobin 10.2 g/dL (13.6-17.9); Lymphocytes % 12.9 % (15.3-44.8); MCH 28.3 pg (27.0-35.0); MCHC 33.9 g/dL (32.0-36.0); MCV 83.4 fL (80-100); MPV 7.6 fL (7.6-11.3); Monocytes % 10.7 % (3.3-12.3); Neutrophils % 73.4 % (41.7-73.7); Nucleated RBC Absolute Count 0.1 (0-0); Nucleated Red Blood Cells % 0.5 % (0-0); Platelets 126 thou/uL (152-406); Red Cell Distribution Width 16.9 % (12.1-15.2)
[2024-02-16 21:05] LABS: Specific Gravity 1.019 (1.005-1.030); Sqamous Epithelial None Seen /HPF (None Seen); Urine Bacteria <20 /HPF (<20); Urine Bilirubin NEGATIVE (Negative); Urine Blood 3+ (OVER) (Negative); Urine Clarity Extremely Turbid (Clear); Urine Color Yellow (Yellow); Urine Crystals Unidentified Many /HPF (None Seen); Urine Culture Reflex Order REFLEXED; Urine Glucose NEGATIVE (Negative); Urine Ketones NEGATIVE (Negative); Urine Microscopic Reflex YN ORDER UMIC; Urine Mucus 1+ /HPF (None Seen); Urine Nitrite NEGATIVE (Negative); Urine Protein 1+ (Negative); Urine RBC >50 /HPF (None Seen); Urine Urobilinogen Normal (Normal); Urine WBC 20-50 /HPF (<5); Urine WBC Clump Occasional /HPF (None Seen); Urine Yeast (Budding) Occasional /HPF (None Seen); Urine pH 5.5 (5.0-7.0)
[2024-02-16 21:09] LABS: PT Prothrombin Time 17.3 SECONDS (9.4-12.5); PTT, Activated Partial Thromb 31.8 SECONDS (24.3-36.9); Protime INR 1.56
[2024-02-16 21:20] LABS: Troponin High Sensitivity 12.5 pg/mL (<58.9)
[2024-02-16 21:22] LABS: ALT/SGPT 30 U/L (16-61); AST/SGOT 168 U/L (15-37); Albumin 2.7 g/dL (3.4-5.0); Albumin/Globulin Ratio 0.6 (1.1-1.8); Anion Gap 11.3 mEq/L (5.0-15.0); BUN Blood Urea Nitrogen 9 mg/dL (7-18); Bicarbonate 26 mEq/L (21-32); Bilirubin Total 0.9 mg/dL (0.2-1.0); Globulin 4.3 g/dL (2.3-3.5); Glomerular Filtration Rate 100 ml/min (=/>90); Glucose Level 135 mg/dL (74-106); Potassium 3.3 mEq/L (3.5-5.1); Sodium Level 135 mEq/L (136-145)
[2024-02-16] MEDS ORDERED: CEFTRIAXONE 1000 MG/VIAL ONE (21:35)
[2024-02-16] MEDS ORDERED: FUROSEMIDE 40 MG/4 ML VIAL ONE (21:35)
[2024-02-16 21:36] LABS: Alkaline Phosphatase > 2272 U/L (45-117)
[2024-02-16] MEDS ORDERED: NA CHLORIDE 0.9% 50 ML ONE (21:36)
--- NOTE | 2024-02-16 21:44 | ER ---
Nurse's Notes [facility] Name: Devyn Trejo Age: 73 yrs Sex: Male : 1950 Arrival Date: 02/16/2024 Time: 19:23 Bed 5 Private MD: Diagnosis: UTI/ Urinary tract infection, site not specified Presentation: 02/15 19:53 Chief complaint: Patient's son or daughter states: PT WAS RELEASED FROM [facility] dd2 YESTERDAY WITH DX OF HYDRONEPHROSIS WITH A ESPINO CATH. DAUGHTER STATES PAIN ALL OVER BODY, SWELLING IN HIS FEET, NO WALKING AND BLOOD IN THE ESPINO. Coronavirus screen: At this time, the client does not indicate any symptoms associated with coronavirus-19. Ebola Screen: No symptoms or risks identified at this time. Initial Sepsis Screen: Does the patient meet any 2 criteria? No. Patient's initial sepsis screen is negative. Does the patient have a suspected source of infection? No. Patient's initial sepsis screen is negative. Risk Assessment: Do you want to hurt yourself or someone else? Patient reports no desire to harm self or others. Onset of symptoms was February 15, 2024. 19:53 Method Of Arrival: Wheelchair dd2 19:53 Acuity: KEN 3 dd2 Triage Assessment: 20:01 General: Appears uncomfortable, Behavior is calm, cooperative, appropriate for age. dd2 Pain: Complains of pain in back, right leg and left leg Pain does not radiate. Pain currently is 10 out of 10 on a pain scale. Derm: +4 EDEMA BLL. Historical: - Allergies: 20:01 PENICILLINS; dd2 20:01 Erythromycin; dd2 - PMHx: 20:01 CAD; High Cholesterol; Hyertension; NSTEMI; dd2 - PSHx: 20:01 CABG; dd2 - Immunization history:: Adult Immunizations up to date. - Infectious Disease History:: Denies. - Social history:: Smoking status: Patient/guardian denies using tobacco, but has a distant history of tobacco abuse. Screenin:00 [facility] ED Fall Risk Assessment (Adult) History of falling in the last 3 months, ha1 including since admission Yes- single mechanical fall (1 pt) Confusion or Disorientation No (0 pts) Intoxicated or Sedated No (0 pts) Impaired Gait Yes (1 pt) Mobility Assist Device Used Yes (1 pt) Altered Elimination No (0 pt) Score/Fall Risk Level 3 or more points = High Risk Oriented to surroundings, Maintained a safe environment, Educated pt \T\ family on fall prevention, incl call for assistance when getting out of bed, Hourly rounding (assess needs \T\ fall precautionary measures) done. Abuse screen: Denies threats or abuse. Denies injuries from another. Nutritional screening: No deficits noted. Tuberculosis screening: No symptoms or risk factors identified. Assessment: 20:15 General: Appears uncomfortable, Behavior is cooperative. Pain: Complains of pain in ha1 pain all over Pain does not radiate. Pain currently is 7 out of 10 on a pain scale. Neuro: Level of Consciousness is awake, alert, obeys commands, Oriented to person, place, time, situation. Cardiovascular: Capillary refill < 3 seconds. Respiratory: Airway is patent Respiratory effort is even, unlabored, Respiratory pattern is regular, symmetrical. : Espino in place Urine is clear. Derm: Skin is pink, warm \T\ dry. Musculoskeletal: Circulation, motion, and sensation intact. 21:15 Reassessment: Patient and/or family updated on plan of care and expected duration. Pain ha1 level reassessed. 22:17 Reassessment: Patient and/or family updated on plan of care and expected duration. Pain ha1 level reassessed. Respiratory: Airway is patent Respiratory effort is even, unlabored, Respiratory pattern is regular, symmetrical. Vital Signs: 19:53 BP 135 / 79; Pulse 112; Resp 16; Temp 98.8; Pulse Ox 96% on R/A; Weight 84.82 kg; Pain dd2 10/10; 21:01 BP 112 / 58; Pulse 113; Temp 99.3; Pulse Ox 96% on R/A; af3 22:17 BP 134 / 84; Pulse 123; Resp 19 S; Temp 98.9(T); Pulse Ox 96% on R/A; ha1 19:53 Pain Scale: Adult dd2 ED Course: 19:26 Patient arrived in ED. gm2 19:27 Roberto Carlos Phan FNP-C is [facility]. dr5 19:27 Carter Johnson MD is Attending Physician. dr5 20:01 Triage completed. dd2 20:01 Arm band placed on right wrist. Patient placed in an exam room, on a stretcher, on dd2 pulse oximetry. 20:04 Patient has correct armband on for positive identification. Placed in gown. Bed in low ha1 position. Call light in reach. Side rails up X2. Adult w/ patient. 20:04 Provided Education on: plan of care . ha1 20:54 Inserted saline lock: 22 gauge in right antecubital area, using aseptic technique. af3 Blood collected. Flushed with 10 mL NS. 22:14 Missy Rosen, RN is Primary Nurse. ha1 22:19 No provider procedures requiring assistance completed. IV discontinued, intact, ha1 bleeding controlled, No redness/swelling at site. Pressure dressing applied. Administered Medications: 21:48 Drug: Rocephin IV 1 grams IV at per protocol once; Given slow IV push per pharmacy cm10 instructions Route: IV; Rate: per protocol; Site: right antecubital; 22:22 Follow up: Response: No adverse reaction; IV Status: Completed infusion; IV Intake: [id number] 21:48 Drug: Furosemide IVP 40 mg IVP once; give over 2 minutes Route: IVP; Site: right cm10 antecubital; 22:21 Follow up: Response: No adverse reaction ha1 Medication: 22:20 VIS not applicable for this client. ha1 Intake: 22:22 IV: 50ml; Total: 50ml. ha1 Outcome: 21:44 Discharge ordered by . dr5 22:19 Discharged to home via wheelchair, with family, ha1 22:19 Condition: stable 22:19 Discharge instructions given to patient, family, Instructed on discharge instructions, follow up and referral plans. medication usage, Demonstrated understanding of instructions, follow-up care, medications, Prescriptions given X 2, 22:22 Patient left the ED. ha1 Signatures: Missy Rosen RN RN ha1 Libby Parekh RN RN cm10 Taylor Malloy 2 Mallorie Farnsworth af3 ABDIEL CARLIN RN RN dd2 Roberto Carlos Phan, MUTUEL CASHIER-C MUTUEL CASHIER-Cdr5 Corrections: (The following items were deleted from the chart) 20:02 20:01 Allergies: Erythrocin; dd2 dd2
--- NOTE | 2024-02-16 21:44 | EDPHYS ---
Physician Documentation [facility] Name: Devyn Trejo Age: 73 yrs Sex: Male : 1950 Arrival Date: 02/16/2024 Time: 19:23 Bed 5 Private MD: ED Physician Carter Johnson HPI: 02/15 20:17 This 73 yrs old Male presents to ER via Wheelchair with complaints of Pain dr5 All Over, Feet Swelling. 20:17 Onset: The symptoms/episode began/occurred acutely. Patient is a 73-year-old male with dr5 history of CAD, hyperlipidemia, hypertension, NSTEMI, BPH coming in with generalized pain, back pain, and lower abdominal pain. Patient recently was seen here on 02/12/24 and transferred for urinary obstruction outlet with pierre placed. Patient was discharged from [facility] yesterday and began having pain today at 1:30pm. Patient has taken a Tylenol 3 with no relief. Patient recently had 3 units of PRBCs.. Historical: - Allergies: 20:01 PENICILLINS; dd2 20:01 Erythromycin; dd2 - PMHx: 20:01 CAD; High Cholesterol; Hyertension; NSTEMI; dd2 - PSHx: 20:01 CABG; dd2 - Immunization history:: Adult Immunizations up to date. - Infectious Disease History:: Denies. - Social history:: Smoking status: Patient/guardian denies using tobacco, but has a distant history of tobacco abuse. ROS: 20:17 Constitutional: as per hpi dr5 Exam: 20:17 Constitutional: This is a well developed, well nourished patient who is awake, alert, dr5 and in mild acute distress. Eyes: Pupils equal round and reactive to light, extra-ocular motions intact. Lids and lashes normal. Conjunctiva and sclera are non-icteric and not injected. Cornea within normal limits. Periorbital areas with no swelling, redness, or edema. Neck: Trachea midline, no thyromegaly or masses palpated, and no cervical lymphadenopathy. Supple, full range of motion without nuchal rigidity, or vertebral point tenderness. No Meningismus. Chest/axilla: Normal chest wall appearance and motion. Nontender with no deformity. No lesions are appreciated. Cardiovascular: Regular rate and rhythm with a normal S1 and S2. Normal PMI, no JVD. No pulse deficits. Respiratory: Lungs have equal breath sounds bilaterally, clear to auscultation. No rales, rhonchi or wheezes noted. No increased work of breathing, no retractions or nasal flaring. Back: Mild bilateral CVA tenderness to palpation. 20:17 Cardiovascular: Edema: 2+ edema to level of left midcalf, left ankle, left foot, left toes, right midcalf, right ankle, right foot and right toes, 20:17 Musculoskeletal/extremity: Extremities: noted in the right leg and left leg: swelling, Calves: are non-tender, Vital Signs: 19:53 BP 135 / 79; Pulse 112; Resp 16; Temp 98.8; Pulse Ox 96% on R/A; Weight 84.82 kg; Pain dd2 11/22; 21:01 BP 112 / 58; Pulse 113; Temp 99.3; Pulse Ox 96% on R/A; af3 22:17 BP 134 / 84; Pulse 123; Resp 19 S; Temp 98.9(T); Pulse Ox 96% on R/A; ha1 19:53 Pain Scale: Adult dd2 MDM: 19:26 Medical Screening Exam initiated gloria 21:47 ED course: Patient is wanting to be discharged and not stay in the hospital. Discussed dr5 plan of care with family at bedside who is agreeable to plan. Patient. 22:14 Differential diagnosis: viral Infection, bacterial infection, URI, UTI, MK. Data dr5 reviewed: vital signs, nurses notes, lab test result(s). Consideration of Admission/Observation Escalation of care including admission/observation considered. Considered admission for complicated UTI. Historians other than the Patient: Daughter/Son: Daughter. External Records Reviewed: Inpatient record: [facility]. Care significantly affected by the following chronic conditions: HTN, NSTEMI, Hyperlipidemia, CAD. Care significantly affected by the following Social Determinants of Health: Poor access to healthcare and/or lack of insurance, Poor access to transportation, Problems related to employment. Counseling: I had a detailed discussion with the patient and/or guardian regarding the historical points, exam findings, and any diagnostic results supporting the discharge/admit diagnosis, the presence of at least one elevated blood pressure reading (>120/80) during this emergency department visit, lab results, the need for outpatient follow up, for definitive care, a general surgeon, a urologist, to return to the emergency department if symptoms worsen or persist or if there are any questions or concerns that arise at home. ED course: Recommended patient keep appointment on Monday with urologist. All questions answered. Patient reports that he is actually feeling better on discharge. I helped personally get him back into his truck. I told patient to return to ER if anything changes or worsening conditions.. 02/15 20:10 Order name: CBC with Diff; Complete Time: 21: [facility] 02/15 20:10 Order name: CMP; Complete Time: 21: [facility] 02/15 20:10 Order name: Lactate w/ 2H reflex if indic.; Complete Time: : [facility] 02/15 20:10 Order name: Protime (+inr); Complete Time: 21: [facility] 02/15 20:10 Order name: Ptt, Activated; Complete Time: 21: [facility] 02/15 20:10 Order name: Urinalysis w/ reflexes; Complete Time: 21: [facility] 02/15 20:15 Order name: NT PRO-BNP; Complete Time: 21: [facility] 02/15 20:15 Order name: Troponin HS; Complete Time: 21: [facility] 02/15 21:09 Order name: Urine Culture [facility] 02/15 20:10 Order name: IV Saline Lock - Large Bore; Complete Time: 20:54 [facility] 02/15 20:10 Order name: Labs collected and sent; Complete Time: 20:54 [facility] 02/15 20:10 Order name: O2 Per Protocol; Complete Time: 20:54 [facility] 02/15 20:10 Order name: O2 Sat Monitoring; Complete Time: 20: [facility] 02/15 20:10 Order name: Vital Signs; Complete Time: 20:55 [facility] Administered Medications: 21:48 Drug: Rocephin IV 1 grams IV at per protocol once; Given slow IV push per pharmacy cm10 instructions Route: IV; Rate: per protocol; Site: right antecubital; 22:22 Follow up: Response: No adverse reaction; IV Status: Completed infusion; IV Intake: [id number] 21:48 Drug: Furosemide IVP 40 mg IVP once; give over 2 minutes Route: IVP; Site: right cm10 antecubital; 22:21 Follow up: Response: No adverse reaction ha1 Disposition Summary: 02/16/24 21:44 Discharge Ordered Notes: Location: Home dr5 Condition: Stable dr5 Diagnosis - UTI/ Urinary tract infection, site not specified dr5 Followup: dr5 - With: Emergency Department - When: As needed - Reason: Worsening of condition Followup: dr5 - With: Private Physician - When: 1 - 2 days - Reason: Recheck today's complaints, Continuance of care, Re-evaluation by your physician Discharge Instructions: - Discharge Summary Sheet dr5 - Urinary Tract Infection, Adult, [id number] dr5 Forms: - Medication Reconciliation Form dr5 - Antibiotic Education dr5 - Prescription Opioid Use dr5 - Patient Portal Instructions dr5 - Leadership Thank You Letter dr5 Prescriptions: - Tramadol 50 mg Oral Tablet - take 1 tablet ORAL route every 8 hours as needed; 12 tablet; Refills: 0, dr5 Product Selection Permitted - cefpodoxime 200 mg Oral tablet - take 2 tablets ORAL route every 12 hours for 7 days with food; 14 tablet; dr5 Refills: 0, Product Selection Permitted Addendum: 02/20/2024 15:34 Co-signature as Attending Physician, Carter Johnson MD I agree with the assessment and c stein plan of care. Signatures: Dispatcher [employer] Carter Ramirez MD MD cha Martinez, Clarissa RN RN cm10 ABDIEL CARLIN RN RN dd2 Roberto Carlos Phan, KNUCKLE BENDER-C KNUCKLE BENDER-Cdr5 Missy Rosen RN ha1 Corrections: (The following items were deleted from the chart) 02/15 20:02 20:01 Allergies: Erythrocin; dd2 dd2 20:10 20:10 CBC+H.LAB.BRZ ordered. EDMS EDMS 20:10 20:10 COMPREHENSIVE METABOLIC PANEL+C.LAB.BRZ ordered. EDMS EDMS 20:10 20:10 LACTATE+C.LAB.BRZ ordered. EDMS EDMS 20:10 20:10 PROTIME (+INR)+COAG.LAB.BRZ ordered. EDMS EDMS 20:10 20:10 PTT, ACTIVATED+COAG.LAB.BRZ ordered. EDMS EDMS 20:10 20:10 Urinalysis+U.LAB.BRZ ordered. EDMS EDMS 20:16 20:16 Troponin High Sensitivity+C.LAB.BRZ ordered. EDMS EDMS
[2024-02-16 22:47] VITALS: O2SAT 96
[2024-02-16 23:01] VITALS: BP 134/84; TEMP 98.9
== END 2024-02-16 22:22 | disposition home or self-care (01) ==
LOC: ER 19:23
DX: N39.0 Urinary tract infection, site not specified (principal); R22.43 Localized swelling, mass and lump, lower limb, bilateral
CPT/HCPCS: 96365; 87088; 85025; 81001; 87086; 36415; 85610; 83605; 85730; 84484; 80053; 83880; 96375; 99284; J1940; J0696

== ENCOUNTER 2024-06-03 11:42 | Emergency (ER) | payer OTHER ==
--- NOTE | 2024-06-03 12:40 | EDPHYS ---
Physician Documentation [facility] Name: Devyn Trejo Age: 73 yrs Sex: Male : 1950 Arrival Date: 06/03/2024 Time: 11:42 Bed 13 Private MD: ED Physician Marielena Mcgee HPI: 06/03 12:41 This 73 yrs old Male presents to ER via Ambulatory with complaints of Problem gb1 With Urinary Catheter. 12:47 73-year-old male woke up this morning and his urinary catheter was obstructed. Dr. william Corral is his urologist and he has a scheduled appointment on tomorrow to possibly remove a tumor that in the bladder. Was also placed on antibiotics on Monday as well. He denies any fever or chills and is currently taking his antibiotics as they are prescribed. He denies any back pain just states that the bottom of his stomach hurts because has not been able to urinate all morning. He denies any nausea vomiting or diarrhea. He has a history of CAD, hyperlipidemia, hypertension and NSTEMI.. Historical: - Allergies: 12:10 Erythromycin; jl7 12:10 PENICILLINS; jl7 - PMHx: 12:10 CAD; High Cholesterol; Hyertension; NSTEMI; jl7 - PSHx: 12:10 CABG; jl7 - Immunization history:: Adult Immunizations unknown. - Infectious Disease History:: Denies. - Social history:: Smoking status: Patient denies any tobacco usage or history of. Exam: 12:41 Constitutional: This is a well developed, well nourished patient who is awake, alert, gb1 and in no acute distress. Head/Face: Normocephalic, atraumatic. Eyes: Pupils equal round and reactive to light, extra-ocular motions intact. Lids and lashes normal. Conjunctiva and sclera are non-icteric and not injected. Cornea within normal limits. Periorbital areas with no swelling, redness, or edema. ENT: Nares patent. No nasal discharge, no septal abnormalities noted. Tympanic membranes are normal and external auditory canals are clear. Oropharynx with no redness, swelling, or masses, exudates, or evidence of obstruction, uvula midline. Mucous membranes moist. Neck: Trachea midline, no thyromegaly or masses palpated, and no cervical lymphadenopathy. Supple, full range of motion without nuchal rigidity, or vertebral point tenderness. No Meningismus. Chest/axilla: Normal chest wall appearance and motion. Nontender with no deformity. No lesions are appreciated. Cardiovascular: Regular rate and rhythm with a normal S1 and S2. No gallops, murmurs, or rubs. Normal PMI, no JVD. No pulse deficits. Respiratory: Lungs have equal breath sounds bilaterally, clear to auscultation and percussion. No rales, rhonchi or wheezes noted. No increased work of breathing, no retractions or nasal flaring. Back: No spinal tenderness. No costovertebral tenderness. Full range of motion. Male : Normal genitalia with no discharge or lesions. Patient has a indwelling Prieto catheter in place with a leg bag that is empty. He has suprapubic tenderness with light palpation, he also has suprapubic fullness-with mild distention. Vital Signs: 12:09 BP 131 / 65; Pulse 97; Resp 15; Temp 97; Pulse Ox 99% ; jl7 MDM: 11:56 Medical Screening Exam initiated gb1 12:41 Data reviewed: vital signs, nurses notes. ED course: 73-year-old male with an gb1 obstructed indwelling Prieto catheter. The Prieto catheter was removed and replaced by the bedside nurse, Brijesh. On removal it was seen that the Prieto catheter had a small blood clot at the tip of it which was obstructing urine flow. I discussed the case with the urologist of record Dr. Corral and he will see the patient tomorrow for his planned scheduled procedure. Patient's Prieto catheter put out about 600-800 cc of clear urine with small blood clots, but the catheter remains free-flowing- with clear urine.. Administered Medications: No medications were administered Disposition Summary: 06/03/24 12:40 Discharge Ordered Notes: Location: Home gb1 Condition: Stable gb1 Diagnosis - Mechanical complication of urinary (indwelling) catheter gb1 Followup: gb1 - With: Jude Corral MD - When: Tomorrow - Reason: Further diagnostic work-up Discharge Instructions: - Discharge Summary Sheet gb1 - Indwelling Urinary Catheter Insertion at Home, Male gb1 Forms: - Medication Reconciliation Form gb1 - Antibiotic Education gb1 - Prescription Opioid Use gb1 - Patient Portal Instructions gb1 - Leadership Thank You Letter gb1 Signatures: Brijesh Quinonez, RN RN jl7 Marielena Mcgee MD MD gb1
--- NOTE | 2024-06-03 12:40 | ER ---
Nurse's Notes [facility] Name: Devyn Trejo Age: 73 yrs Sex: Male : 1950 Arrival Date: 06/03/2024 Time: 11:42 Bed 13 Private MD: Diagnosis: Mechanical complication of urinary (indwelling) catheter Presentation: 06/03 12:09 Chief complaint: Patient states: Prieto stopped draining sometime in the night. jl7 Coronavirus screen: At this time, the client does not indicate any symptoms associated with coronavirus-19. Ebola Screen: No symptoms or risks identified at this time. Initial Sepsis Screen: Does the patient meet any 2 criteria? No. Patient's initial sepsis screen is negative. Does the patient have a suspected source of infection? No. Patient's initial sepsis screen is negative. Risk Assessment: Do you want to hurt yourself or someone else? Patient reports no desire to harm self or others. Onset of symptoms is unknown. 12:09 Method Of Arrival: Ambulatory jl7 12:09 Acuity: KEN 3 jl7 Triage Assessment: 12:10 General: Appears in no apparent distress. uncomfortable, Behavior is calm, cooperative, jl7 appropriate for age. Pain: Complains of pain in pelvis. Historical: - Allergies: 12:10 Erythromycin; jl7 12:10 PENICILLINS; jl7 - PMHx: 12:10 CAD; High Cholesterol; Hyertension; NSTEMI; jl7 - PSHx: 12:10 CABG; jl7 - Immunization history:: Adult Immunizations unknown. - Infectious Disease History:: Denies. - Social history:: Smoking status: Patient denies any tobacco usage or history of. Vital Signs: 12:09 BP 131 / 65; Pulse 97; Resp 15; Temp 97; Pulse Ox 99% ; jl7 ED Course: 11:45 Patient arrived in ED. im 11:45 Marielena Mcgee MD is Attending Physician. gb1 11:59 Prieto cath removed intact, balloon deflated. jl7 12:05 Prieto cath inserted, using sterile technique, 18 Fr., by ks, balloon inflated, to jl7 gravity drainage, returned pato urine. Patient tolerated well. 12:10 Triage completed. jl7 12:10 Arm band placed on right wrist. jl7 12:24 Destiny Chin, RN is Primary Nurse. db 12:39 Jude Corral MD is Referral Physician. gb1 13:13 Patient did not have IV access during this emergency room visit. ap3 Administered Medications: No medications were administered Medication: 13:13 VIS not applicable for this client. ap3 Outcome: 12:40 Discharge ordered by . gb1 13:13 Discharged to home ambulatory, ap3 13:13 Condition: good 13:13 Discharge instructions given to patient, Instructed on discharge instructions, follow up and referral plans. Demonstrated understanding of instructions, follow-up care, 13:21 Patient left the ED. em1 Signatures: Michael Parekh em1 Brijesh Quinonez RN RN jl7 Gertrudis Maguire RN RN ap3 Destiny Chin, RN RN db Melody Castillo Gina, MD MD gb1
[2024-06-03 13:26] VITALS: BP 131/65; TEMP 97; O2SAT 99
== END 2024-06-03 13:21 | disposition home or self-care (01) ==
LOC: ER 11:42
DX: T83.098A Other mechanical complication of other urinary catheter, initial encounter (principal)
CPT/HCPCS: 51702; 99284

== ENCOUNTER 2024-06-04 09:02 | Day surgery (SDC) | payer OTHER ==
[2024-05-23 14:23] LABS: Absolute Lymphocytes (CBC) 1.8 K/uL (0.7-4.9); Absolute Monocytes 1.6 K/uL (0.1-1.3); Basophils % 0.3 % (0-1.3); Hematocrit 34.2 % (39.6-49.0); Hemoglobin 11.5 g/dL (13.6-17.9); Lymphocytes % 16.9 % (15.3-44.8); MCH 27.5 pg (27.0-35.0); MCHC 33.6 g/dL (32.0-36.0); MPV 8.3 fL (7.6-11.3); Monocytes % 15.7 % (3.3-12.3); Neutrophils % 67.1 % (41.7-73.7); Platelets 266 thou/uL (152-406); RBC Red Blood Cell Count 4.17 M/uL (4.33-5.43); Red Cell Distribution Width 17.9 % (12.1-15.2)
[2024-05-23 14:39] LABS: Anion Gap 12.4 mEq/L (5.0-15.0); Potassium 3.4 mEq/L (3.5-5.1)
[2024-05-23 14:58] LABS: PT Prothrombin Time 15.3 SECONDS (10-13.0); Protime INR 1.36
--- NOTE | 2024-05-23 20:10 | RAD REPORT ---
EXAMINATION: TWO VIEW CHEST XR CLINICAL INDICATION: Male, 73 years old. [facility] pre op for day surgery. Hypertension TECHNIQUE: 2 view radiographs of the chest were performed. COMPARISON: 03/08/2023 FINDINGS: The lungs are well inflated and clear. No pneumothorax or sizable effusion. The heart is normal in si ze. Mediastinal contours are within normal limits, with sequelae of CABG. IMPRESSION: No acute or significant abnormalities.
[2024-06-04] MEDS ORDERED: Ringers Lactate 1,000 ML IV ONE (09:35)
[2024-06-04] MEDS ORDERED: LIDOCAINE JELLY 2% 5 ML SYRINGE TOP ONE (09:35)
[2024-06-04] MEDS ORDERED: NA CHLORIDE 0.9% 100 ML ONE (11:54)
[2024-06-04] MEDS ORDERED: MIDAZOLAM HCL 2 MG/2 ML INJ ONE (12:01)
[2024-06-04] MEDS ORDERED: FENTANYL CITR 100 MCG/2 ML ONE ×2 (12:01→13:23)
[2024-06-04] MEDS ORDERED: LIDOCAINE 1% MPF 5 ML VIAL ONE (12:01)
[2024-06-04] MEDS ORDERED: ROCURONIUM 50 MG/5 ML VIAL IV ONE (12:01)
[2024-06-04] MEDS ORDERED: propofoL 200 MG/20 ML VIAL IV ONE (12:01)
[2024-06-04] MEDS: CEFTRIAXONE 1000 MG/VIAL ONE (12:34)
[2024-06-04] MEDS ORDERED: ONDANSETRON 4 MG/2 ML VIAL ONE (12:34)
[2024-06-04] MEDS ORDERED: NEOSTIGMINE 1 MG/ML -10 ML VIAL ONE (13:45)
[2024-06-04] MEDS ORDERED: GLYCOPYRROLATE 0.2 MG/ML SYR ONE (13:45)
--- NOTE | 2024-06-04 14:33 | P.OP ---
Date of Service: 06/04/24 Preoperative diagnoses: Bladder mass Gross hematuria Lower obstructive uropathy Urinary retention History of prostate cancer s/p radiation therapy Postoperative diagnoses: Bladder mass Gross hematuria Lower obstructive uropathy Urinary retention History of prostate cancer s/p radiation therapy Principal procedures: Cystoscopy and bipolar transurethral resection of the bladder neck tumor/TURBT Bipolar transurethral resection of the prostate/TURP Indications for procedure: 73-year-old gentleman who presented to the urology clinic with gross hematuria and bladder mass observed on imaging. He underwent cystoscopic evaluation revealing abnormal appearing tissue infiltrating the trigone at the bladder neck posteriorly and anteriorly. He had a history of radiation therapy and this did not have a typical urothelial carcinoma appearance. Because he also was unable to void, presumptively because of obstruction associated with this mass, he was counseled on the recommendation for cystoscopic resection of the bladder tumor for diagnostic purposes but also completion TURP to give him a maximal opportunity to restore his ability to void. Procedure note: The patient was consented in the preoperative holding area before being transferred to the operative suite where general anesthesia was induced. He was given ceftriaxone 1 g IV antimicrobial prophylaxis, and pneumoboots were provided for DVT prophylaxis. Of note, he was given Bactrim preoperatively after being intolerant of ciprofloxacin due to a headache, for preoperative antimicrobial therapy of the asymptomatic bacteriuria associated with his chronic indwelling Prieto catheter. Once in the lithotomy position, padded and secured to the table appropriately, the catheter was removed and his genitalia prepped with Hibiclens and draped in standard fashion. The case was begun using a 26 Maltese bipolar resectoscope sheath and a visual obturator to traverse the u rethra and into the bladder with relative ease. The prostatic urethra was modestly obstructive in appearance with an elevated bladder neck. Upon entry into the bladder, I surveyed the bladder in its entirety and no papillary mucosal lesions, foreign bodies, or stones were noted in the posterior wall of the bladder the lateral stewart or the dome anteriorly. At the bladder neck, mostly on the left side but extending across the trigone into the bladder neck posteriorly, abnormal appearing tissue infiltrating the mucosa was noted. As a result, I switched the visual obturator for the resectoscope loop and began resecting all of that tissue down into the muscularis in order to try to achieve complete clearance of the abnormal tissue. This resection was performed posteriorly across the trigone, taking care to spare the ureteral orifices, which were successfully spared throughout the procedure. I extended this along the right bladder neck from posterior all the way to anterior removing all tumor tissue extending slightly into the anterior wall of the bladder. Once this was done and the tissue sent for pathologic analysis as bladder neck tumor, I then ensure the entirety of the area was fulgurated and is hemostatic as possible before beginning a bipolar resection of the prostate. I then resected the median bar down to the level of the trigone and from there to the verumontanum. I then resected into the left lateral wall of the prostate and then subsequently the right lateral wall of the prostate until the channel was widely patent even with the bladder completely decompressed. Careful fulguration was performed at multiple phases along the process. The prostate chips were evacuated using an Ilich and manually removed as necessary and those were sent for pathologic silvia sis as prostate chips/prostatic urethral biopsy tissue. Again, with the bladder decompressed, careful fulguration was undertaken to ensure complete hemostasis with no significant inflow of fluid and the bladder decompressed. I then retrograde filled his bladder and removed the scope surveying the urethra on the way out and ensuring no additional prostate chips or tissue was noted. I then remove the scope and replaced a 22 Maltese three-way Prieto catheter via his urethra into his bladder with ease. 30 cc of sterile water was placed in the balloon. The catheter was allowed to decompress and the urine was light pink. I placed the catheter to modest traction and slow drip CBI and the urine remained light pink. He was then taken out of the lithotomy position, awakened from general anesthesia, transferred to a stretcher, and then transferred to the recovery room in good condition. Complications: None Discharge disposition: We will have him follow-up with me for voiding trial, likely next week in the urology clinic given the absence of dedicated medical assistants familiar with the process. Should he complete the trimethoprim/sulfamethoxazole/Bactrim prior to the scheduled date for voiding trial next week, I instructed that he take a single dose of ciprofloxacin on the morning before he comes in for the voiding trial. Should he fail to do so, we can provide a dose of Levaquin as an alternate since he had a headache presumptively with the ciprofloxacin. We will subsequently discuss the pathology of the tissue resected, hopefully on that visit, and determine next steps in evaluation and management. Specimens: A) bladder neck tumor B) prostate chips/prostatic urethra
[2024-06-04] MEDS ORDERED: OXYBUTYNIN ER 5 MG TAB PO ONE (15:12)
[2024-06-04] MEDS ORDERED: PHENAZOPYRIDINE 100MG TAB PO ONE (15:12)
[2024-06-04] MEDS ORDERED: HYDROCODONE/APAP 5/325 MG TAB ONE (15:12)
[2024-06-04] MEDS: OXYBUTYNIN ER 5 MG TAB PO ONE (15:24)
[2024-06-04] MEDS: HYDROCODONE/APAP 5/325 MG TAB PO PRN (16:04)
[2024-06-04] MEDS: PHENAZOPYRIDINE 100MG TAB PO ONE (16:04)
[2024-06-04 16:07] VITALS: BP 127/66; TEMP 97.9; O2SAT 99
== END 2024-06-04 16:14 | disposition home or self-care (01) ==
LOC: OR 09:02
PROVIDERS: ADMIT Urology; ATTEND Urology
PROC: 0TBC8ZZ Excision of Bladder Neck, Via Natural or Artificial Opening Endoscopic (ICD-10-PCS; 2024-06-04)
PROC: 0VB07ZZ Excision of Prostate, Via Natural or Artificial Opening (ICD-10-PCS; principal; 2024-06-04 11:30)
DX: C61 Malignant neoplasm of prostate (principal); N32.89 Other specified disorders of bladder; R31.0 Gross hematuria; R33.9 Retention of urine, unspecified; Z85.46 Personal history of malignant neoplasm of prostate; N13.8 Other obstructive and reflux uropathy
CPT/HCPCS: 52601; 52500; 87088; 85025; 87086; 80048; 36415; 85610; 88305; 88307; 87077; 87186; 71046; J2704; J2710; J2003; J2250; J3010 ×2; J2405; J7120; J0696

== ENCOUNTER 2024-06-08 00:17 | Emergency (ER) | payer OTHER ==
--- NOTE | 2024-06-08 00:57 | EDPHYS ---
Physician Documentation [facility] Name: Devyn Trejo Age: 73 yrs Sex: Male : 1950 Arrival Date: 06/08/2024 Time: 00:17 Bed 10 Private MD: ED Physician Lei Ham HPI: 06/08 01:24 This 73 yrs old Male presents to ER via Ambulatory with complaints of Problem dr5 With Urinary Catheter. 01:24 Patient is a 73-year-old male with history of CAD, hypercholesterol, hypertension dr5 coming in with clogged Pierre catheter. Patient reports that he had procedure done by Dr. 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 Patient has attempted to drain his Pierre at home 3 times without relief. Patient complaining of suprapubic pain.. Historical: - Allergies: 00:49 Erythromycin; lg3 00:49 PENICILLINS; lg3 - PMHx: 00:49 CAD; High Cholesterol; Hyertension; NSTEMI; lg3 - PSHx: 00:49 CABG; lg3 - Immunization history:: Adult Immunizations up to date. - Infectious Disease History:: Denies. - Social history:: Smoking status: Patient denies any tobacco usage or history of. Patient/guardian denies using alcohol, street drugs. ROS: 01:24 Constitutional: as per hpi dr5 Exam: 01:24 Constitutional: This is a well developed, well nourished patient who is awake, alert, dr5 and in no acute distress. Head/Face: Normocephalic, atraumatic. Eyes: Pupils equal round and reactive to light, extra-ocular motions intact. Lids and lashes normal. Conjunctiva and sclera are non-icteric and not injected. Cornea within normal limits. Periorbital areas with no swelling, redness, or edema. Neck: Trachea midline, no thyromegaly or masses palpated, and no cervical lymphadenopathy. Supple, full range of motion without nuchal rigidity, or vertebral point tenderness. No Meningismus. Chest/axilla: Normal chest wall appearance and motion. Nontender with no deformity. No lesions are appreciated. Cardiovascular: Regular rate and rhythm with a normal S1 and S2. Normal PMI, no JVD. No pulse deficits. Respiratory: Lungs have equal breath sounds bilaterally, clear to auscultation. No rales, rhonchi or wheezes noted. No increased work of breathing, no retractions or nasal flaring. Abdomen/GI: Soft, non-tender, non-distended. Tenderness to palpation before pierre replacement. Repeat exam revealed soft / nontender after pierre drained . Skin: Warm, dry with normal turgor. Normal color with no rashes, no lesions, and no evidence of cellulitis. Neuro: Awake and alert, GCS 15, oriented to person, place, time, and situation. Cranial nerves II-XII grossly intact. Motor strength 5/5 in all extremities. Sensory grossly intact. Cerebellar exam normal. Normal gait. Vital Signs: 00:47 BP 127 / 71; Pulse 89; Resp 16; Temp 97.5(O); Pulse Ox 97% on R/A; Weight 79.83 kg (R); lg3 Height 5 ft. 9 in. (R); Pain 2/10; 00:47 Body Mass Index 25.99 (79.83 kg, 175.26 cm) lg3 00:47 Pain Scale: Adult lg3 Procedures: 01:24 Coud inserted by myself - 22 Fr. Returned bloody urine. Flushed approximately 500cc dr5 with clear urinary return. Blood clots passed and urine is passing.. Coud cath flushed Coud balloon deflated, removed intact, Patient tolerated well. MDM: 00:48 Medical Screening Exam initiated ms3 01:24 Differential diagnosis: viral Infection, bacterial infection, UTI. Data reviewed: vital dr5 signs, nurses notes. Care significantly affected by the following chronic conditions: Hypertension, Hyperlipidemia, NSTEMI, CAD, HTN. Care significantly affected by the following Social Determinants of Health: Poor access to healthcare and/or lack of insurance, Poor access to transportation, Problems related to employment. Counseling: I had a detailed discussion with the patient and/or guardian regarding the historical points, exam findings, and any diagnostic results supporting the discharge/admit diagnosis, the presence of at least one elevated blood pressure reading (>120/80) during this emergency department visit, the need for outpatient follow up, for definitive care, a family practitioner, a urologist, to return to the emergency department if symptoms worsen or persist or if there are any questions or concerns that arise at home. ED course: Changed out Pierre with 22 German Pierre catheter. After irrigation, urine was cleared and patient is feeling much better. Recommended patient follow-up with urology as scheduled on Monday. Return to ER if unable to flush at home and becomes clogged again. All questions answered. Patient is agreeable to plan. Patient currently on antibiotics for urinary tract infection. 06/08 01:01 Order name: Conner; Complete Time: 01:01 lg3 Administered Medications: No medications were administered Disposition: 02:36 I was immediately available on-site in the Emergency Department for consultation in the [facility] care of the patient. Disposition Summary: 06/08/24 00:56 Discharge Ordered Notes: Location: Home dr5 Condition: Stable dr5 Diagnosis - Mechanical complication of urinary (indwelling) catheter dr5 Followup: dr5 - With: Emergency Department - When: As needed - Reason: Worsening of condition Followup: dr5 - With: Private Physician - When: 1 - 2 days - Reason: Recheck today's complaints, Continuance of care, Re-evaluation by your physician Discharge Instructions: - Discharge Summary Sheet dr5 - Indwelling Urinary Catheter Insertion, Care After dr5 Forms: - Medication Reconciliation Form dr5 - Patient Portal Instructions dr5 - Leadership Thank You Letter dr5 Signatures: Carmen Taveras RN RN lg3 Lei Ham DO DO ms3 Roberto Carlos Phan, OPHTHALMOLOGY TECHNICIAN-C OPHTHALMOLOGY TECHNICIAN-Cdr5
--- NOTE | 2024-06-08 00:57 | ER ---
Nurse's Notes [facility] Name: Devyn Trejo Age: 73 yrs Sex: Male : 1950 Arrival Date: 06/08/2024 Time: 00:17 Bed 10 Private MD: Diagnosis: Mechanical complication of urinary (indwelling) catheter Presentation: 06/08 00:47 Chief complaint: Patient states: i think my pierre catheter is clogged. no output since lg3 1200. Coronavirus screen: Client denies travel out of the [place] in the last 14 days. At this time, the client does not indicate any symptoms associated with coronavirus-19. Ebola Screen: No symptoms or risks identified at this time. Initial Sepsis Screen: Does the patient meet any 2 criteria? No. Patient's initial sepsis screen is negative. Does the patient have a suspected source of infection? No. Patient's initial sepsis screen is negative. Risk Assessment: Do you want to hurt yourself or someone else? Patient reports no desire to harm self or others. Onset of symptoms was June 07, 2024. 00:47 Method Of Arrival: Ambulatory lg3 00:47 Acuity: KEN 4 lg3 Triage Assessment: 00:49 General: Appears in no apparent distress. uncomfortable, Behavior is calm, cooperative. lg3 Pain: Complains of pain in pelvis. EENT: No deficits noted. No signs and/or symptoms were reported regarding the EENT system. Neuro: No deficits noted. [place]ahan Agitation-Sedation Scale (RASS): 0 - Alert and Calm Level of Consciousness is awake, alert, Oriented to person, place, time, situation. Cardiovascular: No deficits noted. Denies chest pain, shortness of breath, Capillary refill < 3 seconds Clubbing of nail beds is absent JVD is absent Patient's skin is warm and dry. Respiratory: No deficits noted. Airway is patent Respiratory effort is even, unlabored, Respiratory pattern is regular, symmetrical. GI: Abdomen is round non-distended. : Reports inability to void, pain in suprapubic area. Derm: No deficits noted. No signs and/or symptoms reported regarding the dermatologic system. Skin is intact, is healthy with good turgor, Skin is dry, Skin is normal, Skin temperature is warm. Musculoskeletal: No deficits noted. No signs and/or symptoms reported regarding the musculoskeletal system. Circulation, motion, and sensation intact. Range of motion: intact in all extremities. Historical: - Allergies: 00:49 Erythromycin; lg3 00:49 PENICILLINS; lg3 - PMHx: 00:49 CAD; High Cholesterol; Hyertension; NSTEMI; lg3 - PSHx: 00:49 CABG; lg3 - Immunization history:: Adult Immunizations up to date. - Infectious Disease History:: Denies. - Social history:: Smoking status: Patient denies any tobacco usage or history of. Patient/guardian denies using alcohol, street drugs. Screenin:[address] [facility] ED Fall Risk Assessment (Adult) History of falling in the last 3 months, lg3 including since admission No falls in past 3 months (0 pts) Confusion or Disorientation No (0 pts) Intoxicated or Sedated No (0 pts) Impaired Gait No (0 pts) Mobility Assist Device Used No (0 pt) Altered Elimination No (0 pt) Score/Fall Risk Level 0 - 2 = Low Risk Oriented to surroundings, Maintained a safe environment, Educated pt \T\ family on fall prevention, incl call for assistance when getting out of bed, Assessed \T\ reinforced patient's understanding of fall precautions. Abuse screen: Denies threats or abuse. Denies injuries from another. Nutritional screening: No deficits noted. Tuberculosis screening: No symptoms or risk factors identified. Assessment: 00:59 General: see triage assessment. lg3 Vital Signs: 00:47 BP 127 / 71; Pulse 89; Resp 16; Temp 97.5(O); Pulse Ox 97% on R/A; Weight 79.83 kg (R); lg3 Height 5 ft. 9 in. (R); Pain 2/10; 00:47 Body Mass Index 25.99 (79.83 kg, 175.26 cm) lg3 00:47 Pain Scale: Adult lg3 ED Course: 00:20 Patient arrived in ED. gm2 00:27 Lei Ham DO is Attending Physician. ms3 00:49 Triage completed. lg3 00:49 Arm band placed on right wrist. lg3 00:56 oRberto Carlos Phan FNP-C is PHCP. dr5 00:59 Patient has correct armband on for positive identification. Placed in gown. Bed in low lg3 position. Call light in reach. Client placed on continuous cardiac and pulse oximetry monitoring. NIBP monitoring applied. Door closed. Noise minimized. Warm blanket given. Pillow given. 00:59 Assisted provider with: 22F pierre placed by provider. 750ml urine output. Pierre cath lg3 inserted, using sterile technique, 22 Fr., by ED staff, balloon inflated, to gravity drainage, returned clear yellow urine. Patient tolerated well. Patient did not have IV access during this emergency room visit. Administered Medications: No medications were administered Medication: 00:59 VIS not applicable for this client. lg3 Outcome: 00:56 Discharge ordered by . dr5 00:59 Discharged to home ambulatory, lg3 00:59 Condition: stable 00:59 Discharge instructions given to patient, Instructed on discharge instructions, follow up and referral plans. Demonstrated understanding of instructions, follow-up care, 01:01 Patient left the ED. lg3 Signatures: Carmen Taveras RN RN lg3 Lei Ham DO DO ms3 Taylor Malloy gm2 Roberto Carlos Phan, WAREHOUSE PRICING AND INVENTORY CLERK-C WAREHOUSE PRICING AND INVENTORY CLERK-[facility]5
[2024-06-08 02:42] VITALS: BP 127/71; TEMP 97.5; O2SAT 97
== END 2024-06-08 01:01 | disposition home or self-care (01) ==
LOC: ER 00:17
DX: T83.098A Other mechanical complication of other urinary catheter, initial encounter (principal)
CPT/HCPCS: 51702; 99284

== ENCOUNTER 2024-06-08 22:46 | Emergency (ER) | payer OTHER ==
[2024-06-09] MEDS ORDERED: WATER FOR INJ,STERILE 30 ML ONE (00:20)
[2024-06-09] MEDS ORDERED: WATER FOR INJ,STERILE 10 ML ONE (02:05)
--- NOTE | 2024-06-09 02:10 | ER ---
Nurse's Notes [facility] Name: Devyn Trejo Age: 73 yrs Sex: Male : 1950 Arrival Date: 06/08/2024 Time: 22:46 Bed 6 Private MD: Diagnosis: Mechanical complication of urinary (indwelling) catheter Presentation: 06/08 23:03 Chief complaint: Patient states: ESPINO CATHETER NOT DRAINING, IT WAS INSERTED YESTERDAY ha1 . 23:03 Coronavirus screen: Client denies travel out of the [place] in the last 14 days. Ebola ha1 Screen: No symptoms or risks identified at this time. Initial Sepsis Screen: Does the patient meet any 2 criteria? No. Patient's initial sepsis screen is negative. Does the patient have a suspected source of infection? No. Patient's initial sepsis screen is negative. Risk Assessment: Do you want to hurt yourself or someone else? Patient reports no desire to harm self or others. Onset of symptoms was June 08, 2024. 23:03 Method Of Arrival: Ambulatory ha1 23:03 Acuity: KEN 4 ha1 Triage Assessment: 23:24 General: Appears in no apparent distress. uncomfortable, Behavior is calm, cooperative, bm8 appropriate for age. 23:24 Pain: Complains of pain in pelvis Pain currently is 5 out of 10 on a pain scale. EENT: bm8 No deficits noted. Neuro: No deficits noted. Cardiovascular: No deficits noted. Respiratory: No deficits noted. GI: No deficits noted. : Espino in place to gravity drainage pt reports clots blocking his urine flow despite him flushing it. It has been since lunch time that any thing has drained. Derm: No deficits noted. Musculoskeletal: No deficits noted. Historical: - Allergies: 06/09 01:24 Erythromycin; bm8 01:24 PENICILLINS; bm8 - Home Meds: 01:24 Aspirin Oral [Active]; bm8 - PMHx: 01:24 CAD; High Cholesterol; Hyertension; NSTEMI; bm8 - PSHx: 01:24 CABG; bladder tumor removal (CABG); bm8 - Immunization history:: Adult Immunizations up to date. - Infectious Disease History:: Denies. - Family history:: not pertinent. - Social history:: Smoking status: . Screenin:24 [facility] ED Fall Risk Assessment (Adult) History of falling in the last 3 months, bm8 including since admission No falls in past 3 months (0 pts) Confusion or Disorientation No (0 pts) Intoxicated or Sedated No (0 pts) Impaired Gait No (0 pts) Mobility Assist Device Used No (0 pt) Altered Elimination No (0 pt) Score/Fall Risk Level 0 - 2 = Low Risk Oriented to surroundings, Maintained a safe environment, Educated pt \T\ family on fall prevention, incl call for assistance when getting out of bed, Assessed \T\ reinforced patient's understanding of fall precautions, Hourly rounding (assess needs \T\ fall precautionary measures) done, Used ambulatory aids as needed (educated on \T\ assisted with), Used gait belt as appropriate. Abuse screen: Denies threats or abuse. Nutritional screening: No deficits noted. Tuberculosis screening: No symptoms or risk factors identified. Assessment: 00:20 Reassessment: push pull method used on current pt cath has been unsuccessful. New espino bm8 coude 20 fr started aseptically. 01:23 Reassessment: New Cath proved to be unsuccessful as well. Starting a three way with bm8 Irrigation. 02:10 Reassessment: Patient appears in no apparent distress at this time. Patient and/or bm8 family updated on plan of care and expected duration. Pain level reassessed. Patient is alert, oriented x 3, equal unlabored respirations, skin warm/dry/pink. Patient denies pain at this time. Patient states feeling better. Patient states symptoms have improved. Vital Signs: 06/08 23:03 BP 126 / 71; Pulse 96; Resp 19 S; Temp 98.3; Pulse Ox 98% on R/A; Weight 79.38 kg; ha1 Height 5 ft. 9 in. ; Pain 3/10; 06/09 01:24 BP 110 / 63; Pulse 78; Resp 20; Temp 98.3; Pulse Ox 98% ; Pain 2/10; bm8 02:10 BP 122 / 69; Pulse 80; Resp 18; Temp 98.3; Pulse Ox 98% ; Pain 0/10; bm8 06/08 23:03 Body Mass Index 25.84 (79.38 kg, 175.26 cm) 1 06/08 23:03 Pain Scale: Adult ha1 04/27 01:24 Pain Scale: Adult bm8 02:10 Pain Scale: Adult bm8 [place] Coma Score: 01:24 Eye Response: spontaneous(4). Motor Response: obeys commands(6). Verbal Response: bm8 oriented(5). Total: 15. 02:10 Eye Response: spontaneous(4). Motor Response: obeys commands(6). Verbal Response: bm8 oriented(5). Total: 15. ED Course: 06/08 22:49 Patient arrived in ED. jj6 22:49 Otoniel Schilling MD is Attending Physician. rt 23:24 Arm band placed on right wrist. bm8 23:25 Triage completed. ha1 06/09 01:18 Antwon Rasmussen, RN is Primary Nurse. bm8 01:24 Patient has correct armband on for positive identification. Bed in low position. Call bm8 light in reach. Side rails up X 1. Client placed on continuous cardiac and pulse oximetry monitoring. NIBP monitoring applied. Pulse ox on. NIBP on. Door closed. Noise minimized. Warm blanket given. Pillow given. Verbal reassurance given. Head of bed lowered. One-on-one care X 120 minutes. 01:24 No provider procedures requiring assistance completed. 3-way catheter inserted, using bm8 sterile technique, 22 Fr. set to irrigation at this time. 02:09 Jude Corral MD is Referral Physician. rt 02:10 Provided Education on: post er care. bm8 02:10 Patient did not have IV access during this emergency room visit. bm8 Administered Medications: No medications were administered Medication: 01:24 VIS not applicable for this client. bm8 Outcome: 02:10 Discharge ordered by . rt 02:13 Discharged to home ambulatory, bm8 02:13 Condition: stable 02:13 Discharge instructions given to patient, Instructed on discharge instructions, follow up and referral plans. no drinking with medication, no driving heavy equipment, medication usage, Demonstrated understanding of instructions, follow-up care, medications, 02:16 Patient left the ED. bm8 Signatures: Kylee Santizo jj6 Missy Rosen, RN RN ha1 Otoniel Schilling MD MD rt Antwon Rasmussen, RN RN bm8
--- NOTE | 2024-06-09 02:10 | EDPHYS ---
Physician Documentation [facility] Name: Devyn Trejo Age: 73 yrs Sex: Male : 1950 Arrival Date: 06/08/2024 Time: 22:46 Bed 6 Private MD: ED Physician Otoniel Schilling HPI: 06/08 23:24 This 73 yrs old Male presents to ER via Unassigned with complaints of Problem With rt Urinary Catheter. 23:24 Patient had a bladder tumor removal on Monday by Dr. Corral. Patient was seen in the rt ED last night for hematuria which clog his Pierre catheter. Patient states that he believes that this has happened again, noted some blood in his catheter with decreased urinary output. He feels like his bladder is filling up. Denies other acute complaints at this time, symptoms are moderate in severity, no other aggravating alleviating factors.. Historical: - Allergies: 06/09 01:24 Erythromycin; bm8 01:24 PENICILLINS; bm8 - Home Meds: 01:24 Aspirin Oral [Active]; bm8 - PMHx: 01:24 CAD; High Cholesterol; Hyertension; NSTEMI; bm8 - PSHx: 01:24 CABG; bladder tumor removal (CABG); bm8 - Immunization history:: Adult Immunizations up to date. - Infectious Disease History:: Denies. - Family history:: not pertinent. - Social history:: Smoking status: . ROS: 06/08 23:24 Constitutional: Negative for fever, chills, and weight loss, Cardiovascular: Negative rt for chest pain, palpitations, and edema, Respiratory: Negative for shortness of breath, cough, wheezing, and pleuritic chest pain, Abdomen/GI: Negative for abdominal pain, nausea, vomiting, diarrhea, and constipation, Skin: Negative for injury, rash, and discoloration, Neuro: Negative for headache, weakness, numbness, tingling, and seizure, : Positive for Hematuria, urinary retention, Exam: 23:24 Constitutional: This is a well developed, well nourished patient who is awake, alert, rt and in no acute distress. Head/Face: Normocephalic, atraumatic. Chest/axilla: Normal chest wall appearance and motion. Nontender with no deformity. No lesions are appreciated. Cardiovascular: Regular rate and rhythm with a normal S1 and S2. No gallops, murmurs, or rubs. Normal PMI, no JVD. No pulse deficits. Respiratory: Lungs have equal breath sounds bilaterally, clear to auscultation and percussion. No rales, rhonchi or wheezes noted. No increased work of breathing, no retractions or nasal flaring. Skin: Warm, dry with normal turgor. Normal color with no rashes, no lesions, and no evidence of cellulitis. MS/ Extremity: Pulses equal, no cyanosis. Neurovascular intact. Full, normal range of motion. Neuro: Awake and alert, GCS 15, oriented to person, place, time, and situation. Cranial nerves II-XII grossly intact. Motor strength 5/5 in all extremities. Sensory grossly intact. Cerebellar exam normal. Normal gait. 23:24 Abdomen/GI: Fullness without tenderness to the suprapubic region, Vital Signs: 23:03 BP 126 / 71; Pulse 96; Resp 19 S; Temp 98.3; Pulse Ox 98% on R/A; Weight 79.38 kg; ha1 Height 5 ft. 9 in. ; Pain 3/10; 06/09 01:24 BP 110 / 63; Pulse 78; Resp 20; Temp 98.3; Pulse Ox 98% ; Pain 2/10; bm8 02:10 BP 122 / 69; Pulse 80; Resp 18; Temp 98.3; Pulse Ox 98% ; Pain 0/10; bm8 06/08 23:03 Body Mass Index 25.84 (79.38 kg, 175.26 cm) [facility] 06/08 23:03 Pain Scale: Adult [facility] 06/09 01:24 Pain Scale: Adult bm8 02:10 Pain Scale: Adult bm8 [place] Coma Score: 01:24 Eye Response: spontaneous(4). Motor Response: obeys commands(6). Verbal Response: bm8 oriented(5). Total: 15. 02:10 Eye Response: spontaneous(4). Motor Response: obeys commands(6). Verbal Response: bm8 oriented(5). Total: 15. MDM: 06/08 23:06 Medical Screening Exam initiated rt 06/09 03:34 Differential Diagnosis Gross hematuria, Pierre catheter complication. Data reviewed: rt vital signs, nurses notes. Care significantly affected by the following chronic conditions: Hypertension. Counseling: I had a detailed discussion with the patient and/or guardian regarding the historical points, exam findings, and any diagnostic results supporting the discharge/admit diagnosis, the need for outpatient follow up, to return to the emergency department if symptoms worsen or persist or if there are any questions or concerns that arise at home. Response to treatment: the patient's symptoms have markedly improved after treatment, Pierre catheter was replaced, urine is now flowing freely. Patient to follow-up on Monday with his urologist. 06/08 23:11 Order name: Herbert. Order: flush pierre; Complete Time: 01:28 rt Administered Medications: No medications were administered Disposition Summary: 06/09/24 02:10 Discharge Ordered Notes: Location: Home rt Problem: an ongoing problem rt Symptoms: have improved rt Condition: Stable rt Diagnosis - Mechanical complication of urinary (indwelling) catheter rt Followup: rt - With: Jude Corral MD - When: 2 - 3 days - Reason: Discharge Instructions: - Discharge Summary Sheet rt - Indwelling Urinary Catheter Care, Adult rt Forms: - Medication Reconciliation Form rt - Antibiotic Education rt - Prescription Opioid Use rt - Patient Portal Instructions rt - Leadership Thank You Letter rt Signatures: Otoniel Schilling MD MD rt Antwon Rasmussen, RN RN bm8
[2024-06-11 01:26] VITALS: TEMP 98.3; O2SAT 98
[2024-06-11 01:29] VITALS: BP 122/69
== END 2024-06-09 02:16 | disposition home or self-care (01) ==
LOC: ER 22:46
DX: T83.098A Other mechanical complication of other urinary catheter, initial encounter (principal); Z95.1 Presence of aortocoronary bypass graft
CPT/HCPCS: 99291